=== PATIENT | male | born 1950 | race Caucasian/White ===

== ENCOUNTER → 2019-03-05 11:55 | Outpatient (BNVA) | payer MEDICARE, MEDICAID, SELFPAY | PROVIDERS: Family Provider Nurse Practitioner Family; PCP Nurse Practitioner Family; Visit Provider Nurse Practitioner Family | DX: Z00.00 Encounter for general adult medical examination without abnormal findings (principal); E11.39 Type 2 diabetes mellitus with other diabetic ophthalmic complication; I10 Essential (primary) hypertension; E78.2 Mixed hyperlipidemia; H66.93 Otitis media, unspecified, bilateral; E55.9 Vitamin D deficiency, unspecified; H61.23 Impacted cerumen, bilateral | CPT/HCPCS: 36415; 80053; 80061; 81001; 82306; 83036; 84443; 85025 ==

== ENCOUNTER → 2019-03-11 13:26 | Outpatient (BNVA) | payer MEDICARE, MEDICAID, SELFPAY | PROVIDERS: Family Provider Nurse Practitioner Family; PCP Nurse Practitioner Family; Referring Provider Nurse Practitioner Family; Visit Provider Otolaryngology | DX: H65.01 Acute serous otitis media, right ear (principal); H90.71 Mixed conductive and sensorineural hearing loss, unilateral, right ear, with unrestricted hearing on the contralateral side; J32.9 Chronic sinusitis, unspecified; J34.2 Deviated nasal septum | CPT/HCPCS: 96372; 99214; J3301 ==

== ENCOUNTER 2019-03-22 14:35 | Outpatient (CLI) | payer MEDICARE, MEDICAID, SELFPAY ==
--- NOTE | 2019-03-22 15:00 | CT_ITS ---
WS: [id number] CT TEMPORAL BONES WITHOUT CONTRAST HISTORY: Otalgia TECHNIQUE: Axial 1.25 mm imaging is performed through the temporal bones. High resolution 0.63 mm ref ormats were then submitted in axial, coronal and sagittal planes. DLP: 834.[address] scans at [facility] use at least one of these dose optimization techniques: automat ed exposure control; mA and/or kV adjustment per patient size (includes targeted exams where dose is matched to clinical indication); or iterative reconstruction. COMPARISON: None available. Opacification of the large portion of the RIGHT mastoid air cells with extension into the internal au ditory canal. Partial destruction of the mastoid air cells with extension of soft tissue into the int ernal auditory canal. Soft tissue extends into the mesotympanum. Small amount of soft tissue adjacent to the inner ear ossicles. No erosion of the scutum. LEFT mastoid air cells are clear. No soft tissue along the internal or external auditory canal on the RIGHT. CT/CT temporal bone wo con* [id number] IMPRESSION: Extensive opacification in the RIGHT mastoid air cells with extension into the mesotympanum and adjacent inner ear ossicles. Favor otomastoiditis. Atypical ch olesteatoma should be considered within the differential.
== END 2019-03-22 14:36 | disposition home or self-care (01) ==
LOC: RADWPI 14:39
PROVIDERS: Family Provider Nurse Practitioner Family; PCP Nurse Practitioner Family; Visit Provider Otolaryngology
DX: H92.09 Otalgia, unspecified ear (principal)
CPT/HCPCS: 70480

== ENCOUNTER → 2019-03-29 12:48 | Outpatient (BNVA) | payer MEDICARE, MEDICAID, SELFPAY | PROVIDERS: Family Provider Nurse Practitioner Family; PCP Nurse Practitioner Family; Visit Provider Otolaryngology | DX: H90.71 Mixed conductive and sensorineural hearing loss, unilateral, right ear, with unrestricted hearing on the contralateral side (principal); H65.31 Chronic mucoid otitis media, right ear; J34.2 Deviated nasal septum | CPT/HCPCS: 99214 ==

== ENCOUNTER → 2019-04-02 12:23 | Outpatient (BNVA) | payer MEDICARE, MEDICAID, SELFPAY | PROVIDERS: Family Provider Nurse Practitioner Family; PCP Nurse Practitioner Family; Visit Provider Nurse Practitioner Family | DX: I10 Essential (primary) hypertension (principal) | CPT/HCPCS: 80053 ==

== ENCOUNTER → 2019-04-26 12:51 | Outpatient (BNVA) | payer MEDICARE, MEDICAID, SELFPAY | PROVIDERS: Family Provider Nurse Practitioner Family; PCP Nurse Practitioner Family; Visit Provider Otolaryngology | DX: J34.2 Deviated nasal septum (principal); H90.71 Mixed conductive and sensorineural hearing loss, unilateral, right ear, with unrestricted hearing on the contralateral side; H65.31 Chronic mucoid otitis media, right ear | CPT/HCPCS: 99214 ==

== ENCOUNTER 2019-05-05 07:19 | Day surgery (SDC) | payer MEDICARE, MEDICAID, SELFPAY ==
[2019-05-04 11:50] VITALS: BMI 37.0
[2019-05-05 08:16] VITALS: BP 165/78; PULSE 61; RESP 18; TEMP 36.2; O2SAT 94
--- NOTE | 2019-05-05 08:18 | P.ANESASSM_ITS ---
Pre-Anesthetic Assessment Pre-Anesthetic Assessment: Height/Weight: Height 1.65 m Weight 101.151 kg Pulse Resp BP Pulse Ox 61 18 165/78 94 05/05/19 08:16 05/05/19 08:16 05/05/19 08:16 05/05/19 08:16 Preop Diagnosis: csom Proposed Procedure: Operation Date: 05/05/19 10:15 Proposed Procedures p Myringotomy and Tubes [id number] H65.31(Right) - Jax Ferrara MD Last Intake: 15:30 Exam: Pre-Anes Outpt Exam: alert, oriented x 3, clear to auscultation bilaterally and regular rate & rhythm Airway: Submandibular: Other Cervical ROM: Other MP: 4 (grade !V airway) Pulmonary: Pulmonary: Sleep apnea CV/HEM: CV/HEM: CAD and DC Comments: 18 CABG x 3, stent to RCA Metabolic: Metabolic: DM and Morbid obesity Comments: rx'd x 20y, normally does not follow Anesthetic Plan: ASA status: 3 Anesthesia: General PFSH Anesthesia PFSH: Medical History (Updated 04/26/19 @ 20:35 by Keith Willoughby MD) CAD (coronary artery disease) Chronic secretory otitis media Diabetes Patient has been care home diabetic with 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 He cannot manage insulin at home and is currently controlled with Ozempic weekly. Essential hypertension Patient is currently well controlled with antihypertensives FH: CABG (coronary artery bypass surgery) Hyperlipidemia STEMI (ST elevation myocardial infarction) Vitamin D deficiency Patient has history of Vitamin D deficiency and take home D3 supplement Social History Smoking and tobacco status: never smoked Second hand smoke exposure: No Data Anesthesia Cardiac Studies: No Data to Display
--- NOTE | 2019-05-05 08:34 | W.PM.OPSUD ---
Surgery/Procedure H&P Update DATE OF PROCEDURE: May 05, 2019 DATE H&P PERFORMED: 04/30/19 H&P UPDATE INFORMATION: I have reviewed H&P completed within last 30 days, I have examined patient prior to procedure and No changes to prior documentation PREOP DIAGNOSIS: csom PLANNED PROCEDURE: Operation Date: 05/05/19 10:15 Proposed Procedures p Myringotomy and Tubes [id number] H65.31(Right) - Jax Ferrara MD
[2019-05-05] MEDS: sodium chloride 0.9% 1,000 ML 30 ML IV (08:35)
--- NOTE | 2019-05-05 08:41 | PM.OP ---
Operative Report Date of procedure: May 05, 2019 Pre-op Diagnosis: csom Post-op diagnosis: same Procedure Done: right myringotomy and tube Pathology: none sent Surgeon: Jax Ferrara Anesthesia: General Complications: none Condition: stable Disposition: PACU Procedure: The patient was taken to the operating room and under satisfactory general mask anesthesia the right ear was examined using the binocular microscope. Cerumen was removed from the external auditory canal. A radial incision was made in the anterior inferior quadrant of the tympanic membrane. Fluid was suctioned from the middle ear space and a #1 Paparella tube was placed. The patient was taken to the recovery room where they were observed. During the observation period postoperative care instructions and counseling including detailed written and verbal instructions given to the caregiver. Once the patient met discharge criteria and once all parties verbalized understanding of all instructions the patient was discharged in satisfactory and stable condition.
[2019-05-05 08:46] LABS: Glucose Point of Care 143 mg/dL (70-110)
[2019-05-05] MEDS: ofloxacin 0.3% Op Soln 5 mL Btl 4 DROP XX (08:51)
[2019-05-05 08:55] VITALS: BP 164/92; PULSE 60; RESP 18; TEMP 36.4; O2SAT 96
[2019-05-05 09:13] VITALS: BP 174/86; PULSE 62; RESP 18; O2SAT 96
== END 2019-05-05 09:33 | disposition home or self-care (01) ==
PROVIDERS: Family Provider Nurse Practitioner Family; PCP Nurse Practitioner Family; Visit Provider Otolaryngology
PROC: (CPT 69420; principal; 2019-05-05 10:05)
DX: H65.31 Chronic mucoid otitis media, right ear (principal); G47.30 Sleep apnea, unspecified; I25.10 Atherosclerotic heart disease of native coronary artery without angina pectoris; I25.2 Old myocardial infarction; E11.9 Type 2 diabetes mellitus without complications; E66.01 Morbid (severe) obesity due to excess calories; Z68.37 Body mass index [BMI] 37.0-37.9, adult; Z95.1 Presence of aortocoronary bypass graft
CPT/HCPCS: 69436; 12345; 36416; 82962; J2001; J2704; J7030

== ENCOUNTER → 2019-07-01 15:00 | Outpatient (BNVA) | payer MEDICARE, MEDICAID, SELFPAY | PROVIDERS: Family Provider Nurse Practitioner Family; PCP Nurse Practitioner Family; Visit Provider Nurse Practitioner Family | DX: R19.7 Diarrhea, unspecified (principal); E78.5 Hyperlipidemia, unspecified; E11.39 Type 2 diabetes mellitus with other diabetic ophthalmic complication; I10 Essential (primary) hypertension; E55.9 Vitamin D deficiency, unspecified | CPT/HCPCS: 74018; 80053; 80061; 81001; 82306; 83036; 84443; 85025 ==

== ENCOUNTER → 2019-07-08 11:19 | Outpatient (BNVA) | payer MEDICARE, MEDICAID, SELFPAY | PROVIDERS: Family Provider Nurse Practitioner Family; PCP Nurse Practitioner Family; Visit Provider Nurse Practitioner Family | DX: E11.9 Type 2 diabetes mellitus without complications (principal); R30.0 Dysuria; E03.9 Hypothyroidism, unspecified; N52.9 Male erectile dysfunction, unspecified | CPT/HCPCS: 81001 ==

== ENCOUNTER → 2019-07-23 11:27 | Outpatient (BNVA) | payer MEDICARE, MEDICAID, SELFPAY | PROVIDERS: Family Provider Nurse Practitioner Family; PCP Nurse Practitioner Family; Visit Provider Nurse Practitioner Family | DX: J30.89 Other allergic rhinitis (principal); S80.219A Abrasion, unspecified knee, initial encounter; E11.9 Type 2 diabetes mellitus without complications | CPT/HCPCS: 80053 ==

== ENCOUNTER → 2019-07-30 12:05 | Outpatient (BNVA) | payer MEDICARE, MEDICAID, SELFPAY | PROVIDERS: Family Provider Nurse Practitioner Family; PCP Nurse Practitioner Family; Visit Provider Nurse Practitioner Family | DX: R25.2 Cramp and spasm (principal); R41.89 Other symptoms and signs involving cognitive functions and awareness | CPT/HCPCS: 80053 ==

== ENCOUNTER → 2019-08-23 11:32 | Outpatient (BNVA) | payer MEDICARE, MEDICAID, SELFPAY | PROVIDERS: Family Provider Nurse Practitioner Family; PCP Nurse Practitioner Family; Visit Provider Nurse Practitioner Family | DX: E11.9 Type 2 diabetes mellitus without complications (principal); E78.5 Hyperlipidemia, unspecified; E55.9 Vitamin D deficiency, unspecified; E03.9 Hypothyroidism, unspecified; Z79.899 Other long term (current) drug therapy; D64.9 Anemia, unspecified; R25.2 Cramp and spasm | CPT/HCPCS: 80053; 80061; 81001; 82306; 83036; 83540; 83721; 83735; 85025 ==

== ENCOUNTER → 2019-09-13 11:30 | Outpatient (BNVA) | payer MEDICARE, MEDICAID, SELFPAY | PROVIDERS: Family Provider Nurse Practitioner Family; PCP Nurse Practitioner Family; Visit Provider Nurse Practitioner Family | DX: D50.9 Iron deficiency anemia, unspecified (principal); E11.9 Type 2 diabetes mellitus without complications; L25.9 Unspecified contact dermatitis, unspecified cause; J30.89 Other allergic rhinitis | CPT/HCPCS: 80053; 81001; 82270; 82728; 83550; 85025 ==

== ENCOUNTER → 2019-11-12 11:48 | Outpatient (BNVA) | payer MEDICARE, MEDICAID, SELFPAY | PROVIDERS: Family Provider Nurse Practitioner Family; PCP Nurse Practitioner Family; Visit Provider Nurse Practitioner Family | DX: E11.9 Type 2 diabetes mellitus without complications (principal) | CPT/HCPCS: 36415; 80053; 81003 ==

== ENCOUNTER → 2019-11-16 10:55 | Outpatient (BNVA) | payer MEDICARE, MEDICAID, SELFPAY | PROVIDERS: Family Provider Nurse Practitioner Family; PCP Nurse Practitioner Family; Visit Provider Nurse Practitioner Family | DX: E11.9 Type 2 diabetes mellitus without complications (principal) | CPT/HCPCS: 36416; 82962 ==

== ENCOUNTER → 2019-11-22 10:39 | Outpatient (BNVA) | payer MEDICARE, MEDICAID, SELFPAY | PROVIDERS: Family Provider Nurse Practitioner Family; PCP Nurse Practitioner Family; Visit Provider Nurse Practitioner Family | DX: E11.8 Type 2 diabetes mellitus with unspecified complications (principal); M72.2 Plantar fascial fibromatosis; M79.673 Pain in unspecified foot; E11.9 Type 2 diabetes mellitus without complications | CPT/HCPCS: 73630; 82947 ==

== ENCOUNTER → 2019-11-26 14:21 | Outpatient (BNVA) | payer MEDICARE, MEDICAID, SELFPAY | PROVIDERS: Family Provider Nurse Practitioner Family; PCP Nurse Practitioner Family; Visit Provider Nurse Practitioner Family | DX: E08.29 Diabetes mellitus due to underlying condition with other diabetic kidney complication (principal) | CPT/HCPCS: 36416; 82962 ==

== ENCOUNTER 2019-12-01 13:24 | Outpatient (CLI) | payer MEDICARE, MEDICAID, SELFPAY ==
--- NOTE | 2019-12-01 13:29 | USCV_ITS ---
Guillermo Saha Age: 69 Gender: M : 1950 Exam Date: 12/01/2019 13:42 Ordering Phys: Michelle Mcintyre APN, APN Technologist: Nima Cruz Exam Location: [facility] [place] Indication: HX WI CAD BP: 175 / 86 HR: 73 Rhythm: Sinus Technical Quality: Poor because of body habitus MEASUREMENTS (Male / Female) Normal Values 2D ECHO LV Diastolic Diameter PLAX 3.6 cm 4.2 - 5.9 / 3.9 - 5.3 cm LV Systolic Diameter PLAX 2.4 cm IVS Diastolic Thickness 1.3 cm 0.6 - 1.0 / 0.6 - 0.9 cm IVS Systolic Thickness 1.2 cm LVPW Diastolic Thickness 1.1 cm 0.6 - 1.0 / 0.6 - 0.9 cm LVPW Systolic Thickness 1.1 cm LVOT Diameter 2.0 cm LV Ejection Fraction 2D Teich 61.5 % LV Ejection Fraction MOD 2C 36.2 % LV Ejection Fraction 2C AL 34.3 % LA Diameter 3.0 cm DOPPLER MV Area PHT 5.0 cm squared Mitral E to A Ratio 0.8 MV E' Velocity 44.5 cm/s Mitral E to MV E' Ratio 10.8 Mitral E to LV E' Lateral Ratio 10.4 Mitral E to LV E' Septal Ratio 11.2 FINDINGS Left Ventricle Normal left ventricular size and systolic function. Regional wall motion abnormalities cannot be assessed because of limited visualization. Mild left ventricular hypertrophy is noted. Grade 1 diastolic dysfunction is present. Right Ventricle Right ventricle is not well visualized. Right Atrium Right atrium is not well visualized. Left Atrium The left atrium is normal in size. Mitral Valve Mitral valve is thickened and has moderate mitral annular calcification. Aortic Valve Not well-visualized. Tricuspid Valve Not well-visualized. Pulmonic Valve Not visualized. Pericardium Normal pericardium without effusion. Aorta Normal ascending aorta dimension. CONCLUSIONS This is technically limited quality study. LV systolic function is normal with EF of 55 to 60%. Grade 1 diastolic dysfunction is noted. Valves are not well visualized. Compared to prior study from 04/16/2016, no significant changes are noted. Sin Eastman MD (Electronically Signed) Final Date: 13 December 2019 18:08 S
== END 2019-12-01 13:25 | disposition home or self-care (01) ==
LOC: US 13:26
PROVIDERS: PCP Nurse Practitioner Family; Visit Provider Nurse Practitioner
DX: I49.3 Ventricular premature depolarization (principal); R06.02 Shortness of breath
CPT/HCPCS: 93306

== ENCOUNTER → 2019-12-13 12:26 | Outpatient (BNVA) | payer MEDICARE, MEDICAID, SELFPAY | PROVIDERS: PCP Nurse Practitioner Family; Visit Provider Family Medicine | DX: E11.8 Type 2 diabetes mellitus with unspecified complications (principal) | CPT/HCPCS: 83036 ==

== ENCOUNTER → 2019-12-21 13:15 | Outpatient (BNVA) | payer MEDICARE, MEDICAID, SELFPAY | PROVIDERS: PCP Nurse Practitioner Family; Visit Provider Internal Medicine | DX: E03.9 Hypothyroidism, unspecified (principal); E11.9 Type 2 diabetes mellitus without complications; E78.5 Hyperlipidemia, unspecified | CPT/HCPCS: 99204 ==

== ENCOUNTER → 2020-03-20 10:50 | Outpatient (BNVA) | payer MEDICAID, SELFPAY | PROVIDERS: PCP Nurse Practitioner Family; Visit Provider Internal Medicine Nephrology | DX: N18.30 Chronic kidney disease, stage 3 unspecified (principal) | CPT/HCPCS: 80069; 82043; 82310; 82570; 83970; 84156; 85025 ==

== ENCOUNTER 2020-03-21 07:00 | Outpatient (CLI) | payer MEDICAID, SELFPAY | END 2020-03-21 08:30 | disposition home or self-care (01) | LOC: LAB 04-03 07:19 | PROVIDERS: PCP Nurse Practitioner Family; Visit Provider Internal Medicine Nephrology | DX: E03.9 Hypothyroidism, unspecified (principal); E11.9 Type 2 diabetes mellitus without complications; E78.5 Hyperlipidemia, unspecified | CPT/HCPCS: 99213 ==

== ENCOUNTER 2020-04-27 09:39 | Outpatient (CLI) | payer MEDICARE, MEDICAID, SELFPAY | END 2020-04-27 09:40 | disposition home or self-care (01) | LOC: WOUND 09:40 | PROVIDERS: PCP Nurse Practitioner Family; Visit Provider Nurse Practitioner Family | DX: E11.621 Type 2 diabetes mellitus with foot ulcer (principal); L97.412 Non-pressure chronic ulcer of right heel and midfoot with fat layer exposed | CPT/HCPCS: 11042; G0463 ==

== ENCOUNTER 2020-05-04 09:41 | Outpatient (CLI) | payer MEDICARE, MEDICAID, SELFPAY | END 2020-05-04 09:42 | disposition home or self-care (01) | LOC: WOUND 09:42 | PROVIDERS: PCP Nurse Practitioner Family; Visit Provider Nurse Practitioner Family | DX: E11.621 Type 2 diabetes mellitus with foot ulcer (principal); L97.412 Non-pressure chronic ulcer of right heel and midfoot with fat layer exposed | CPT/HCPCS: 11042 ==

== ENCOUNTER 2020-05-11 09:38 | Outpatient (CLI) | payer MEDICARE, MEDICAID, SELFPAY | END 2020-05-11 09:39 | disposition home or self-care (01) | LOC: WOUND 09:41 | PROVIDERS: PCP Nurse Practitioner Family; Visit Provider Nurse Practitioner Family | DX: E11.621 Type 2 diabetes mellitus with foot ulcer (principal); L97.412 Non-pressure chronic ulcer of right heel and midfoot with fat layer exposed; I96 Gangrene, not elsewhere classified | CPT/HCPCS: 11042 ==

== ENCOUNTER 2020-05-18 09:21 | Outpatient (CLI) | payer MEDICARE, MEDICAID, SELFPAY | END 2020-05-18 09:22 | disposition home or self-care (01) | LOC: WOUND 09:22 | PROVIDERS: PCP Nurse Practitioner Family; Visit Provider Nurse Practitioner Family | DX: E11.621 Type 2 diabetes mellitus with foot ulcer (principal); L97.412 Non-pressure chronic ulcer of right heel and midfoot with fat layer exposed; I96 Gangrene, not elsewhere classified | CPT/HCPCS: 11042 ==

== ENCOUNTER 2020-05-25 09:49 | Outpatient (CLI) | payer MEDICARE, MEDICAID, SELFPAY | END 2020-05-25 09:50 | disposition home or self-care (01) | LOC: WOUND 09:50 | PROVIDERS: PCP Nurse Practitioner Family; Visit Provider Nurse Practitioner Family | DX: E11.621 Type 2 diabetes mellitus with foot ulcer (principal); L97.412 Non-pressure chronic ulcer of right heel and midfoot with fat layer exposed | CPT/HCPCS: 11042 ==

== ENCOUNTER 2020-06-01 09:40 | Outpatient (CLI) | payer MEDICARE, MEDICAID, SELFPAY | END 2020-06-01 09:41 | disposition home or self-care (01) | LOC: WOUND 09:41 | PROVIDERS: PCP Nurse Practitioner Family; Visit Provider Nurse Practitioner Family | DX: E11.621 Type 2 diabetes mellitus with foot ulcer (principal); L97.412 Non-pressure chronic ulcer of right heel and midfoot with fat layer exposed | CPT/HCPCS: 11042 ==

== ENCOUNTER → 2020-06-09 10:09 | Outpatient (BNVA) | payer MEDICARE, MEDICAID, SELFPAY | PROVIDERS: PCP Nurse Practitioner Family; Visit Provider Nurse Practitioner Family | DX: G44.229 Chronic tension-type headache, not intractable (principal); E11.59 Type 2 diabetes mellitus with other circulatory complications | CPT/HCPCS: 36416; 82962 ==

== ENCOUNTER 2020-06-15 09:55 | Outpatient (CLI) | payer MEDICARE, MEDICAID, SELFPAY | END 2020-06-15 09:56 | disposition home or self-care (01) | LOC: WOUND 09:57 | PROVIDERS: PCP Nurse Practitioner Family; Visit Provider Nurse Practitioner Family | DX: Z09 Encounter for follow-up examination after completed treatment for conditions other than malignant neoplasm (principal) | CPT/HCPCS: 99212 ==

== ENCOUNTER → 2020-12-11 10:59 | Outpatient (BNVA) | payer MEDICARE, MEDICAID, SELFPAY | PROVIDERS: PCP Nurse Practitioner Family; Visit Provider Family Medicine | DX: B35.1 Tinea unguium (principal); L60.0 Ingrowing nail; E11.40 Type 2 diabetes mellitus with diabetic neuropathy, unspecified; E11.59 Type 2 diabetes mellitus with other circulatory complications; M72.2 Plantar fascial fibromatosis | CPT/HCPCS: 80053; 83036 ==

== ENCOUNTER → 2020-12-26 09:48 | Outpatient (BNVA) | payer MEDICARE, MEDICAID, SELFPAY | PROVIDERS: PCP Nurse Practitioner Family; Visit Provider Family Medicine | DX: N17.9 Acute kidney failure, unspecified (principal); E11.59 Type 2 diabetes mellitus with other circulatory complications | CPT/HCPCS: 80053 ==

== ENCOUNTER 2020-12-27 09:01 | Outpatient (CLI) | payer MEDICARE, MEDICAID, SELFPAY | END 2020-12-27 09:02 | disposition home or self-care (01) | LOC: WOUND 09:02 | PROVIDERS: PCP Nurse Practitioner Family; Visit Provider Thoracic Surgery (Cardiothoracic Vascular Surgery) | DX: L85.3 Xerosis cutis (principal) | CPT/HCPCS: G0463 ==

== ENCOUNTER → 2021-01-18 11:26 | Outpatient (BNVA) | payer MEDICARE, MEDICAID, SELFPAY | PROVIDERS: PCP Nurse Practitioner Family; Visit Provider Nurse Practitioner Family | DX: K59.00 Constipation, unspecified (principal) | CPT/HCPCS: 74018 ==

== ENCOUNTER → 2021-09-11 11:25 | Outpatient (BNVA) | payer MEDICAID, SELFPAY | PROVIDERS: PCP Nurse Practitioner Family; Referring Provider Nurse Practitioner Family; Visit Provider Podiatrist Foot & Ankle Surgery | DX: E11.8 Type 2 diabetes mellitus with unspecified complications (principal); E11.59 Type 2 diabetes mellitus with other circulatory complications; E11.42 Type 2 diabetes mellitus with diabetic polyneuropathy; I73.9 Peripheral vascular disease, unspecified; L60.3 Nail dystrophy; M20.42 Other hammer toe(s) (acquired), left foot; M20.41 Other hammer toe(s) (acquired), right foot; M20.32 Hallux varus (acquired), left foot; L85.1 Acquired keratosis [keratoderma] palmaris et plantaris | CPT/HCPCS: 11056; 11721 ==

== ENCOUNTER → 2021-10-08 10:09 | Outpatient (BNVA) | payer MEDICAID, SELFPAY | PROVIDERS: PCP Nurse Practitioner Family; Visit Provider Registered Nurse | DX: N18.31 Chronic kidney disease, stage 3a (principal) | CPT/HCPCS: 80069; 82043; 85007; 85027 ==

== ENCOUNTER → 2021-11-26 10:23 | Outpatient (BNVA) | payer MEDICARE, MEDICAID, SELFPAY | PROVIDERS: PCP Nurse Practitioner; Visit Provider Nurse Practitioner | DX: E11.9 Type 2 diabetes mellitus without complications (principal) | CPT/HCPCS: 83036 ==

== ENCOUNTER → 2021-12-04 10:17 | Outpatient (BNVA) | payer MEDICAID, SELFPAY | PROVIDERS: PCP Nurse Practitioner; Visit Provider Internal Medicine Nephrology | DX: N18.30 Chronic kidney disease, stage 3 unspecified (principal) | CPT/HCPCS: 80069; 81003; 82043; 82542; 85025; 87086 ==

== ENCOUNTER → 2022-02-05 09:23 | Outpatient (BNVA) | payer MEDICARE, MEDICAID, SELFPAY | PROVIDERS: PCP Nurse Practitioner; Visit Provider Nurse Practitioner | DX: E11.9 Type 2 diabetes mellitus without complications (principal) | CPT/HCPCS: 82962 ==

== ENCOUNTER → 2022-02-13 10:29 | Outpatient (BNVA) | payer MEDICARE, MEDICAID, SELFPAY | PROVIDERS: PCP Nurse Practitioner; Visit Provider Internal Medicine Cardiovascular Disease | DX: I25.10 Atherosclerotic heart disease of native coronary artery without angina pectoris (principal); Z95.1 Presence of aortocoronary bypass graft; I13.0 Hypertensive heart and chronic kidney disease with heart failure and stage 1 through stage 4 chronic kidney disease, or unspecified chronic kidney disease; E11.22 Type 2 diabetes mellitus with diabetic chronic kidney disease; N18.30 Chronic kidney disease, stage 3 unspecified; I50.9 Heart failure, unspecified; Z79.84 Long term (current) use of oral hypoglycemic drugs; E78.5 Hyperlipidemia, unspecified | CPT/HCPCS: 99214 ==

== ENCOUNTER → 2022-08-14 12:22 | Outpatient (BNVA) | payer MEDICARE, MEDICAID, SELFPAY | PROVIDERS: PCP Nurse Practitioner; Visit Provider Internal Medicine Cardiovascular Disease | DX: I13.0 Hypertensive heart and chronic kidney disease with heart failure and stage 1 through stage 4 chronic kidney disease, or unspecified chronic kidney disease (principal); N18.9 Chronic kidney disease, unspecified; I50.9 Heart failure, unspecified; I25.10 Atherosclerotic heart disease of native coronary artery without angina pectoris; E11.22 Type 2 diabetes mellitus with diabetic chronic kidney disease; E78.5 Hyperlipidemia, unspecified | CPT/HCPCS: 36415; 80053; 80061; 83036; 84443; 85025; 99214 ==

== ENCOUNTER 2022-08-31 00:25 | Inpatient (IN) | payer MEDICARE, MEDICAID, SELFPAY ==
[2022-08-31] VITALS (75 sets, daily range): BP systolic 90–170; BP diastolic 60–129; PULSE 78–132; RESP 16–37; TEMP 36.6–36.7; O2SAT 86–100; BMI 32.8
--- NOTE | 2022-08-31 00:27 | XRR_ITS ---
PROCEDURE INFORMATION: Exam: XR Chest Exam date and time: 08/31/2022 12:23 AM Age: 72 years old Clinical indication: Chest pressure; Prior surgery; Surgery date: 6+ months; Surgery type: Cabg; Patient HX: Stemi alert. C/O chest pain. History of chf and copd. ; Additional info: Cp TECHNIQUE: Imaging protocol: Radiologic exam of the chest. Views: 1 view. COMPARISON: CR XR chest 2V* [id number] 12/05/2016 8:14 AM FINDINGS: Lungs: Moderate lung expansion. Asymmetric left basal opacities. Additional right basilar opacities. Mild perihilar opacities with septal thickening. Pleural spaces: Small bilateral pleural effusions. No pneumothorax. Heart/Mediastinum: Mild cardiac enlargement. Prominence of the vascular pedicle suggesting elevated intravascular volume. Bones/joints: Intact sternotomy. XR/XR chest 1V portable [id number] IMPRESSION: 1. Asymmetric left basal opacities concerning for pneumonia. Recommend radiographic follow-up imaging in 6-8 weeks to document resolution. Separate morphology right basilar opacities may be on the basis of atelectasis in the setting of small pleural effusion, additional focus of consolidation not excluded. 2. Mild pulmonary edema and small bilateral pleural effusions.
--- NOTE | 2022-08-31 00:27 | ECG_ITS ---
[facility] Test Date: 2022-08-31 Pat Name: Guillermo Saha Department: Room: Gender: Male Cops: : 1950 Requested By: Merlin Hinojosa Order Number: [id number] Cortney MD: Ben Esparza M.D. Measurements Intervals [place] Rate: 131 P: 10 FL: 142 QRS: 28 QRSD: 117 T: 182 QT: 312 QTc: 461 Interpretive Statements SINUS TACHYCARDIA LOW QRS VOLTAGE IN EXTREMITY LEADS [QRS DEFLECTION < 0.5 mV IN LIMB LEADS] INFERIOR MYOCARDIAL INFARCTION , OF INDETERMINATE AGE [40+ ms Q WAVE AND/OR ST/T ABNORMALITY IN II/aVF] Compared to ECG 12/04/2016 05:29:57 Low QRS voltage now present Sinus rhythm no longer present Ventricular premature complex(es) no longer present T-wave abnormality no longer present Possible ischemia no longer present Myocardial infarct finding still present Electronically Signed On 08-31-2022 12:54:45 CDT by Ben Esparza M.D. [id number]
--- NOTE | 2022-08-31 00:36 | CTR_ITS ---
PROCEDURE INFORMATION: Exam: CTA Chest With Contrast Exam date and time: 08/31/2022 1:20 AM Age: 72 years old Clinical indication: Shortness of breath; Chest pressure; Prior surgery; Surgery date: 6+ months; Surgery type: Cabg; Patient HX: Chest pain with SOB, tachycardia, and hypoxia. History of chf and copd. ; Additional info: Hypoxia tachycardia cp TECHNIQUE: Imaging protocol: Computed tomographic angiography of the chest with contrast. Exam focused on the arteries. 3D rendering (Not supervised by radiologist): MIP and/or 3D reconstructed images were created by the technologist. Radiation optimization: All CT scans at this facility use at least one of these dose optimization techniques: automated exposure control; mA and/or kV adjustment per patient size (includes targeted exams where dose is matched to clinical indication); or iterative reconstruction. Contrast material: OMNI 350; Contrast volume: 65 ml; Contrast route: INTRAVENOUS (IV); REPORTING DATA: Count of CT and Cardiac NM exams in prior 12 months: This patient has received 0 known CTs and 0 known cardiac nuclear medicine studies in the 12 months prior to the current study. COMPARISON: CT angio chest PE protcl [id number] 12/03/2016 10:25 AM RADIATION DOSE METRICS: Total DLP (mGy-cm): 523.76 FINDINGS: Pulmonary arteries: Main pulmonary artery is borderline dilated . Pulmonary arteries are well opacified to the mid subsegmental level. Limited evaluation of subsegmental pulmonary arteries in the lung bases secondary to significant respiratory motion artifact. No definite pulmonary artery filling defects seen. Aorta: Mild atherosclerotic calcification of the thoracic aorta and arch vessels. Lungs: Prominent peribronchial thickening. Interlobular septal thickening. Mixed atelectasis/consolidation in the right lower lobe. Ill-defined nodularity and opacities within the lingula. Left lower lobe consolidation. Pleural spaces: Small bilateral pleural effusions. No pneumothorax. Heart: Left atrial enlargement. Prominent mitral valve annulus calcifications. Coronary arteries: Severe [place] coronary artery calcifications. Status post CABG with FIGUEROA and saphenous venous grafting. Lymph nodes: Conspicuous but subcentimeter lymph nodes in the mediastinum. Calcified left hilar lymph nodes suggesting sequela of prior granulomatous disease. Diaphragm: Mild elevation of the left hemidiaphragm. Spleen: Punctate calcified granuloma the spleen. Adrenal glands: Stable low-density left adrenal thickening without discrete nodule. Subcentimeter hyperdensity at the left superior renal pole, likely hemorrhagic cyst. Bones/joints: Intact sternotomy. Soft tissues: Unremarkable. CT/CT angio chest PE protcl [id number] IMPRESSION: 1. Limited assessment of the subsegmental pulmonary arteries of the lung bases secondary to significant respiratory motion artifact. Otherwise, no evidence of acute pulmonary embolism. 2. Findings of multifocal pneumonia. 3. Mild interstitial pulmonary edema and small bilateral pleural effusions. COMMENTS: Consistent with the [employer]'s Incidental Findings Committee white paper (J Am Elva Radiol 2018): Any incidental renal lesion less than 1 cm or classified as too small to characterize, or any incidental cystic renal lesion characterized as simple-appearing, is likely benign. No follow-up imaging is recommended for these lesions per consensus recommendations based on imaging criteria.
[2022-08-31] MEDS: nitroglycerin drip 50 MG/250 ML PREMIX IV (00:46)
[2022-08-31 00:47] LABS: ABG PCO2 43.4 mmHg (35-45); ABG PH Result 7.26 (7.35-7.45); Arterial Blood Gas Hematocrit 45.2 % (42-52); Base Excess ABG -7.3 mmol/L (-2.0-2.0); Blood Gas Allen Test Pos; Blood Gas Sample Type Arterial; HCO3 ABG 19.6 mmol/L (22-26)
[2022-08-31 00:48] LABS: Blood Gas Sample Site Radial, left; Oxygen Device BIPAP
[2022-08-31 00:49] LABS: Basophils # 0.1 10^3/uL (0.0-0.1); Basophils % 0.4 %; Eosinophils # 0.2 10^3/uL (0.0-0.8); Eosinophils % 1.1 %; Hematocrit 47.2 % (42.0-52.0); Hemoglobin 14.3 g/dL (11.7-16.6); Mean Corpuscular HGB Conc 30.3 g/dL (30.0-36.0); Mean Corpuscular Hemoglobin 28.6 pg (28.0-34.0); Mean Corpuscular Volume 94.4 fl (80-94); Mean Platelet Volume 11.3 fL (7.4-10.4); Monocytes # 0.8 10^3/uL (0.2-0.9); Monocytes % 3.7 %; Neutrophils % 75.8 %; Nucleated Red Blood Cells % 0 %; Platelet Count 452 10^3/cmm (130-400); Red Cell Distribution Width 14.8 % (12.1-15.1); White Blood Count 22.4 10^3/uL (4.0-10.0)
[2022-08-31] MEDS: FUROsemide 10 mg/mL SDV 10mL 80 MG IVP (00:58)
--- NOTE | 2022-08-31 01:03 | ED_ITS ---
HPI - Chest Pain General: Chief Complaint: Chest Pain Stated Complaint: CP Time Seen by Provider: 08/31/22 00:26 Source: patient History of Present Illness: 72-year-old gentleman with a history of coronary disease and heart failure as well as COPD. He has had chest pain this evening, starting at home at rest. His phone was out, so he drove then walked to a friend's house, and was significantly short of breath when he got there. On EMS arrival, he had ST wave changes in his inferior leads on EKG, and STEMI alert was called in the field. He has had aspirin, 3 nitroglycerin, nitroglycerin paste with decrease in his pain down to a 3 out of 10. He is requiring significant amount of oxygen, nonrebreather mask satting 90%. MD complaint: chest pain Pertinent past history: coronary artery disease and other Onset (ago): hour(s) Timing of current episode: constant Prior episodes: Yes Onset: during rest Pain location: substernal Pain radiation: none Quality: heaviness Relieving factors: nitroglycerin Associated symptoms: Reports dyspnea, leg edema, nausea and sense of impending doom; Deny abdominal pain or fever(s) Treatment prior to arrival: aspirin, nitroglycerin and oxygen Review of Systems Const: Denies: fever(s) ENMT: Denies: throat pain Card: Reports: chest pain Resp: Reports: dyspnea GI: Reports: nausea; Denies: abdominal pain PFS ED PFSH: Medical History Acute bacterial pharyngitis Anxiety Atherosclerotic heart disease of [place] coronary artery without angina pectoris CAD (coronary artery disease) Cellulitis of foot CHF (congestive heart failure) Chronic idiopathic constipation Chronic kidney disease, stage 3 unspecified Chronic secretory otitis media CKD (chronic kidney disease) Contact dermatitis Cough Cracked skin on feet Diabetes Patient has been intermediate diabetic with 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 He cannot manage insulin at home and is currently controlled with Ozempic weekly and oral meds. Diabetic foot Diarrhea Dysuria Environmental and seasonal allergies Environmental and seasonal allergies Essential hypertension Patient is currently well controlled with antihypertensives FH: CABG (coronary artery bypass surgery) Foot callus Foot callus GERD (gastroesophageal reflux disease) H/O: GI bleed Headache Hyperlipidemia Hypothyroid Impaired cognitive ability Iron deficiency anemia Knee abrasion Mild intellectual disability Muscle cramps Patellofemoral dysfunction of right knee Polyneuropathy, unspecified Renal calculus, right STEMI (ST elevation myocardial infarction) Vitamin D deficiency Patient has history of Vitamin D deficiency and take home D3 supplement Wound of foot Surgical History Aortocoronary bypass status Family History Mother Diabetes Alzheimer's dementia Brother Epileptic seizure Social History Smoking and tobacco status: never smoked Second hand smoke exposure: No Alcohol intake: current Physical Exam Const: GENERAL APPEARANCE: cooperative, ill appearing, frail appearing and diaphoretic HENMT: COMMON NORMALS: normocephalic and atraumatic HEAD & SCALP: normocephalic and atraumatic Eye: COMMON NORMALS: Equal, round and reactive pupils present and EOMs intact bilaterally PUPIL: Yes Equal, round and reactive pupils present Neck/C-Spine: GENERAL: Yes trachea midline Chest: CHEST: Yes Symmetrical chest wall rise and No tenderness Resp: COMMON NORMALS: clear to auscultation bilaterally EFFORT & INSPECTION: Yes tachypneic and Yes decreased respiratory effort AUSCULTATION: clear to auscultation bilaterally Cardio: COMMON NORMALS: regular rate and regular rhythm RATE: regular rate RHYTHM: regular rhythm GI: COMMON NORMALS: Normal to inspection, nondistended, normoactive bowel sounds present and Soft to palpation PALPATION: Yes Soft to palpation and No Tenderness to palpation present (GI) Extremity: GENERAL: Yes edema Neuro: LENARD COMA SCALE: document GCS findings Lenard coma scale eye o pening: Spontaneous Lenard coma scale verbal response: Orientated Lenard coma scale motor response: Obey commands Lenard coma scale total score: 15 Course Vital Signs: Vital signs: Vital Signs Temperature 98 F 08/31/22 03:02 Pulse Rate 95 08/31/22 04:15 Respiratory Rate 30 H 08/31/22 04:15 Blood Pressure 118/60 08/31/22 04:15 Pulse Oximetry 93 08/31/22 04:15 Oxygen Delivery Me thod BiPAP 08/31/22 02:44 Fraction of Inspir ed Oxygen 80 08/31/22 04:00 MDM - Chest Pain Medical Decision Making Patient was placed on BiPAP on arrival. Oxygen saturations are now above 95%, but he is requiring an FiO2 of 0.8 to get there. EKG shows sinus tachycardia with a normal axis, normal intervals, rate of 130, and no acute ST elevation here. ST elevation noticed in the field in the inferior leads was only and PVCs that were quite prominent on their findings. With resolution of PVCs, there is no longer any ST wave change. His white blood cell count is 22. Platelet count is slightly elevated. Blood gas shows a pH of 7.26 with a PCO2 of 43 and a PO2 of 101 on 80% oxygen. His bicarb is 17. BMP shows a blood glucose of 524, serum ketones are negative. Potassium is 4.7. Bicarbonate is confirmed at 17. Chest x-ray shows a dense left-sided pneumonia. CTA shows multifocal pneumonia and pulmonary edema with no central PE. Spoke with the hospitalist. This patient will go to the unit. He is on a nitroglycerin drip for hypertension, he remains tachycardic. Obviously with elevation in blood pressure and pulmonary edema on chest x-ray, he will not be given a sepsis bolus. His first troponin is 74. Second 1 is pending. He is given vancomycin and Zosyn after blood cultures here. Respiratory panel is pending. Spoke with hospitalist. She will see the patient in the ER. He will go to ICU. Lab Data 08/30/22 23:30 08/30/22 23:30 Radiology Impressions Chest X-Ray 08/31/22 00:27 IMPRESSION: 1. Asymmetric left basal opacities concerning for pneumonia. Recommend radiographic follow-up imaging in 6-8 weeks to document resolution. Separate morphology right basilar opacities may be on the basis of atelectasis in the setting of small pleural effusion, additional focus of consolidation not excluded. 2. Mild pulmonary edema and small bilateral pleural effusions. ADDENDUM: 08/31/22 0140 THIS REPORT CONTAINS FINDINGS THAT MAY BE CRITICAL TO PATIENT CARE. The findings were verbally communicated via telephone conference with MERLIN Rehman at 1:39 AM CDT on 08/31/2022. The findings were acknowledged and understood. Chest CTA 08/31/22 00:36 IMPRESSION: 1. Limited assessment of the subsegmental pulmonary arteries of the lung bases secondary to significant respiratory motion artifact. Otherwise, no evidence of acute pulmonary embolism. 2. Findings of multifocal pneumonia. 3. Mild interstitial pulmonary edema and small bilateral pleural effusions. COMMENTS: Consistent with the [place] [employer]'s Incidental Findings Committee white paper (J Am Elva Radiol 2018): Any incidental renal lesion less than 1 cm or classified as too small to characterize, or any incidental cystic renal lesion characterized as simple-appearing, is likely benign. No follow-up imaging is recommended for these lesions per consensus recommendations based on imaging criteria. Laboratory Results WBC 22.4 10^3/uL (4.0-10.0) H 08/30/22 23:30 RBC 5.00 10^6/uL (4.1-5.3) 08/30/22 23:30 Hgb 14.3 g/dL (11.7-16.6) 08/30/22 23:30 Hct 47.2 % (42.0-52.0) 08/30/22 23:30 MCV 94.4 fl (80-94) H 08/30/22 23:30 MCH 28.6 pg (28.0-34.0) 08/30/22 23:30 MCHC 30.3 g/dL (30.0-36.0) 08/30/22 23:30 RDW 14.8 % (12.1-15.1) 08/30/22 23:30 Plt Count 452 10^3/cmm (130-400) H 08/30/22 23:30 MPV 11.3 fL (7.4-10.4) H 08/30/22 23:30 Neut % (Auto) 75.8 % 08/30/22 23:30 Lymph % (Auto) 18.0 % 08/30/22 23:30 [place] % (Auto) 3.7 % 08/30/22 23:30 Eos % (Auto) 1.1 % 08/30/22 23:30 Baso % (Auto) 0.4 % 08/30/22 23:30 Neut # (Auto) 17.00 10^3/uL (1.8-7.7) H 08/30/22 23:30 Lymph # (Auto) 4.0 10^3/uL (0.8-4.8) 08/30/22 23:30 [place] # (Auto) 0.8 10^3/uL (0.2-0.9) 08/30/22 23:30 Eos # (Auto) 0.2 10^3/uL (0.0-0.8) 08/30/22 23:30 Baso # (Auto) 0.1 10^3/uL (0.0-0.1) 08/30/22 23:30 Nucleated RBC % (auto) 0 % 08/30/22 23:30 Nucleated RBCs # 0.0 /100WBC 08/30/22 23:30 PT 12.80 SECONDS (12.1-14.9) 08/31/22 00:53 INR 0.94 (0.8-1.2) 08/31/22 00:53 APTT 25.9 SECONDS (23.9-36.7) 08/31/22 00:53 Specimen Type Arterial 08/31/22 00:37 Sample Site Radial, left 08/31/22 00:37 ABG pH 7.26 (7.35-7.45) L 08/31/22 00:37 ABG pCO2 43.4 mmHg (35-45) 08/31/22 00:37 ABG pO2 101.0 mmHg (80.0-100.0) H 08/31/22 00:37 ABG HCO3 19.6 mmol/L (22-26) L 08/31/22 00:37 ABG Base Excess -7.3 mmol/L (-2.0-2.0) L 08/31/22 00:37 Sulaiman Test Pos 08/31/22 00:37 Hematocrit 45.2 % (42-52) 08/31/22 00:37 O2 Delivery Device Bipap 08/31/22 00:37 FiO2 80.0 % 08/31/22 00:37 PEEP 10.0 cmH20 08/31/22 00:37 Auto Body Straightener ID [email or web address] 08/31/22 00:37 Sodium 133 mmol/L (136-145) L 08/30/22 23:30 Potassium 4.7 mmol/L (3.5-5.1) 08/30/22 23:30 Chloride 93 mmol/L (98-107) L 08/30/22 23:30 Carbon Dioxide 17 mmol/L (22-29) L 08/30/22 23:30 Anion Gap 27.7 (5-19) H 08/30/22 23:30 BUN 36 mg/dL (8-23) H 08/30/22 23:30 Creatinine 2.5 mg/dL (0.7-1.2) H 08/30/22 23:30 GFR Calculation Not Reportable 08/30/22 23:30 Glucose 524 mg/dL (65-115) H* 08/30/22 23:30 Calculated Osmolality 308 mOsm/kg (285-295) H 08/30/22 23:30 Lactic Acid 3.7 mmol/L (0.5-2.2) H 08/31/22 00:53 Calcium 8.9 mg/dL (8.5-10.5) 08/30/22 23:30 Total Bilirubin 0.2 mg/dL (0.15-1.2) 08/30/22 23:30 AST 42 U/L (0-40) H 08/30/22 23:30 ALT 40 U/L (0-41) 08/30/22 23:30 Alkaline Phosphatase 133 U/L (40-130) H 08/30/22 23:30 Creatine Kinase 80 U/L (39-308) 08/30/22 23:30 Troponin T Baseline 74 ng/L (0-15) H 08/30/22 23:30 Troponin T 120 Minute 374.3 ng/L (0-15) H 08/31/22 01:30 Delta Troponin T 300.3 ABS# (0-10) H* 08/31/22 01:30 NT-Pro-B Natriuret Pep 2032 pg/mL (0-125) H 08/30/22 23:30 Total Protein 7.6 g/dL (6.6-8.7) 08/30/22 23:30 Albumin 4.2 g/dL (3.5-5.2) 08/30/22 23:30 Globulin 3.4 g/dL (1.3-4.6) 08/30/22 23:30 Nasal Influ A H1 2008 PCR Not detected (NOT DETECT) 08/31/22 01:08 Serum Ketones Negative (Negative) 08/31/22 01:38 Adenovirus (PCR) Not detected (NOT DETECT) 08/31/22 01:08 C. pneumoniae DNA (PCR) Not detected (NOT DETECT) 08/31/22 01:08 Coronavirus 229E (PCR) Not detected (NOT DETECT) 08/31/22 01:08 Human Metapneumovir PCR Not detected (NOT DETECT) 08/31/22 01:08 Influenza A (H1) PCR Not detected (NOT DETECT) 08/31/22 01:08 Influenza A (H3) PCR Not detected (NOT DETECT) 08/31/22 01:08 Influenza Type A (PCR) Not detected (NOT DETECT) 08/31/22 01:08 Influenza Type B (PCR) Not detected (NOT DETECT) 08/31/22 01:08 M. pneumoniae (PCR) Not detected (NOT DETECT) 08/31/22 01:08 Parainfluenza 1 (PCR) Not detected (NOT DETECT) 08/31/22 01:08 Parainfluenza 2 (PCR) Not detected (NOT DETECT) 08/31/22 01:08 Parainfluenza 3 (PCR) Not detected (NOT DETECT) 08/31/22 01:08 Parainfluenza 4 (PCR) Not detected (NOT DETECT) 08/31/22 01:08 RSV Type A (PCR) Not detected (NOT DETECT) 08/31/22 01:08 RSV Type B (PCR) Not detected (NOT DETECT) 08/31/22 01:08 Entero/Rhino (PCR) Not detected (NOT DETECT) 08/31/22 01:08 SARS-CoV-2 (PCR) Not detected (NOT DETECT) 08/31/22 01:08 Critical Care Time Critical Care Time: Critical Care Time: Yes Total Critical Care Time: 40 Attestation: This case had a high probability of a clinically significant, sudden, or life threatening deterioration of this patient's condition which required my full and direct attention, intervention and personal management. Time is independent of any procedures performed. 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
[2022-08-31 01:10] LABS: Troponin(5th) Baseline 74 ng/L (0-15)
[2022-08-31 01:15] LABS: Alanine Aminotransferase 40 U/L (0-41); Albumin Level 4.2 g/dL (3.5-5.2); Alkaline Phosphatase 133 U/L (40-130); Anion Gap 27.7 (5-19); Aspartate Amino Transferase 42 U/L (0-40); Blood Urea Nitrogen 36 mg/dL (8-23); Calcium 8.9 mg/dL (8.5-10.5); Carbon Dioxide 17 mmol/L (22-29); Chloride 93 mmol/L (98-107); Creatine Phosphokinase 80 U/L (39-308); Globulin 3.4 g/dL (1.3-4.6); NT Pro B Type Natriuretic Pept 2032 pg/mL (0-125); Osmolality Calculated 308 mOsm/kg (285-295); Potassium 4.7 mmol/L (3.5-5.1); Sodium 133 mmol/L (136-145); Total Bilirubin 0.2 mg/dL (0.15-1.2); Total Protein 7.6 g/dL (6.6-8.7)
[2022-08-31 01:23] LABS: Glucose 524 mg/dL (65-115)
[2022-08-31 01:25] LABS: INR 0.94 (0.8-1.2)
[2022-08-31 01:26] LABS: Partial Thromboplastin Time 25.9 SECONDS (23.9-36.7)
[2022-08-31 01:28] LABS: Lactic Sepsis W/Reflex 3.7 mmol/L (0.5-2.2)
[2022-08-31] MEDS: iohexol 350 mg/mL 500 mL Btl (per mL) IV (01:28)
[2022-08-31] MEDS: insulin regular-human 100 units/1 mL 10 UNIT IVP (01:47)
[2022-08-31 01:53] LABS: Ketone (Acetest) Serum Negative (Negative)
[2022-08-31] MEDS: piperacillin-tazobactam 4.5 GM in sodium chloride 0.9% (plus) 50 ML IV (01:54)
[2022-08-31 02:17] LABS: Troponin 5 2HR 374.3 ng/L (0-15); Troponin 5 2HR Delta 300.3 ABS# (0-10)
[2022-08-31] MEDS: metoprolol tartrate 1 mg/1 mL SDV 5 mL 5 MG IVP (02:17)
[2022-08-31] MEDS: vancomycin 1,250 MG/250 ML PIGGYBACK 250 MG IV (02:17)
--- NOTE | 2022-08-31 02:27 | ECG_ITS ---
[facility] Test Date: 2022-08-31 Pat Name: Guillermo Saha Department: Room: ICU11 Gender: Male Grades 9 12 Tutor: : 1950 Requested By: Merlin Hinojosa Order Number: [id number] Cortney MD: Ben Esparza M.D. Measurements Intervals [place] Rate: 98 P: 19 CA: 163 QRS: 22 QRSD: 135 T: 143 QT: 371 QTc: 475 Interpretive Statements SINUS RHYTHM WITH OCCASIONAL VENTRICULAR PREMATURE COMPLEXES POSSIBLE LEFT ATRIAL ENLARGEMENT [-0.1mV P-WAVE IN V1/V2] INTRAVENTRICULAR CONDUCTION DELAY [130+ ms QRS DURATION] INFERIOR MYOCARDIAL INFARCTION , PROBABLY OLD [40+ ms Q WAVE AND/OR ST/T ABNORMALITY IN II/aVF] Compared to ECG 08/31/2022 00:28:45 Ventricular premature complex(es) now present Intraventricular conduction delay now present Sinus tachycardia no longer present Myocardial infarct finding still present Electronically Signed On 08-31-2022 12:57:29 CDT by Ben Esparza M.D. [id number]
[2022-08-31 02:51] LABS: Reflex Lactate Order REFLEX LACTIC ORDERD
[2022-08-31 03:18] LABS: Adenovirus Not Detected (NOT DETECT); Chlamydia Pneumoniae Not Detected (NOT DETECT); Coronavirus 229E,HKU1,NL63,OC4 Not Detected (NOT DETECT); Human Metapneumovirus Not Detected (NOT DETECT); Human Rhinovirus/Enterovirus Not Detected (NOT DETECT); Influenza A Not Detected (NOT DETECT); Influenza A H1 Not Detected (NOT DETECT); Influenza A H1-2009 Not Detected (NOT DETECT); Influenza A H3 Not Detected (NOT DETECT); Influenza B Not Detected (NOT DETECT); Mycoplasma Pneumoniae Not Detected (NOT DETECT); Parainfluenza Virus Type 1 Not Detected (NOT DETECT); Parainfluenza Virus Type 2 Not Detected (NOT DETECT); Parainfluenza Virus Type 3 Not Detected (NOT DETECT); Parainfluenza Virus Type 4 Not Detected (NOT DETECT); Respiratory Syncytial Virus A Not Detected (NOT DETECT); Respiratory Syncytial Virus B Not Detected (NOT DETECT); SARS-COV-2 Not Detected (NOT DETECT)
--- NOTE | 2022-08-31 03:59 | USCV_ITS ---
Guillermo Saha Age: 72 Gender: M : 1950 Exam Date: 08/31/2022 13:19 Ordering Phys: Rukhsana Oliveros MD Technologist: REINA Exam Location: [facility] Indication: nstemi BP: / HR: 93 Rhythm: Sinus Technical Quality: Adequate MEASUREMENTS (Male / Female) Normal Values 2D ECHO LV Ejection Fraction MOD 2C 31.8 % LV Ejection Fraction 2C AL 31.9 % DOPPLER AV Peak Velocity 97.0 cm/s LVOT Peak Velocity 67.0 cm/s MV Area PHT 7.9 cm squared Mitral E to A Ratio 1.1 MV E' Velocity 40.0 cm/s Mitral E to MV E' Ratio 11.7 Mitral E to LV E' Lateral Ratio 11.3 Mitral E to LV E' Septal Ratio 12.3 TV Peak E Velocity 47.0 cm/s FINDINGS Left Ventricle Normal left ventricular size with a slightly diminished ejection fraction, EF50% (visual).. Mild diffuse hypokinesia of the inferior wall was noted Right Ventricle The right ventricle is normal in size and function. Right Atrium The right atrium is normal in size. Left Atrium Mildly increased left atrial size. Mitral Valve Mild mitral valve regurgitation. Moderate mitral annular calcification Aortic Valve No gross abnormalities noted Tricuspid Valve Somewhat difficult to visualize. No gross abnormalities noted Pulmonic Valve Pulmonic valve not well visualized. Pericardium Normal pericardium without effusion. Aorta Normal ascending aorta dimension. IVC Normal inferior vena cava. CONCLUSIONS Normal left ventricular size slightly diminished ejection fraction, EF 50 % (visual).. Wall motion of normalities as mentioned above Mild mitral valve regurgitation. Moderate mitral annular calcification. Mildly increased left atrial size. There is no pericardial effusion. There is no pericardial effusion. Compared to the study from 12/01/2019, there is slight drop in the LV ejection fraction Dr Ben Esparza MD [facility] (Electronically Signed) Final Date: 31 August 2022 15:16 S
[2022-08-31 04:13] LABS: Glucose Point of Care 439 mg/dL (70-110)
[2022-08-31 04:38] LABS: Lactic Acid level (Lactate) 3.3 mmol/L (0.5-2.2)
[2022-08-31] MEDS: clopidogrel 300 mg Tablet PO (05:09)
[2022-08-31] MEDS: aspirin 81 mg Chew Tablet 324 MG PO (05:09)
[2022-08-31] MEDS: atorvastatin 40 mg Tablet 80 MG PO (05:09)
--- NOTE | 2022-08-31 05:14 | P.HP_ITS ---
Providers/Chief Complaint Admitting Physician: Rukhsana Oliveros MD Primary Care Provider: Elza Peralta APN Chief Complaint: CP History of Present Illness Guillermo Saha is a 72 year old male With a past medical history of coronary artery disease status post CABG x3 who presents to the emergency room with complaints of chest pain. Patient was at home and suddenly started to have chest pain. Pain is located in the middle of the chest, nonradiating. He walked over to a friend's house where his friend called EMS. He was found to be in respiratory distress, initially EMS reported a STEMI alert however upon arrival to the emergency room he did not have any ST elevation. He was significantly short of breath. CTA and chest x-ray showed bilateral pulmonary edema and infiltrates concerning for pneumonia. He was started on a nitroglycerin infusion and placed on BiPAP for respiratory support. At the time of my assessment patient is on BiPAP, history is limited due to patient being on BiPAP. Since starting the nitroglycerin reports that his pain is significantly improved. His baseline troponin was at 74, increasing it to hours to 374 with a delta of over 300. He denies any fever cough chills recently. He has elevated blood sugar > 500 today with anion gap of 27 Review of Systems General: Reports: 10 or more systems reviewed and unremarkable except in HPI and below Const: Denies: fever(s), chills or body aches Eyes: Denies: change in vision, blurry vision or photophobia ENMT: Reports: hoarseness; Denies: throat pain, enlarged tonsils, odynophagia or nasal congestion Card: Denies: chest pain, palpitations, irregular heart rhythm, edema, swelling of feet/ankles, lightheadedness, pre-syncope, dyspnea on exertion or orthopnea Resp: Denies: dyspnea, productive cough, non-productive cough, wheezing, stridor, pain on inspiration, change in phlegm color, hemoptysis or chest congestion GI: Denies: abdominal pain, nausea, vomiting, hematemesis, coffee ground emesis, dysphagia, heartburn, diarrhea, constipation, GI cramping, change in stool character, hematochezia or melena : Denies: flank pain, dysuria, urinary frequency, urinary urgency, urinary hesitancy or hematuria Musc: Denies: neck pain, back pain, extremity pain, joint swelling, joint warmth or deformity Neuro: Denies: headache(s), numbness in extremities, weakness in extremities, sensory changes, difficulty walking, frequent falls, dizziness, vertigo, behavioral changes, Slurred speech present or seizure-like activity Psych: Denies: anxiety, depression, suicidal ideation or homicidal ideation Endo: Denies: polyuria, polydipsia, tired all the time, cold intolerance or hot flashes Bhavesh/Lymph: Denies: easy bruising or easy bleeding Medications/Allergies Home Medications Medication Instructions Recorded Confirmed Last Taken Type fluticasone propionate 50 See Rx Instructions .Route 10/24/20 08/14/22 Unknown Rx mcg/actuation nasal .COMPLEX #16 grams spray,suspension vitamin A and D 1 applic topical DAILY 30 days 12/19/20 08/14/22 Unknown Rx #113 grams cyclobenzaprine 5 mg tablet 5 mg PO BEDTIME PRN muscle spasm 7 05/28/21 08/14/22 Unknown Rx days #7 tabs aspirin 81 mg tablet,delayed 162 mg PO DAILY #180 tabs 12/03/21 08/14/22 Unknown Rx release (Adult Low Dose Aspirin) nifedipine 30 mg tablet,extended 30 mg PO DAILY #30 tabs 12/03/21 08/14/22 Unknown Rx release blood sugar diagnostic (OneTouch #100 strips 03/12/22 08/14/22 Unknown Rx Verio test strips) lactulose 20 gram/30 mL oral 20 g (30 mL) PO BID #1,200 mL 06/18/22 08/14/22 Unknown Rx solution mupirocin 2 % topical ointment See Rx Instructions .Route 06/24/22 08/14/22 Unknown Rx .COMPLEX #22 grams budesonide-formoterol HFA 160 See Rx Instructions .Route 07/19/22 08/14/22 Unknown Rx mcg-4.5 mcg/actuation aerosol .COMPLEX #10.2 grams inhaler dulaglutide 4.5 mg/0.5 mL See Rx Instructions .Route 08/12/22 08/14/22 Unknown Rx subcutaneous pen injector .COMPLEX #2 mL (Trulicity) amitriptyline 10 mg tablet 10 mg PO DAILY 08/14/22 08/14/22 Unknown History empagliflozin 25 mg tablet 25 mg PO DAILY 08/14/22 08/14/22 Unknown History (Jardiance) ergocalciferol (vitamin D2) 1,250 50,000 unit PO .Weekly 08/14/22 08/14/22 Unknown History mcg (50,000 unit) capsule glipizide 5 mg tablet, extended 5 mg PO DAILY 08/14/22 08/14/22 Unknown History release 24 hr isosorbide mononitrate 30 mg 30 mg PO DAILY 08/14/22 08/14/22 Unknown History tablet,extended release 24 hr metoprolol tartrate 25 mg tablet 12.5 mg PO BID 08/14/22 08/14/22 Unknown History montelukast 10 mg tablet 10 mg PO DAILY 08/14/22 08/14/22 Unknown History omega-3 acid ethyl esters 1 gram 1 cap PO DAILY 08/14/22 08/14/22 Unknown History capsule oxybutynin chloride 15 mg 30 mg PO DAILY 08/14/22 08/14/22 Unknown History tablet,extended release 24 hr pantoprazole 40 mg tablet,delayed 40 mg PO DAILY 08/14/22 08/14/22 Unknown History release simvastatin 40 mg tablet 40 mg PO DAILY 08/14/22 08/14/22 Unknown History furosemide 40 mg tablet See Rx Instructions .Route 08/15/22 Unknown Rx .COMPLEX #30 tabs gabapentin 600 mg tablet See Rx Instructions .Route 08/15/22 Unknown Rx .COMPLEX #30 tabs levothyroxine 112 mcg tablet See Rx Instructions .Route 08/15/22 Unknown Rx .COMPLEX #90 tabs Allergies Allergy/AdvReac Type Severity Reaction Status Date / Time No Known Allergies Allergy Verified 02/13/22 10:46 PFSH Acute PFSH: Medical History Acute bacterial pharyngitis Anxiety Atherosclerotic heart disease of [place] coronary artery without angina pectoris CAD (coronary artery disease) Cellulitis of foot CHF (congestive heart failure) Chronic idiopathic constipation Chronic kidney disease, stage 3 unspecified Chronic secretory otitis media CKD (chronic kidney disease) Contact dermatitis Cough Cracked skin on feet Diabetes Patient has been mcc diabetic with 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 He cannot manage insulin at home and is currently controlled with Ozempic weekly and oral meds. Diabetic foot Diarrhea Dysuria Environmental and seasonal allergies Environmental and seasonal allergies Essential hypertension Patient is currently well controlled with antihypertensives FH: CABG (coronary artery bypass surgery) Foot callus Foot callus GERD (gastroesophageal reflux disease) H/O: GI bleed Headache Hyperlipidemia Hypothyroid Impaired cognitive ability Iron deficiency anemia Knee abrasion Mild intellectual disability Muscle cramps Patellofemoral dysfunction of right knee Polyneuropathy, unspecified Renal calculus, right STEMI (ST elevation myocardial infarction) Vitamin D deficiency Patient has history of Vitamin D deficiency and take home D3 supplement Wound of foot Surgical History Aortocoronary bypass status Family History Mother Diabetes Alzheimer's dementia Brother Epileptic seizure Social History Smoking and tobacco status: never smoked Second hand smoke exposure: No Alcohol intake: current Vitals/I&O/Wt Last Vital Signs Temp 98 F 08/31/22 03:02 Pulse 95 08/31/22 04:15 Resp 30 H 08/31/22 04:15 BP 118/60 08/31/22 04:15 Pulse Ox 93 08/31/22 04:15 O2 Del Method BiPAP 08/31/22 02:44 FiO2 80 08/31/22 04:00 08/30/22 08/30/22 08/31/22 14:59 22:59 06:59 Intake Total 59.925 / 59.925 Balance 59.925 / 59.925 Weight last 48 hrs Weight 83.915 kg Physical Exam Narrative: General: currently on Bipap HEENT: PERRLA, pupils bilaterally equal and reactive, pallors not present Chest: Crackles and wheezing to auscultation B/L CVS: S1-S2 regular, no murmurs, no tachycardia, no gallops, no rubs Abdomen: Soft, nontender, no organomegaly, bowel sounds present Neuro: No focal deficits, no facial deformity, AO x3, power 5/5 in all limbs Extremities: No edema, clubbing or cyanosis Data 08/30/22 23:30 08/30/22 23:30 Micro: Microbiology 08/31/22 01:36 Blood Culture - Preliminary Blood SPECIMEN COLLECTED 08/31/22 01:30 Blood Culture - Preliminary Blood SPECIMEN COLLECTED Other data: Radiology Impressions Chest X-Ray 08/31/22 00:27 IMPRESSION: 1. Asymmetric left basal opacities concerning for pneumonia. Recommend radiographic follow-up imaging in 6-8 weeks to document resolution. Separate morphology right basilar opacities may be on the basis of atelectasis in the setting of small pleural effusion, additional focus of consolidation not excluded. 2. Mild pulmonary edema and small bilateral pleural effusions. ADDENDUM: 08/31/22 0140 THIS REPORT CONTAINS FINDINGS THAT MAY BE CRITICAL TO PATIENT CARE. The findings were verbally communicated via telephone conference with PAOLA Rehman at 1:39 AM CDT on 08/31/2022. The findings were acknowledged and understood. Chest CTA 08/31/22 00:36 IMPRESSION: 1. Limited assessment of the subsegmental pulmonary arteries of the lung bases secondary to significant respiratory motion artifact. Otherwise, no evidence of acute pulmonary embolism. 2. Findings of multifocal pneumonia. 3. Mild interstitial pulmonary edema and small bilateral pleural effusions. COMMENTS: Consistent with the [employer]'s Incidental Findings Committee white paper (J Am Elva Radiol 2018): Any incidental renal lesion less than 1 cm or classified as too small to characterize, or any incidental cystic renal lesion characterized as simple-appearing, is likely benign. No follow-up imaging is recommended for these lesions per consensus recommendations based on imaging criteria. Laboratory Results WBC 22.4 10^3/uL (4.0-10.0) H 08/30/22 23:30 RBC 5.00 10^6/uL (4.1-5.3) 08/30/22 23:30 Hgb 14.3 g/dL (11.7-16.6) 08/30/22 23:30 Hct 47.2 % (42.0-52.0) 08/30/22 23:30 MCV 94.4 fl (80-94) H 08/30/22 23:30 MCH 28.6 pg (28.0-34.0) 08/30/22 23:30 MCHC 30.3 g/dL (30.0-36.0) 08/30/22 23:30 RDW 14.8 % (12.1-15.1) 08/30/22 23:30 Plt Count 452 10^3/cmm (130-400) H 08/30/22 23:30 MPV 11.3 fL (7.4-10.4) H 08/30/22 23:30 Neut % (Auto) 75.8 % 08/30/22 23:30 Lymph % (Auto) 18.0 % 08/30/22 23:30 [place] % (Auto) 3.7 % 08/30/22 23:30 Eos % (Auto) 1.1 % 08/30/22 23:30 Baso % (Auto) 0.4 % 08/30/22 23:30 Neut # (Auto) 17.00 10^3/uL (1.8-7.7) H 08/30/22 23:30 Lymph # (Auto) 4.0 10^3/uL (0.8-4.8) 08/30/22 23:30 [place] # (Auto) 0.8 10^3/uL (0.2-0.9) 08/30/22 23:30 Eos # (Auto) 0.2 10^3/uL (0.0-0.8) 08/30/22 23:30 Baso # (Auto) 0.1 10^3/uL (0.0-0.1) 08/30/22 23:30 Nucleated RBC % (auto) 0 % 08/30/22 23:30 Nucleated RBCs # 0.0 /100WBC 08/30/22 23:30 PT 12.80 SECONDS (12.1-14.9) 08/31/22 00:53 INR 0.94 (0.8-1.2) 08/31/22 00:53 APTT 25.9 SECONDS (23.9-36.7) 08/31/22 00:53 Specimen Type Arterial 08/31/22 00:37 Sample Site Radial, left 08/31/22 00:37 ABG pH 7.26 (7.35-7.45) L 08/31/22 00:37 ABG pCO2 43.4 mmHg (35-45) 08/31/22 00:37 ABG pO2 101.0 mmHg (80.0-100.0) H 08/31/22 00:37 ABG HCO3 19.6 mmol/L (22-26) L 08/31/22 00:37 ABG Base Excess -7.3 mmol/L (-2.0-2.0) L 08/31/22 00:37 Sulaiman Test Pos 08/31/22 00:37 Hematocrit 45.2 % (42-52) 08/31/22 00:37 O2 Delivery Device Bipap 08/31/22 00:37 FiO2 80.0 % 08/31/22 00:37 PEEP 10.0 cmH20 08/31/22 00:37 Gas Stove Servicer Helper ID [email or web address] 08/31/22 00:37 Sodium 133 mmol/L (136-145) L 08/30/22 23:30 Potassium 4.7 mmol/L (3.5-5.1) 08/30/22 23:30 Chloride 93 mmol/L (98-107) L 08/30/22 23:30 Carbon Dioxide 17 mmol/L (22-29) L 08/30/22 23:30 Anion Gap 27.7 (5-19) H 08/30/22 23:30 BUN 36 mg/dL (8-23) H 08/30/22 23:30 Creatinine 2.5 mg/dL (0.7-1.2) H 08/30/22 23:30 GFR Calculation Not Reportable 08/30/22 23:30 Glucose 524 mg/dL (65-115) H* 08/30/22 23:30 POC Glucose 439 mg/dL (70-110) H 08/31/22 04:10 Calculated Osmolality 308 mOsm/kg (285-295) H 08/30/22 23:30 Lactic Acid 3.7 mmol/L (0.5-2.2) H 08/31/22 00:53 Lactic Acid (Sepsis) 3.3 mmol/L (0.5-2.2) H 08/31/22 03:23 Calcium 8.9 mg/dL (8.5-10.5) 08/30/22 23:30 Total Bilirubin 0.2 mg/dL (0.15-1.2) 08/30/22 23:30 AST 42 U/L (0-40) H 08/30/22 23:30 ALT 40 U/L (0-41) 08/30/22 23:30 Alkaline Phosphatase 133 U/L (40-130) H 08/30/22 23:30 Creatine Kinase 80 U/L (39-308) 08/30/22 23:30 Troponin T Baseline 74 ng/L (0-15) H 08/30/22 23:30 Troponin T 120 Minute 374.3 ng/L (0-15) H 08/31/22 01:30 Delta Troponin T 300.3 ABS# (0-10) H* 08/31/22 01:30 NT-Pro-B Natriuret Pep 2032 pg/mL (0-125) H 08/30/22 23:30 Total Protein 7.6 g/dL (6.6-8.7) 08/30/22 23:30 Albumin 4.2 g/dL (3.5-5.2) 08/30/22 23:30 Globulin 3.4 g/dL (1.3-4.6) 08/30/22 23:30 Nasal Influ A H1 2009 PCR Not detected (NOT DETECT) 08/31/22 01:08 Serum Ketones Negative (Negative) 08/31/22 01:38 Adenovirus (PCR) Not detected (NOT DETECT) 08/31/22 01:08 C. pneumoniae DNA (PCR) Not detected (NOT DETECT) 08/31/22 01:08 Coronavirus 229E (PCR) Not detected (NOT DETECT) 08/31/22 01:08 Human Metapneumovir PCR Not detected (NOT DETECT) 08/31/22 01:08 Influenza A (H1) PCR Not detected (NOT DETECT) 08/31/22 01:08 Influenza A (H3) PCR Not detected (NOT DETECT) 08/31/22 01:08 Influenza Type A (PCR) Not detected (NOT DETECT) 08/31/22 01:08 Influenza Type B (PCR) Not detected (NOT DETECT) 08/31/22 01:08 M. pneumoniae (PCR) Not detected (NOT DETECT) 08/31/22 01:08 Parainfluenza 1 (PCR) Not detected (NOT DETECT) 08/31/22 01:08 Parainfluenza 2 (PCR) Not detected (NOT DETECT) 08/31/22 01:08 Parainfluenza 3 (PCR) Not detected (NOT DETECT) 08/31/22 01:08 Parainfluenza 4 (PCR) Not detected (NOT DETECT) 08/31/22 01:08 RSV Type A (PCR) Not detected (NOT DETECT) 08/31/22 01:08 RSV Type B (PCR) Not detected (NOT DETECT) 08/31/22 01:08 Entero/Rhino (PCR) Not detected (NOT DETECT) 08/31/22 01:08 SARS-CoV-2 (PCR) Not detected (NOT DETECT) 08/31/22 01:08 A&P Assessment and plan (1) NSTEMI (non-ST elevated myocardial infarction): 72-year-old male with a past medical history of coronary artery disease status post CABG presenting today with chief complaints of chest pain. Upon evaluation patient has evidence of NSTEMI. Troponin baseline at 74, increasing at 2 hours to 370 with a delta of over 300. Pending 6-hour trend Start aspirin 325, Plavix 300, start heparin drip for NSTEMI. Atorvastatin 80 mg now followed by 40 mg daily, aspirin 81 mg daily Continue home dose of metoprolol 12.5 mg p.o. twice daily Echocardiogram ordered Cardiology consult (2) Acute on chronic diastolic CHF (congestive heart failure): X-ray and CT of his chest today show bilateral infiltrates compatible with interstitial pulmonary edema, small bilateral pleural effusion and multifocal pneumonia. He has received Lasix 80 mg IV in the emergency room. Place Phillip catheter to track accurate output. Continue Lasix at 40 mg IV every 24 hours for CHF. Lasix dose may be titrated based on creatinine and urine output. (3) Pneumonia: Multifocal infiltrates bilaterally, patient denies any recent fever or cough. However he is not a reliable historian at this time. Start empirically on piperacillin/tazobactam Sputum culture and Gram stain, bacterial antigen panel and urine Legionella antigen. MRSA smear Respiratory viral panel negative. (4) Acute respiratory failure with hypoxia: Multifactorial related to CHF, pneumonia Currently on BiPAP which will be continued. (5) Hyperosmolar hyperglycemic state (HHS): Patient has elevated blood sugar greater than 500. He has an anion gap of 27 currently. ABG with evidence of metabolic acidosis. He has thus far received 10 units of IV push of insulin in the emergency room, 1 hour later his blood sugar is greater than 430. We will Start patient on insulin drip as per DKA/HHS protocol with target blood sugars between 100-120 No IV fluids for now given that patient has evidence of pulmonary edema. We will likely need to start dextrose containing fluid once blood sugar less than 250. Monitor BMP every 6 hours. Once potassium less than 4 we will add supplemental potassium. Transition to sliding scale and long-acting insulin once anion gap resolves. (6) Pulmonary edema: Plan DVT prophylaxis: Currently on a heparin drip. PUD prophylaxis Protonix 40 mg daily Full code Attestations Medical Necessity Statement*: Greater than 2 midnight admission will be needed for multiple critical issues including NSTEMI, HHS, requiring heparin and insulin infusions, CHF needing IV diuretics, antibiotics for pneumonia Coding Level of Care Code Critical Care >/= 30 minutes Diagnoses NSTEMI (non-ST elevated myocardial infarction) I21.4 Acute on chronic diastolic CHF (congestive heart failure) I50.33 Pneumonia J18.9 Acute respiratory failure with hypoxia J96.01 Hyperosmolar hyperglycemic state (HHS) E11.00 Pulmonary edema J81.1
[2022-08-31] MEDS: heparin drip 25,000 UNIT/500 ML PREMIX 23.5 UNIT IV (05:27)
[2022-08-31 05:43] LABS: Glucose Point of Care 443 mg/dL (70-110)
[2022-08-31] MEDS: insulin regular-human 250 UNIT in sodium chloride 0.9% 250 ML 11.5 UNIT IV (05:45)
[2022-08-31 06:17] LABS: Potassium, Radom Urine 22 mmol/L; Urine Random Chloride 73 mmol/L; Urine Random Sodium 74 mmol/L
[2022-08-31] MEDS: ipratropium-albuterol 3 mL Neb INHALATION ×4 (06:20→20:00)
--- NOTE | 2022-08-31 06:27 | ECG_ITS ---
[facility] Test Date: 2022-08-31 Pat Name: Guillermo Saha Department: Room: ICU11 Gender: Male Director Of Education: : 1950 Requested By: Merlin Hinojosa Order Number: [id number] Cortney MD: Ben Esparza M.D. Measurements Intervals [place] Rate: 96 P: 24 OK: 161 QRS: 22 QRSD: 128 T: 144 QT: 410 QTc: 519 Interpretive Statements SINUS RHYTHM WITH FREQUENT VENTRICULAR PREMATURE COMPLEXES POSSIBLE LEFT ATRIAL ENLARGEMENT [-0.1mV P-WAVE IN V1/V2] INFERIOR MYOCARDIAL INFARCTION , PROBABLY OLD [40+ ms Q WAVE AND/OR ST/T ABNORMALITY IN II/aVF] MODERATE T-WAVE ABNORMALITY, CONSIDER LATERAL ISCHEMIA [-0.1+ mV T-WAVE IN I/aVL/V5/V6] Compared to ECG 08/31/2022 03:34:54 T-wave abnormality now present Possible ischemia now present Intraventricular conduction delay no longer present Myocardial infarct finding still present Electronically Signed On 08-31-2022 12:58:47 CDT by Ben Esparza M.D. [id number]
[2022-08-31 06:30] LABS: Alanine Aminotransferase 53 U/L (0-41); Albumin Level 3.8 g/dL (3.5-5.2); Alkaline Phosphatase 123 U/L (40-130); Anion Gap 22.3 (5-19); Aspartate Amino Transferase 146 U/L (0-40); Blood Urea Nitrogen 42 mg/dL (8-23); Calcium 8.5 mg/dL (8.5-10.5); Carbon Dioxide 21 mmol/L (22-29); Chloride 94 mmol/L (98-107); Glucose 420 mg/dL (65-115); Osmolality Calculated 302 mOsm/kg (285-295); Potassium 5.3 mmol/L (3.5-5.1); Sodium 132 mmol/L (136-145); Total Bilirubin 0.2 mg/dL (0.15-1.2); Total Protein 7.8 g/dL (6.6-8.7)
[2022-08-31 06:35] LABS: Procalcitonin 1.19 ng/mL (0-0.5)
[2022-08-31 06:36] LABS: Troponin 5 6HR 1667 ng/L (0-15); Troponin 5 6HR Delta 1593 ng/L (0-12)
[2022-08-31 07:00] LABS: Glucose Point of Care 487 mg/dL (70-110)
[2022-08-31 08:00] LABS: Glucose Point of Care 320 mg/dL (70-110)
--- NOTE | 2022-08-31 08:29 | P.CONIM_ITS ---
Providers/Reason For Consult Consulting Physician/Specialty*: AUSTIN Esparza MD/cardiology Reason for Consult*: Patient with history of coronary disease, presenting with features of DKA and non-ST elevation myocardial infarction Requesting Physician: Dr. Oliveros Attending Physician: Rukhsana Oliveros MD Primary Care Provider: Elza Peralta APN History of Present Illness History of Present Illness Guillermo Saha is a 72 year old male with a history of coronary artery disease, coronary bypass surgery, is admitted to the hospital through the emergency room, where he presented with complaints of chest pain and shortness o f breath. Patient is a very poor historian. Information is from the patient as well as from the medical records. Mr. Saha apparently has been in his baseline state of health up until yesterday evening when he started having chest pain and shortness of breath. His pain was in the left upper side of the chest ,anteriorly and was of moderate to severe in intensity. Since he did not have a phone, somehow he managed to walk up to his neighbor's house and the neighbor called the EMS. Patient was found to be very short of breath at the scene. Initially a STEMI was alerted. Close review of the EKG revealed only nonspecific ST changes. His 2-hour troponin T estimation revealed a delta of around 300. His CT of the chest revealed diabetes of pulmonary edema with a possible lung infiltrates. He is admitted to the ICU for further evaluation management. He is being treated with the BiPAP, antibiotics and other symptomatic measures. Mr. Saha had a three-vessel coronary bypass surgery in 04/2012 by lauren Prado at [facility].? He had a FIGUEROA t to the LAD, and saphenous venous grafts to the obtuse marginal 1 and 2.? He had a peripheral angiogram in February 2013 that showed mild to moderate diffuse disease from aortic bifurcation to popliteals. Severe diffuse disease below both knees with poor runoff. He has h/o hypertension, type II diabetes, dyslipidemia, COPD and hypothyroidism. In 2016, he had a cardiac catheterization. The small FIGUEROA was found to be patent but the LAD distal to the anastomosis was found to be occluded. The saphenous venous grafts were found to be patent. The stented segment of the right coronary artery was found to be patent.. There was a 60% lesion in the PDA branch. Apparently this patient has been doing okay up until recently. He has a history of chronic diastolic heart failure. His echocardiogram in 2019 revealed a normal ejection fraction. Patient is known to have chronic kidney disease, type 2 diabetes, dyslipidemia and diastolic heart failure. No history for any liver disease or bleeding disorders. He quit smoking 10 years ago. He drinks 5-6 beers a day. According to the patient, he has been compliant with the medication. His primary care provider is at the [facility] in [place], [place] At the time of my examination, patient is pain-free. No fever, chills or cough. Review of Systems Narrative: CONSTITUTIONAL: No fever or chills. EYES: No blurring of vision or other visual disturbances lately. ENT: No hoarseness of voice, auditory disturbances or sore throat. CARDIOVASCULAR: As mentioned above. RESPIRATORY: No significant cough. GASTROINTESTINAL: No hematemesis or melena. GENITOURINARY: Chronic kidney disease INTEGUMENTARY: No skin rashes or history of skin cancer. NEURO: No transient ischemic attacks or amaurosis. PSYCHIATRIC: No history of psychosis or major depression. HEMATOLOGIC: No bleeding disorders or significant anemia. ENDOCRINE: Insulin requiring diabetes MUSCULOSKELETAL: No recent joint pain or swelling. ALLERGY/IMMUNOLOGY: As mentioned above. Medications/Allergies Home Medications Medication Instructions Recorded Confirmed Last Taken Type vitamin A and D 1 applic topical DAILY 30 days 12/19/20 08/31/22 Unknown Rx #113 grams cyclobenzaprine 5 mg tablet 5 mg PO BEDTIME PRN muscle spasm 7 05/28/21 08/31/22 Unknown Rx days #7 tabs aspirin 81 mg tablet,delayed 162 mg PO DAILY #180 tabs 12/03/21 08/31/22 Unknown Rx release (Adult Low Dose Aspirin) blood sugar diagnostic (OneTouch #100 strips 03/12/22 08/31/22 Unknown Rx Verio test strips) amitriptyline 10 mg tablet 10 mg PO DAILY 08/14/22 08/31/22 08/30/22 History empagliflozin 25 mg tablet 25 mg PO DAILY 08/14/22 08/31/22 08/09/22 History (Jardiance) ergocalciferol (vitamin D2) 1,250 50,000 unit PO .Weekly 08/14/22 08/31/22 Unknown History mcg (50,000 unit) capsule glipizide 5 mg tablet, extended 5 mg PO DAILY 08/14/22 08/31/22 08/30/22 History release 24 hr isosorbide mononitrate 30 mg 30 mg PO DAILY 08/14/22 08/31/22 08/30/22 History tablet,extended release 24 hr metoprolol tartrate 25 mg tablet 12.5 mg PO BID 08/14/22 08/31/22 08/30/22 History montelukast 10 mg tablet 10 mg PO DAILY 08/14/22 08/31/22 08/30/22 History omega-3 acid ethyl esters 1 gram 1 cap PO DAILY 08/14/22 08/31/22 08/30/22 History capsule oxybutynin chloride 15 mg 30 mg PO DAILY 08/14/22 08/31/22 08/30/22 History tablet,extended release 24 hr pantoprazole 40 mg tablet,delayed 40 mg PO DAILY 08/14/22 08/31/22 08/30/22 History release simvastatin 40 mg tablet 40 mg PO DAILY 08/14/22 08/31/22 08/30/22 History budesonide-formoterol HFA 160 2 inh inhalation BID 08/31/22 08/31/22 08/30/22 History mcg-4.5 mcg/actuation aerosol inhaler dulaglutide 4.5 mg/0.5 mL 4.5 mg SUBCUT Q7D 08/31/22 08/31/22 Unknown History subcutaneous pen injector (Trulicity) fluticasone propionate 50 1 spray intranasal DAILY 08/31/22 08/31/22 Unknown Hi story mcg/actuation nasal spray,suspension furosemide 40 mg tablet 40 mg PO DAILY 08/31/22 08/31/22 08/30/22 History gabapentin 600 mg tablet 600 mg PO DAILY 08/31/22 08/31/22 08/15/22 History lactulose 10 gram/15 mL oral 30 ml PO BID 08/31/22 08/31/22 Unknown History solution levothyroxine 112 mcg tablet 112 mcg PO DAILY 08/31/22 08/31/22 Unknown History mupirocin 2 % topical ointment 1 applic topical BID 08/31/22 08/31/22 Unknown History nifedipine 30 mg tablet,extended 30 mg PO DAILY 08/31/22 08/31/22 08/30/22 History release 24 hr Allergies Allergy/AdvReac Type Severity Reaction Status Date / Time No Known Allergies Allergy Verified 02/13/22 10:46 Current Medications Generic Name Dose Route Start Last Admin Trade Name Johnq PRN Reason Stop Dose Admin Albuterol/Ipratropium 3 ml 08/31/22 05:30 08/31/22 08:16 Ipratropium-Albuterol 3 Ml Neb INHALATION 3 ml Q6H.RESP CHUYITA Administration Nitroglycerin/Dextrose 50 mg in 250 mls @ 0 mls/hr 08/31/22 00:45 08/31/22 03:35 Nitroglycerin Drip IV 0 mcg/min .Q0M CHUYITA 0 mls/hr Titration Protocol Per Protocol Heparin Sodium/Sodium Chloride 25,000 unit in 500 mls @ 0 mls/hr 08/31/22 04:00 08/31/22 05:27 Heparin Drip IV 14 unit/kg/hr .Q0M CHUYITA 23.5 mls/hr Administration Protocol Per Protocol Insulin Human Regular 250 unit 252.5 mls @ 0 mls/hr 08/31/22 05:15 08/31/22 08:10 / Sodium Chloride IV 13 ml/hr .Q0M CHUYITA 13 mls/hr Titration Protocol Per Protocol PFSH Acute PFSH: Medical History Acute bacterial pharyngitis Anxiety Atherosclerotic heart disease of [place] coronary artery without angina pectoris CAD (coronary artery disease) Cellulitis of foot CHF (congestive heart failure) Chronic idiopathic constipation Chronic kidney disease, stage 3 unspecified Chronic secretory otitis media CKD (chronic kidney disease) Contact dermatitis Cough Cracked skin on feet Diabetes 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 He cannot manage insulin at home and is currently controlled with Ozempic weekly and oral meds. Diabetic foot Diarrhea Dysuria Environmental and seasonal allergies Environmental and seasonal allergies Essential hypertension Patient is currently well controlled with antihypertensives FH: CABG (coronary artery bypass surgery) Foot callus Foot callus GERD (gastroesophageal reflux disease) H/O: GI bleed Headache Hyperlipidemia Hypothyroid Impaired cognitive ability Iron deficiency anemia Knee abrasion Mild intellectual disability Muscle cramps Patellofemoral dysfunction of right knee Polyneuropathy, unspecified Renal calculus, right STEMI (ST elevation myocardial infarction) Vitamin D deficiency Patient has history of Vitamin D deficiency and take home D3 supplement Wound of foot Surgical History Aortocoronary bypass status Family History Mother Diabetes Alzheimer's dementia Brother Epileptic seizure Social History Smoking and tobacco status: never smoked Second hand smoke exposure: No Alcohol intake: current Vitals/I&O/Wt Last Vital Signs Temp 98 F 08/31/22 03:02 Pulse 88 08/31/22 08:19 Resp 21 H 08/31/22 08:17 BP 115/62 08/31/22 08:00 Pulse Ox 98 08/31/22 08:19 O2 Del Method BiPAP 08/31/22 08:17 FiO2 70 08/31/22 08:19 08/30/22 08/31/22 08/31/22 22:59 06:59 14:59 Intake Total 434.783 / 434.783 20.967 / 20.967 Output Total 950 / 950 Balance -515.217 / -515.217 20.967 / 20.967 Weight last 48 hrs Weight 185 lb Physical Exam Narrative: GENERAL: The patient is alert and oriented times three. Not in any acute distress. HEENT: No significant pallor, icterus or lymphadenopathy.Oral cavity: There are no mucous membrane lesions. NECK: Trachea appears to be central. No masses noted. No JVD or thyromegaly appreciated. RESPIRATORY: Chest is symmetrical. No intercostals muscle retraction or any accessory muscle activation. There is no chest wall tenderness. Breath sounds are heard bilaterally. No rales or rhonchi heard. No evidence of any con solidation. BREASTS: Deferred. HEART: The heart sounds are normal. No S3 or S4. Short early systolic murmur in the lower sternal border. Ejection systolic murmur grade 2/6 in the aortic area. No pericardial rub ABDOMEN: No vessel pulsations or distention. No tenderness. No organomegaly appreciated. Bowel sounds are normally heard. : Deferred. RECTAL: Deferred. LYMPHATIC: No lymphadenopathy noted in the neck. EXTREMITIES: Dorsalis present pulses and pulse are palpable on the right side. Difficult to palpate on the left side. MUSCULOSKELETAL: No acute joint deformities or swelling SKIN: There are no significant rashes or ecchymosis NEUROPSYCHIATRIC: The patient is alert and oriented x3. Appears to be in a good mood. No tremors or rigidity noted. Urinary Catheter Management: Phillip Latex: Cath Placed During This Visit: yes Reason for Continuing Indwelling Catheter: Accurate Measurement of Urinary Output in Critically Ill Patients Urinary Catheter Date of Insertion: 08/31/22 Urinary Catheter Time of Insertion: 05:38 Data 08/30/22 23:30 08/31/22 05:50 Other Labs: Laboratory Last Values WBC 22.4 10^3/uL (4.0-10.0) H 08/30/22 23:30 RBC 5.00 10^6/uL (4.1-5.3) 08/30/22 23: Hgb 14.3 g/dL (11.7-16.6) 08/30/22 23:30 Hct 47.2 % (42.0-52.0) 08/30/22 23:30 MCV 94.4 fl (80-94) H 08/30/22 23:30 MCH 28.6 pg (28.0-34.0) 08/30/22 23: MCHC 30.3 g/dL (30.0-36.0) 08/30/22 23: RDW 14.8 % (12.1-15.1) 08/30/22 23: Plt Count 452 10^3/cmm (130-400) H 08/30/22 23:30 MPV 11.3 fL (7.4-10.4) H 08/30/22 23:30 Neut % (Auto) 75.8 % 08/30/22 23:30 Lymph % (Auto) 18.0 % 08/30/22 23:30 [place] % (Auto) 3.7 % 08/30/22 23:30 Eos % (Auto) 1.1 % 08/30/22 23: Baso % (Auto) 0.4 % 08/30/22 23:30 Neut # (Auto) 17.00 10^3/uL (1.8-7.7) H 08/30/22 23:30 Lymph # (Auto) 4.0 10^3/uL (0.8-4.8) 08/30/22 23:30 [place] # (Auto) 0.8 10^3/uL (0.2-0.9) 08/30/22 23:30 Eos # (Auto) 0.2 10^3/uL (0.0-0.8) 08/30/22 23:30 Baso # (Auto) 0.1 10^3/uL (0.0-0.1) 08/30/22 23:30 Nucleated RBC % (auto) 0 % 08/30/22 23:30 Nucleated RBCs # 0.0 /100WBC 08/30/22 23:30 PT 12.80 SECONDS (12.1-14.9) 08/31/22 00:53 INR 0.94 (0.8-1.2) 08/31/22 00:53 APTT 25.9 SECONDS (23.9-36.7) 08/31/22 00:53 Specimen Type Arterial 08/31/22 00:37 Sample Site Radial, left 08/31/22 00:37 ABG pH 7.26 (7.35-7.45) L 08/31/22 00:37 ABG pCO2 43.4 mmHg (35-45) 08/31/22 00:37 ABG pO2 101.0 mmHg (80.0-100.0) H 08/31/22 00:37 ABG HCO3 19.6 mmol/L (22-26) L 08/31/22 00:37 ABG Base Excess -7.3 mmol/L (-2.0-2.0) L 08/31/22 00:37 Sulaiman Test Pos 08/31/22 00:37 Hematocrit 45.2 % (42-52) 08/31/22 00:37 O2 Delivery Device Bipap 08/31/22 00:37 FiO2 80.0 % 08/31/22 00:37 PEEP 10.0 cmH20 08/31/22 00:37 Brick Tender ID Tunca2 08/31/22 00:37 Sodium 132 mmol/L (136-145) L 08/31/22 05:50 Potassium 5.3 mmol/L (3.5-5.1) H 08/31/22 05:50 Chloride 94 mmol/L (98-107) L 08/31/22 05:50 Carbon Dioxide 21 mmol/L (22-29) L 08/31/22 05:50 Anion Gap 22.3 (5-19) H 08/31/22 05:50 BUN 42 mg/dL (8-23) H 08/31/22 05:50 Creatinine 2.4 mg/dL (0.7-1.2) H 08/31/22 05:50 GFR Calculation Not Reportable 08/31/22 05:50 Glucose 420 mg/dL (65-115) H 08/31/22 05:50 POC Glucose 320 mg/dL (70-110) H 08/31/22 07:57 Calculated Osmolality 302 mOsm/kg (285-295) H 08/31/22 05:50 Lactic Acid 3.7 mmol/L (0.5-2.2) H 08/31/22 00:53 Lactic Acid (Sepsis) 3.3 mmol/L (0.5-2.2) H 08/31/22 03:23 Calcium 8.5 mg/dL (8.5-10.5) 08/31/22 05:50 Total Bilirubin 0.2 mg/dL (0.15-1.2) 08/31/22 05:50 AST 146 U/L (0-40) H 08/31/22 05:50 ALT 53 U/L (0-41) H 08/31/22 05:50 Alkaline Phosphatase 123 U/L (40-130) 08/31/22 05:50 Creatine Kinase 80 U/L (39-308) 08/30/22 23:30 Troponin T Baseline 74 ng/L (0-15) H 08/30/22 23:30 Troponin T 120 Minute 374.3 ng/L (0-15) H 08/31/22 01:30 Delta Troponin T 300.3 ABS# (0-10) H* 08/31/22 01:30 Troponin T Hi Sens 6Hr 1667 ng/L (0-15) H 08/31/22 05:50 Troponin T Hi Sens 6Hr Delta 1593 ng/L (0-12) H* 08/31/22 05:50 NT-Pro-B Natriuret Pep 2032 pg/mL (0-125) H 08/30/22 23:30 Total Protein 7.8 g/dL (6.6-8.7) 08/31/22 05:50 Albumin 3.8 g/dL (3.5-5.2) 08/31/22 05:50 Globulin 4.0 g/dL (1.3-4.6) 08/31/22 05:50 Procalcitonin 1.19 ng/mL (0-0.5) H 08/31/22 05:50 Ur Random Sodium 74 mmol/L 08/31/22 05:37 Ur Random Potassium 22 mmol/L 08/31/22 05:37 Ur Random Chloride 73 mmol/L 08/31/22 05:37 Nasal Influ A H1 2009 PCR Not detected (NOT DETECT) 08/31/22 01:08 Serum Ketones Negative (Negative) 08/31/22 01:38 Adenovirus (PCR) Not detected (NOT DETECT) 08/31/22 01:08 C. pneumoniae DNA (PCR) Not detected (NOT DETECT) 08/31/22 01:08 Coronavirus 229E (PCR) Not detected (NOT DETECT) 08/31/22 01:08 Human Metapneumovir PCR Not detected (NOT DETECT) 08/31/22 01:08 Influenza A (H1) PCR Not detected (NOT DETECT) 08/31/22 01:08 Influenza A (H3) PCR Not detected (NOT DETECT) 08/31/22 01:08 Influenza Type A (PCR) Not detected (NOT DETECT) 08/31/22 01:08 Influenza Type B (PCR) Not detected (NOT DETECT) 08/31/22 01:08 M. pneumoniae (PCR) Not detected (NOT DETECT) 08/31/22 01:08 Parainfluenza 1 (PCR) Not detected (NOT DETECT) 08/31/22 01:08 Parainfluenza 2 (PCR) Not detected (NOT DETECT) 08/31/22 01:08 Parainfluenza 3 (PCR) Not detected (NOT DETECT) 08/31/22 01:08 Parainfluenza 4 (PCR) Not detected (NOT DETECT) 08/31/22 01:08 RSV Type A (PCR) Not detected (NOT DETECT) 08/31/22 01:08 RSV Type B (PCR) Not detected (NOT DETECT) 08/31/22 01:08 Entero/Rhino (PCR) Not detected (NOT DETECT) 08/31/22 01:08 SARS-CoV-2 (PCR) Not detected (NOT DETECT) 08/31/22 01:08 Micro: Microbiology 08/31/22 01:36 Blood Culture - Preliminary Blood SPECIMEN COLLECTED 08/31/22 01:30 Blood Culture - Preliminary Blood SPECIMEN COLLECTED Other data: The EKG from today revealed sinus rhythm with a features of old inferior wall myocardial infarction. Occasional premature ventricular contractions. Diffuse nonspecific ST-T changes. A&P Assessment and plan (1) Acute non-ST elevation myocardial infarction (NSTEMI): Pain is articular features are consistent with a normal stimulation myocardial infarction. Hemodynamically seems to be stable. He may be treated with IV heparin, plan weeks, aspirin, beta-blockers and other symptomatic measures. An echocardiogram would be helpful to evaluate LV function and rule out any other pathology. (2) Acute on chronic diastolic CHF (congestive heart failure): Patient may be carefully treated with IV diuretics. His kidney function needs to be closely monitored. (3) CKD (chronic kidney disease): The BUN and the creatinine levels has not changed significantly. Continue monitoring the electrolytes and kidney function closely. (4) Acute respiratory failure with hypoxia: Could be related to acute on chronic diastolic heart failure. Possibility of pneumonia cannot be occluded. Patient is on BiPAP. Oxygenation seems to be improving. May continue on the current measures. (5) Diabetes: Has features of diabetic ketoacidosis. The blood sugar seems to be slowly getting under control. Qualifiers: Diabetes mellitus type: type 2 Diabetes mellitus parts counterman insulin use: without mcfp use Diabetes mellitus complication status: without complication Qualified Code(s): E11.9 - Type 2 diabetes mellitus without complications (6) Essential hypertension: Currently the blood pressure is in the normal range. May continue on the current antihypertensive medications. (7) Hyperlipidemia: He is on a statin. This may be continued. Qualifiers: Hyperlipidemia type: unspecified Qualified Code(s): E78.5 - Hyperlipidemia, unspecified (8) Hypothyroid: Clinically euthyroid. May continue on the current medications. Qualifiers: Hypothyroidism type: acquired Qualified Code(s): E03.9 - Hypothyroidism, unspecified Plan Other problems or 1. Leukocytosis, possibly related to pneumonia, may continue on the empiric antibiotics 2. History of peripheral artery disease, acute clinically seems to be stable 3. GERD 4. Ongoing alcohol abuse, strongly advised to quit Based on the results of the above tests and the patient's clinical progress, further recommendations will be made. Patient may benefit from a cardiac catheterization, sometime down the line. But we may wait till the DKA is properly treated and the kidney function is stable. Thank you for the opportunity to evaluate this patient and make these recommendations Coding Level of Care Code Acute Code for Chg Fwd Diagnoses Acute non-ST elevation myocardial infarction (NSTEMI) I21.4 Acute on chronic diastolic CHF (congestive heart failure) I50.33 CKD (chronic kidney disease) N18.9 Acute respiratory failure with hypoxia J96.01 Diabetes E11.9 Diabetes mellitus type: type 2 Diabetes mellitus mcfp insulin use: without parts counterman use Diabetes mellitus complication status: without complication Essential hypertension I10 Hyperlipidemia E78.5 Hyperlipidemia type: unspecified Hypothyroid E03.9 Hypothyroidism type: acquired
[2022-08-31] MEDS: levothyroxine 112 mcg Tablet PO (08:55)
[2022-08-31] MEDS: pantoprazole DR 40 mg Tablet PO (08:55)
[2022-08-31] MEDS: metoprolol tartrate 25 mg Tablet 12.5 MG PO ×2 (08:55→17:24)
[2022-08-31] MEDS: atorvastatin 40 mg Tablet 20 MG PO (08:55)
[2022-08-31] MEDS: isosorbide mononitrate ER 30 mg Tablet PO (08:56)
[2022-08-31] MEDS: aspirin 81 mg EC Tablet PO (08:56)
[2022-08-31 09:07] LABS: Glucose Point of Care 243 mg/dL (70-110)
[2022-08-31] MEDS: piperacillin-tazobactam 3.375 GM in sodium chloride 0.9% (plus) 50 ML IV ×2 (09:24→17:23)
[2022-08-31 10:14] LABS: Glucose Point of Care 200 mg/dL (70-110)
[2022-08-31 11:31] LABS: Partial Thromboplastin Time 58.9 SECONDS (23.9-36.7)
[2022-08-31 11:35] LABS: Glucose Point of Care 154 mg/dL (70-110)
[2022-08-31 11:37] LABS: Alanine Aminotransferase 56 U/L (0-41); Albumin Level 3.6 g/dL (3.5-5.2); Alkaline Phosphatase 109 U/L (40-130); Anion Gap 17.9 (5-19); Aspartate Amino Transferase 223 U/L (0-40); Blood Urea Nitrogen 43 mg/dL (8-23); Calcium 8.4 mg/dL (8.5-10.5); Carbon Dioxide 23 mmol/L (22-29); Chloride 98 mmol/L (98-107); Globulin 3.7 g/dL (1.3-4.6); Glucose 130 mg/dL (65-115); Osmolality Calculated 293 mOsm/kg (285-295); Potassium 3.9 mmol/L (3.5-5.1); Sodium 135 mmol/L (136-145); Total Bilirubin 0.2 mg/dL (0.15-1.2); Total Protein 7.3 g/dL (6.6-8.7)
[2022-08-31 11:53] LABS: Glucose Point of Care 109 mg/dL (70-110)
[2022-08-31] MEDS: insulin glargine 100 units/1 mL 10 UNIT SUBCUT (11:53)
[2022-08-31 17:18] LABS: Glucose Point of Care 223 mg/dL (70-110)
[2022-08-31] MEDS: insulin lispro 100 unit/1 mL SUBCUT ×2 (17:24→22:02)
[2022-08-31 17:52] LABS: Partial Thromboplastin Time 68.2 SECONDS (23.9-36.7)
[2022-08-31 18:05] LABS: Alanine Aminotransferase 56 U/L (0-41); Albumin Level 3.4 g/dL (3.5-5.2); Alkaline Phosphatase 106 U/L (40-130); Anion Gap 22.3 (5-19); Aspartate Amino Transferase 226 U/L (0-40); Blood Urea Nitrogen 50 mg/dL (8-23); Calcium 8.7 mg/dL (8.5-10.5); Carbon Dioxide 21 mmol/L (22-29); Chloride 99 mmol/L (98-107); Globulin 3.6 g/dL (1.3-4.6); Glucose 192 mg/dL (65-115); Osmolality Calculated 305 mOsm/kg (285-295); Potassium 4.3 mmol/L (3.5-5.1); Sodium 138 mmol/L (136-145); Total Bilirubin 0.2 mg/dL (0.15-1.2)
--- NOTE | 2022-08-31 19:00 | PC.NURSE ---
Insulin Drip: Per shift report w/ MABLE RN, insulin drip was turned off on day-shift per order from Dr. Davila and pt was switched to subcutaneous sliding scale. MAR changed for 1899 to waste approximately 176ml of insulin w/ ALFREDA Lopez.
[2022-08-31 20:05] LABS: Glucose Point of Care 191 mg/dL (70-110)
[2022-08-31 23:47] LABS: Alanine Aminotransferase 56 U/L (0-41); Albumin Level 3.4 g/dL (3.5-5.2); Alkaline Phosphatase 95 U/L (40-130); Anion Gap 18.2 (5-19); Aspartate Amino Transferase 188 U/L (0-40); Blood Urea Nitrogen 47 mg/dL (8-23); Calcium 8.4 mg/dL (8.5-10.5); Carbon Dioxide 23 mmol/L (22-29); Chloride 96 mmol/L (98-107); Globulin 3.5 g/dL (1.3-4.6); Glucose 227 mg/dL (65-115); Osmolality Calculated 295 mOsm/kg (285-295); Potassium 4.2 mmol/L (3.5-5.1); Sodium 133 mmol/L (136-145); Total Bilirubin 0.2 mg/dL (0.15-1.2); Total Protein 6.9 g/dL (6.6-8.7)
[2022-09-01] VITALS (55 sets, daily range): BP systolic 103–164; BP diastolic 65–129; PULSE 83–115; RESP 13–36; TEMP 36.4; O2SAT 79–100
[2022-09-01] MEDS: ipratropium-albuterol 3 mL Neb INHALATION ×4 (01:09→19:58)
[2022-09-01] MEDS: FUROsemide 10 mg/mL SDV 4mL 40 MG IVP ×2 (01:44→11:22)
[2022-09-01] MEDS: heparin drip 25,000 UNIT/500 ML PREMIX 23.5 UNIT IV ×2 (01:51→23:29)
[2022-09-01] MEDS: piperacillin-tazobactam 3.375 GM in sodium chloride 0.9% (plus) 50 ML IV ×3 (02:14→17:39)
[2022-09-01 03:45] LABS: Basophils % 0.3 %; Eosinophils % 0.3 %; Hematocrit 39.4 % (42.0-52.0); Hemoglobin 12.1 g/dL (11.7-16.6); Lymphocytes # 1.1 10^3/uL (0.8-4.8); Lymphocytes % 7.3 %; Mean Corpuscular HGB Conc 30.7 g/dL (30.0-36.0); Mean Corpuscular Hemoglobin 27.9 pg (28.0-34.0); Mean Platelet Volume 10.7 fL (7.4-10.4); Monocytes # 1.3 10^3/uL (0.2-0.9); Monocytes % 8.2 %; Neutrophils # 12.89 10^3/uL (1.8-7.7); Neutrophils % 83.5 %; Nucleated Red Blood Cells % 0 %; Platelet Count 274 10^3/cmm (130-400); Red Blood Count 4.33 10^6/uL (4.1-5.3); White Blood Count 15.4 10^3/uL (4.0-10.0)
[2022-09-01 04:07] LABS: Alanine Aminotransferase 55 U/L (0-41); Albumin Level 3.5 g/dL (3.5-5.2); Alkaline Phosphatase 98 U/L (40-130); Anion Gap 18.1 (5-19); Aspartate Amino Transferase 167 U/L (0-40); Blood Urea Nitrogen 46 mg/dL (8-23); Calcium 8.3 mg/dL (8.5-10.5); Carbon Dioxide 23 mmol/L (22-29); Chloride 98 mmol/L (98-107); Globulin 3.4 g/dL (1.3-4.6); Glucose 218 mg/dL (65-115); Osmolality Calculated 299 mOsm/kg (285-295); Potassium 4.1 mmol/L (3.5-5.1); Sodium 135 mmol/L (136-145); Total Bilirubin 0.2 mg/dL (0.15-1.2); Total Protein 6.9 g/dL (6.6-8.7)
[2022-09-01 07:39] LABS: Glucose Point of Care 296 mg/dL (70-110)
[2022-09-01] MEDS: insulin lispro 100 unit/1 mL SUBCUT ×4 (07:58→20:36)
[2022-09-01] MEDS: atorvastatin 40 mg Tablet 20 MG PO (08:00)
[2022-09-01] MEDS: aspirin 81 mg EC Tablet PO (08:00)
[2022-09-01] MEDS: levothyroxine 112 mcg Tablet PO (08:00)
[2022-09-01] MEDS: isosorbide mononitrate ER 30 mg Tablet PO (08:00)
[2022-09-01] MEDS: pantoprazole DR 40 mg Tablet PO (08:00)
[2022-09-01] MEDS: metoprolol tartrate 25 mg Tablet 12.5 MG PO ×2 (08:00→17:39)
--- NOTE | 2022-09-01 08:49 | PC.NURSE ---
up in chair for breakfast hair washed am care done and shaved . pt requested back to bed minimal assist at this time
--- NOTE | 2022-09-01 10:58 | P.CONIM_ITS ---
Providers/Reason For Consult Consulting Physician/Specialty*: [facility]/Nephrology Reason for Consult*: CAROLYNN on CKD Attending Physician: Ashish Davila MD Primary Care Provider: Elza Peralta APN History of Present Illness History of Present Illness Guillermo Saha is a 72 year old male Coronary artery disease status post CABG presented to the emergency department due to chest pain. Patient was found to be in respite distress currently treated with nasal cannula. CT angiogram showed no evidence of PE but possible pneumonia. Patient has chronic kidney disease with a creatinine in the mid 1 range now has creatinine of 2.5. Creatinine worsened to 2.8 currently. Patient was seen by cardiology and planning to do left catheterization in the morning. Review of Systems Narrative: other ROS negative Medications/Allergies Home Medications Medication Instructions Recorded Confirmed Last Taken Type vitamin A and D 1 applic topical DAILY 30 days 12/19/20 08/31/22 Unknown Rx #113 grams cyclobenzaprine 5 mg tablet 5 mg PO BEDTIME PRN muscle spasm 7 05/28/21 08/31/22 Unknown Rx days #7 tabs aspirin 81 mg tablet,delayed 162 mg PO DAILY #180 tabs 12/03/21 08/31/22 Unknown Rx release (Adult Low Dose Aspirin) blood sugar diagnostic (OneTouch #100 strips 03/12/22 08/31/22 Unknown Rx Verio test strips) amitriptyline 10 mg tablet 10 mg PO DAILY 08/14/22 08/31/22 08/30/22 History empagliflozin 25 mg tablet 25 mg PO DAILY 08/14/22 08/31/22 08/09/22 History (Jardiance) ergocalciferol (vitamin D2) 1,250 50,000 unit PO .Weekly 08/14/22 08/31/22 Unkn own History mcg (50,000 unit) capsule glipizide 5 mg tablet, extended 5 mg PO DAILY 08/14/22 08/31/22 08/30/22 History release 24 hr isosorbide mononitrate 30 mg 30 mg PO DAILY 08/14/22 08/31/22 08/30/22 History tablet,extended release 24 hr metoprolol tartrate 25 mg tablet 12.5 mg PO BID 08/14/22 08/31/22 08/30/22 History montelukast 10 mg tablet 10 mg PO DAILY 08/14/22 08/31/22 08/30/22 History omega-3 acid ethyl esters 1 gram 1 cap PO DAILY 08/14/22 08/31/22 08/30/22 History capsule oxybutynin chloride 15 mg 30 mg PO DAILY 08/14/22 08/31/22 08/30/22 History tablet,extended release 24 hr pantoprazole 40 mg tablet,delayed 40 mg PO DAILY 08/14/22 08/31/22 08/30/22 History release simvastatin 40 mg tablet 40 mg PO DAILY 08/14/22 08/31/22 08/30/22 History budesonide-formoterol HFA 160 2 inh inhalation BID 08/31/22 08/31/22 08/30/22 History mcg-4.5 mcg/actuation aerosol inhaler dulaglutide 4.5 mg/0.5 mL 4.5 mg SUBCUT Q7D 08/31/22 08/31/22 Unknown History subcutaneous [facility] ([facility] fluticasone propionate 50 1 spray intranasal DAILY 08/31/22 08/31/22 Unknown History mcg/actuation nasal spray,suspension furosemide 40 mg tablet 40 mg PO DAILY 08/31/22 08/31/22 08/30/22 History gabapentin 600 mg tablet 600 mg PO DAILY 08/31/22 08/31/22 08/15/22 History lactulose 10 gram/15 mL oral 30 ml PO BID 08/31/22 08/31/22 Unknown History solution levothyroxine 112 mcg tablet 112 mcg PO DAILY 08/31/22 08/31/22 Unknown History mupirocin 2 % topical ointment 1 applic topical BID 08/31/22 08/31/22 Unknown History nifedipine 30 mg tablet,extended 30 mg PO DAILY 08/31/22 08/31/22 08/30/22 History release 24 hr Allergies Allergy/AdvReac Type Severity Reaction Status Date / Time No Known Allergies Allergy Verified 02/13/22 10:46 Current Medications Generic Name Dose Route Start Last Admin Trade Name Freq PRN Reason Stop Dose Admin Albuterol/Ipratropium 3 ml 08/31/22 05:30 09/01/22 08:09 Ipratropium-Albuterol 3 Ml Neb INHALATION 3 ml Q6H.RESP CHUYITA Administration Aspirin 81 mg 08/31/22 09:00 09/01/22 08:00 Aspirin 81 Mg Ec Tablet PO 81 mg DAILY CHUYITA Administration Atorvastatin Calcium 20 mg 08/31/22 09:00 09/01/22 08:00 Atorvastatin 40 Mg Tablet PO 20 mg DAILY CHUYITA Administration Nitroglycerin/Dextrose 50 mg in 250 mls @ 0 mls/hr 08/31/22 00:45 09/01/22 02:00 Nitroglycerin Drip IV Infused .Q0M CHUYITA Titration Protocol Per Protocol Heparin Sodium/Sodium Chloride 25,000 unit in 500 mls @ 0 mls/hr 08/31/22 04:00 09/01/22 04:00 Heparin Drip IV 14 unit/kg/hr .Q0M CHUYITA 23.5 mls/hr Titration Protocol Per Protocol Insulin Human Regular 250 unit 252.5 mls @ 0 mls/hr 08/31/22 05:15 08/31/22 19:00 / Sodium Chloride IV Infused .Q0M CHUYITA Titration Protocol Per Protocol Piperacillin Sod/Tazobactam 50 mls @ 12.5 mls/hr 08/31/22 10:00 09/01/22 09:38 Sod 3.375 gm/ Sodium Chloride IV 12.5 mls/hr Q8H CHUYITA Administration Protocol Insulin Human Lispro 0 unit 08/31/22 12:00 09/01/22 07:58 Insulin Lispro 100 Unit/1 Ml SUBCUT 10 unit WM&BEDTIME CHUYITA Administration Protocol Isosorbide Mononitrate 30 mg 08/31/22 09:00 09/01/22 08:00 Isosorbide Mononitrate Er 30 Mg Tablet PO 30 mg DAILY CHUYITA Administration Levothyroxine Sodium 112 mcg 08/31/22 09:00 09/01/22 08:00 Levothyroxine 112 Mcg Tablet PO 112 mcg DAILY CHUYITA Administration Metoprolol Tartrate 12.5 mg 08/31/22 09:00 09/01/22 08:00 Metoprolol Tartrate 25 Mg Tablet PO 12.5 mg BID CHUYITA Administration Non-Formulary Medication 10 mg 08/31/22 09:00 09/01/22 08:21 Amitriptyline PO Not Given DAILY CHUYITA Pantoprazole Sodium 40 mg 08/31/22 09:00 09/01/22 08:[address] 40 Mg Tablet PO 40 mg DAILY CHUYITA Administration Pantoprazole Sodium 40 mg 08/31/22 09:00 07/16/23 08:[address] 40 Mg Tablet PO Not Given DAILY CHUYITA PFSH Acute PFSH: Medical History Acute bacterial pharyngitis Anxiety Atherosclerotic heart disease of [place] coronary artery without angina pectoris CAD (coronary artery disease) Cellulitis of foot CHF (congestive heart failure) Chronic idiopathic constipation Chronic kidney disease, stage 3 unspecified Chronic secretory otitis media CKD (chronic kidney disease) Contact dermatitis Cough Cracked skin on feet Diabetes Patient has been intermediate designer diabetic with 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 He cannot manage insulin at home and is currently controlled with Ozempic weekly and oral meds. Diabetic foot Diarrhea Dysuria Environmental and seasonal allergies Environmental and seasonal allergies Essential hypertension Patient is currently well controlled with antihypertensives FH: CABG (coronary artery bypass surgery) Foot callus Foot callus GERD (gastroesophageal reflux disease) H/O: GI bleed Headache Hyperlipidemia Hypothyroid Impaired cognitive ability Iron deficiency anemia Knee abrasion Mild intellectual disability Muscle cramps Patellofemoral dysfunction of right knee Polyneuropathy, unspecified Renal calculus, right STEMI (ST elevation myocardial infarction) Vitamin D deficiency Patient has history of Vitamin D deficiency and take home D3 supplement Wound of foot Surgical History Aortocoronary bypass status Family History Mother Diabetes Alzheimer's dementia Brother Epileptic seizure Social History Smoking and tobacco status: never smoked Second hand smoke exposure: No Alcohol intake: current Vitals/I&O/Wt Last Vital Signs Temp 97.8 F 08/31/22 19:30 Pulse 106 H 09/01/22 10:00 Resp 25 H 09/01/22 10:00 BP 131/79 09/01/22 10:00 Pulse Ox 80 L 09/01/22 10:00 O2 Del Method Nasal Cannula 09/01/22 08:10 O2 Flow Rate 5 09/01/22 08:10 FiO2 50 09/01/22 10:00 08/31/22 09/01/22 09/01/22 22:59 06:59 14:59 Intake Total 834.867 / 1654.625 238.000 / 1892.625 250 / 250 Output Total 1600 / 1600 1450 / 3050 Balance -765.133 / 54.625 -1212.000 / -1157.375 250 / 250 Weight last 48 hrs Weight 83.915 kg Physical Exam Narrative: awake , alert no distress Urinary Catheter Management: Phillip Latex: Cath Placed During This Visit: yes Reason for Continuing Indwelling Catheter: Accurate Measurement of Urinary Output in Critically Ill Patients Urinary Catheter Date of Insertion: 08/31/22 Urinary Catheter Time of Insertion: 05:38 Data 09/01/22 03:34 09/01/22 03:34 Micro: Microbiology 08/31/22 01:36 Blood Culture - Preliminary Blood NEGATIVE TO DATE 08/31/22 01:30 Blood Culture - Preliminary Blood NEGATIVE TO DATE 08/31/22 05:32 MRSA Culture - Final Nose 08/31/22 05:37 Bacterial Antigens - Final Urine,Voided A&P Assessment and plan (1) CAROLYNN (acute kidney injury): Plan 1. Acute on CKD 3 Patient's creatinine is in the mid 1 range, creatinine increased 2.8, possible cardiorenal etiology. -Avoid nephrotoxins and further IV contrast studies -Expect renal function to get for the most chest and also anticipated contrast with left heart cath. -Patient renal function getting worse and may require temporary dialysis. -Status post 1 dose of IV Lasix now . -Continue to monitor renal function closely. -I do not think patient can tolerate more IV fluids due to pulmonary edema. 2. Metabolic acidosis: Mild, improved 3. Non-ST elevation AL : Plan per cardiology and left heart Cath 4. History of hypertension: Blood pressure stable Patient evaluated using audiovisual cart. Time spent 40 minutes Consult Attestations Medical Necessity Statement: per medicine Coding Level of Care Code Acute Code for [facility] Fwd Diagnoses CAROLYNN (acute kidney injury) N17.9
[2022-09-01 11:07] LABS: Partial Thromboplastin Time 69.3 SECONDS (23.9-36.7)
[2022-09-01 11:30] LABS: Glucose Point of Care 426 mg/dL (70-110)
[2022-09-01] MEDS: insulin glargine 100 units/1 mL 15 UNIT SUBCUT ×2 (12:03→20:36)
--- NOTE | 2022-09-01 15:00 | P.PN_ITS ---
Subjective Subjective: Patient endorses continued chest discomfort but states it is much improved as compared to prior days. Endorses cough. Denies fevers, chills, nausea or emesis. Reports his only family is an uncle who is does not usually get along with. Uses the pharmacy services to organize his pills. Medications: Reviewed: Yes Vitals/I&O/Wt Last Vital Signs Temp 97.8 F 08/31/22 19:30 Pulse 100 09/01/22 14:05 Resp 22 H 09/01/22 14:05 BP 161/129 09/01/22 13:00 Pulse Ox 92 09/01/22 14:05 O2 Del Method Nasal Cannula 09/01/22 14:05 O2 Flow Rate 5 09/01/22 14:05 FiO2 50 09/01/22 14:00 09/01/22 09/01/22 09/01/22 06:59 14:59 22:59 Intake Total 238.000 / 1892.625 500 / 500 Output Total 1450 / 3050 3050 / 3050 Balance -1212.000 / -1157.375 -2550 / -2550 Weight last 48 hrs Weight 83.915 kg Physical Exam Narrative: General: Patient is awake. Lying in bed. Head: Normocephalic. Atraumatic. EOM intact. Neck: No JVD. Cardiovascular: RRR. No gallops. No murmurs. Bilateral lower extremity edema. Hypertensive. Lungs: Bilateral rhonchi and dependent crackles, no use of accessory muscles, or wheezes. Skin: No jaundice. No rashes. Abdomen: Normal bowel sounds, abdomen soft and nontender. Extremities: No cyanosis or clubbing. Musculoskeletal: No swollen or erythematous joints. Neurological: Moves all 4 extremities. No myoclonus. Urinary Catheter Management: Phillip Latex: Cath Placed During This Visit: yes Reason for Continuing Indwelling Catheter: Accurate Measurement of Urinary Output in Critically Ill Patients Urinary Catheter Date of Insertion: 08/31/22 Urinary Catheter Time of Insertion: 05:38 Data 09/01/22 03:34 09/01/22 03:34 Micro: Microbiology 08/31/22 01:36 Blood Culture - Preliminary Blood NEGATIVE TO DATE 08/31/22 01:30 Blood Culture - Preliminary Blood NEGATIVE TO DATE 08/31/22 05:32 MRSA Culture - Final Nose 08/31/22 05:37 Bacterial Antigens - Final Urine,Voided A&P Assessment and plan (1) NSTEMI (non-ST elevated myocardial infarction): Hx of CAD w/ hx of CABG Continue continue aspirin Continue atorvastatin Continue metoprolol Continue Imdur Telemetry monitoring Heparin drip Echo reviewed, mild diffuse hypokinesis of the inferior wall, LVEF 50% Cardiology following, appreciate recommendations (2) Pneumonia: Bilateral community-acquired pneumonia Continue Zosyn MRSA swab was positive but patient improving without MRSA coverage Pulmonary toilet (3) Acute respiratory failure with hypoxia: Multifactorial Continue supplemental respiratory support (4) Renal insufficiency: Nephrology consult Strict I's and O's Daily weights Avoid nephrotoxins (5) Acute on chronic diastolic CHF (congestive heart failure): Lasix 40 mg IVP once Strict I's and O's Cardiology following (6) Hyperosmolar hyperglycemic state (HHS): Mentation appears to be at baseline Off IV insulin drip Starting Lantus Sliding-scale insulin correction Plan DVT prophylaxis: Heparin drip CODE STATUS: Full code Attestations Medical Necessity Statement*: Patient requires ongoing hospitalization for IV heparin drip, cardiology evaluation, IV antibiotics, and titration of insulin. Coding Level of Care Code Acute Code for [facility] Fwd Diagnoses NSTEMI (non-ST elevated myocardial infarction) I21.4 Pneumonia J18.9 Acute respiratory failure with hypoxia J96.01 Renal insufficiency N28.9 Acute on chronic diastolic CHF (congestive heart failure) I50.33 Hyperosmolar hyperglycemic state (HHS) E11.00
[2022-09-01 17:36] LABS: Glucose Point of Care 229 mg/dL (70-110)
--- NOTE | 2022-09-01 19:49 | PM.PN ---
Subjective Subjective: The patient is feeling okay. Has not had a recurrence of chest pain, since the hospital admission. Still has some amount of shortness of breath. He is currently on 5 L of oxygen by nasal cannula. No fever or chills. No significant cough. No vital seems to be stable Medications: Medication Review Details: Current Medications Acetaminophen (Acetaminophen 325 Mg Tablet) 650 mg PO Q6H PRN PRN Reason: Mild/Mod Pain Or Temp >/= 101 Albuterol/Ipratropium (Ipratropium-Albuterol 3 Ml Neb) 3 ml INHALATION Q6H.RESP CHUYITA Last Admin: 09/01/22 14:03 Dose: 3 ml Aspirin (Aspirin 81 Mg Ec Tablet) 81 mg PO DAILY CHUYITA Last Admin: 09/01/22 08:00 Dose: 81 mg Atorvastatin Calcium (Atorvastatin 40 Mg Tablet) 20 mg PO DAILY [facility] Last Admin: 09/01/22 08:00 Dose: 20 mg Dextrose (Dextrose 50% Syringe 50 Ml) 25 ml IVP PRN PRN; Protocol PRN Reason: Adult DKA Hypoglycemia Nursing Protocol. Dextrose (Dextrose 50% Syringe 50 Ml) 50 ml IVP PRN PRN; Protocol PRN Reason: Adult DKA Hypoglycemia Nursing Protocol Dextrose (Dextrose 50% Syringe 50 Ml) 25 ml IVP ONCE PRN; Protocol PRN Reason: hypoglycemia protocol Dextrose (Dextrose 50% Syringe 50 Ml) 50 ml IVP PRN PRN; Protocol PRN Reason: hypoglycemia protocol Glucagon (Glucagon 1 Mg/Ml Inj 1 Ml) 1 mg IM ONCE PRN; Protocol PRN Reason: DKA Hypoglycemia Nursing Protocol Glucagon (Glucagon 1 Mg/Ml Inj 1 Ml) 1 mg IM ONCE PRN; Protocol PRN Reason: Adult Acute Hypoglycemia Prot. Heparin Sodium (Porcine) (Heparin 5,000 Unit/Ml Inj 1 Ml) 0 unit IV PRN PRN; Protocol PRN Reason: Heparin weight-base protocol Nitroglycerin/Dextrose (Nitroglycerin Drip) 50 mg in 250 mls @ 0 mls/hr IV .Q0M CHUYITA; Protocol Last Titration: 09/01/22 02:00 Dose: Infused Heparin Sodium/Sodium Chloride (Heparin Drip) 25,000 unit in 500 mls @ 0 mls/hr IV .Q0M CHUYITA; Protocol Last Titration: 09/01/22 19:00 Dose: 14 unit/kg/hr, 23.5 mls/hr Insulin Human Regular 250 unit (/ Sodium Chloride) 252.5 mls @ 0 mls/hr IV .Q0M CHUYITA; Protocol Last Titration: 08/31/22 19:00 Dose: Infused Potassium Phosphate 40 meq/ (Sodium Chloride) 109.0909 mls @ 27.25 mls/hr IV PRN PRN PRN Reason: hypophosphatemia Magnesium Sulfate (Magnesium Sulfate Premix) 2 gm in 50 mls @ 50 mls/hr IV PRN PRN PRN Reason: HYPOMAGNESIUMIA Lidocaine HCl 5 ml/ Potassium (Chloride) 105 mls @ 25 mls/hr IV PRN PRN PRN Reason: hypokalemia Piperacillin Sod/Tazobactam (Sod 3.375 gm/ Sodium Chloride) 50 mls @ 12.5 mls/hr IV Q8H [facility]; Protocol Last Admin: 09/01/22 17:39 Dose: 12.5 mls/hr Dextrose (D5w) 500 mls @ 100 mls/hr IV ONCE PRN; Protocol PRN Reason: Adult Acute Hypoglycemia Prot Insulin Glargine (Insulin Glargine 100 Units/1 Ml) 15 unit SUBCUT BEDTIME CHUYITA Last Admin: 09/01/22 12:03 Dose: 15 unit Insulin Human Lispro (Insulin Lispro 100 Unit/1 Ml) 0 unit SUBCUT WM&BEDTIME [facility]; Protocol Last Admin: 09/01/22 17:40 Dose: 8 unit Isosorbide Mononitrate (Isosorbide Mononitrate Er 30 Mg Tablet) 30 mg PO DAILY CHUYITA Last Admin: 09/01/22 08:00 Dose: 30 mg Lactulose (Lactulose Oral Liq 20 Gm/30 Ml Udc) 20 gm PO BID PRN PRN Reason: constipation Levothyroxine Sodium (Levothyroxine 112 Mcg Tablet) 112 mcg PO DAILY CHUYITA Last Admin: 09/01/22 08:00 Dose: 112 mcg Metoprolol Tartrate (Metoprolol Tartrate 25 Mg Tablet) 12.5 mg PO BID CHUYITA Last Admin: 09/01/22 17:39 Dose: 12.5 mg Morphine Sulfate (Morphine 4 Mg/Ml Sdv 1 Ml) 2 mg IVP Q4H PRN PRN Reason: SEVERE PAIN Non-Formulary Medication (Amitriptyline) 10 mg PO DAILY [facility] Last Admin: 09/01/22 08:21 Dose: Not Given Pantoprazole Sodium (Pantoprazole Dr 40 Mg Tablet) 40 mg PO DAILY [facility] Last Admin: 09/01/22 08:00 Dose: 40 mg Pantoprazole Sodium (Pantoprazole Dr 40 Mg Tablet) 40 mg PO DAILY [facility] Last Admin: 09/01/22 08:21 Dose: Not Given Vitals/I&O/Wt Last Vital Signs Temp 97.5 F L 09/01/22 16:00 Pulse 103 H 09/01/22 18:00 Resp 26 H 09/01/22 18:00 BP 144/84 09/01/22 17:30 Pulse Ox 92 09/01/22 18:00 O2 Del Method Nasal Cannula 09/01/22 14:05 O2 Flow Rate 5 09/01/22 14:05 FiO2 50 09/01/22 18:00 09/01/22 09/01/22 09/01/22 06:59 14:59 22:59 Intake Total 238.000 / 1892.625 500 / 500 752.5 / 1252.5 Output Total 1450 / 3050 3050 / 3050 1350 / 4400 Balance -1212.000 / -1157.375 -2550 / -2550 -597.5 / -3147.5 Weight last 48 hrs Weight 185 lb Physical Exam Narrative: GENERAL: The patient is alert and oriented times three. Not in any acute distress. Slightly tachypneic HEENT: No significant pallor, icterus or lymphadenopathy.Oral cavity: There are no mucous membrane lesions. NECK: Trachea appears to be central. No masses noted. No JVD or thyromegaly appreciated. RESPIRATORY: Chest is symmetrical. No intercostals muscle retraction or any accessory muscle activation. There is no chest wall tenderness. Breath sounds are heard bilaterally. No rales or rhonchi heard. No evidence of any consolidation. BREASTS: Deferred. HEART: The heart sounds are normal. No S3 or S4. Short early systolic murmur in the lower sternal border. Ejection systolic murmur grade 2/6 in the aortic area. No pericardial rub ABDOMEN: No vessel pulsations or distention. No tenderness. No organomegaly appreciated. Bowel sounds are normally heard. : Deferred. RECTAL: Deferred. LYMPHATIC: No lymphadenopathy noted in the neck. EXTREMITIES: Dorsalis present pulses and pulse are palpable on the right side. Difficult to palpate on the left side. MUSCULOSKELETAL: No acute joint deformities or swelling SKIN: There are no significant rashes or ecchymosis NEUROPSYCHIATRIC: The patient is alert and oriented x3. Not in any acute distress. Slightly tachycardia Urinary Catheter Management: Phillip Latex: Cath Placed During This Visit: yes Reason for Continuing Indwelling Catheter: Accurate Measurement of Urinary Output in Critically Ill Patients Urinary Catheter Date of Insertion: 08/31/22 Urinary Catheter Time of Insertion: 05:38 Data 09/01/22 03:34 09/01/22 03:34 Other Labs: Laboratory Last Values WBC 15.4 10^3/uL (4.0-10.0) H 09/01/22 03:34 RBC 4.33 10^6/uL (4.1-5.3) 09/01/22 03:34 Hgb 12.1 g/dL (11.7-16.6) 09/01/22 03:34 Hct 39.4 % (42.0-52.0) L 09/01/22 03:34 MCV 91.0 fl (80-94) 09/01/22 03:34 MCH 27.9 pg (28.0-34.0) L 09/01/22 03:34 MCHC 30.7 g/dL (30.0-36.0) 09/01/22 03:34 RDW 15.0 % (12.1-15.1) 09/01/22 03:34 Plt Count 274 10^3/cmm (130-400) D 09/01/22 03:34 MPV 10.7 fL (7.4-10.4) H 09/01/22 03:34 Neut % (Auto) 83.5 % 09/01/22 03:34 Lymph % (Auto) 7.3 % 09/01/22 03:34 Eagle % (Auto) 8.2 % 09/01/22 03:34 Eos % (Auto) 0.3 % 09/01/22 03:34 Baso % (Auto) 0.3 % 09/01/22 03:34 Neut # (Auto) 12.89 10^3/uL (1.8-7.7) H 09/01/22 03:34 Lymph # (Auto) 1.1 10^3/uL (0.8-4.8) 09/01/22 03:34 Eagle # (Auto) 1.3 10^3/uL (0.2-0.9) H 09/01/22 03:34 Eos # (Auto) 0.0 10^3/uL (0.0-0.8) 09/01/22 03:34 Baso # (Auto) 0.0 10^3/uL (0.0-0.1) 09/01/22 03:34 Nucleated RBC % (auto) 0 % 09/01/22 03:34 Nucleated RBCs # 0.0 /100WBC 09/01/22 03:34 PT 12.80 SECONDS (12.1-14.9) 08/31/22 00:53 INR 0.94 (0.8-1.2) 08/31/22 00:53 APTT 69.3 SECONDS (23.9-36.7) H 09/01/22 09:59 Specimen Type Arterial 08/31/22 00:37 Sample Site Radial, left 08/31/22 00:37 ABG pH 7.26 (7.35-7.45) L 08/31/22 00:37 ABG pCO2 43.4 mmHg (35-45) 08/31/22 00:37 ABG pO2 101.0 mmHg (80.0-100.0) H 08/31/22 00:37 ABG HCO3 19.6 mmol/L (22-26) L 08/31/22 00:37 ABG Base Excess -7.3 mmol/L (-2.0-2.0) L 08/31/22 00:37 Sulaiman Test Pos 08/31/22 00:37 Hematocrit 45.2 % (42-52) 08/31/22 00:37 O2 Delivery Device Bipap 08/31/22 00:37 FiO2 80.0 % 08/31/22 00:37 PEEP 10.0 cmH20 08/31/22 00:37 Validation Scientist ID [email or web address] 08/31/22 00:37 Sodium 135 mmol/L (136-145) L 09/01/22 03:34 Potassium 4.1 mmol/L (3.5-5.1) 09/01/22 03:34 Chloride 98 mmol/L (98-107) 09/01/22 03:34 Carbon Dioxide 23 mmol/L (22-29) 09/01/22 03:34 Anion Gap 18.1 (5-19) 09/01/22 03:34 BUN 46 mg/dL (8-23) H 09/01/22 03:34 Creatinine 2.8 mg/dL (0.7-1.2) H 09/01/22 03:34 GFR Calculation Not Reportable 09/01/22 03:34 Glucose 218 mg/dL (65-115) H 09/01/22 03:34 POC Glucose 229 mg/dL (70-110) H 09/01/22 17:27 Calculated Osmolality 299 mOsm/kg (285-295) H 09/01/22 03:34 Lactic Acid 3.7 mmol/L (0.5-2.2) H 08/31/22 00:53 Lactic Acid (Sepsis) 3.3 mmol/L (0.5-2.2) H 08/31/22 03:23 Calcium 8.3 mg/dL (8.5-10.5) L 09/01/22 03:34 Total Bilirubin 0.2 mg/dL (0.15-1.2) 09/01/22 03:34 AST 167 U/L (0-40) H 09/01/22 03:34 ALT 55 U/L (0-41) H 09/01/22 03:34 Alkaline Phosphatase 98 U/L (40-130) 09/01/22 03:34 Creatine Kinase 80 U/L (39-308) 08/30/22 23:30 Troponin T Baseline 74 ng/L (0-15) H 08/30/22 23:30 Troponin T 120 Minute 374.3 ng/L (0-15) H 08/31/22 01:30 Delta Troponin T 300.3 ABS# (0-10) H* 08/31/22 01:30 Troponin T Hi Sens 6Hr 1667 ng/L (0-15) H 08/31/22 05:50 Troponin T Hi Sens 6Hr Delta 1593 ng/L (0-12) H* 08/31/22 05:50 NT-Pro-B Natriuret Pep 2032 pg/mL (0-125) H 08/30/22 23:30 Total Protein 6.9 g/dL (6.6-8.7) 09/01/22 03:34 Albumin 3.5 g/dL (3.5-5.2) 09/01/22 03:34 Globulin 3.4 g/dL (1.3-4.6) 09/01/22 03:34 Procalcitonin 1.19 ng/mL (0-0.5) H 08/31/22 05:50 Ur Random Sodium 74 mmol/L 08/31/22 05:37 Ur Random Potassium 22 mmol/L 08/31/22 05:37 Ur Random Chloride 73 mmol/L 08/31/22 05:37 Nasal Influ A H1 2009 PCR Not detected (NOT DETECT) 08/31/22 01:08 Serum Ketones Negative (Negative) 08/31/22 01:38 Adenovirus (PCR) Not detected (NOT DETECT) 08/31/22 01:08 C. pneumoniae DNA (PCR) Not detected (NOT DETECT) 08/31/22 01:08 Coronavirus 229E (PCR) Not detected (NOT DETECT) 08/31/22 01:08 Human Metapneumovir PCR Not detected (NOT DETECT) 08/31/22 01:08 Influenza A (H1) PCR Not detected (NOT DETECT) 08/31/22 01:08 Influenza A (H3) PCR Not detected (NOT DETECT) 08/31/22 01:08 Influenza Type A (PCR) Not detected (NOT DETECT) 08/31/22 01:08 Influenza Type B (PCR) Not detected (NOT DETECT) 08/31/22 01:08 M. pneumoniae (PCR) Not detected (NOT DETECT) 08/31/22 01:08 Parainfluenza 1 (PCR) Not detected (NOT DETECT) 08/31/22 01:08 Parainfluenza 2 (PCR) Not detected (NOT DETECT) 08/31/22 01:08 Parainfluenza 3 (PCR) Not detected (NOT DETECT) 08/31/22 01:08 Parainfluenza 4 (PCR) Not detected (NOT DETECT) 08/31/22 01:08 RSV Type A (PCR) Not detected (NOT DETECT) 08/31/22 01:08 RSV Type B (PCR) Not detected (NOT DETECT) 08/31/22 01:08 Entero/Rhino (PCR) Not detected (NOT DETECT) 08/31/22 01:08 SARS-CoV-2 (PCR) Not detected (NOT DETECT) 08/31/22 01:08 Micro: Microbiology 08/31/22 01:36 Blood Culture - Preliminary Blood NEGATIVE TO DATE 08/31/22 01:30 Blood Culture - Preliminary Blood NEGATIVE TO DATE 08/31/22 05:32 MRSA Culture - Final Nose Other data: Echocardiogram from yesterday ?Normal left ventricular size slightly diminished ejection ?fraction, EF 50 % (visual)..? ?Wall motion of normalities as mentioned above ?Mild mitral valve regurgitation.? ?Moderate mitral annular calcification. ?Mildly increased left atrial size. ?There is no pericardial effusion. ?There is no pericardial effusion. ?Compared to the study from 12/01/2019, there is slight drop in ?the LV ejection fraction A&P Assessment and plan (1) Acute non-ST elevation myocardial infarction (NSTEMI): Patient is a clinical features are consistent with non-ST elevation myocardial infarction hemodynamically seems to be stable. He may be treated with IV heparin, subcu Lovenox, aspirin, beta-blockers and other symptomatic measures. An echocardiogram would be helpful to evaluate LV function and rule out any other pathology. (2) Acute on chronic diastolic CHF (congestive heart failure): Patient may be carefully treated with IV diuretics. His kidney function needs to be closely monitored. (3) CKD (chronic kidney disease): The BUN and the creatinine levels has not changed significantly. Continue monitoring the electrolytes and kidney function closely. (4) Acute respiratory failure with hypoxia: Could be related to acute on chronic diastolic heart failure. Possibility of pneumonia cannot be occluded. Patient is on BiPAP. Oxygenation seems to be improving. May continue on the current measures. (5) Diabetes: Has features of diabetic ketoacidosis. The blood sugar seems to be slowly getting under control. Qualifiers: Diabetes mellitus type: type 2 Diabetes mellitus residential insulin use: without residential use Diabetes mellitus complication status: without complication Qualified Code(s): E11.9 - Type 2 diabetes mellitus without complications (6) Essential hypertension: Currently the blood pressure is of stage II. May continue on the current antihypertensive medications. (7) Hyperlipidemia: He is on a statin. This may be continued. Qualifiers: Hyperlipidemia type: unspecified Qualified Code(s): E78.5 - Hyperlipidemia, unspecified (8) Hypothyroid: Clinically euthyroid. May continue on the current medications. Qualifiers: Hypothyroidism type: acquired Qualified Code(s): E03.9 - Hypothyroidism, unspecified Plan Other problems or 1. Leukocytosis, possibly related to pneumonia, may continue on the empiric antibiotics 2. History of peripheral artery disease, clinically seems to be stable 3. GERD 4. Alcohol abuse Possible nephrology consult today. Consider cardiac catheterization once his medical condition is otherwise stable. We will get input from nephrology. Attestations Medical Necessity Statement*: Patient requires continued hospital stay for close monitoring and further management Coding Level of Care Code 31074 Diagnoses Acute non-ST elevation myocardial infarction (NSTEMI) I21.4 Acute on chronic diastolic CHF (congestive heart failure) I50.33 CKD (chronic kidney disease) N18.9 Acute respiratory failure with hypoxia J96.01 Diabetes E11.9 Diabetes mellitus type: type 2 Diabetes mellitus residential insulin use: without mud car worker use Diabetes mellitus complication status: without complication Essential hypertension I10 Hyperlipidemia E78.5 Hyperlipidemia type: unspecified Hypothyroid E03.9 Hypothyroidism type: acquired
[2022-09-01 19:59] LABS: Partial Thromboplastin Time 62.1 SECONDS (23.9-36.7)
[2022-09-01 20:25] LABS: Glucose Point of Care 215 mg/dL (70-110)
[2022-09-02] VITALS (56 sets, daily range): BP systolic 94–142; BP diastolic 60–107; PULSE 79–102; RESP 15–27; TEMP 36.5–36.9; O2SAT 88–100
[2022-09-02] MEDS: piperacillin-tazobactam 3.375 GM in sodium chloride 0.9% (plus) 50 ML IV ×3 (01:11→17:16)
[2022-09-02] MEDS: ipratropium-albuterol 3 mL Neb INHALATION ×4 (02:39→19:29)
[2022-09-02 04:08] LABS: Basophils % 0.4 %; Eosinophils # 0.1 10^3/uL (0.0-0.8); Eosinophils % 1.2 %; Hematocrit 38.3 % (42.0-52.0); Hemoglobin 11.8 g/dL (11.7-16.6); Lymphocytes # 1.5 10^3/uL (0.8-4.8); Lymphocytes % 13.5 %; Mean Corpuscular HGB Conc 30.8 g/dL (30.0-36.0); Mean Corpuscular Hemoglobin 27.8 pg (28.0-34.0); Mean Corpuscular Volume 90.1 fl (80-94); Mean Platelet Volume 11.1 fL (7.4-10.4); Monocytes % 9.5 %; Neutrophils # 8.03 10^3/uL (1.8-7.7); Neutrophils % 74.9 %; Nucleated Red Blood Cells % 0 %; Platelet Count 247 10^3/cmm (130-400); Red Blood Count 4.25 10^6/uL (4.1-5.3); White Blood Count 10.7 10^3/uL (4.0-10.0)
[2022-09-02 04:25] LABS: Partial Thromboplastin Time 57.6 SECONDS (23.9-36.7)
[2022-09-02 04:30] LABS: Albumin Level 3.3 g/dL (3.5-5.2); Anion Gap 18.7 (5-19); Blood Urea Nitrogen 50 mg/dL (8-23); Calcium 8.7 mg/dL (8.5-10.5); Carbon Dioxide 24 mmol/L (22-29); Chloride 96 mmol/L (98-107); Glucose 176 mg/dL (65-115); Magnesium 2.3 mg/dL (1.7-2.3); Phosphorus 4.1 mg/dL (2.5-4.5); Potassium 3.7 mmol/L (3.5-5.1); Sodium 135 mmol/L (136-145)
[2022-09-02 07:10] LABS: Glucose Point of Care 217 mg/dL (70-110)
[2022-09-02] MEDS: insulin lispro 100 unit/1 mL SUBCUT ×4 (08:16→21:26)
[2022-09-02] MEDS: aspirin 81 mg EC Tablet PO (08:17)
[2022-09-02] MEDS: atorvastatin 40 mg Tablet 20 MG PO (08:17)
[2022-09-02] MEDS: isosorbide mononitrate ER 30 mg Tablet PO (08:17)
[2022-09-02] MEDS: pantoprazole DR 40 mg Tablet PO ×2 (08:17)
[2022-09-02] MEDS: levothyroxine 112 mcg Tablet PO (08:17)
[2022-09-02] MEDS: metoprolol tartrate 25 mg Tablet 12.5 MG PO ×2 (08:17→17:15)
--- NOTE | 2022-09-02 10:15 | PC.CHAP ---
Pastoral Care Encounter/Spiritual Assessment Type of Contact [] Declined sealer sander visit [] Patient/Family/Request visit [] Outpatient visit [] Follow-up visit [] Physician referral [] Code/Alert [x] Routine visit [] Staff referral [] Actively dying [] Patient sleeping [] Family support [] [] Out of room [] Palliative care [] [] Receiving care in room [] Pre-surgical visit [] Trauma [] Long length of stay [x] ICU visit [x] Other: setting in chair... having breakfast Relational/Emotional Strength [] Patient feels connected with others/family/visitors/staff [] Distress [] Loneliness/isolation [] Abandonment Spirituality of Patient [] Person of Lauren [] Attends Church of their Lauren [] Believes in Prayer [] Reads Bible or Roman Catholic materials [] There are Spiritual issues to be addressed Shaft Tender Interventions [x] Prayer [] Active listening [] Non-anxious presence [] Spiritual/emotional support [] Crisis/trauma care [] Spiritual counseling [] Bereavement support [] Provided bereavement packet [] Provided Bible/devotional materials [] Provided toy/stuffed animal, coloring book to patient or family member [] Provided Communion [] Anointing/[place] [] Salvation [x] Completed spiritual assessment [] Other: Impact on Illness or Injury [] Angry [] Fearful [] Anxious [] Often cries [] Exhaustion [] Unable to work [] Unable to attend holiness [] Unable to walk/stand [] Unable to read [] Unable to drive [] Unable to eat/drink [] Unable to sleep [] Unable to be with family [] Patient intubated [] Other: Summary Time spent with patient
--- NOTE | 2022-09-02 10:17 | P.PN_ITS ---
Subjective Subjective: on RA Medications: Reviewed: Yes Vitals/I&O/Wt Last Vital Signs Temp 97.8 F 09/02/22 07:25 Pulse 93 09/02/22 07:34 Resp 20 H 09/02/22 07:34 BP 132/94 09/02/22 06:00 Pulse Ox 98 09/02/22 07:34 O2 Del Method Nasal Cannula 09/02/22 07:34 O2 Flow Rate 5 09/02/22 07:34 FiO2 50 09/02/22 02:39 09/01/22 09/02/22 09/02/22 22:59 06:59 14:59 Intake Total 987.75 / 1487.75 229.617 / 1717.367 Output Total 1350 / 4400 1000 / 5400 Balance -362.25 / -2912.25 -770.383 / -3682.633 Physical Exam Narrative: awake , alert no distress Urinary Catheter Management: Phillip Latex: Cath Placed During This Visit: yes Reason for Continuing Indwelling Catheter: Accurate Measurement of Urinary Output in Critically Ill Patients Urinary Catheter Date of Insertion: 08/31/22 Urinary Catheter Time of Insertion: 05:38 Data 09/02/22 03:45 09/02/22 03:45 A&P Assessment and plan (1) CAROLYNN (acute kidney injury): Plan 1. Acute on CKD 3 Patient's creatinine is in the mid 1 range, creatinine i ncreased 2.8, possible cardiorenal etiology. Cr stable @ 2.9 today -Avoid nephrotoxins -Expect renal function to get worse as he recieved IV contrast with CT chest and also anticipated contrast with left heart cath. -discussed with pt re: possibility of worsening renal fxn and may require temporary dialysis -Continue to monitor renal function closely. - if C planned - will consider 6 hours of Pre /post IVFs if pt can tolerate . 2. Metabolic acidosis: Mild, improved 3. Non-ST elevation [place] : Plan per cardiology , considering [facility] 4. History of hypertension: Blood pressure stable 5. Acute on chronic respiratory failure: Multifactorial Patient evaluated using audiovisual cart. Time spent 40 minutes Attestations Medical Necessity Statement*: per medicine Coding Level of Care Code Acute Code for [facility] Fw Diagnoses CAROLYNN (acute kidney injury) N17.9
--- NOTE | 2022-09-02 10:41 | PM.PN ---
Subjective Subjective: 72 yo man with PMHx of CAD s/p CABGx3, HTN, HLD, PAD, CKD-3 and DM-2. He has h/o three-vessel coronary bypass surgery in 04/[address] Jones. He had a FIGUEROA t to the LAD, and saphenous venous grafts to the obtuse marginal 1 and 2.? He had a peripheral angiogram in February 2013 that showed mild to moderate diffuse disease from aortic bifurcation to popliteals. Severe diffuse disease below both knees with poor runoff. In 2016, he had a cardiac catheterization.? The small FIGUEROA was found to be patent but the LAD distal to the anastomosis was found to be occluded.? The saphenous venous grafts were found to be patent.? The stented segment of the right coronary artery was found to be patent..? There was a 60% lesion in the PDA branch. He was admitted with CP and SOB. troponin T peaked at 6 hr to >1600 from 73. LVEF decreased to 50%. Mild diffuse hypokienis of inferior wall. Last 24 hr: No chest pain this morning. Intermittent PVC's on telemetry Medications: Reviewed: Yes Vitals/I&O/Wt Last Vital Signs Temp 97.8 F 09/02/22 07:25 Pulse 93 09/02/22 07:34 Resp 20 H 09/02/22 07:34 BP 132/94 09/02/22 06:00 Pulse Ox 98 09/02/22 07:34 O2 Del Method Nasal Cannula 09/02/22 07:34 O2 Flow Rate 5 09/02/22 07:34 FiO2 50 09/02/22 02:39 09/01/22 09/02/22 09/02/22 22:59 06:59 14:59 Intake Total 987.75 / 1487.75 229.617 / 1717.367 Output Total 1350 / 4400 1000 / 5400 Balance -362.25 / -2912.25 -770.383 / -3682.633 Physical Exam Narrative: GENERAL: obese man sitting in chair in no acute distress HEENT: Extraocular movement intact. No pallor or icterus. NECK: central trachea, No JVD. No carotid bruit. CARDIOVASCULAR SYSTEM: S1-S2 regular. No murmur rubs or gallops. RESPIRATORY SYSTEM: Chest clear to auscultation. No wheezes rhonchi or rubs heard. No use of accessory muscles. ABDOMEN: Soft, nontender and nondistended. Normal bowel sounds present. EXTREMITIES: No cyanosis or edema. No signs of chronic venous insufficiency. ENCODING CLERK: Patient is alert oriented ?3. No focal neurological deficits. Urinary Catheter Management: Phillip Latex: Cath Placed During This Visit: yes Reason for Continuing Indwelling Catheter: Accurate Measurement of Urinary Output in Critically Ill Patients Urinary Catheter Date of Insertion: 08/31/22 Urinary Catheter Time of Insertion: 05:38 Data 09/02/22 03:45 09/02/22 03:45 A&P Assessment and plan (1) Acute non-ST elevation myocardial infarction (NSTEMI): Plan for LHC in morning given renal function is stable/ improving High risk of FELICITY and needing dialysis. This was discussed with the patient and he would like to proceed with coronary angiogram Risks and benefits were discussed with the patients. Alternate management options were discussed with the patient as well. Possible complications including risk of heart attack stroke and , coronary perforation, arrhythmia, cardiac tamponade in urgent CABG and worsening of renal function and potential complications were discussed with the patient as well. -continue with medications in the interim -will keep him NPO after mid night. (2) Acute kidney injury superimposed on CKD: (3) CHF (congestive heart failure): (4) CAD (coronary artery disease): (5) Diabetes: Qualifiers: Diabetes mellitus type: type 2 Diabetes mellitus technical maintenance technician insulin use: without technical maintenance technician use Diabetes mellitus complication status: without complication Qualified Code(s): E11.9 - Type 2 diabetes mellitus without complications (6) Hyperlipidemia: Qualifiers: Hyperlipidemia type: unspecified Qualified Code(s): E78.5 - Hyperlipidemia, unspecified Plan Multifocal PNA Attestations Medical Necessity Statement*: needs hospital stay for NSTEMI and PNA Coding Level of Care Code Acute Code for [facility] Fwd Diagnoses Acute non-ST elevation myocardial infarction (NSTEMI) I21.4 Acute kidney injury superimposed on CKD N17.9; N18.9 CHF (congestive heart failure) I50.9 CAD (coronary artery disease) I25.10 Diabetes E11.9 Diabetes mellitus type: type 2 Diabetes mellitus [facility] insulin use: without [facility] use Diabetes mellitus complication status: without complication Hyperlipidemia E78.5 Hyperlipidemia type: unspecified
[2022-09-02 11:10] LABS: Glucose Point of Care 253 mg/dL (70-110)
[2022-09-02 16:26] LABS: Glucose Point of Care 163 mg/dL (70-110)
--- NOTE | 2022-09-02 17:23 | PC.NURSE ---
Shift summary: uneventful shift, Plan is to go to heart cath tomorrow per cardiology, Nephrology to monitor renal function related to contrast dye during cath
[2022-09-02 17:32] LABS: Partial Thromboplastin Time 52.3 SECONDS (23.9-36.7)
--- NOTE | 2022-09-02 18:14 | PM.PN ---
Subjective Subjective: Patient was seen and examined this morning, denied any chest pain, shortness of breath ,serum creatinine appears to be plateauing. Good urine output. His other vitals and labs have been reviewed. Medications: Reviewed: Yes Medication Review Details: Generic Name Dose Route Start Last Admin Trade Name Les PRN Reason Stop Dose Admin Albuterol/Ipratrop ium 3 ml 08/31/22 05:30 09/02/22 13:33 Ipratropium-Albu terol 3 Ml Neb INHALATION 3 ml Q6H.RESP CHUYITA Administration Aspirin 81 mg 08/31/22 09:00 09/02/22 08:17 Aspirin 81 Mg Ec Tablet PO 81 mg DAILY CHUYITA Administration Atorvastatin Calci um 20 mg 08/31/22 09:00 09/02/22 08:17 Atorvastatin 40 Mg Tablet PO 20 mg DAILY CHUYITA Administration Nitroglycerin/Dext lacey 50 mg in 250 mls @ 0 mls/hr 08/31/22 00:45 09/01/22 02:[address] ip IV Infused .Q0M CHUYITA Titration Protocol Per Protocol Heparin Sodium/Sod ium Chloride 25,000 unit in 50 0 mls @ 0 mls/hr 08/31/22 04:00 09/02/22 04:30 Heparin Drip IV 14 unit/kg/hr .Q0M CHUYITA 23.5 mls/hr Titration Protocol Per Protocol Insulin Human Regu lar 250 unit 252.5 mls @ 0 mls /hr 08/31/22 05:15 08/31/22 19:00 / Sodium Chlorid e IV Infused .Q0M CHUYITA Titration Protocol Per Protocol Piperacillin Sod/T azobactam 50 mls @ 12.5 mls /hr 08/31/22 10:00 09/02/22 17:16 Sod 3.375 gm/ So dium Chloride IV 12.5 mls/hr Q8H CHUYITA Administration Protocol Insulin Glargine 15 unit 09/01/22 12:00 09/01/22 20:36 Insulin Glargine 100 Units/1 Ml SUBCUT 15 unit BEDTIME CHUYITA Administration Insulin Human Lisp ro 0 unit 08/31/22 12:00 09/02/22 17:15 Insulin Lispro 1 00 Unit/1 Ml SUBCUT 4 unit WM&BEDTIME CHUYITA Administration Protocol Isosorbide Mononit rate 30 mg 08/31/22 09:00 09/02/22 08:17 Isosorbide [place] itrate Er 30 Mg Ta blet PO 30 mg DAILY CHUYITA Administration Levothyroxine Sodi um 112 mcg 08/31/22 09:00 09/02/22 08:17 Levothyroxine 11 2 Mcg Tablet PO 112 mcg DAILY CHUYITA Administration Metoprolol Tartrat e 12.5 mg 08/31/22 09:00 09/02/22 17:15 Metoprolol Tartr ate 25 Mg Tablet PO 12.5 mg BID CHUYITA Administration Non-Formulary Medi cation 10 mg 08/31/22 09:00 09/02/22 08:30 Amitriptyline PO Not Given DAILY CHUYITA Pantoprazole Sodiu m 40 mg 08/31/22 09:00 09/02/22 08:[address] 40 Mg Tablet PO 40 mg DAILY CHUYITA Administration Pantoprazole Sodiu m 40 mg 08/31/22 09:00 09/02/22 08:[address] 40 Mg Tablet PO 40 mg DAILY CHUYITA Administration Vitals/I&O/Wt Last Vital Signs Temp 97.8 F 09/02/22 07:25 Pulse 94 09/02/22 17:30 Resp 24 H 09/02/22 17:30 BP 111/85 09/02/22 17:00 Pulse Ox 95 09/02/22 17:30 O2 Del Method Nasal Cannula 09/02/22 13:33 O2 Flow Rate 4 09/02/22 13:33 FiO2 50 09/02/22 02:39 09/02/22 09/02/22 09/02/22 06:59 14:59 22:59 Intake Total 229.617 / 1717.367 290 / 290 120 / 410 Output Total 1000 / 5400 900 / 900 Balance -770.383 / -3682.633 290 / 290 -780 / -490 Physical Exam Const: COMMON NORMALS: patient oriented x3 HENMT: COMMON NORMALS: normocephalic and atraumatic HEAD & SCALP: normocephalic and atraumatic Resp: COMMON NORMALS: clear to auscultation bilaterally AUSCULTATION: clear to auscultation bilaterally Cardio: COMMON NORMALS: regular rate, regular rhythm, S1 normal heart sound present, S2 normal heart sound present, No gallops present (Cardio), No murmurs present (Cardio), No rub (Cardio) and Peripheral pulses 2+ throughout RATE: regular rate RHYTHM: regular rhythm HEART SOUNDS: S1 normal heart sound present and S2 normal heart sound present PERIPHERAL PULSES: Peripheral pulses 2+ throughout GI: COMMON NORMALS: Normal to inspection, nondistended, normoactive bowel sounds present, Soft to palpation, non-tender, No hepatosplenomegaly present and no masses AUSCULTATION: Yes normoactive bowel sounds PALPATION: Yes Soft to palpation and Yes No hepatosplenomegaly present RECTAL EXAM: Yes deferred Extremity: COMMON NORMALS: no clubbing, cyanosis or edema and no pedal edema Neuro: COMMON NORMALS: patient oriented x3 Urinary Catheter Management: Phillip Latex: Cath Placed During This Visit: yes Reason for Continuing Indwelling Catheter: Accurate Measurement of Urinary Output in Critically Ill Patients Urinary Catheter Date of Insertion: 08/31/22 Urinary Catheter Time of Insertion: 05:38 Data 09/02/22 03:45 09/02/22 03:45 A&P Assessment and plan (1) NSTEMI (non-ST elevated myocardial infarction): 72-year-old male with a past medical history of coronary artery disease status post CABG presenting today with chief complaints of chest pain. Currently is being managed for NSTEMI: Has significant troponin delta, complaining of typical cardiac chest pain, 2D echo has shown:Normal left ventricular size slightly diminished ejection ?fraction, EF 50 % (visual).?Mild diffuse hypokinesia of the ?inferior wall?,?Mild mitral valve regurgitation.??Moderate mitral annular calcification. ?Mildly increased left atrial size. Currently patient is on ACS protocol, he is on heparin drip aspirin statin, beta-roseanne. Patient initially was also on nitro drip currently has been weaned off. Cardiology on board (2) Acute on chronic diastolic CHF (congestive heart failure): X-ray and CT of his chest today show bilateral infiltrates compatible with interstitial pulmonary edema, small bilateral pleural effusion and multifocal pneumonia. Was on IV Lasix, currently on hold. Place Phillip catheter to track accurate output. (3) Pneumonia: Multifocal infiltrates bilaterally, patient denies any recent fever or cough. Blood cultures negative so far, MRSA PCR, urine bacterial antigen panel negative Unfortunately sputum Gram stain and culture is not available Respiratory viral panel negative Currently empirically on Zosyn, will start tapering the antibiotic coverage. (4) Acute respiratory failure with hypoxia: Multifactorial related to CHF, pneumonia Was on BiPAP, currently doing well on 4 L, will use BiPAP as needed. (5) Hyperosmolar hyperglycemic state (HHS): Patient has elevated blood sugar greater than 500. He has an anion gap of 27 currently. ABG with evidence of metabolic acidosis. He has thus far received 10 units of IV push of insulin in the emergency room, 1 hour later his blood sugar is greater than 430. We will Start patient on insulin drip as per DKA/HHS protocol with target blood sugars between 100-120 No IV fluids for now given that patient has evidence of pulmonary edema. We will likely need to start dextrose containing fluid once blood sugar less than 250. Monitor BMP every 6 hours. Once potassium less than 4 we will add supplemental potassium. Transition to sliding scale and long-acting insulin once anion gap resolves. (6) Pulmonary edema: (7) Acute kidney injury superimposed on CKD: CAROLYNN on CKD: Monitor BMP Monitor intake and output charting Avoid nephrotoxic's Nephrology on board. If patient goes for CAG possibility of FELICITY, and potentially landing on hemodialysis has been explained to him. Plan DVT prophylaxis: Currently on a heparin drip. PUD prophylaxis Protonix 40 mg daily Full code Attestations Medical Necessity Statement*: Needs to be in hospital management of chest pain Coding Level of Care Code Acute Code for Chg Fwd Diagnoses NSTEMI (non-ST elevated myocardial infarction) I21.4 Acute on chronic diastolic CHF (congestive heart failure) I50.33 Pneumonia J18.9 Acute respiratory failure with hypoxia J96.01 Hyperosmolar hyperglycemic state (HHS) E11.00 Pulmonary edema J81.1 Acute kidney injury superimposed on CKD N17.9; N18.9
[2022-09-02] MEDS: heparin drip 25,000 UNIT/500 ML PREMIX 25.18 UNIT IV (20:24)
[2022-09-02] MEDS: clopidogrel 300 mg Tablet PO (21:15)
[2022-09-02 21:21] LABS: Glucose Point of Care 156 mg/dL (70-110)
[2022-09-02] MEDS: insulin glargine 100 units/1 mL 15 UNIT SUBCUT (21:26)
[2022-09-02] MEDS: lactulose oral liq 20 gm/30 mL UDC PO (21:26)
[2022-09-03] VITALS (57 sets, daily range): BP systolic 101–166; BP diastolic 65–115; PULSE 65–103; RESP 16–27; TEMP 36.4–36.5; O2SAT 80–100
[2022-09-03 01:51] LABS: Partial Thromboplastin Time 21.2 SECONDS (23.9-36.7)
[2022-09-03] MEDS: piperacillin-tazobactam 3.375 GM in sodium chloride 0.9% (plus) 50 ML IV ×3 (02:02→18:21)
[2022-09-03] MEDS: ipratropium-albuterol 3 mL Neb INHALATION ×4 (02:52→19:44)
--- NOTE | 2022-09-03 07:16 | ECG_ITS ---
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 Measurements Intervals [place] Rate: 89 P: 13 NJ: 128 QRS: 43 QRSD: 130 T: -28 QT: 315 QTc: 384 Interpretive Statements SINUS RHYTHM WITH FREQUENT VENTRICULAR PREMATURE COMPLEXES IN A BIGEMINAL PATTERN Compared to ECG 08/31/2022 06:33:18 Myocardial infarct finding no longer present T-wave abnormality no longer present Possible ischemia no longer present Electronically Signed On 09-03-2022 20:27:56 CDT by Patricia Herr M.D. [id number]
--- NOTE | 2022-09-03 07:27 | PM.MISC ---
Miscellaneous Note Note: I was asked by Dr. Herr to consider performing coronary angiography on this patient. He has a long history of coronary artery disease, bypass surgery, heart failure, stage III-IV chronic kidney disease, diabetes, GI bleeding, dyslipidemia, anemia, peripheral arterial disease and prior tobacco abuse. He was admitted 4 nights ago with chest pain and shortness of breath. He initially came in by ambulance under a STEMI alert. He was not having a STEMI. He has had a non-ST segment elevation MS however. His initial troponin was 74 and the second was 374. Blood sugar was greater than 500. He was in respiratory distress and was placed on a BiPAP mask. Shortly after admission he received IV contrast for a CTA of the chest. He has been seen by general cardiology and nephrology. Yesterday his creatinine had increased to 2.9. Looking back in his chart his creatinine runs anywhere from 2-2.5. Unfortunately, no labs were obtained this morning. His echo was a poor quality study but suggests an ejection fraction around 50%. Since we do not have any labs this morning and I am concerned about his kidney function I have asked the nurses to allow him to eat and we will reassess after we get some labs back. This man is very high risk for contrast-induced nephropathy especially since he received contrast material shortly after admission for the CT scan. Another dose of IV contrast will almost assuredly cause renal failure. Personally, I would like to see him optimized a little more before we proceed with angiography if we do so. At this point he is hemodynamically stable and does not seem to be in any distress.
[2022-09-03 07:39] LABS: Glucose Point of Care 172 mg/dL (70-110)
--- NOTE | 2022-09-03 07:39 | PM.PN ---
Subjective Subjective: 72 yo man with PMHx of CAD s/p CABGx3, HTN, HLD, PAD, CKD-3 and DM-2. He has h/o three-vessel coronary bypass surgery in 04/[address] Jones. He had a FIGUEROA t to the LAD, and saphenous venous grafts to the obtuse marginal 1 and 2.? He had a peripheral angiogram in February 2013 that showed mild to moderate diffuse disease from aortic bifurcation to popliteals. Severe diffuse disease below both knees with poor runoff. In 2016, he had a cardiac catheterization.? The small FIGUEROA was found to be patent but the LAD distal to the anastomosis was found to be occluded.? The saphenous venous grafts were found to be patent.? The stented segment of the right coronary artery was found to be patent..? There was a 60% lesion in the PDA branch. He was admitted with CP and SOB. troponin T peaked at 6 hr to >1600 from 74. LVEF decreased to 50%. Mild diffuse hypokienis of inferior wall. Last 24 hr: No chest pain this morning. Intermittent PVC's on telemetry Medications: Reviewed: Yes Medication Review Details: Generic Name Dose Route Start Last Admin Trade Name Freq PRN Reason Stop Dose Admin Albuterol/Ipratrop ium 3 ml 08/31/22 05:30 09/02/22 13:33 Ipratropium-Albu terol 3 Ml Neb INHALATION 3 ml Q6H.RESP CHUYITA Administration Aspirin 81 mg 08/31/22 09:00 09/02/22 08:17 Aspirin 81 Mg Ec Tablet PO 81 mg DAILY CHUYITA Administration Atorvastatin Calci um 20 mg 08/31/22 09:00 09/02/22 08:17 Atorvastatin 40 Mg Tablet PO 20 mg DAILY CHUYITA Administration Nitroglycerin/Dext lacey 50 mg in 250 mls @ 0 mls/hr 08/31/22 00:45 09/01/22 02:[address] ip IV Infused .Q0M CHUYITA Titration Protocol Per Protocol Heparin Sodium/Sod ium Chloride 25,000 unit in 50 0 mls @ 0 mls/hr 08/31/22 04:00 09/02/22 04:30 Heparin Drip IV 14 unit/kg/hr .Q0M CHUYITA 23.5 mls/hr Titration Protocol Per Protocol Insulin Human Regu lar 250 unit 252.5 mls @ 0 mls /hr 08/31/22 05:15 08/31/22 19:00 / Sodium Chlorid e IV Infused .Q0M CHUYITA Titration Protocol Per Protocol Piperacillin Sod/T azobactam 50 mls @ 12.5 mls /hr 08/31/22 10:00 09/02/22 17:16 Sod 3.375 gm/ So dium Chloride IV 12.5 mls/hr Q8H CHUYITA Administration Protocol Insulin Glargine 15 unit 09/01/22 12:00 09/01/22 20:36 Insulin Glargine 100 Units/1 Ml SUBCUT 15 unit BEDTIME CHUYITA Administration Insulin Human Lisp ro 0 unit 08/31/22 12:00 09/02/22 17:15 Insulin Lispro 1 00 Unit/1 Ml SUBCUT 4 unit WM&BEDTIME CHUYITA Administration Protocol Isosorbide Mononit rate 30 mg 08/31/22 09:00 09/02/22 08:17 Isosorbide [place] itrate Er 30 Mg Ta blet PO 30 mg DAILY CHUYITA Administration Levothyroxine Sodi um 112 mcg 08/31/22 09:00 09/02/22 08:17 Levothyroxine 11 2 Mcg Tablet PO 112 mcg DAILY CHUYITA Administration Metoprolol Tartrat e 12.5 mg 08/31/22 09:00 09/02/22 17:15 Metoprolol Tartr ate 25 Mg Tablet PO 12.5 mg BID CHUYITA Administration Non-Formulary Medi cation 10 mg 08/31/22 09:00 09/02/22 08:30 Amitriptyline PO Not Given DAILY CHUYITA Pantoprazole Sodiu m 40 mg 08/31/22 09:00 09/02/22 08:[address] 40 Mg Tablet PO 40 mg DAILY CHUYITA Administration Pantoprazole Sodiu m 40 mg 08/31/22 09:00 09/02/22 08:[address] 40 Mg Tablet PO 40 mg DAILY CHUYITA Administration Vitals/I&O/Wt Last Vital Signs Temp 97.6 F 09/03/22 04:48 Pulse 90 09/03/22 06:00 Resp 24 H 09/03/22 06:00 BP 128/68 09/03/22 06:00 Pulse Ox 98 09/03/22 06:00 O2 Del Method BiPAP 09/03/22 06:00 O2 Flow Rate 4 07/17/23 22:00 FiO2 50 09/03/22 02:52 09/02/22 09/03/22 09/03/22 22:59 06:59 14:59 Intake Total 696.17 / 986.17 226.68 / 1212.85 Output Total 900 / 900 550 / 1450 Balance -203.83 / 86.17 -323.32 / -237.15 Physical Exam Narrative: GENERAL: obese man sitting in chair in no acute distress HEENT: Extraocular movement intact. No pallor or icterus. NECK: central trachea, No JVD. No carotid bruit. CARDIOVASCULAR SYSTEM: S1-S2 regular with frequent PAC's/PVC's. No murmur rubs or gallops. RESPIRATORY SYSTEM: Chest clear to auscultation. No wheezes rhonchi or rubs heard. No use of accessory muscles. ABDOMEN: Soft, nontender and nondistended. Normal bowel sounds present. EXTREMITIES: No cyanosis or edema. No signs of chronic venous insufficiency. SUPERVISING EDITOR TRAILER: Patient is alert oriented ?3. No focal neurological deficits. Urinary Catheter Management: Phillip Latex: Cath Placed During This Visit: yes Reason for Continuing Indwelling Catheter: Accurate Measurement of Urinary Output in Critically Ill Patients Urinary Catheter Date of Insertion: 08/31/22 Urinary Catheter Time of Insertion: 05:38 Data 09/02/22 03:45 09/03/22 08:26 A&P Assessment and plan (1) Acute non-ST elevation myocardial infarction (NSTEMI): Plan for LHC in morning given renal function is stable/ improving in morning High risk of FELICITY and needing dialysis. This was discussed with the patient and he would like to proceed with coronary angiogram Risks and benefits were discussed with the patients. Alternate management options were discussed with the patient as well. Possible complications including risk of heart attack stroke and , coronary perforation, arrhythmia, cardiac tamponade in urgent CABG and worsening of renal function and potential complications were discussed with the patient as well. -continue with medications in the interim -will keep him NPO after mid night. (2) Acute kidney injury superimposed on CKD: creatinine 2.8 today from 2.9 (3) CHF (congestive heart failure): (4) CAD (coronary artery disease): (5) Diabetes: Qualifiers: Diabetes mellitus complication status: without complication Diabetes mellitus terminal computer operator insulin use: without residential use Diabetes mellitus type: type 2 Qualified Code(s): E11.9 - Type 2 diabetes mellitus without complications (6) Hyperlipidemia: Qualifiers: Hyperlipidemia type: unspecified Qualified Code(s): E78.5 - Hyperlipidemia, unspecified Plan Multifocal PNA Attestations Medical Necessity Statement*: needs hospital stay for NSTEMI and CAROLYNN on CKD Coding Level of Care Code 32671 Diagnoses Acute non-ST elevation myocardial infarction (NSTEMI) I21.4 Acute kidney injury superimposed on CKD N17.9; N18.9 CHF (congestive heart failure) I50.9 CAD (coronary artery disease) I25.10 Diabetes E11.9 Diabetes mellitus complication status: without complication Diabetes mellitus terminal computer operator insulin use: without terminal computer operator use Diabetes mellitus type: type 2 Hyperlipidemia E78.5 Hyperlipidemia type: unspecified
[2022-09-03] MEDS: atorvastatin 40 mg Tablet 20 MG PO (08:06)
[2022-09-03] MEDS: aspirin 81 mg EC Tablet PO (08:07)
[2022-09-03] MEDS: clopidogrel 75 mg Tablet PO (08:07)
[2022-09-03] MEDS: pantoprazole DR 40 mg Tablet PO (08:07)
[2022-09-03] MEDS: levothyroxine 112 mcg Tablet PO (08:07)
[2022-09-03] MEDS: metoprolol tartrate 25 mg Tablet 12.5 MG PO ×2 (08:07→18:22)
[2022-09-03] MEDS: isosorbide mononitrate ER 30 mg Tablet PO (08:07)
[2022-09-03] MEDS: insulin lispro 100 unit/1 mL SUBCUT ×3 (08:08→18:22)
[2022-09-03 08:57] LABS: Partial Thromboplastin Time 69.4 SECONDS (23.9-36.7)
[2022-09-03 09:57] LABS: Anion Gap 21.8 (5-19); Blood Urea Nitrogen 47 mg/dL (8-23); Calcium 8.4 mg/dL (8.5-10.5); Carbon Dioxide 18 mmol/L (22-29); Chloride 101 mmol/L (98-107); Glucose 177 mg/dL (65-115); Osmolality Calculated 301 mOsm/kg (285-295); Potassium 3.8 mmol/L (3.5-5.1); Sodium 137 mmol/L (136-145)
--- NOTE | 2022-09-03 10:06 | PC.SOCIAL ---
IMM update IMM updated with patient. Verbalized an understanding. Copy pg 2 provided. Initialled, dated, timed, and placed in chart.
--- NOTE | 2022-09-03 12:12 | P.PN_ITS ---
Subjective Subjective: Patient was seen and examined this morning, denied any chest pain, shortness of breath , serum creatinine is 2.8 Medications: Reviewed: Yes Medication Review Details: Generic Name Dose Route Start Last Admin Trade Name Les PRN Reason Stop Dose Admin Albuterol/Ipratrop ium 3 ml 08/31/22 05:30 09/03/22 09:42 Ipratropium-Albu terol 3 Ml Neb INHALATION 3 ml Q6H.RESP CHUYITA Administration Aspirin 81 mg 08/31/22 09:00 09/03/22 08:07 Aspirin 81 Mg Ec Tablet PO 81 mg DAILY CHUYITA Administration Atorvastatin Calci um 20 mg 08/31/22 09:00 09/03/22 08:06 Atorvastatin 40 Mg Tablet PO 20 mg DAILY CHUYITA Administration Clopidogrel Bisulf ate 75 mg 09/03/22 09:00 09/03/22 08:07 Clopidogrel 75 M g Tablet PO 75 mg DAILY CHUYITA Administration Nitroglycerin/Dext lacey 50 mg in 250 mls @ 0 mls/hr 08/31/22 00:45 09/01/22 02:[address] ip IV Infused .Q0M CHUYITA Titration Protocol Per Protocol Heparin Sodium/Sod ium Chloride 25,000 unit in 50 0 mls @ 0 mls/hr 08/31/22 04:00 09/03/22 03:25 Heparin Drip IV 17.88 unit/kg/hr .Q0M CHUYITA 30 mls/hr Titration Protocol Per Protocol Insulin Human Regu lar 250 unit 252.5 mls @ 0 mls /hr 08/31/22 05:15 08/31/22 19:00 / Sodium Chlorid e IV Infused .Q0M CHUYITA Titration Protocol Per Protocol Piperacillin Sod/T azobactam 50 mls @ 12.5 mls /hr 08/31/22 10:00 09/03/22 09:43 Sod 3.375 gm/ So dium Chloride IV 12.5 mls/hr Q8H CHUYITA Administration Protocol Insulin Glargine 15 unit 09/01/22 12:00 09/02/22 21:26 Insulin Glargine 100 Units/1 Ml SUBCUT 15 unit BEDTIME CHUYITA Administration Insulin Human Lisp ro 0 unit 08/31/22 12:00 09/03/22 12:04 Insulin Lispro 1 00 Unit/1 Ml SUBCUT 10 unit WM&BEDTIME CHUYITA Administration Protocol Isosorbide Mononit rate 30 mg 08/31/22 09:00 09/03/22 08:07 Isosorbide [place] itrate Er 30 Mg Ta blet PO 30 mg DAILY CHUYITA Administration Lactulose 20 gm 08/31/22 05:18 09/02/22 21:26 Lactulose Oral L iq 20 Gm/30 Ml Udc PO 20 gm BID PRN Administration constipation Levothyroxine Sodi um 112 mcg 08/31/22 09:00 09/03/22 08:07 Levothyroxine 11 2 Mcg Tablet PO 112 mcg DAILY CHUYITA Administration Metoprolol Tartrat e 12.5 mg 08/31/22 09:00 09/03/22 08:07 Metoprolol Tartr ate 25 Mg Tablet PO 12.5 mg BID CHUYITA Administration Non-Formulary Medi cation 10 mg 08/31/22 09:00 09/03/22 08:08 Amitriptyline PO Not Given DAILY CHUYITA Pantoprazole Sodiu m 40 mg 08/31/22 09:00 09/03/22 08:[address] 40 Mg Tablet PO 40 mg DAILY CHUYITA Administration Pantoprazole Sodiu m 40 mg 08/31/22 09:00 09/03/22 08:[address] 40 Mg Tablet PO Not Given DAILY CHUYITA Vitals/I&O/Wt Last Vital Signs Temp 97.6 F 09/03/22 04:48 Pulse 91 09/03/22 11:30 Resp 27 H 09/03/22 11:30 BP 120/69 09/03/22 11:30 Pulse Ox 98 09/03/22 11:30 O2 Del Method Nasal Cannula 09/03/22 09:30 O2 Flow Rate 3 09/03/22 09:30 FiO2 50 09/03/22 02:52 09/02/22 09/03/22 09/03/22 22:59 06:59 14:59 Intake Total 696.17 / 986.17 226.68 / 1212.85 300 / 300 Output Total 900 / 900 550 / 1450 Balance -203.83 / 86.17 -323.32 / -237.15 300 / 300 Physical Exam Const: COMMON NORMALS: patient oriented x3 HENMT: COMMON NORMALS: normocephalic and atraumatic HEAD & SCALP: normocephalic and atraumatic Resp: COMMON NORMALS: clear to auscultation bilaterally AUSCULTATION: clear to auscultation bilaterally Cardio: COMMON NORMALS: regular rate, regular rhythm, S1 normal heart sound present, S2 normal heart sound present, No gallops present (Cardio), No murmurs present (Cardio), No rub (Cardio) and Peripheral pulses 2+ throughout RATE: regular rate RHYTHM: regular rhythm HEART SOUNDS: S1 normal heart sound present and S2 normal heart sound present PERIPHERAL PULSES: Peripheral pulses 2+ throughout GI: COMMON NORMALS: Normal to inspection, nondistended, normoactive bowel sounds present, Soft to palpation, non-tender, No hepatosplenomegaly present and no masses AUSCULTATION: Yes normoactive bowel sounds PALPATION: Yes Soft to palpation and Yes No hepatosplenomegaly present RECTAL EXAM: Yes deferred Extremity: COMMON NORMALS: no clubbing, cyanosis or edema and no pedal edema Neuro: COMMON NORMALS: patient oriented x3 Urinary Catheter Management: Phillip Latex: Cath Placed During This Visit: yes Reason for Continuing Indwelling Catheter: Accurate Measurement of Urinary Output in Critically Ill Patients Urinary Catheter Date of Insertion: 08/31/22 Urinary Catheter Time of Insertion: 05:38 Data 09/02/22 03:45 09/03/22 08:26 A&P Assessment and plan (1) NSTEMI (non-ST elevated myocardial infarction): 72-year-old male with a past medical history of coronary artery disease status post CABG presenting today with chief complaints of chest pain. Currently is being managed for NSTEMI: Has significant troponin delta, complaining of typical cardiac chest pain, 2D echo has shown:Normal left ventricular size slightly diminished ejection ?fraction, EF 50 % (visual).?Mild diffuse hypokinesia of the ?inferior wall?,?Mild mitral valve regurgitation.??Moderate mitral annular calcification. ?Mildly increased left atrial size. Currently patient is on ACS protocol, he is on heparin drip aspirin statin, beta-roseanne. Patient initially was also on nitro drip currently has been weaned off. Cardiology on board (2) Acute on chronic diastolic CHF (congestive heart failure): X-ray and CT of his chest today show bilateral infiltrates compatible with interstitial pulmonary edema, small bilateral pleural effusion and multifocal p neumonia. Was on IV Lasix, currently on hold. Place Phillip catheter to track accurate output. (3) Pneumonia: Multifocal infiltrates bilaterally, patient denies any recent fever or cough. Blood cultures negative so far, MRSA PCR, urine bacterial antigen panel negative Unfortunately sputum Gram stain and culture is not available Respiratory viral panel negative Currently empirically on Zosyn, will start tapering the antibiotic coverage. (4) Acute respiratory failure with hypoxia: Multifactorial related to CHF, pneumonia Was on BiPAP, currently doing well on 4 L, will use BiPAP as needed. (5) Hyperosmolar hyperglycemic state (HHS): Patient has elevated blood sugar greater than 500. He has an anion gap of 27 currently. ABG with evidence of metabolic acidosis. He has thus far received 10 units of IV push of insulin in the emergency room, 1 hour later his blood sugar is greater than 430. We will Start patient on insulin drip as per DKA/HHS protocol with target blood sugars between 100-120 No IV fluids for now given that patient has evidence of pulmonary edema. We will likely need to start dextrose containing fluid once blood sugar less than 250. Monitor BMP every 6 hours. Once potassium less than 4 we will add supplemental potassium. Transition to sliding scale and long-acting insulin once anion gap resolves. (6) Pulmonary edema: (7) Acute kidney injury superimposed on CKD: CAROLYNN on CKD: Monitor BMP Monitor intake and output charting Avoid nephrotoxic's Nephrology on board. If patient goes for CAG possibility of FELICITY, and potentially landing on hemodialysis has been explained to him. Plan DVT prophylaxis: Currently on a heparin drip. PUD prophylaxis Protonix 40 mg daily Full code Attestations Medical Necessity Statement*: In hospital for management of NSTEMI. Coding Level of Care Code Acute Code for [facility] Diagnoses NSTEMI (non-ST elevated myocardial infarction) I21.4 Acute on chronic diastolic CHF (congestive heart failure) I50.33 Pneumonia J18.9 Acute respiratory failure with hypoxia J96.01 Hyperosmolar hyperglycemic state (HHS) E11.00 Pulmonary edema J81.1 Acute kidney injury superimposed on CKD N17.9; N18.9
[2022-09-03] MEDS: heparin drip 25,000 UNIT/500 ML PREMIX 30 UNIT IV (14:03)
[2022-09-03 14:47] LABS: Partial Thromboplastin Time 48.7 SECONDS (23.9-36.7)
--- NOTE | 2022-09-03 15:04 | PM.MISC ---
Miscellaneous Note Note: I went back to [place] this afternoon. His creatinine is 2.8. I did the best I could to explain to him the high risk of contrast-induced nephropathy. I do not think he really understands the complete ramifications of this discussion but he says he does. He wants to move forward with angiography. Tentatively, we have him scheduled for 7:00 tomorrow morning. I will not do the left ventriculogram. We will try to get by with as little contrast as possible. We will simply take the appropriate pictures of his coronaries and the grafts.
[2022-09-03] MEDS: diphenhydrAMINE 50 mg Capsule PO (15:34)
[2022-09-03] MEDS: sodium chloride 0.9% 1,000 ML 50 ML IV (15:47)
[2022-09-03 18:20] LABS: Glucose Point of Care 189 mg/dL (70-110)
--- NOTE | 2022-09-03 20:15 | PM.PN ---
Subjective Subjective: no new complaints Medications: Reviewed: Yes Vitals/I&O/Wt Last Vital Signs Temp 97.6 F 09/03/22 04:48 Pulse 83 09/03/22 19:45 Resp 17 09/03/22 19:45 BP 150/88 09/03/22 18:30 Pulse Ox 92 09/03/22 19:45 O2 Del Method Nasal Cannula 09/03/22 19:45 O2 Flow Rate 2 09/03/22 19:45 FiO2 50 09/03/22 02:52 09/03/22 09/03/22 09/03/22 06:59 14:59 22:59 Intake Total 226.68 / 1212.85 1043 / 1043 Output Total 550 / 1450 1000 / 1000 Balance -323.32 / -237.15 1043 / 1043 -1000 / 43 Physical Exam Narrative: awake , alert no distress Urinary Catheter Management: Phillip Latex: Cath Placed During This Visit: yes Reason for Continuing Indwelling Catheter: Accurate Measurement of Urinary Output in Critically Ill Patients Urinary Catheter Date of Insertion: 08/31/22 Urinary Catheter Time of Insertion: 05:38 Data 09/02/22 03:45 09/03/22 08:26 A&P Assessment and plan (1) CAROLYNN (acute kidney injury): Plan 1. Acute on CKD 3 Patient's creatinine is in the mid 1 range, creatinine increased 2.8, possible cardiorenal etiology/Contrast nephropathy. Cr stable @ 2.8 today -Avoid nephrotoxins -discussed with pt re: possibility of worsening renal fxn and may require temporary dialysis -Continue to monitor renal function closely. - if C planned - will consider 6 hours of Pre /post IVFs if pt can tolerate . 2. Metabolic acidosis: Mild, monitor 3. Non-ST elevation AR : Plan per cardiology , considering C 4. History of hypertension: Blood pressure stable 5. Acute on chronic respiratory failure: Multifactorial Patient evaluated using audiovisual cart. Time spent 40 minutes Attestations Medical Necessity Statement*: per medicine Coding Level of Care Code Acute Code for [facility] Diagnoses CAROLYNN (acute kidney injury) N17.9
[2022-09-03] MEDS: acetaminophen 325 mg Tablet 650 MG PO (20:24)
[2022-09-03] MEDS: insulin glargine 100 units/1 mL 15 UNIT SUBCUT (20:26)
[2022-09-03 20:36] LABS: Glucose Point of Care 139 mg/dL (70-110)
[2022-09-03 20:48] LABS: Partial Thromboplastin Time 68.4 SECONDS (23.9-36.7)
[2022-09-04] VITALS (51 sets, daily range): BP systolic 109–184; BP diastolic 57–120; PULSE 54–116; RESP 15–41; O2SAT 86–99
[2022-09-04 02:12] LABS: Platelet Count 252 10^3/cmm (130-400)
[2022-09-04] MEDS: piperacillin-tazobactam 3.375 GM in sodium chloride 0.9% (plus) 50 ML IV ×3 (02:31→17:25)
[2022-09-04 02:52] LABS: Anion Gap 15.9 (5-19); Blood Urea Nitrogen 45 mg/dL (8-23); Calcium 8.1 mg/dL (8.5-10.5); Carbon Dioxide 21 mmol/L (22-29); Chloride 105 mmol/L (98-107); Glucose 120 mg/dL (65-115); Osmolality Calculated 299 mOsm/kg (285-295); Potassium 3.9 mmol/L (3.5-5.1); Sodium 138 mmol/L (136-145)
[2022-09-04] MEDS: ipratropium-albuterol 3 mL Neb INHALATION ×4 (03:19→21:13)
--- NOTE | 2022-09-04 06:42 | XACV_ITS ---
Exam Room: [facility] Ht: 160 cm Wt: 84 kg BSA: 1.96 m2 Gender: Male : 1950 Any Known Allergies: No known allergies Exam Priority: Routine Procedure(s): Procedure Description: Diagnostic procedure Procedure Description: Venous Graft Catheterization Procedure Description: Coronary Angiography [place] [facility]; Diagnostic Cath Status: Urgent Diagnostic Findings * Patient with stage III-IV chronic kidney disease and prior bypass surgery who comes in with shortness of breath, respiratory distress and non-ST segment elevation AR. Creatinine increased to 2.[address] angio was performed. I was requested to perform coronary angiography. We waited 3 days. The creatinine stabilized at 2.8. I discussed the relatively high risk of contrast-induced nephropathy with the patient. * The procedure was done from the right common femoral artery. The left main coronary artery is normal. The left anterior descending is occluded in the proximal to midportion. There is a tiny diagonal branch which emanates prior to the occlusion. The circumflex is severely diffusely diseased throughout. There are 2 or 3 tiny marginal branches which are diffusely diseased as well. More distally the vessel is occluded. There is a marginal branch which has previously been bypassed which fills upon injection of the left main. Some of the contrast moves in a retrograde fashion up into the saphenous vein graft, suggesting it is probably occluded. The right coronary artery is patent. It has not been bypassed. There is mild diffuse disease throughout the vessel until it reaches the point of bifurcation distally. The posterior descending artery is mildly diffusely diseased as is the posterior left ventricular branch.. * Notes in the chart suggest the patient has a left internal mammary artery graft. This is not correct. The left internal mammary is occluded and ends blindly within the chest. This is seen on a previous angiogram from 2017. He has a single saphenous vein graft to the LAD which is occluded and a sequential saphenous vein graft to two marginal branches which is also occluded. * Contrast material was minimized due to the renal insufficiency. Obviously, ventriculography was not performed. Conclusions 1. Severe two-vessel coronary artery disease. Occluded LAD and circumflex. Occluded bypass graft to the LAD and circumflex. Recommendations * Medical treatment. Interventional RX Recommendation: medical therapy and/or counseling Diagnostic RX Recommendation: medical therapy and/or counseling Pressures Phase:Rest AO : 99 / 86 ( 90 ) @ 8:24:00 AM 117 / 85 ( 89 ) @ 8:29:00 AM Clinical Evaluation EBL: 5mL-10mL Procedural Details Procedure Consent Obtained. Admit Source: In Patient. Pre-Procedure Time Out. Identified patient by full name and date of as verbalized by the patient/guarantor. Does the consent match the physician's order: Yes. Accurate & Complete Informed Consent: Yes. Inpatient/Outpatient History & Physical on Chart: Yes. If H&P is completed, is and addenduem needed: No; If yes, is the addendum complete: N/A. Visualize and Verify Site with Patient/Guarantor: N/A. Relevant Radiology Images available: N/A. The risks, benefits, and alternatives of sedation and/or procedure were discussed by physician. The patient agrees to continue. Procedure started. [facility] Clinical Fraility Score: 4: Vulnerable. Chest Pain Symptom Assessment: Typical Angina Symptoms. Correct patient, site and procedure confirmed by cath team. Current diagnosis: NSTEMI. PERRLA. Strong, equal hand scallop raker bilaterally. Lungs clear x 5 lobes. IV Site on Arrival: 20 gauge in the left wrist. IV Fluids: 0.9% NaCl at 75ml/hr. 800 mL infused prior to slab worker. Pre Procedural Pulses: bilateral dorsalis pedis was Doppled. Pre Procedural Pulses: bilateral posterior tibial was Doppled. Oxygen started at 2liters/min via nasal canula. bilateral groins was prepped with chloroprep then draped in the usual sterile fashion. Physician notified. Baseline sample Acquired. HR: 65 BPM. Physician arrived. Physician scrubbed in. Immediate Pre-Procedure Time Out. Correct Patient: Yes; Correct Procedure: Yes; Correct Site: Yes; Correct Patient Position: Yes; Correct Supplies: Yes; Dried Flammable Prep: Yes; Blood Products Available: Yes;. Lidocaine 1% infiltrated to the right groin. Arterial access obtained. A 6 cymro JL4 catheter in over wire. Multiple views taken of left coronary artery. Catheter out. A 6 cymro JR4 catheter in over wire. Multiple views taken of right coronary artery. SVG to LAD occluded. SVG to Circumflex occluded. Catheter out. A Suture was successful obtaining hemostatsis at the Right Femoral artery insertion site. Physician scrubbed out. Arterial sheath flushed and connected to tranducer and pressure bag with heparinized saline. Post Procedure: Pulses reassessed and unchanged. PERRLA. Strong, equal hand scallop raker bilaterally. No VTE prophylaxis required. Medication's Wasted: Heparin = 4000 units. Total IV fluids: 50 mL. Post-op diagnosis: CAD, Occluded bypass grafts. Complications: None. Estimated blood loss: 5mL-10mL. Responsiveness - Normal response to verbal stimuli; alert and oriented, PERRLA. Airway - Unaffected, no intervention required; spontaneous ventilation. Circulation: W/N/L, pulses unchanged. Nausea/Vomiting: No. Procedure completed. Patient transferred by bed to ICU. Vital chart was stopped. Vital chart was stopped. Access Site Site: Right Femoral artery Sheath Size: 6 Fr Hemostasis Method: Suture Hemostasis Success: Successful Procedure Medications Start: 7:19 AM Stop: 7:19 AM Medication: Versed Amount: 1 mg Route: I.V. Start: 7:19 AM Stop: 7:19 AM Medication: Fentanyl Amount: 50 mcg Route: I.V. Start: 7:28 AM Stop: 7:28 AM Medication: Versed Amount: 1 mg Route: I.V. Start: 7:33 AM Stop: 7:33 AM Medication: Fentanyl Amount: 50 mcg Route: I.V. I, the attending physician, have reviewed and verified all procedure medications. Yes, all medications given per verbal order History/Risk Factors Hypertension: Yes Dyslipidemia: Yes Peripheral Arterial Disease (PAD): Yes Myocardial Infarction (AR): Yes Obesity: No Renal Disease: No Tobacco Use: Former Prior Interventions PCI: Yes CABG: Yes Valve Surgery: No Date of PCI: 04/16/2012 Report Signatures Finalized by Dr. Girma Brannon MD on 09/04/2022 08:10 AM
--- NOTE | 2022-09-04 08:00 | CTR_ITS ---
PROCEDURE INFORMATION: Exam: CT Head Without Contrast Exam date and time: 09/04/2022 8:03 AM Age: 72 years old Clinical indication: Injury or trauma; Blunt trauma (contusions or hematomas); Without loss of consciousness; Injury date: 09/04/22; Injury details: Witnessed fall, struck posterior head, on heparin, S/P cathlab procedure; Additional info: Fall while on heparin TECHNIQUE: Imaging protocol: Computed tomography of the head without contrast. Radiation optimization: All CT scans at this facility use at least one of these dose optimization techniques: automated exposure control; mA and/or kV adjustment per patient size (includes targeted exams where dose is matched to clinical indication); or iterative reconstruction. REPORTING DATA: Count of CT and Cardiac NM exams in prior 12 months: This patient has received [address] and 0 known cardiac nuclear medicine studies in the 12 months prior to the current study. COMPARISON: CT temporal bone wo con* [id number] 03/22/2019 2:59 PM RADIATION DOSE METRICS: Total DLP (mGy-cm): 64518.62 FINDINGS: Brain: Intracranial vascular calcifications. Diffuse cerebral atrophy, consistent with patient's age. No hemorrhage. Preserved burgos-white matter differentiation. Patchy cerebral white matter hypoattenuation in keeping with chronic microvascular ischemic change. No mass effect. Cerebral ventricles: Ventricles are in proportion to the degree of atrophy. Paranasal sinuses: Minimal bilateral frontal sinus mucosal thickening. Mastoid air cells: Visualized mastoid air cells are well aerated. Bones/joints: Unremarkable. No acute fracture. Soft tissues: Subcentimeter right posterior scalp soft tissue density may correspond to small hematoma. CT/CT head wo con* [id number] IMPRESSION: 1. No acute intracranial findings. 2. Atherosclerosis.
--- NOTE | 2022-09-04 08:12 | P.MISC_ITS ---
Miscellaneous Note Note: Cardiac catheterization revealed occluded circumflex and LAD. The right coronary artery is patent. Bypass graft to the LAD and circumflex are also occluded at the ostium. Upon being transferred from the catheterization lab table [facility] the patient slipped and fell off of the table onto the floor. There were no obvious injuries. He had been on heparin prior to the procedure. I carefully examined him on the floor and then once we lifted him up onto a gurney I examined him again. He was awake and alert. His blood pressure was 150/93. His heart rate was 80 and regular. Oxygen saturation was normal. He was conversant. His neurologic exam was nonfocal. He was oriented. He did not complain of any headache or any pain in other areas. Examination revealed no cranial lesions or facial lesions. There was were no obvious injuries. The remainder of examination was unremarkable. None of the [employer] Of [employer] staff actually saw him hit the ground so we do not know if he hit his head. In order to be safe, given the fact that he was on heparin and suffered a fall, I ordered a [facility] head CT which we will obtain prior to going back to the ICU.
[2022-09-04 08:42] LABS: Glucose Point of Care 115 mg/dL (70-110)
[2022-09-04] MEDS: sodium chloride 0.9% 1,000 ML 100 ML IV ×2 (09:12→17:24)
[2022-09-04] MEDS: pantoprazole DR 40 mg Tablet PO (09:14)
[2022-09-04] MEDS: atorvastatin 40 mg Tablet 20 MG PO (09:14)
[2022-09-04] MEDS: levothyroxine 112 mcg Tablet PO (09:15)
[2022-09-04] MEDS: aspirin 81 mg EC Tablet PO (09:15)
[2022-09-04] MEDS: isosorbide mononitrate ER 30 mg Tablet PO (09:15)
[2022-09-04] MEDS: metoprolol tartrate 25 mg Tablet 12.5 MG PO (09:15)
[2022-09-04] MEDS: clopidogrel 75 mg Tablet PO (09:15)
[2022-09-04 11:24] LABS: Glucose Point of Care 161 mg/dL (70-110)
[2022-09-04] MEDS: insulin lispro 100 unit/1 mL SUBCUT ×2 (11:43→20:48)
[2022-09-04 11:48] LABS: Partial Thromboplastin Time 27.7 SECONDS (23.9-36.7)
--- NOTE | 2022-09-04 11:53 | P.PN_ITS ---
Subjective Subjective: s/p LHC today Medications: Reviewed: Yes Vitals/I&O/Wt Last Vital Signs Temp 97.7 F 09/03/22 21:08 Pulse 100 09/04/22 10:00 Resp 20 H 09/04/22 10:00 BP 152/91 09/04/22 10:00 Pulse Ox 95 09/04/22 10:00 O2 Del Method Nasal Cannula 09/04/22 09:34 O2 Flow Rate 3 09/04/22 09:34 FiO2 30 09/04/22 03:20 09/03/22 09/04/22 09/04/22 22:59 06:59 14:59 Intake Total 641.633 / 1684.633 711.2 / 2395.833 Output Total 1000 / 1000 650 / 1650 Balance -358.367 / 684.633 61.2 / 745.833 Physical Exam Narrative: awake , alert no distress HEENT, PEERLA Lungs clear per report S1S2 RRR per report \No edema Urinary Catheter Management: Phillip Latex: Cath Placed During This Visit: yes Reason for Continuing Indwelling Catheter: Accurate Measurement of Urinary Output in Critically Ill Patients Urinary Catheter Date of Insertion: 08/31/22 Urinary Catheter Time of Insertion: 05:38 Data 09/05/22 03:32 09/05/22 03:32 A&P Assessment and plan (1) CAROLYNN (acute kidney injury): Plan 1. Acute on CKD 3 Patient's creatinine is in the mid 1 range, creatinine increased 2.8, possible cardiorenal etiology/Contrast nephropathy. Cr stable @ 2.4 today -Avoid nephrotoxins -discussed with pt re: possibility of worsening renal fxn for [facility] and may require temporary dialysis -Continue to monitor renal function closely. -s/p LHC today 2. Metabolic acidosis: Mild, monitor 3. Non-ST elevation [place] : Plan per cardiology , s/p LHC 4. History of hypertension: Blood pressure stable 5. Acute on chronic respiratory failure: Multifactorial Patient evaluated using audiovisual cart. Time spent 40 minutes Attestations Medical Necessity Statement*: per medicine Coding Level of Care Code Acute Code for [facility] Diagnoses CAROLYNN (acute kidney injury) N17.9
--- NOTE | 2022-09-04 14:44 | PC.NURSE ---
R groin sheath removed per order
[2022-09-04 17:21] LABS: Glucose Point of Care 125 mg/dL (70-110)
[2022-09-04] MEDS: metoprolol tartrate 25 mg Tablet PO ×2 (17:24→20:48)
--- NOTE | 2022-09-04 19:19 | PM.PN ---
Subjective Subjective: Patient underwent cardiac cath today: Telemetry showing significant bigeminy's, metoprolol dose has been increased. Patient also experienced fall in the [employer]: CT head without contrast had not shown any: intracranial bleed: Medications: Reviewed: Yes Medication Review Details: Generic Name Dose Route Start Last Admin Trade Name Freq PRN Reason Stop Dose Admin Acetaminophen 650 mg 08/31/22 03:57 09/03/22 20:24 Acetaminophen 32 5 Mg Tablet PO 650 mg Q6H PRN Administration Mild/Mod Pain Or Temp >/= 101 Albuterol/Ipratrop ium 3 ml 08/31/22 05:30 09/04/22 14:06 Ipratropium-Albu terol 3 Ml Neb INHALATION 3 ml Q6H.RESP CHUYITA Administration Aspirin 81 mg 08/31/22 09:00 09/04/22 09:15 Aspirin 81 Mg Ec Tablet PO 81 mg DAILY CHUYITA Administration Atorvastatin Calci um 20 mg 08/31/22 09:00 09/04/22 09:14 Atorvastatin 40 Mg Tablet PO 20 mg DAILY CHUYITA Administration Clopidogrel Bisulf ate 75 mg 09/03/22 09:00 09/04/22 09:15 Clopidogrel 75 M g Tablet PO 75 mg DAILY CHUYITA Administration Piperacillin Sod/T azobactam 50 mls @ 12.5 mls /hr 08/31/22 10:00 09/04/22 17:25 Sod 3.375 gm/ So dium Chloride IV 12.5 mls/hr Q8H CHUYITA Administration Protocol Sodium Chloride 1,000 mls @ 100 m ls/hr 09/04/22 08:32 09/04/22 17:24 Sodium Chloride 0.9% IV 100 mls/hr .Q10H CHUYITA Administration Insulin Glargine 15 unit 09/01/22 12:00 09/03/22 20:26 Insulin Glargine 100 Units/1 Ml SUBCUT 15 unit BEDTIME CHUYITA Administration Insulin Human Lisp ro 0 unit 08/31/22 12:00 09/04/22 17:24 Insulin Lispro 1 00 Unit/1 Ml SUBCUT Not Given WM&BEDTIME CHUYITA Protocol Isosorbide Mononit rate 30 mg 08/31/22 09:00 09/04/22 09:15 Isosorbide [place] itrate Er 30 Mg Ta blet PO 30 mg DAILY CHUYITA Administration Lactulose 20 gm 08/31/22 05:18 09/02/22 21:26 Lactulose Oral L iq 20 Gm/30 Ml Udc PO 20 gm BID PRN Administration constipation Levothyroxine Sodi um 112 mcg 08/31/22 09:00 09/04/22 09:15 Levothyroxine 11 2 Mcg Tablet PO 112 mcg DAILY CHUYITA Administration Metoprolol Tartrat e 25 mg 09/04/22 16:15 09/04/22 17:24 Metoprolol Tartr ate 25 Mg Tablet PO 25 mg BID@0900,2100 CHUYITA Administration Non-Formulary Medi cation 10 mg 08/31/22 09:00 09/04/22 09:19 Amitriptyline PO Not Given DAILY CHUYITA Pantoprazole Sodiu m 40 mg 08/31/22 09:00 09/04/22 09:[address] 40 Mg Tablet PO 40 mg DAILY CHUYITA Administration Pantoprazole Sodiu m 40 mg 08/31/22 09:00 09/04/22 09:[address] 40 Mg Tablet PO Not Given DAILY CHUYITA Vitals/I&O/Wt Last Vital Signs Temp 97.7 F 09/03/22 21:08 Pulse 101 H 09/04/22 18:00 Resp 22 H 09/04/22 18:00 BP 167/87 09/04/22 18:00 Pulse Ox 90 09/04/22 18:00 O2 Del Method Nasal Cannula 09/04/22 14:00 O2 Flow Rate 3 09/04/22 14:00 FiO2 30 09/04/22 03:20 09/04/22 09/04/22 09/04/22 06:59 14:59 22:59 Intake Total 711.2 / 2395.833 300 / 300 1204 / 1504 Output Total 650 / 1650 1000 / 1000 Balance 61.2 / 745.833 300 / 300 204 / 504 Physical Exam Const: COMMON NORMALS: patient oriented x3 HENMT: COMMON NORMALS: normocephalic and atraumatic HEAD & SCALP: normocephalic and atraumatic Resp: COMMON NORMALS: clear to auscultation bilaterally AUSCULTATION: clear to auscultation bilaterally Cardio: COMMON NORMALS: regular rate, regular rhythm, S1 normal heart sound present, S2 normal heart sound present, No gallops present (Cardio), No murmurs present (Cardio), No rub (Cardio) and Peripheral pulses 2+ throughout RATE: regular rate RHYTHM: regular rhythm HEART SOUNDS: S1 normal heart sound present and S2 normal heart sound present PERIPHERAL PULSES: Peripheral pulses 2+ throughout GI: COMMON NORMALS: Normal to inspection, nondistended, normoactive bowel sounds present, Soft to palpation, non-tender, No hepatosplenomegaly present and no masses AUSCULTATION: Yes normoactive bowel sounds PALPATION: Yes Soft to palpation and Yes No hepatosplenomegaly present RECTAL EXAM: Yes deferred Extremity: COMMON NORMALS: no clubbing, cyanosis or edema and no pedal edema Neuro: COMMON NORMALS: patient oriented x3 Urinary Catheter Management: Phillip Latex: Cath Placed During This Visit: yes Reason for Continuing Indwelling Catheter: Accurate Measurement of Urinary Output in Critically Ill Patients Urinary Catheter Date of Insertion: 08/31/22 Urinary Catheter Time of Insertion: 05:38 Data 09/04/22 02:03 09/04/22 02:03 A&P Assessment and plan (1) NSTEMI (non-ST elevated myocardial infarction): 72-year-old male with a past medical history of coronary artery disease status post CABG presenting today with chief complaints of chest pain. Currently is being managed for NSTEMI: Has significant troponin delta, complaining of typical cardiac chest pain, 2D echo has shown:Normal left ventricular size slightly diminished ejection ?fraction, EF 50 % (visual).?Mild diffuse hypokinesia of the ?inferior wall?,?Mild mitral valve regurgitation.??Moderate mitral annular calcification. ?Mildly increased left atrial size. Coronary angiogram showed: occluded circumflex and LAD.The right coronary artery is patent.? Bypass graft to the LAD and circumflex are also occluded at the ostium.? Was on ACS protocol, Was on heparin drip aspirin statin, beta-roseanne. Heparin drip has been discontinued today Patient initially was also on nitro drip currently has been weaned off. Cardiology on board: Currently continue with medical management. (2) Acute on chronic diastolic CHF (congestive heart failure): X-ray and CT of his chest today show bilateral infiltrates compatible with interstitial pulmonary edema, small bilateral pleural effusion and multifocal pneumonia. Was on IV Lasix, currently on hold. Place Phillip catheter to track accurate output. (3) Pneumonia: Multifocal infiltrates bilaterally, patient denies any recent fever or cough. Blood cultures negative so far, MRSA PCR, urine bacterial antigen panel negative Unfortunately sputum Gram stain and culture is not available Respiratory viral panel negative Currently empirically on Zosyn, will start tapering the antibiotic coverage. (4) Acute respiratory failure with hypoxia: Multifactorial related to CHF, pneumonia Was on BiPAP, currently doing well on 4 L, will use BiPAP as needed. (5) Hyperosmolar hyperglycemic state (HHS): Patient has elevated blood sugar greater than 500. He has an anion gap of 27 currently. ABG with evidence of metabolic acidosis. He has thus far received 10 units of IV push of insulin in the emergency room, 1 hour later his blood sugar is greater than 430. We will Start patient on insulin drip as per DKA/HHS protocol with target blood sugars between 100-120 No IV fluids for now given that patient has evidence of pulmonary edema. We will likely need to start dextrose containing fluid once blood sugar less than 250. Monitor BMP every 6 hours. Once potassium less than 4 we will add supplemental potassium. Transition to sliding scale and long-acting insulin once anion gap resolves. (6) Pulmonary edema: (7) Acute kidney injury superimposed on CKD: CAROLYNN on CKD: Monitor BMP Monitor intake and output charting Avoid nephrotoxic's Nephrology on board. If patient goes for CAG possibility of FELICITY, and potentially landing on hemodialysis has been explained to him. Plan DVT prophylaxis: Currently on a heparin drip. PUD prophylaxis Protonix 40 mg daily Full code Attestations Medical Necessity Statement*: Needs to be in hospital for monitoring of renal function. Coding Level of Care Code Acute Code for Chg Fwd Diagnoses NSTEMI (non-ST elevated myocardial infarction) I21.4 Acute on chronic diastolic CHF (congestive heart failure) I50.33 Pneumonia J18.9 Acute respiratory failure with hypoxia J96.01 Hyperosmolar hyperglycemic state (HHS) E11.00 Pulmonary edema J81.1 Acute kidney injury superimposed on CKD N17.9; N18.9
[2022-09-04 20:31] LABS: Glucose Point of Care 234 mg/dL (70-110)
[2022-09-04] MEDS: insulin glargine 100 units/1 mL 15 UNIT SUBCUT (20:48)
[2022-09-05] VITALS (44 sets, daily range): BP systolic 127–197; BP diastolic 67–145; PULSE 73–109; RESP 16–45; TEMP 36.4; O2SAT 85–98
[2022-09-05] MEDS: piperacillin-tazobactam 3.375 GM in sodium chloride 0.9% (plus) 50 ML IV ×3 (01:29→17:40)
[2022-09-05] MEDS: ipratropium-albuterol 3 mL Neb INHALATION ×4 (03:03→20:00)
[2022-09-05] MEDS: sodium chloride 0.9% 1,000 ML 100 ML IV (03:40)
[2022-09-05 04:18] LABS: Basophils % 0.3 %; Eosinophils # 0.1 10^3/uL (0.0-0.8); Eosinophils % 1.3 %; Hematocrit 40.4 % (42.0-52.0); Hemoglobin 12.2 g/dL (11.7-16.6); Lymphocytes # 1.2 10^3/uL (0.8-4.8); Lymphocytes % 15.6 %; Mean Corpuscular HGB Conc 30.2 g/dL (30.0-36.0); Mean Corpuscular Hemoglobin 27.5 pg (28.0-34.0); Mean Corpuscular Volume 91.2 fl (80-94); Mean Platelet Volume 11.7 fL (7.4-10.4); Monocytes # 0.7 10^3/uL (0.2-0.9); Monocytes % 9.2 %; Neutrophils # 5.83 10^3/uL (1.8-7.7); Neutrophils % 73.2 %; Nucleated Red Blood Cells % 0 %; Platelet Count 276 10^3/cmm (130-400); Red Blood Count 4.43 10^6/uL (4.1-5.3); Red Cell Distribution Width 15.7 % (12.1-15.1)
[2022-09-05 04:43] LABS: Anion Gap 17.8 (5-19); Blood Urea Nitrogen 38 mg/dL (8-23); Calcium 8.8 mg/dL (8.5-10.5); Carbon Dioxide 21 mmol/L (22-29); Chloride 106 mmol/L (98-107); Glucose 156 mg/dL (65-115); Osmolality Calculated 302 mOsm/kg (285-295); Potassium 4.8 mmol/L (3.5-5.1); Sodium 140 mmol/L (136-145)
[2022-09-05 08:26] LABS: Glucose Point of Care 161 mg/dL (70-110)
[2022-09-05] MEDS: insulin lispro 100 unit/1 mL SUBCUT ×4 (08:35→20:03)
[2022-09-05 09:00] LABS: Magnesium 2.7 mg/dL (1.7-2.3)
--- NOTE | 2022-09-05 09:36 | P.PN_ITS ---
Subjective Subjective: Complaining of shortness of breath today, on BiPAP Medications: Reviewed: Yes Vitals/I&O/Wt Last Vital Signs Temp 97.7 F 09/03/22 21:08 Pulse 100 09/05/22 08:26 Resp 25 H 09/05/22 08:15 BP 146/92 09/05/22 04:00 Pulse Ox 98 09/05/22 08:23 O2 Del Method BiPAP 09/05/22 08:15 O2 Flow Rate 3 09/04/22 14:00 FiO2 30 09/05/22 08:23 09/04/22 09/05/22 09/05/22 22:59 06:59 14:59 Intake Total 1254 / 1554 1050 / 2604 Output Total 1000 / 1000 650 / 1650 Balance 254 / 554 400 / 954 Physical Exam Narrative: awake , alert no distress HEENT, PEERLA Lungs clear per report S1S2 RRR per report \No edema Urinary Catheter Management: Phillip Latex: Cath Placed During This Visit: yes Reason for Continuing Indwelling Catheter: Accurate Measurement of Urinary Output in Critically Ill Patients Urinary Catheter Date of Insertion: 08/31/22 Urinary Catheter Time of Insertion: 05:38 Data 09/05/22 03:32 09/05/22 03:32 Micro: Microbiology 08/31/22 01:36 Blood Culture - Final Blood NO GROWTH AFTER 5 DAYS 08/31/22 01:30 Blood Culture - Final Blood NO GROWTH AFTER 5 DAYS A&P Assessment and plan (1) CAROLYNN (acute kidney injury): Plan 1. Acute on CKD 3 Patient's creatinine is in the mid 1 range, creatinine increased 2.8, possible cardiorenal etiology/Contrast nephropathy. Cr stable @ 2.0 today -Avoid nephrotoxins -discussed with pt re: possibility of worsening renal fxn for LHC and may req uire temporary dialysis - Cr trending down -Continue to monitor renal function closely. -s/p LHC 2. Metabolic acidosis: Mild, monitor 3. Non-ST elevation [place] : Plan per cardiology , s/p LHC 4. History of hypertension: Blood pressure stable 5. Acute on chronic respiratory failure: Multifactorial, discontinue IV fluids and start Lasix 80 mg IV one-time dose and Lasix 40 p.o. twice daily from tomorrow Patient evaluated using audiovisual cart. Time spent 40 minutes Attestations Medical Necessity Statement*: per medicine Coding Level of Care Code Acute Code for Chg Fwd Diagnoses CAROLYNN (acute kidney injury) N17.9
[2022-09-05] MEDS: FUROsemide 10 mg/mL SDV 10mL 80 MG IVP (09:53)
[2022-09-05] MEDS: atorvastatin 40 mg Tablet 20 MG PO (09:54)
[2022-09-05] MEDS: levothyroxine 112 mcg Tablet PO (09:54)
[2022-09-05] MEDS: isosorbide mononitrate ER 30 mg Tablet PO (09:54)
[2022-09-05] MEDS: clopidogrel 75 mg Tablet PO (09:54)
[2022-09-05] MEDS: pantoprazole DR 40 mg Tablet PO (09:54)
[2022-09-05] MEDS: aspirin 81 mg EC Tablet PO (09:55)
[2022-09-05] MEDS: metoprolol tartrate 25 mg Tablet PO ×2 (09:57→20:05)
--- NOTE | 2022-09-05 10:47 | PC.SOCIAL ---
IMM Updated Updated pt on IMM. No questions voiced. Provided pt a copy. Initialed, dated, & timed copy in chart.
[2022-09-05 11:12] LABS: Glucose Point of Care 161 mg/dL (70-110)
--- NOTE | 2022-09-05 12:00 | P.PN_ITS ---
Subjective Subjective: He developed SOB and was palced on BiPaP and received lasix 80 mg X1. UO 4.3 L and -2.1L Medications: Reviewed: Yes Vitals/I&O/Wt Last Vital Signs Temp 97.7 F 09/03/22 21:08 Pulse 93 09/05/22 11:06 Resp 22 H 09/05/22 10:00 BP 175/81 09/05/22 10:00 Pulse Ox 97 09/05/22 11:06 O2 Del Method BiPAP 09/05/22 08:15 O2 Flow Rate 3 09/04/22 14:00 FiO2 30 09/05/22 11:06 09/04/22 09/05/22 09/05/22 22:59 06:59 14:59 Intake Total 1254 / 1554 1050 / 2604 300 / 300 Output Total 1000 / 1000 650 / 1650 Balance 254 / 554 400 / 954 300 / 300 Physical Exam Narrative: GENERAL: morbid obese man sitting in chair in no acute distress HEENT: Extraocular movement intact. No pallor or icterus. NECK: central trachea, No JVD. No carotid bruit. CARDIOVASCULAR SYSTEM: S1-S2 regular with frequent PAC's/PVC's. No murmur rubs or gallops. RESPIRATORY SYSTEM: Chest clear to auscultation. No wheezes rhonchi or rubs heard. No use of accessory muscles. ABDOMEN: Soft, nontender and nondistended. Normal bowel sounds present. EXTREMITIES: No cyanosis and trace edema. No signs of chronic venous ins ufficiency. 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 No focal neurological deficits. Urinary Catheter Management: Phillip Latex: Cath Placed During This Visit: yes Reason for Continuing Indwelling Catheter: Accurate Measurement of Urinary Output in Critically Ill Patients Urinary Catheter Date of Insertion: 08/31/22 Urinary Catheter Time of Insertion: 05:38 Data 09/05/22 03:32 09/05/22 03:32 Micro: Microbiology 08/31/22 01:36 Blood Culture - Final Blood NO GROWTH AFTER 5 DAYS 08/31/22 01:30 Blood Culture - Final Blood NO GROWTH AFTER 5 DAYS A&P Assessment and plan (1) Acute non-ST elevation myocardial infarction (NSTEMI): [facility] with Severe two-vessel coronary artery disease.? Occluded LAD and circumflex. Occluded bypass graft to the LAD and circumflex. -not amenable for intervention -medical managenent (2) Acute kidney injury superimposed on CKD: creatinine 2 today from 2.9 (3) CHF (congestive heart failure): (4) CAD (coronary artery disease): (5) Diabetes: Qualifiers: Diabetes mellitus complication status: without complication Diabetes mellitus usp insulin use: without usp use Diabetes mellitus type: type 2 Qualified Code(s): E11.9 - Type 2 diabetes mellitus without complications (6) Hyperlipidemia: Qualifiers: Hyperlipidemia type: unspecified Qualified Code(s): E78.5 - Hyperlipidemia, unspecified Plan Multifocal PNA Attestations Medical Necessity Statement*: As per primary team Coding Level of Care Code Acute Code for [facility] Fwd Diagnoses Acute non-ST elevation myocardial infarction (NSTEMI) I21.4 Acute kidney injury superimposed on CKD N17.9; N18.9 CHF (congestive heart failure) I50.9 CAD (coronary artery disease) I25.10 Diabetes E11.9 Diabetes mellitus complication status: without complication 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
--- NOTE | 2022-09-05 15:07 | P.PN_ITS ---
Subjective Subjective: Patient was seen and examined this morning was complaining of significant shortness of breath, he was placed on BiPAP, received Lasix 80 IV one-time dose, IV fluids were discontinued, serum creatinine is trending down. X-ray chest was ordered. Medications: Reviewed: Yes Medication Review Details: Generic Name Dose Route Start Last Admin Trade Name Freq PRN Reason Stop Dose Admin Acetaminophen 650 mg 08/31/22 03:57 09/03/22 20:24 Acetaminophen 32 5 Mg Tablet PO 650 mg Q6H PRN Administration Mild/Mod Pain Or Temp >/= 101 Albuterol/Ipratrop ium 3 ml 08/31/22 05:30 09/05/22 14:33 Ipratropium-Albu terol 3 Ml Neb INHALATION 3 ml Q6H.RESP CHUYITA Administration Aspirin 81 mg 08/31/22 09:00 09/05/22 09:55 Aspirin 81 Mg Ec Tablet PO 81 mg DAILY CHUYITA Administration Atorvastatin Calci um 20 mg 08/31/22 09:00 09/05/22 09:54 Atorvastatin 40 Mg Tablet PO 20 mg DAILY CHUYITA Administration Clopidogrel Bisulf ate 75 mg 09/03/22 09:00 09/05/22 09:54 Clopidogrel 75 M g Tablet PO 75 mg DAILY CHUYITA Administration Piperacillin Sod/T azobactam 50 mls @ 12.5 mls /hr 08/31/22 10:00 09/05/22 09:57 Sod 3.375 gm/ So dium Chloride IV 12.5 mls/hr Q8H CHUYITA Administration Protocol Insulin Glargine 15 unit 09/01/22 12:00 09/04/22 20:48 Insulin Glargine 100 Units/1 Ml SUBCUT 15 unit BEDTIME CHUYITA Administration Insulin Human Lisp ro 0 unit 08/31/22 12:00 09/05/22 11:22 Insulin Lispro 1 00 Unit/1 Ml SUBCUT 4 unit WM&BEDTIME CHUYITA Administration Protocol Isosorbide Mononit rate 30 mg 08/31/22 09:00 09/05/22 09:54 Isosorbide [place] itrate Er 30 Mg Ta blet PO 30 mg DAILY CHUYITA Administration Lactulose 20 gm 08/31/22 05:18 09/02/22 21:26 Lactulose Oral L iq 20 Gm/30 Ml Udc PO 20 gm BID PRN Administration constipation Levothyroxine Sodi um 112 mcg 08/31/22 09:00 09/05/22 09:54 Levothyroxine 11 2 Mcg Tablet PO 112 mcg DAILY CHUYITA Administration Metoprolol Tartrat e 25 mg 09/04/22 16:15 09/05/22 09:57 Metoprolol Tartr ate 25 Mg Tablet PO 25 mg BID@0900,2100 CHUYITA Administration Non-Formulary Medi cation 10 mg 08/31/22 09:00 09/05/22 09:53 Amitriptyline PO Not Given DAILY CHUYITA Pantoprazole Sodiu m 40 mg 08/31/22 09:00 09/05/22 09:[address] 40 Mg Tablet PO 40 mg DAILY CHUYITA Administration Pantoprazole Sodiu m 40 mg 08/31/22 09:00 09/05/22 09:[address] 40 Mg Tablet PO Not Given DAILY CHUYITA Vitals/I&O/Wt Last Vital Signs Temp 97.7 F 09/03/22 21:08 Pulse 100 09/05/22 14:34 Resp 26 H 09/05/22 14:33 BP 175/81 09/05/22 10:00 Pulse Ox 97 09/05/22 14:34 O2 Del Method BiPAP 09/05/22 14:33 O2 Flow Rate 3 09/04/22 14:00 FiO2 30 09/05/22 14:34 09/05/22 09/05/22 09/05/22 06:59 14:59 22:59 Intake Total 1050 / 2604 300 / 300 Output Total 650 / 1650 Balance 400 / 954 300 / 300 Physical Exam Const: COMMON NORMALS: patient oriented x3 HENMT: COMMON NORMALS: normocephalic and atraumatic HEAD & SCALP: normocephalic and atraumatic Resp: COMMON NORMALS: clear to auscultation bilaterally AUSCULTATION: clear to auscultation bilaterally OTHER: Diminished air entry bilaterally. Cardio: COMMON NORMALS: regular rate, regular rhythm, S1 normal heart sound present, S2 normal heart sound present, No gallops present (Cardio), No murmurs present (Cardio), No rub (Cardio) and Peripheral pulses 2+ throughout RATE: regular rate RHYTHM: regular rhythm HEART SOUNDS: S1 normal heart sound present and S2 normal heart sound present PERIPHERAL PULSES: Peripheral pulses 2+ throughout GI: COMMON NORMALS: Normal to inspection, nondistended, normoactive bowel sounds present, Soft to palpation, non-tender, No hepatosplenomegaly present and no masses AUSCULTATION: Yes normoactive bowel sounds PALPATION: Yes Soft to palpation and Yes No hepatosplenomegaly present RECTAL EXAM: Yes deferred Extremity: COMMON NORMALS: no clubbing, cyanosis or edema and no pedal edema Neuro: COMMON NORMALS: patient oriented x3 Urinary Catheter Management: Phillip Latex: Cath Placed During This Visit: yes Reason for Continuing Indwelling Catheter: Accurate Measurement of Urinary Output in Critically Ill Patients Urinary Catheter Date of Insertion: 08/31/22 Urinary Catheter Time of Insertion: 05:38 Data 09/05/22 03:32 09/05/22 03:32 Micro: Microbiology 08/31/22 01:36 Blood Culture - Final Blood NO GROWTH AFTER 5 DAYS 08/31/22 01:30 Blood Culture - Final Blood NO GROWTH AFTER 5 DAYS A&P Assessment and plan (1) NSTEMI (non-ST elevated myocardial infarction): 72-year-old male with a past medical history of coronary artery disease status post CABG presenting today with chief complaints of chest pain. Currently is being managed for NSTEMI: Has significant troponin delta, complaining of typical cardiac chest pain, 2D echo has shown:Normal left ventricular size slightly diminished ejection ?fraction, EF 50 % (visual).?Mild diffuse hypokinesia of the ?inferior wal l?,?Mild mitral valve regurgitation.??Moderate mitral annular calcification. ?Mildly increased left atrial size. Coronary angiogram showed: occluded circumflex and LAD.The right coronary artery is patent.? Bypass graft to the LAD and circumflex are also occluded at the ostium.? Was on ACS protocol, Was on heparin drip aspirin statin, beta-roseanne. Heparin drip has been discontinued today Patient initially was also on nitro drip currently has been weaned off. Cardiology on board: Currently continue with medical management. (2) Acute on chronic diastolic CHF (congestive heart failure): X-ray and CT of his chest today show bilateral infiltrates compatible with interstitial pulmonary edema, small bilateral pleural effusion and multifocal pneumonia. Was on IV Lasix, currently on hold. Place Phillip catheter to track accurate output. (3) Pneumonia: Multifocal infiltrates bilaterally, patient denies any recent fever or cough. Blood cultures negative so far, MRSA PCR, urine bacterial antigen panel negative Unfortunately sputum Gram stain and culture is not available Respiratory viral panel negative Currently empirically on Zosyn, will start tapering the antibiotic coverage. (4) Acute respiratory failure with hypoxia: Multifactorial related to CHF, pneumonia On BiPAP (5) Hyperosmolar hyperglycemic state (HHS): Patient has elevated blood sugar greater than 500. He has an anion gap of 27 currently. ABG with evidence of metabolic acidosis. He has thus far received 10 units of IV push of insulin in the emergency room, 1 hour later his blood sugar is greater than 430. We will Start patient on insulin drip as per DKA/HHS protocol with target blood sugars between 100-120 No IV fluids for now given that patient has evidence of pulmonary edema. We will likely need to start dextrose containing fluid once blood sugar less than 250. Monitor BMP every 6 hours. Once potassium less than 4 we will add supplemental potassium. Transition to sliding scale and long-acting insulin once anion gap resolves. (6) Pulmonary edema: (7) Acute kidney injury superimposed on CKD: CAROLYNN on CKD: Monitor BMP Monitor intake and output charting Avoid nephrotoxic's Nephrology on board. If patient goes for CAG possibility of FELICITY, and potentially landing on hemodialysis has been explained to him. Plan DVT prophylaxis: Currently on a heparin drip. PUD prophylaxis Protonix 40 mg daily Full code Attestations Medical Necessity Statement*: Needs to be in hospital for monitoring of kidney function and optimization of respiratory status. Coding Level of Care Code Acute Code for Chg Fwd Diagnoses NSTEMI (non-ST elevated myocardial infarction) I21.4 Acute on chronic diastolic CHF (congestive heart failure) I50.33 Pneumonia J18.9 Acute respiratory failure with hypoxia J96.01 Hyperosmolar hyperglycemic state (HHS) E11.00 Pulmonary edema J81.1 Acute kidney injury superimposed on CKD N17.9; N18.9
--- NOTE | 2022-09-05 15:09 | XR_ITS ---
WS: [id number] Exam: XR chest 1V portable [id number] Date/Time of Exam: 09/05/2022 3:11 PM Reason For Exam: SOB Comparison 08/31/2022. Previously noted bibasal infiltrates appear to have resolved. There is atelectasis of the right middl e and lower lower lobe which is a new finding. Trace bibasal pleural effusions. The heart is enlarged and unchanged in size. Signs of previous CABG surgery. Bony structures are intact. XR/XR chest 1V portable [id number] IMPRESSION: 1. Resolved bibasal infiltrates since the last exam. 2. Right middle and/or lower lobe atelectasis which is new. 3. Small bibasal pleural effusions most marked on the right. 4. Cardiac enlargement unchanged.
[2022-09-05] MEDS: FUROsemide 40 mg Tablet PO (16:41)
[2022-09-05 17:31] LABS: Glucose Point of Care 205 mg/dL (70-110)
[2022-09-05 20:01] LABS: Glucose Point of Care 153 mg/dL (70-110)
[2022-09-05] MEDS: insulin glargine 100 units/1 mL 15 UNIT SUBCUT (20:04)
[2022-09-06] VITALS (20 sets, daily range): BP systolic 117–191; BP diastolic 71–113; PULSE 63–108; RESP 17–41; TEMP 36.2; O2SAT 86–98
[2022-09-06] MEDS: piperacillin-tazobactam 3.375 GM in sodium chloride 0.9% (plus) 50 ML IV ×2 (02:46→10:37)
[2022-09-06 05:20] LABS: Anion Gap 15.5 (5-19); Blood Urea Nitrogen 38 mg/dL (8-23); Calcium 8.7 mg/dL (8.5-10.5); Carbon Dioxide 25 mmol/L (22-29); Chloride 105 mmol/L (98-107); Glucose 131 mg/dL (65-115); Magnesium 2.1 mg/dL (1.7-2.3); Osmolality Calculated 305 mOsm/kg (285-295); Potassium 3.5 mmol/L (3.5-5.1); Sodium 142 mmol/L (136-145)
[2022-09-06 07:32] LABS: Glucose Point of Care 115 mg/dL (70-110)
[2022-09-06] MEDS: pantoprazole DR 40 mg Tablet PO (08:06)
[2022-09-06] MEDS: atorvastatin 40 mg Tablet 20 MG PO (08:06)
[2022-09-06] MEDS: clopidogrel 75 mg Tablet PO (08:06)
[2022-09-06] MEDS: FUROsemide 40 mg Tablet PO (08:06)
[2022-09-06] MEDS: levothyroxine 112 mcg Tablet PO (08:07)
[2022-09-06] MEDS: isosorbide mononitrate ER 30 mg Tablet PO (08:07)
[2022-09-06] MEDS: aspirin 81 mg EC Tablet PO (08:07)
[2022-09-06] MEDS: metoprolol tartrate 25 mg Tablet 37.5 MG PO (08:08)
[2022-09-06] MEDS: ipratropium-albuterol 3 mL Neb INHALATION (08:20)
--- NOTE | 2022-09-06 10:04 | PM.PN ---
Subjective Subjective: doing well today and eager to go home. Frequent PVC's on telemetry Medications: Reviewed: Yes Medication Review Details: Generic Name Dose Route Start Last Admin Trade Name Les PRN Reason Stop Dose Admin Acetaminophen 650 mg 08/31/22 03:57 09/03/22 20:24 Acetaminophen 32 5 Mg Tablet PO 650 mg Q6H PRN Administration Mild/Mod Pain Or Temp >/= 101 Albuterol/Ipratrop ium 3 ml 08/31/22 05:30 09/05/22 14:33 Ipratropium-Albu terol 3 Ml Neb INHALATION 3 ml Q6H.RESP CHUYITA Administration Aspirin 81 mg 08/31/22 09:00 09/05/22 09:55 Aspirin 81 Mg Ec Tablet PO 81 mg DAILY CHUYITA Administration Atorvastatin Calci um 20 mg 08/31/22 09:00 09/05/22 09:54 Atorvastatin 40 Mg Tablet PO 20 mg DAILY CHUYITA Administration Clopidogrel Bisulf ate 75 mg 09/03/22 09:00 09/05/22 09:54 Clopidogrel 75 M g Tablet PO 75 mg DAILY CHUYITA Administration Piperacillin Sod/T azobactam 50 mls @ 12.5 mls /hr 08/31/22 10:00 09/05/22 09:57 Sod 3.375 gm/ So dium Chloride IV 12.5 mls/hr Q8H CHUYITA Administration Protocol Insulin Glargine 15 unit 09/01/22 12:00 09/04/22 20:48 Insulin Glargine 100 Units/1 Ml SUBCUT 15 unit BEDTIME CHUYITA Administration Insulin Human Lisp ro 0 unit 08/31/22 12:00 09/05/22 11:22 Insulin Lispro 1 00 Unit/1 Ml SUBCUT 4 unit WM&BEDTIME CHUYITA Administration Protocol Isosorbide Mononit rate 30 mg 08/31/22 09:00 09/05/22 09:54 Isosorbide [place] itrate Er 30 Mg Ta blet PO 30 mg DAILY CHUYITA Administration Lactulose 20 gm 08/31/22 05:18 09/02/22 21:26 Lactulose Oral L iq 20 Gm/30 Ml Udc PO 20 gm BID PRN Administration constipation Levothyroxine Sodi um 112 mcg 08/31/22 09:00 09/05/22 09:54 Levothyroxine 11 2 Mcg Tablet PO 112 mcg DAILY CHUYITA Administration Metoprolol Tartrat e 25 mg 09/04/22 16:15 09/05/22 09:57 Metoprolol Tartr ate 25 Mg Tablet PO 25 mg BID@0900,2100 CHUYITA Administration Non-Formulary Medi cation 10 mg 08/31/22 09:00 09/05/22 09:53 Amitriptyline PO Not Given DAILY CHUYITA Pantoprazole Sodiu m 40 mg 08/31/22 09:00 09/05/22 09:[address] 40 Mg Tablet PO 40 mg DAILY CHUYITA Administration Pantoprazole Sodiu m 40 mg 08/31/22 09:00 09/05/22 09:[address] 40 Mg Tablet PO Not Given DAILY CHUYITA Vitals/I&O/Wt Last Vital Signs Temp 97.6 F 09/05/22 20:00 Pulse 103 H 09/06/22 08:50 Resp 18 09/06/22 08:15 BP 117/71 09/06/22 08:00 Pulse Ox 95 09/06/22 08:15 O2 Del Method Nasal Cannula 09/06/22 08:15 O2 Flow Rate 3 09/06/22 08:15 FiO2 30 09/06/22 08:00 09/05/22 09/06/22 09/06/22 22:59 06:59 14:59 Intake Total 1400 / 2150 50 / 2200 Output Total 4300 / 4300 1300 / 5600 Balance -2900 / -2150 -1250 / -3400 Physical Exam Narrative: GENERAL: morbid obese man sitting in chair in no acute distress HEENT: Extraocular movement intact. No pallor or icterus. NECK: central trachea, No JVD. No carotid bruit. CARDIOVASCULAR SYSTEM: S1-S2 regular with frequent PAC's/PVC's. No murmur rubs or gallops. RESPIRATORY SYSTEM: Chest clear to auscultation. No wheezes rhonchi or rubs heard. No use of accessory muscles. ABDOMEN: Soft, nontender and nondistended. Normal bowel sounds present. EXTREMITIES: No cyanosis and trace edema. No signs of chronic venous insufficiency. EYEGLASS LENS GRINDER: Patient is alert oriented ?3. No focal neurological deficits. Urinary Catheter Management: Phillip Latex: Cath Placed During This Visit: yes Reason for Continuing Indwelling Catheter: Accurate Measurement of Urinary Output in Critically Ill Patients Urinary Catheter Date of Insertion: 08/31/22 Urinary Catheter Time of Insertion: 05:38 Data 09/05/22 03:32 09/06/22 04:42 A&P Assessment and plan (1) Acute non-ST elevation myocardial infarction (NSTEMI): [facility] with Severe two-vessel coronary artery disease.? Occluded LAD and circumflex. Occluded bypass graft to the LAD and circumflex. -not amenable for intervention -medical management with ASA, plavix, statin and beta roseanne. -f/u with Nuzhat in 1-2 weeks (2) Acute kidney injury superimposed on CKD: resolved -creatinine 2.1 today from 2 yesterday. (3) CHF (congestive heart failure): continue lasix 40 mg PO BID (4) CAD (coronary artery disease): (5) Diabetes: Qualifiers: Diabetes mellitus complication status: without complication Diabetes mellitus skilled nursing insulin use: without ferry terminal supervisor use Diabetes mellitus type: type 2 Qualified Code(s): E11.9 - Type 2 diabetes mellitus without complications (6) Hyperlipidemia: Qualifiers: Hyperlipidemia type: unspecified Qualified Code(s): E78.5 - Hyperlipidemia, unspecified Plan Multifocal PNA Frequent PVC's: increase metoprolol to 50 mg BID Attestations Medical Necessity Statement*: stable to be discharged Coding Level of Care Code 87639 Diagnoses Acute non-ST elevation myocardial infarction (NSTEMI) I21.4 Acute kidney injury superimposed on CKD N17.9; N18.9 CHF (congestive heart failure) I50.9 CAD (coronary artery disease) I25.10 Diabetes E11.9 Diabetes mellitus complication status: without complication Diabetes mellitus ferry terminal supervisor insulin use: without ferry terminal supervisor use Diabetes mellitus type: type 2 Hyperlipidemia E78.5 Hyperlipidemia type: unspecified
--- NOTE | 2022-09-06 12:05 | P.DS_ITS ---
Discharge Providers Date of Admission: 08/31/22 02:17 Date of Discharge: September 06, 2022 Attending Provider at Admission: Rukhsana Oliveros MD Attending Provider at Discharge: Baldo Ren MD Primary Care Provider: Elza Peralta APN Diagnoses at Discharge Discharge Diagnosis (1) Acute non-ST elevation myocardial infarction (NSTEMI): Status: Acute (2) Acute kidney injury superimposed on CKD: Status: Acute (3) CHF (congestive heart failure): Status: Acute (4) CAD (coronary artery disease): Status: Acute (5) Diabetes: Status: Acute Qualifiers: Diabetes mellitus complication status: without complication Diabetes mellitus roasterman insulin use: without nursing home use Diabetes mellitus type: type 2 Qualified Code(s): E11.9 - Type 2 diabetes mellitus without complications Permanent problem details: Patient has been nursing home diabetic with 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 He cannot manage insulin at home and is currently controlled with Ozempic weekly and oral meds. (6) Hyperlipidemia: Status: Chronic Qualifiers: Hyperlipidemia type: unspecified Qualified Code(s): E78.5 - Hyperlipidemia, unspecified Reason for Visit Reason for Visit: CP Hospital Course Hospital Course 72-year-old male with a past medical history of coronary artery disease status post CABG presenting today with chief complaints of chest pain, he was admitted for the management of NSTEMI, patient was kept on ACS protocol, 2D echo was done which showed: EF 50 % (visual).?Mild diffuse hypokinesia of the ?inferior wall?,?Mild mitral valve regurgitation.??Moderate mitral annular calcification. ?Mildly increased left atrial size. Coronary angiogram showed:?occluded circumflex and LAD.The right coronary artery is patent.Bypass graft to the LAD and circumflex are also occluded at the ostium, given his coronary angiogram finding medical management was opted, cardiology was on board patient was discharged on aspirin, Plavix statin beta- roseanne, during the hospital stay patient was also managed for acute respiratory failure with hypoxia likely secondary to pneumonia and CHF exacerbation, he was kept on broad-spectrum antibiotic, blood cultures were negative MRSA PCR urine bacterial antigen panel negative, he was discharged on p.o. levofloxacin for another 5 days renally dosed, initially he was also on IV Lasix which was briefly kept on hold, later it was resumed, he was also managed for CAROLYNN on CKD likely secondary to cardiorenal syndrome, nephrology was on board at the time of discharge, patient serum creatinine was at his baseline, he was also managed for HHS, he was on insulin drip, and was later transitioned to long-acting and sliding scale insulin, he was discharged on his home antidiabetic regimen. During the hospital stay patient was also having significant pvc noted on telemetry, for which she was kept on metoprolol tartrate, and was finally discharged on metoprolol tartrate 50 mg p.o. twice daily.Likely explanation for significant PVC burden is underlying ischemia.Overall patient responded well to above medical management, And was discharged in stable condition to home.He will continue to follow cardiology as well as primary care physician as outpatient. Physical Exam Const: COMMON NORMALS: patient oriented x3 HENMT: COMMON NORMALS: normocephalic and atraumatic HEAD & SCALP: normocephalic and atraumatic Resp: COMMON NORMALS: clear to auscultation bilaterally AUSCULTATION: clear to auscultation bilaterally OTHER: Diminished air entry bilaterally. Cardio: COMMON NORMALS: regular rate, regular rhythm, S1 normal heart sound present, S2 normal heart sound present, No gallops present (Cardio), No murmurs present (Cardio), No rub (Cardio) and Peripheral pulses 2+ throughout RATE: regular rate RHYTHM: regular rhythm HEART SOUNDS: S1 normal heart sound present and S2 normal heart sound present PERIPHERAL PULSES: Peripheral pulses 2+ throughout GI: COMMON NORMALS: Normal to inspection, nondistended, normoactive bowel sounds present, Soft to palpation, non-tender, No hepatosplenomegaly present and no masses AUSCULTATION: Yes normoactive bowel sounds PALPATION: Yes Soft to palpation and Yes No hepatosplenomegaly present RECTAL EXAM: Yes deferred Extremity: COMMON NORMALS: no clubbing, cyanosis or edema and no pedal edema Neuro: COMMON NORMALS: patient oriented x3 Urinary Catheter Management: Phillip Latex: Cath Placed During This Visit: yes Reason for Continuing Indwelling Catheter: Accurate Measurement of Urinary Output in Critically Ill Patients Urinary Catheter Date of Insertion: 08/31/22 Urinary Catheter Time of Insertion: 05:38 Discharge Data Studies Completed and Pending Completed Studies During Hospitalization Category Date Time Status CT head wo con* [id number] Routine Cat Scan 09/04/22 08:00 Completed CTA chest [CT angio chest PE protcl [id number]] Stat Cat Scan 08/31/22 00:36 Completed BARREL RACER request for service Routine Exams 09/04/22 06:42 Completed XR chest 1V portable [id number] Routine Exams 09/05/22 15:09 Completed XR chest 1V portable [id number] Stat Exams 08/31/22 00:27 Completed CV. echo complete* [id number] Routine Ultrasound 08/31/22 03:59 Completed Pending at discharge Category Date Time Status Sputum Culture and Gram Stain Routine Lab 08/31/22 05:19 Uncollected Radiology Impressions Chest CTA 08/31/22 00:36 IMPRESSION: 1. Limited assessment of the subsegmental pulmonary arteries of the lung bases secondary to significant respiratory motion artifact. Otherwise, no evidence of acute pulmonary embolism. 2. Findings of multifocal pneumonia. 3. Mild interstitial pulmonary edema and small bilateral pleural effusions. COMMENTS: Consistent with the [employer]'s Incidental Findings Committee white paper (J Am Elva Radiol 2018): Any incidental renal lesion less than 1 cm or classified as too small to characterize, or any incidental cystic renal lesion characterized as simple-appearing, is likely benign. No follow-up imaging is recommended for these lesions per consensus recommendations based on imaging criteria. Head CT 09/04/22 08:00 IMPRESSION: 1. No acute intracranial findings. 2. Atherosclerosis. Chest X-Ray 09/05/22 15:09 IMPRESSION: 1. Resolved bibasal infiltrates since the last exam. 2. Right middle and/or lower lobe atelectasis which is new. 3. Small bibasal pleural effusions most marked on the right. 4. Cardiac enlargement unchanged. Laboratory Results WBC 8.0 10^3/uL (4.0-10.0) 09/05/22 03:32 RBC 4.43 10^6/uL (4.1-5.3) 09/05/22 03:32 Hgb 12.2 g/dL (11.7-16.6) 09/05/22 03:32 Hct 40.4 % (42.0-52.0) L 09/05/22 03:32 MCV 91.2 fl (80-94) 09/05/22 03:32 MCH 27.5 pg (28.0-34.0) L 09/05/22 03:32 MCHC 30.2 g/dL (30.0-36.0) 09/05/22 03:32 RDW 15.7 % (12.1-15.1) H 09/05/22 03:32 Plt Count 276 10^3/cmm (130-400) 09/05/22 03:32 MPV 11.7 fL (7.4-10.4) H 09/05/22 03:32 Neut % (Auto) 73.2 % 09/05/22 03:32 Lymph % (Auto) 15.6 % 09/05/22 03:32 Amador % (Auto) 9.2 % 09/05/22 03:32 Eos % (Auto) 1.3 % 09/05/22 03:32 Baso % (Auto) 0.3 % 09/05/22 03:32 Neut # (Auto) 5.83 10^3/uL (1.8-7.7) 09/05/22 03:32 Lymph # (Auto) 1.2 10^3/uL (0.8-4.8) 09/05/22 03:32 [place] # (Auto) 0.7 10^3/uL (0.2-0.9) 09/05/22 03:32 Eos # (Auto) 0.1 10^3/uL (0.0-0.8) 09/05/22 03:32 Baso # (Auto) 0.0 10^3/uL (0.0-0.1) 09/05/22 03:32 Nucleated RBC % (auto) 0 % 09/05/22 03:32 Nucleated RBCs # 0.0 /100WBC 09/05/22 03:32 PT 12.80 SECONDS (12.1-14.9) 08/31/22 00:53 INR 0.94 (0.8-1.2) 08/31/22 00:53 APTT 27.7 SECONDS (23.9-36.7) D 09/04/22 11:15 Specimen Type Arterial 08/31/22 00:37 Sample Site Radial, left 08/31/22 00:37 ABG pH 7.26 (7.35-7.45) L 08/31/22 00:37 ABG pCO2 43.4 mmHg (35-45) 08/31/22 00:37 ABG pO2 101.0 mmHg (80.0-100.0) H 08/31/22 00:37 ABG HCO3 19.6 mmol/L (22-26) L 08/31/22 00:37 ABG Base Excess -7.3 mmol/L (-2.0-2.0) L 08/31/22 00:37 Sulaiman Test Pos 08/31/22 00:37 Hematocrit 45.2 % (42-52) 08/31/22 00:37 O2 Delivery Device Bipap 08/31/22 00:37 FiO2 80.0 % 08/31/22 00:37 PEEP 10.0 cmH20 08/31/22 00:37 Sorter Packer ID [email or web address] 08/31/22 00:37 Sodium 142 mmol/L (136-145) 09/06/22 04:42 Potassium 3.5 mmol/L (3.5-5.1) 09/06/22 04:42 Chloride 105 mmol/L (98-107) 09/06/22 04:42 Carbon Dioxide 25 mmol/L (22-29) 09/06/22 04:42 Anion Gap 15.5 (5-19) 09/06/22 04:42 BUN 38 mg/dL (8-23) H 09/06/22 04:42 Creatinine 2.1 mg/dL (0.7-1.2) H 09/06/22 04:42 GFR Calculation Not Reportable 09/06/22 04:42 Glucose 131 mg/dL (65-115) H 09/06/22 04:42 POC Glucose 115 mg/dL (70-110) H 09/06/22 07:29 Calculated Osmolality 305 mOsm/kg (285-295) H 09/06/22 04:42 Lactic Acid 3.7 mmol/L (0.5-2.2) H 08/31/22 00:53 Lactic Acid (Sepsis) 3.3 mmol/L (0.5-2.2) H 08/31/22 03:23 Calcium 8.7 mg/dL (8.5-10.5) 09/06/22 04:42 Phosphorus 4.1 mg/dL (2.5-4.5) 09/02/22 03:45 Magnesium 2.1 mg/dL (1.7-2.3) 09/06/22 04:42 Total Bilirubin 0.2 mg/dL (0.15-1.2) 09/01/22 03:34 AST 167 U/L (0-40) H 09/01/22 03:34 ALT 55 U/L (0-41) H 09/01/22 03:34 Alkaline Phosphatase 98 U/L (40-130) 09/01/22 03:34 Creatine Kinase 80 U/L (39-308) 08/30/22 23:30 Troponin T Baseline 74 ng/L (0-15) H 08/30/22 23:30 Troponin T 120 Minute 374.3 ng/L (0-15) H 08/31/22 01:30 Delta Troponin T 300.3 ABS# (0-10) H* 08/31/22 01:30 Troponin T Hi Sens 6Hr 1667 ng/L (0-15) H 08/31/22 05:50 Troponin T Hi Sens 6Hr Delta 1593 ng/L (0-12) H* 08/31/22 05:50 NT-Pro-B Natriuret Pep 2032 pg/mL (0-125) H 08/30/22 23:30 Total Protein 6.9 g/dL (6.6-8.7) 09/01/22 03:34 Albumin 3.3 g/dL (3.5-5.2) L 09/02/22 03:45 Globulin 3.4 g/dL (1.3-4.6) 09/01/22 03:34 Procalcitonin 1.19 ng/mL (0-0.5) H 08/31/22 05:50 Ur Random Sodium 74 mmol/L 08/31/22 05:37 Ur Random Potassium 22 mmol/L 08/31/22 05:37 Ur Random Chloride 73 mmol/L 08/31/22 05:37 Nasal Influ A H1 2008 PCR Not detected (NOT DETECT) 08/31/22 01:08 Serum Ketones Negative (Negative) 08/31/22 01:38 Adenovirus (PCR) Not detected (NOT DETECT) 08/31/22 01:08 C. pneumoniae DNA (PCR) Not detected (NOT DETECT) 08/31/22 01:08 Coronavirus 229E (PCR) Not detected (NOT DETECT) 08/31/22 01:08 Human Metapneumovir PCR Not detected (NOT DETECT) 08/31/22 01:08 Influenza A (H1) PCR Not detected (NOT DETECT) 08/31/22 01:08 Influenza A (H3) PCR Not detected (NOT DETECT) 08/31/22 01:08 Influenza Type A (PCR) Not detected (NOT DETECT) 08/31/22 01:08 Influenza Type B (PCR) Not detected (NOT DETECT) 08/31/22 01:08 M. pneumoniae (PCR) Not detected (NOT DETECT) 08/31/22 01:08 Parainfluenza 1 (PCR) Not detected (NOT DETECT) 08/31/22 01:08 Parainfluenza 2 (PCR) Not detected (NOT DETECT) 08/31/22 01:08 Parainfluenza 3 (PCR) Not detected (NOT DETECT) 08/31/22 01:08 Parainfluenza 4 (PCR) Not detected (NOT DETECT) 08/31/22 01:08 RSV Type A (PCR) Not detected (NOT DETECT) 08/31/22 01:08 RSV Type B (PCR) Not detected (NOT DETECT) 08/31/22 01:08 Entero/Rhino (PCR) Not detected (NOT DETECT) 08/31/22 01:08 SARS-CoV-2 (PCR) Not detected (NOT DETECT) 08/31/22 01:08 Vitals Last Vital Signs Temp 97.6 F 09/05/22 20:00 Pulse 93 09/06/22 10:54 Resp 24 H 09/06/22 10:54 BP 146/95 09/06/22 10:54 Pulse Ox 94 09/06/22 10:54 O2 Del Method Nasal Cannula 09/06/22 10:54 O2 Flow Rate 4 09/06/22 10:54 FiO2 30 09/06/22 10:00 Discharge Plan Discharge Patient Disposition: Home Condition: Stable Prescriptions: New levofloxacin 750 mg tablet 750 mg PO Q48H 7 Days Qty: 4 0RF metoprolol tartrate 50 mg tablet 50 mg PO BID Qty: 60 3RF clopidogrel 75 mg Tablet 75 mg PO DAILY 30 Days Qty: 30 3RF Continued vitamin A and D Ointment 1 applic topical DAILY 30 Days Qty: 113 0RF Rx Instructions: Apply thin layer to both feet at night. Cover both feet with socks. Wear socks when sleeping. amitriptyline 10 mg tablet 10 mg PO DAILY Jardiance 25 mg tablet 25 mg PO DAILY ergocalciferol (vitamin D2) 1,250 mcg (50,000 unit) capsule 50,000 unit PO .Weekly glipizide 5 mg tablet extended release 24hr 5 mg PO DAILY isosorbide mononitrate 30 mg tablet extended release 24 hr 30 mg PO DAILY montelukast 10 mg tablet 10 mg PO DAILY omega-3 acid ethyl esters 1 gram capsule 1 cap PO DAILY oxybutynin chloride 15 mg tablet extended release 24hr 30 mg PO DAILY pantoprazole 40 mg tablet,delayed release (DR/EC) 40 mg PO DAILY simvastatin 40 mg tablet 40 mg PO DAILY cyclobenzaprine 5 mg tablet 5 mg PO BEDTIME PRN (Reason: muscle spasm) 7 Days Qty: 7 0RF aspirin [Adult Low Dose Aspirin] 81 mg tablet,delayed release (DR/EC) 162 mg PO DAILY Qty: 180 3RF (DME) OneTouch Verio test strips Strip See Rx Instructions .ROUTE .COMPLEX Qty: 100 3RF Dose Instruction: for TYPE 2 DIABETES MELLITUS; USE ONE STRIP TO CHECK BLOOD SUGAR DAILY Rx Instructions: for TYPE 2 DIABETES MELLITUS; USE ONE STRIP TO CHECK BLOOD SUGAR DAILY budesonide-formoterol 160-4.5 mcg/actuation HFA aerosol inhaler 2 inh inhalation BID gabapentin 600 mg tablet 600 mg PO DAILY fluticasone propionate 50 mcg/actuation [place],Suspension 1 spray intranasal DAILY levothyroxine 112 mcg tablet 112 mcg PO DAILY lactulose 10 gram/15 mL solution 30 ml PO BID Trulicity 4.5 mg/0.5 mL pen injector 4.5 mg SUBCUT Q7D nifedipine 30 mg tablet extended release 24hr 30 mg PO DAILY mupirocin 2 % ointment 1 applic TOPICAL BID Changed furosemide 40 mg tablet 40 mg PO BID 30 Days Qty: 60 2RF Discontinued metoprolol tartrate 25 mg tablet 12.5 mg PO BID Discharge Orders: Discharge Order (Routine); Ordered 09/06/22 Ordered By: Baldo Ren Referrals: Elza Peralta FNP [Primary Care Provider] - 09/13/22 9:00 am Nuzhat Guerin FNP [Nurse Practitioner] - 09/09/22 2:30 pm Patient Instructions: Metoprolol (By mouth), Levofloxacin (By mouth) (Levaquin, Levaquin Leva-fiona), Clopidogrel (By mouth) (Plavix), Heart Attack (DC), Heart Failure (DC), Acute Kidney Injury (DC), CHF Stoplight, Opioid Safety, Post Angiogram Home Care Instructions, Post Heart Attack Stoplight Discharge Attestations Time Spent in Discharge Care*: less than 30 min Quality Metrics Clinical Quality Measures [ No reported AMI, CVA or VTE this stay] Coding Level of Care Code Acute Code for Chg Fwd Diagnoses Acute non-ST elevation myocardial infarction (NSTEMI) I21.4 Acute kidney injury superimposed on CKD N17.9; N18.9 CHF (congestive heart failure) I50.9 CAD (coronary artery disease) I25.10 Diabetes E11.9 Diabetes mellitus complication status: without complication Diabetes mellitus roasterman insulin use: without nursing home use Diabetes mellitus type: type 2 Hyperlipidemia E78.5 Hyperlipidemia type: unspecified
[2022-09-06 12:07] LABS: Glucose Point of Care 238 mg/dL (70-110)
[2022-09-06] MEDS: insulin lispro 100 unit/1 mL SUBCUT (12:25)
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
--- NOTE | 2022-09-06 16:45 | PC.NURSE ---
ready transport her discharged after assisting with pill box and lengthy discussion about new med and talk with mian friday and also talked with her
== END 2022-09-06 17:00 | disposition home or self-care (01) | DRG 280 ==
LOC: ER 02:16 → ICU 02:29
PROVIDERS: Internal Medicine; Internal Medicine Cardiovascular Disease; Admitting Provider Student in an Organized Health Care Education/Training Program; Emergency Provider Emergency Medicine; PCP Nurse Practitioner; Visit Provider Internal Medicine
PROC: B213YZZ Fluoroscopy of Multiple Coronary Artery Bypass Grafts using Other Contrast (ICD-10-PCS; principal; 2022-09-04 07:00)
DX: I21.4 Non-ST elevation (NSTEMI) myocardial infarction (principal); E11.00 Type 2 diabetes mellitus with hyperosmolarity without nonketotic hyperglycemic-hyperosmolar coma (NKHHC); I50.33 Acute on chronic diastolic (congestive) heart failure; J18.9 Pneumonia, unspecified organism; J96.01 Acute respiratory failure with hypoxia; I25.810 Atherosclerosis of coronary artery bypass graft(s) without angina pectoris; I13.0 Hypertensive heart and chronic kidney disease with heart failure and stage 1 through stage 4 chronic kidney disease, or unspecified chronic kidney disease; N17.9 Acute kidney failure, unspecified; I25.10 Atherosclerotic heart disease of native coronary artery without angina pectoris; I34.0 Nonrheumatic mitral (valve) insufficiency; I34.81 Nonrheumatic mitral (valve) annulus calcification; N18.30 Chronic kidney disease, stage 3 unspecified; E78.5 Hyperlipidemia, unspecified; J44.9 Chronic obstructive pulmonary disease, unspecified; I49.3 Ventricular premature depolarization; Z79.82 Long term (current) use of aspirin; E11.22 Type 2 diabetes mellitus with diabetic chronic kidney disease; E11.42 Type 2 diabetes mellitus with diabetic polyneuropathy; Z79.85 Long-term (current) use of injectable non-insulin antidiabetic drugs; Z79.84 Long term (current) use of oral hypoglycemic drugs; Z87.891 Personal history of nicotine dependence; E03.9 Hypothyroidism, unspecified; K21.9 Gastro-esophageal reflux disease without esophagitis; I25.2 Old myocardial infarction
CPT/HCPCS: 36415; 36416; 51702; 70450; 71045; 71275; 80048; 80053; 80069; 82009; 82436; 82550; 82803; 82962; 83605; 83735; 83880; 84133; 84145; 84300; 84484; 85025; 85049; 85610; 85730; 86403; 87040; 87486; 87581; 87633; 87641; 93005; 93306; 93455; 94640; 94660; 96372; 96374; 96375; 96376; 99152; 99153; 99291; C1769; C1887; C1894; J1644; J1815; J1940; J2250; J2543; J3010; J3370; J3490; J7030; J7050; Q0163; Q9967

== ENCOUNTER 2022-09-10 00:27 | Inpatient (IN) | payer MEDICARE, MEDICAID, SELFPAY ==
[2022-09-10] VITALS (118 sets, daily range): BP systolic 78–161; BP diastolic 49–102; PULSE 50–156; RESP 14–54; TEMP 36.4–36.8; O2SAT 63–100; BMI 35.2
--- NOTE | 2022-09-10 00:33 | XRR_ITS ---
PROCEDURE INFORMATION: Exam: XR Chest Exam date and time: 09/10/2022 12:39 AM Age: 72 years old Clinical indication: Shortness of breath; Patient HX: Resp distress - bipap; Additional info: SOB TECHNIQUE: Imaging protocol: Radiologic exam of the chest. Views: 1 view. COMPARISON: CR XR chest 1V portable [id number] 09/05/2022 3:16 PM FINDINGS: Lungs: Progressive bilateral mid to lower lung hazy alveolar-interstitial infiltrates. Pleural spaces: Very small bilateral pleural effusions. No pneumothorax. Heart/Mediastinum: The heart is large. CABG again seen. Bones/joints: Unremarkable. XR/XR chest 1V portable [id number] IMPRESSION: Progressive areas of bilateral mid to lower lung atelectasis, edema, or pneumonia with small effusions.
--- NOTE | 2022-09-10 00:36 | ECG_ITS ---
[facility] Test Date: 2022-09-10 Pat Name: Guillermo Saha Department: Room: Gender: Male [employer]: : [id number] Requested By: Rosa Casillas Order Number: [id number] Cortney MD: Sin Eastman M.D. Measurements Intervals [place] Rate: 114 P: 24 KS: 135 QRS: 50 QRSD: 104 T: 263 QT: 322 QTc: 444 Interpretive Statements SINUS TACHYCARDIA LEFT ATRIAL ENLARGEMENT [-0.15mV P-WAVE IN V1/V2] POSSIBLE INFERIOR MYOCARDIAL INFARCTION , OF INDETERMINATE AGE [30 ms Q WAVE IN II/aVF] Compared to ECG 09/03/2022 07:16:53 Atrial abnormality now present Myocardial infarct finding now present Sinus rhythm no longer present Ventricular premature complex(es) no longer present Electronically Signed On 09-10-2022 17:35:59 CDT by Sin Eastman M.D. [email or web address]
[2022-09-10 00:43] LABS: Base Excess ABG -6.8 mmol/L (-2.0-2.0); Blood Gas Allen Test Pos; Blood Gas Sample Site Radial, left; Blood Gas Sample Type Arterial; Carboxyhemoglobin 0.2 %THgb (0.4-20.1); HCO3 ABG 22.8 mmol/L (22-26); HGB O2 Sat 93.8 % (95-100); Methemoglobin 0.7 % (0.4-1.5); Oxygen Device BIPAP; Total Hemoglobin 13.4 g/dL (14-18)
[2022-09-10 00:44] LABS: ABG PCO2 63.6 mmHg (35-45); ABG PH Result 7.16 (7.35-7.45)
[2022-09-10] MEDS: methylPREDNISolone sod succ 125 MG in water for injection-sterile 2 ML 24 MG IVP (00:45)
--- NOTE | 2022-09-10 00:47 | ED_ITS ---
HPI - SOB/Dyspnea General: Chief Complaint: Shortness of Breath/Dyspnea Stated Complaint: SOB Time Seen by Provider: 09/10/22 00:28 Source: patient and EMS Mode of arrival: EMS Limitations: no limitations History of Present Illness: HPI Narrative: 72-year-old male is recently admitted here for NSTEMI patient had called EMS tonight because he is having severe shortness of breath he does have a history of CHF COPD. EMS arrived he was tripoding saturations were in the 60s they have him on their CPAP machine his pulse ox still 68% he was switched on BiPAP here he is tachypneic only able to speak in 1-2 word sentences denies any cough denies any pain currently. Associated symptoms: Deny abdominal pain, chest pain, fever(s), nausea or vomiting Review of Systems Const: Denies: fever(s), chills, body aches or change in appetite Eyes: Denies: blurry vision or eye discomfort ENMT: Denies: throat pain or dental pain Card: Denies: chest pain Resp: Reports: dyspnea GI: Denies: abdominal pain, nausea, vomiting or diarrhea Musc: Denies: neck pain or back pain Skin/Breast: Denies: rash Neuro: Denies: headache(s) PFSH ED PFSH: Medical History Acute bacterial pharyngitis Acute kidney injury superimposed on CKD Acute non-ST elevation myocardial infarction (NSTEMI) Acute on chronic diastolic CHF (congestive heart failure) Acute respiratory failure with hypoxia CAROLYNN (acute kidney injury) Anxiety Atherosclerotic heart disease of ione coronary artery without angina pectoris CAD (coronary artery disease) Cellulitis of foot Chest pain CHF (congestive heart failure) Chronic idiopathic constipation Chronic kidney disease, stage 3 unspecified Chronic secretory otitis media CKD (chronic kidney disease) Contact dermatitis Cough Cracked skin on feet Diabetes Patient has been intermediate diabetic with 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 He cannot manage insulin at home and is currently controlled with Ozempic weekly and oral meds. Diabetic foot Diarrhea Dysuria Environmental and seasonal allergies Environmental and seasonal allergies Essential hypertension Patient is currently well controlled with antihypertensives FH: CABG (coronary artery bypass surgery) Foot callus Foot callus GERD (gastroesophageal reflux disease) H/O: GI bleed Headache Hyperlipidemia Hyperosmolar hyperglycemic state (HHS) Hypothyroid Impaired cognitive ability Iron deficiency anemia Knee abrasion Mild intellectual disability Muscle cramps NSTEMI (non-ST elevated myocardial infarction) Patellofemoral dysfunction of right knee Pneumonia Polyneuropathy, unspecified Pulmonary edema Renal calculus, right Renal insufficiency STEMI (ST elevation myocardial infarction) Vitamin D deficiency Patient has history of Vitamin D deficiency and take home D3 supplement Wound of foot Surgical History Aortocoronary bypass status Family History Mother Diabetes Alzheimer's dementia Brother Epileptic seizure Social History Smoking and tobacco status: never smoked Second hand smoke exposure: No Alcohol intake: current Physical Exam Const: COMMON NORMALS: patient oriented x3 GENERAL APPEARANCE: in distress and ill appearing HENMT: COMMON NORMALS: normocephalic and atraumatic HEAD & SCALP: normocephalic and atraumatic Neck/C-Spine: COMMON NORMALS: full ROM and supple Chest: COMMONS NORMALS: normal inspection of the chest and normal palpation of entire chest wall Resp: EFFORT & INSPECTION: Yes tachypneic, Yes respiratory distress and Yes labored AUSCULTATION: diminished lung sounds Cardio: COMMON NORMALS: regular rhythm and No murmurs present (Cardio) RATE: tachycardic RHYTHM: regular rhythm GI: COMMON NORMALS: Normal to inspection, nondistended, normoactive bowel sounds present, Soft to palpation, non-tender and no masses PALPATION: Yes Soft to palpation Extremity: COMMON NORMALS: normal to inspection and full ROM Neuro: COMMON NORMALS: patient oriented x3, moves all extremities and no focal motor deficits Psych: COMMON NORMALS: mental status grossly normal, Normal thought process present and cooperative THOUGHT PROCESS: Normal thought process present Skin: COMMON NORMALS: no rashes or lesions noted and no wounds GENERAL SKIN EXAM: no rashes or lesions noted Course Vital Signs: Vital signs: Vital Signs Temperature 97.8 F 09/10/22 00:28 Pulse Rate 96 09/10/22 02:08 Respiratory Rate 28 H 09/10/22 02:08 Blood Pressure 137/82 09/10/22 02:08 Pulse Oximetry 92 09/10/22 02:08 Oxygen Delivery Me thod BiPAP 09/10/22 00:55 Fraction of Inspir ed Oxygen 100 09/10/22 01:50 MDM - SOB/Dyspnea Medical Decision Making Patient presents here with respiratory failure with hypercapnia and hypoxia. I did ask him if he had worsened if he did want intubation he states that he did not want to be intubated he is on BiPAP having some improvement. He also has CHF exacerbation possible pneumonia start IV antibiotics spoke to hospitalist he does have an elevated troponin but did receive a recent catheter could be from that he want to wait for 2-hour troponin before starting heparin Medical Records I reviewed the patient's medical records. Lab Data I reviewed the patient's lab results. 09/10/22 00:50 09/10/22 00:50 Labs/Radiology: Radiology Impressions Chest X-Ray 09/10/22 00:33 IMPRESSION: Progressive areas of bilateral mid to lower lung atelectasis, edema, or pneumonia with small effusions. Laboratory Results WBC 23.6 10^3/uL (4.0-10.0) H 09/10/22 00:50 RBC 4.62 10^6/uL (4.1-5.3) 09/10/22 00:50 Hgb 12.8 g/dL (11.7-16.6) 09/10/22 00:50 Hct 41.8 % (42.0-52.0) L 09/10/22 00:50 MCV 90.5 fl (80-94) 09/10/22 00:50 MCH 27.7 pg (28.0-34.0) L 09/10/22 00:50 MCHC 30.6 g/dL (30.0-36.0) 09/10/22 00:50 RDW 15.4 % (12.1-15.1) H 09/10/22 00:50 Plt Count 571 10^3/cmm (130-400) H 09/10/22 00:50 MPV 10.7 fL (7.4-10.4) H 09/10/22 00:50 Neut % (Auto) 76.9 % 09/10/22 00:50 Lymph % (Auto) 14.0 % 09/10/22 00:50 [place] % (Auto) 5.1 % 09/10/22 00:50 Eos % (Auto) 2.0 % 09/10/22 00:50 Baso % (Auto) 0.4 % 09/10/22 00:50 Neut # (Auto) 18.17 10^3/uL (1.8-7.7) H 09/10/22 00:50 Lymph # (Auto) 3.3 10^3/uL (0.8-4.8) 09/10/22 00:50 [place] # (Auto) 1.2 10^3/uL (0.2-0.9) H 09/10/22 00:50 Eos # (Auto) 0.5 10^3/uL (0.0-0.8) 09/10/22 00:50 Baso # (Auto) 0.1 10^3/uL (0.0-0.1) 09/10/22 00:50 Nucleated RBC % (auto) 0 % 09/10/22 00:50 Nucleated RBCs # 0.0 /100WBC 09/10/22 00:50 PT 13.40 SECONDS (12.1-14.9) 09/10/22 00:50 INR 0.99 (0.8-1.2) 09/10/22 00:50 Specimen Type Arterial 09/10/22 01:20 Sample Site Radial, right 09/10/22 01:20 ABG pH 7.20 (7.35-7.45) L 09/10/22 01:20 ABG pCO2 62.1 mmHg (35-45) H* 09/10/22 01:20 ABG pO2 85.9 mmHg (80.0-100.0) 09/10/22 01:20 ABG HCO3 24.1 mmol/L (22-26) 09/10/22 01:20 ABG Base Excess -5.0 mmol/L (-2.0-2.0) L 09/10/22 01:20 Sulaiman Test Pos 09/10/22 01:20 Hematocrit 41.3 % (42-52) L 09/10/22 01:20 Hgb O2 Saturation 93.8 % (95-100) L 09/10/22 00:32 Carboxyhemoglobin 0.2 %THgb (0.4-20.1) L 09/10/22 00:32 Methemoglobin 0.7 % (0.4-1.5) 09/10/22 00:32 Total Hemoglobin 13.4 g/dL (14-18) L 09/10/22 00:32 O2 Delivery Device Bipap 09/10/22 01:20 FiO2 100.0 % 09/10/22 01:20 [employer] Officer ID trung 09/10/22 01:20 Sodium 132 mmol/L (136-145) L 09/10/22 00:50 Potassium 5.4 mmol/L (3.5-5.1) H 09/10/22 00:50 Chloride 95 mmol/L (98-107) L 09/10/22 00:50 Carbon Dioxide 17 mmol/L (22-29) L 09/10/22 00:50 Anion Gap 25.4 (5-19) H 09/10/22 00:50 BUN 36 mg/dL (8-23) H 09/10/22 00:50 Creatinine 2.7 mg/dL (0.7-1.2) H 09/10/22 00:50 GFR Calculation Not Reportable 09/10/22 00:50 Glucose 401 mg/dL (65-115) H 09/10/22 00:50 Calculated Osmolality 299 mOsm/kg (285-295) H 09/10/22 00:50 Calcium 8.7 mg/dL (8.5-10.5) 09/10/22 00:50 Total Bilirubin 0.4 mg/dL (0.15-1.2) 09/10/22 00:50 AST 28 U/L (0-40) 09/10/22 00:50 ALT 38 U/L (0-41) 09/10/22 00:50 Alkaline Phosphatase 118 U/L (40-130) 09/10/22 00:50 Troponin T Baseline 2014 ng/L (0-15) H* 09/10/22 00:50 NT-Pro-B Natriuret Pep 46087 pg/mL (0-125) H 09/10/22 00:50 Total Protein 7.2 g/dL (6.6-8.7) 09/10/22 00:50 Albumin 3.9 g/dL (3.5-5.2) 09/10/22 00:50 Globulin 3.3 g/dL (1.3-4.6) 09/10/22 00:50 Discharge Plan Discharge Patient Disposition: Admitted As Inpatient Admit Provider: Cortez Mcleod Clinical Impression: Acute respiratory failure with hypoxia and hypercapnia, Acute exacerbation of CHF (congestive heart failure) Condition: Stable Coding Level of Care Code ED Biological Science Technician Fish for Jeana Coles
[2022-09-10] MEDS: albuterol 2.5 mg/3 mL Neb 5 MG INHALATION (00:49)
--- NOTE | 2022-09-10 00:56 | ECG_ITS ---
[facility] Test Date: 2022-09-10 Pat Name: Guillermo Saha Department: Room: Gender: Male Chief Relay Tester: : 1950 Requested By: Rosa Casillas Order Number: [id number] Cortney MD: Sin Eastman M.D. Measurements Intervals [place] Rate: 105 P: 19 [place]: 132 QRS: 50 QRSD: 102 T: -87 QT: 338 QTc: 448 Interpretive Statements SINUS TACHYCARDIA POSSIBLE LEFT ATRIAL ENLARGEMENT [-0.1mV P-WAVE IN V1/V2] POSSIBLE INFERIOR MYOCARDIAL INFARCTION , OF INDETERMINATE AGE [30 ms Q WAVE IN II/aVF] Compared to ECG 09/10/2022 00:36:04 No significant changes Electronically Signed On 09-10-2022 17:35:28 CDT by Sin Eastman M.D. [email or web address]
[2022-09-10 01:03] LABS: Basophils # 0.1 10^3/uL (0.0-0.1); Basophils % 0.4 %; Eosinophils # 0.5 10^3/uL (0.0-0.8); Hematocrit 41.8 % (42.0-52.0); Hemoglobin 12.8 g/dL (11.7-16.6); Lymphocytes # 3.3 10^3/uL (0.8-4.8); Mean Corpuscular HGB Conc 30.6 g/dL (30.0-36.0); Mean Corpuscular Hemoglobin 27.7 pg (28.0-34.0); Mean Corpuscular Volume 90.5 fl (80-94); Mean Platelet Volume 10.7 fL (7.4-10.4); Monocytes # 1.2 10^3/uL (0.2-0.9); Monocytes % 5.1 %; Neutrophils # 18.17 10^3/uL (1.8-7.7); Neutrophils % 76.9 %; Nucleated Red Blood Cells % 0 %; Platelet Count 571 10^3/cmm (130-400); Red Blood Count 4.62 10^6/uL (4.1-5.3); Red Cell Distribution Width 15.4 % (12.1-15.1); White Blood Count 23.6 10^3/uL (4.0-10.0)
[2022-09-10] MEDS: levofloxacin-dextrose 5 % 500 MG/100 ML PREMIX 100 MG IV (01:19)
[2022-09-10 01:20] LABS: INR 0.99 (0.8-1.2)
[2022-09-10 01:37] LABS: Troponin(5th) Baseline 2014 ng/L (0-15)
[2022-09-10 01:38] LABS: Alanine Aminotransferase 38 U/L (0-41); Albumin Level 3.9 g/dL (3.5-5.2); Alkaline Phosphatase 118 U/L (40-130); Blood Urea Nitrogen 36 mg/dL (8-23); Calcium 8.7 mg/dL (8.5-10.5); Carbon Dioxide 17 mmol/L (22-29); Chloride 95 mmol/L (98-107); Globulin 3.3 g/dL (1.3-4.6); Glucose 401 mg/dL (65-115); Osmolality Calculated 299 mOsm/kg (285-295); Sodium 132 mmol/L (136-145); Total Bilirubin 0.4 mg/dL (0.15-1.2); Total Protein 7.2 g/dL (6.6-8.7)
[2022-09-10 01:39] LABS: Anion Gap 25.4 (5-19); Aspartate Amino Transferase 28 U/L (0-40); Potassium 5.4 mmol/L (3.5-5.1)
[2022-09-10 01:41] LABS: Arterial Blood Gas Hematocrit 41.3 % (42-52); Blood Gas Allen Test Pos; Blood Gas Sample Site Radial, right; Blood Gas Sample Type Arterial; HCO3 ABG 24.1 mmol/L (22-26); Oxygen Device BIPAP; PO2 ABG 85.9 mmHg (80.0-100.0)
[2022-09-10 02:17] LABS: NT Pro B Type Natriuretic Pept 40696 pg/mL (0-125)
--- NOTE | 2022-09-10 02:35 | USCV_ITS ---
Guillermo Saha Age: 72 Gender: M : 1950 Exam Date: 09/10/2022 02:59 Ordering Phys: Cortez Mcleod MD Technologist: JUWAN [place] [facility] [place]: CHF, SOB, history COPD. Patient is on BI-PAP, pending ventilator in ICU-2. BP: 137 / 82 HR: 93 Rhythm: Sinus Technical Quality: Suboptimal due to respiratory distress MEASUREMENTS (Male / Female) Normal Values 2D ECHO LV Diastolic Diameter PLAX 5.4 cm 4.2 - 5.9 / 3.9 - 5.3 cm LV Systolic Diameter PLAX 4.3 cm IVS Diastolic Thickness 1.4 cm 0.6 - 1.0 / 0.6 - 0.9 cm IVS Systolic Thickness 1.7 cm LVPW Diastolic Thickness 1.2 cm 0.6 - 1.0 / 0.6 - 0.9 cm LVPW Systolic Thickness 1.1 cm LVOT Diameter 2.1 cm LV Ejection Fraction 2D Teich 42.1 % LV Ejection Fraction MOD 2C 43.3 % LV Ejection Fraction 2C AL 43.6 % LA Diameter 4.7 cm LA Width 5.1 cm LA Height 5.7 cm RA Width 3.0 cm RA Height 3.1 cm Aorta at Sinotubular Diameter 2.8 cm M-MODE Aortic Annulus Diameter 3.3 cm LA Ao Ratio MM 1.3 DOPPLER AV Peak Velocity 134.0 cm/s LVOT Peak Velocity 94.0 cm/s AV Area Cont Eq vti 2.4 cm squared AV Area Cont Eq pk 2.4 cm squared MV Area PHT 4.5 cm squared Mitral E to A Ratio 1.6 MV E' Velocity 59.5 cm/s Mitral E to MV E' Ratio 19.7 Mitral E to LV E' Lateral Ratio 23.3 Mitral E to LV E' Septal Ratio 17.3 TV Peak E Velocity 49.0 cm/s PV Peak Velocity 113.0 cm/s RV Acceleration Time 0.1 s RV Ejection Time 0.4 s RV AcT/ET 0.3 FINDINGS Left Ventricle Left ventricle is mildly dilated. LV systolic function is mild to moderately reduced with EF of 40 to 45%. Mild to moderate global hypokinesis is seen Right Ventricle RV function is mild to moderately reduced Right Atrium Normal in size Left Atrium Dilated Mitral Valve Moderate mitral annular calcification seen. Mild mitral regurgitation Aortic Valve Aortic valve is thickened. No significant stenosis or regurgitation. Tricuspid Valve Mild tricuspid regurgitation. Pulmonic Valve Not well visualized Pericardium Normal Aorta Normal in size IVC Appears to be normal CONCLUSIONS LV systolic function is mild to moderately reduced with EF of 40 to 45%. Mild to modreate global hypokinesis is noted RV function is mild to moderately reduced Left atrial enlargement Mild tricuspid regurgitation. Compared to prior echocardiogram from 08/31/2022, LV and RV function is lower Sin Eastman MD (Electronically Signed) Final Date: 10 September 2022 10:07 S
[2022-09-10] MEDS: FUROsemide 10 mg/mL SDV 10mL 100 MG IVP (02:49)
--- NOTE | 2022-09-10 02:52 | ECG_ITS ---
[facility] Test Date: 2022-09-10 Pat Name: Guillermo Saha Department: Room: ICU02 Gender: Male Certified Hyperbaric Technician: : 1950 Requested By: Rosa Casillas Order Number: [id number] Cortney MD: Sin Eastman M.D. Measurements Intervals [place] Rate: 96 P: 20 [place]: 133 QRS: 60 QRSD: 110 T: -77 QT: 365 QTc: 462 Interpretive Statements SINUS RHYTHM WITH FREQUENT VENTRICULAR PREMATURE COMPLEXES POSSIBLE LEFT ATRIAL ENLARGEMENT [-0.1mV P-WAVE IN V1/V2] INFERIOR MYOCARDIAL INFARCTION , OF INDETERMINATE AGE [40+ ms Q WAVE AND/OR ST/T ABNORMALITY IN II/aVF] Compared to ECG 09/10/2022 00:56:24 Ventricular premature complex(es) now present Sinus tachycardia no longer present Myocardial infarct finding still present Electronically Signed On 09-10-2022 17:42:29 CDT by Sin Eastman M.D. [email or web address]
[2022-09-10] MEDS: meropenem 1,000 MG in sodium chloride 0.9% (plus) 50 ML 100 MG IV ×2 (02:56→15:09)
[2022-09-10] MEDS: insulin regular-human 250 UNIT in sodium chloride 0.9% 250 ML 9 UNIT IV (03:00)
[2022-09-10 03:01] LABS: Ketone (Acetest) Serum Negative (Negative)
[2022-09-10] MEDS: sodium bicarbonate 1 mEq/mL SDV 50mL 100 MEQ IVP (03:14)
--- NOTE | 2022-09-10 03:21 | P.HP_ITS ---
Providers/Chief Complaint Admitting Physician: Cortez Mcleod MD Primary Care Provider: Elza Peralta APN Chief Complaint: SOB History of Present Illness Guillermo Saha is a 72 year old male with past medical history of CKD, diabetes mellitus, hypertension, recent admission when he was discharged last week with non-ST elevation [place], severe two-vessel CAD with occluded bypass graft to LAD and circumflex on medical management, mild congestive heart failure presents to the ER today via EMS for difficulty in breathing which has been getting worse for last 2 days. As per patient has been having difficulty in breathing since he was discharged but got worse for last 2 days along with increased expectoration. Denies any chest pain, nausea or vomiting. States not able to eat well because of difficulty in breathing getting worse on minimal ambulation or lying down. Not sure if he is able to take his medications regularly currently. ER course: When brought to the ER patient was in respiratory distress, tripoding on BiPAP. Goals of care discussions were done between ER physician and the patient who decided against intubation at that time and was placed on AVAPS. Patient was given Solu-Medrol 125 mg 1 time, nebulization with albuterol along with IV Levaquin. When seen in ICU patient was on AVAPS, in respiratory distress, having difficulty in breathing, saturating 95% on 100% AVAPS. Denied any chest pain. AOx3. On repeat discussion of goals of care patient is agreeable for mechanical ventilation. Review of Systems General: Reports: 10 or more systems reviewed and unremarkable except in HPI and below Const: Denies: fever(s), chills, body aches, change in appetite, change in weight, malaise, night sweats, diaphoresis, change in sleep pattern, daytime sleepiness or snoring Eyes: Denies: change in vision, blurry vision, photophobia, eye discomfort or eye discharge ENMT: Denies: throat pain, enlarged tonsils, hoarseness, mouth pain, oral sores, dry mouth, tinnitus, nasal congestion or post nasal drip Card: Denies: chest pain, palpitations, irregular heart rhythm, edema, swelling of feet/ankles, lightheadedness, syncope, pre-syncope, dyspnea on exertion, orthopnea, leg pain with exertion or acrocyanosis Resp: Denies: dyspnea, productive cough, non-productive cough, wheezing, stridor, pain on inspiration, change in phlegm color, hemoptysis or chest congestion GI: Denies: abdominal pain, nausea, vomiting, hematemesis, coffee ground emesis, dysphagia, heartburn, diarrhea, constipation, bloating, GI cramping, change in bowel habits, pain on defecation, hematochezia or melena : Denies: flank pain, difficulty urinating, dysuria, urinary frequency, u rinary urgency, urinary hesitancy, urinary dribbling, difficulty starting urination, change in urine stream, nocturia or hematuria Musc: Denies: neck pain, back pain, extremity pain, joint pain, joint swelling, joint redness, joint stiffness or limited range of motion Neuro: Denies: headache(s), numbness in extremities, weakness in extremities, sensory changes, lack of coordination, difficulty walking, frequent falls, dizziness, vertigo, confusion, Slurred speech present, difficulty communicating thoughts or seizure-like activity Psych: Denies: anxiety, depression, mood swings, panic attacks, hopelessness or irritability Endo: Denies: polyuria, polydipsia, tired all the time, cold intolerance, excessive sweating, flushing or heat intolerance Bhavesh/Lymph: Denies: easy bruising or easy bleeding All/Imm: Denies: tongue swelling, facial swelling or acute wheezing Medications/Allergies Home Medications Medication Instructions Recorded Confirmed Last Taken Type vitamin A and D 1 applic topical DAILY 30 days 12/19/20 08/31/22 Unknown Rx #113 grams cyclobenzaprine 5 mg tablet 5 mg PO BEDTIME PRN muscle spasm 7 05/28/21 08/31/22 Unknown Rx days #7 tabs aspirin 81 mg tablet,delayed 162 mg PO DAILY #180 tabs 12/03/21 08/31/22 Unknown Rx release (Adult Low Dose Aspirin) blood sugar diagnostic (OneTouch #100 strips 03/12/22 08/31/22 Unknown Rx Verio test strips) amitriptyline 10 mg tablet 10 mg PO DAILY 08/14/22 08/31/22 08/30/22 History empagliflozin 25 mg tablet 25 mg PO DAILY 08/14/22 08/31/22 08/09/22 History (Jardiance) ergocalciferol (vitamin D2) 1,250 50,000 unit PO .Weekly 08/14/22 08/31/22 Unknown History mcg (50,000 unit) capsule glipizide 5 mg tablet, extended 5 mg PO DAILY 08/14/22 08/31/22 08/30/22 History release 24 hr isosorbide mononitrate 30 mg 30 mg PO DAILY 08/14/22 08/31/22 08/30/22 History tablet,extended release 24 hr montelukast 10 mg tablet 10 mg PO DAILY 08/14/22 08/31/22 08/30/22 History omega-3 acid ethyl esters 1 gram 1 cap PO DAILY 08/14/22 08/31/22 08/30/22 History capsule oxybutynin chloride 15 mg 30 mg PO DAILY 08/14/22 08/31/22 08/30/22 History tablet,extended release 24 hr pantoprazole 40 mg tablet,delayed 40 mg PO DAILY 08/14/22 08/31/22 08/30/22 History release simvastatin 40 mg tablet 40 mg PO DAILY 08/14/22 08/31/22 08/30/22 History budesonide-formoterol HFA 160 2 inh inhalation BID 08/31/22 08/31/22 08/30/22 History mcg-4.5 mcg/actuation aerosol inhaler dulaglutide 4.5 mg/0.5 mL 4.5 mg SUBCUT Q7D 08/31/22 08/31/22 Unknown History subcutaneous pen injector (Trulicity) fluticasone propionate 50 1 spray intranasal DAILY 08/31/22 08/31/22 Unknown History mcg/actuation nasal spray,suspension gabapentin 600 mg tablet 600 mg PO DAILY 08/31/22 08/31/22 08/15/22 History lactulose 10 gram/15 mL oral 30 ml PO BID 08/31/22 08/31/22 Unknown History solution levothyroxine 112 mcg tablet 112 mcg PO DAILY 08/31/22 08/31/22 Unknown History mupirocin 2 % topical ointment 1 applic topical BID 08/31/22 08/31/22 Unknown History nifedipine 30 mg tablet,extended 30 mg PO DAILY 08/31/22 08/31/22 08/30/22 History release 24 hr clopidogrel 75 mg tablet 75 mg PO DAILY 30 days #30 tabs 09/06/22 Unknown Rx furosemide 40 mg tablet 40 mg PO BID 30 days #60 tabs 09/06/22 Unknown Rx levofloxacin 750 mg tablet 750 mg PO Q48H 7 days #4 tabs 09/06/22 Unknown Rx metoprolol tartrate 50 mg tablet 50 mg PO BID #60 tabs 09/06/22 Unknown Rx Allergies Allergy/AdvReac Type Severity Reaction Status Date / Time No Known Allergies Allergy Verified 09/10/22 00:37 PFSH Acute PFSH: Medical History (Updated 09/10/22 @ 04:35 by Cortez Mcleod MD) Acute bacterial pharyngitis Acute kidney injury superimposed on CKD Acute non-ST elevation myocardial infarction (NSTEMI) Acute on chronic diastolic CHF (congestive heart failure) Acute respiratory failure with hypoxia CAROLYNN (acute kidney injury) Anxiety Atherosclerotic heart disease of [place] coronary artery without angina pectoris CAD (coronary artery disease) Cellulitis of foot Chest pain CHF (congestive heart failure) Chronic idiopathic constipation Chronic kidney disease, stage 3 unspecified Chronic secretory otitis media CKD (chronic kidney disease) Contact dermatitis Cough Cracked skin on feet Diabetes Patient has been intermission coordinator diabetic with 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 He cannot manage insulin at home and is currently controlled with Ozempic weekly and oral meds. Diabetic foot Diabetic neuropathy Diarrhea Dysuria Environmental and seasonal allergies Environmental and seasonal allergies Essential hypertension Patient is currently well controlled with antihypertensives FH: CABG (coronary artery bypass surgery) Foot callus Foot callus GERD (gastroesophageal reflux disease) H/O: GI bleed Headache Hyperlipidemia Hyperosmolar hyperglycemic state (HHS) Hypothyroid IGTN (ingrowing toe nail) Impaired cognitive ability Iron deficiency anemia Knee abrasion Mild intellectual disability Muscle cramps NSTEMI (non-ST elevated myocardial infarction) Patellofemoral dysfunction of right knee Plantar fasciitis Pneumonia Polyneuropathy, unspecified Pulmonary edema Renal calculus, right Renal insufficiency STEMI (ST elevation myocardial infarction) Vitamin D deficiency Patient has history of Vitamin D deficiency and take home D3 supplement Wound of foot Surgical History Aortocoronary bypass status Family History Mother Diabetes Alzheimer's dementia Brother Epileptic seizure Social History Smoking and tobacco status: never smoked Second hand smoke exposure: No Alcohol intake: current Vitals/I&O/Wt Last Vital Signs Temp 97.8 F 09/10/22 00:28 Pulse 94 09/10/22 02:53 Resp 28 H 09/10/22 02:08 BP 137/82 09/10/22 02:08 Pulse Ox 92 09/10/22 02:53 O2 Del Method BiPAP 09/10/22 00:55 FiO2 100 09/10/22 02:53 09/09/22 09/09/22 09/10/22 14:59 22:59 06:59 Intake Total 102 / 102 Balance 102 / 102 Weight last 48 hrs Weight 90.265 kg Physical Exam 2 Narrative: General: In respiratory distress, on AVAPS, AOx3 HEENT: PERRLA, pupils bilaterally equal and reactive Chest: Bilateral bronchial breath sounds all over lung [place], diffuse rhonchi lower lung [place], coarse crepitations right lower zone CVS: S1-S2 regular, no murmurs, no tachycardia, no gallops, no rubs Abdomen: Soft, nontender, no organomegaly, bowel sounds present Neuro: No focal deficits, no facial deformity, AO x3, power 5/5 in all limbs Data 09/10/22 00:50 09/10/22 00:50 Micro: Microbiology 09/10/22 02:13 Blood Culture - Preliminary Blood SPECIMEN COLLECTED 09/10/22 00:50 Blood Culture - Preliminary Blood SPECIMEN COLLECTED A&P Assessment and plan (1) ARDS (adult respiratory distress syndrome): With hypoxic and hypercapnic respiratory failure. Most likely in setting of congestive heart failure along with right lower lobe pneumonia. Intubated on 09/10. Check sputum culture, blood culture, urine Legionella, bacterial antigen. Recent MRSA positive. Check respiratory viral panel, procalcitonin. Empirically start patient on vancomycin and meropenem. Repeat ABG and change ventilator settings accordingly. Ipratropium, Xopenex every 4 hourly, budesonide twice daily. Hold off on steroids for now given hyperglycemia with high gap metabolic acidosis with high concerns for diabetic ketoacidosis. CT chest without contrast. Check D-dimer. Cannot do CTA given CKD. (2) Acute exacerbation of CHF (congestive heart failure): Recent echocardiogram shows an EF 50% with regional wall motion abnormality, mild MR. Fluid restriction up to 1500 cc. Strict input output charting, daily weights. Phillip catheter. IV Lasix 100 mg one-time. Will dose further Lasix dose depending on clinical picture and urine output. Repeat echocardiogram (3) DKA (diabetic ketoacidosis): Recent A1c 9.7. Currently with high anion gap metabolic acidosis and hypergl ycemia. Check acetone level. Start on insulin drip as per DKA protocol. Monitor BMP every 4 hourly. Hold off on IV fluids for now given presentation with congestive heart failure and respiratory failure. (4) Acute non-ST elevation myocardial infarction (NSTEMI): Baseline troponin more than 2000. Troponin on 08/31 more than 1700. Troponin could be elevated as it is peaking from recent non-ST elevation OK. Patient denies any chest pain. Repeating echocardiogram as above. Cycle troponins. If troponin trending up will plan for heparin drip. (5) Chronic kidney disease, stage 3 unspecified: Baseline creatinine 2.4-2.9. Currently 2.7. Electrolyte abnormality currently with high anion gap metabolic acidosis and hyperkalemia. Check renal ultrasound. Monitor BMP daily. Medical reconciliation done for nephrotoxic drugs. (6) Acute respiratory failure with hypoxia and hypercapnia: (7) High anion gap metabolic acidosis: With hyperglycemia. Check lactate level. Renal function is at baseline. Check acetone levels. For now start patient on insulin drip for DKA protocol. (8) Hyperkalemia: Sodium bicarb 100 mEq one-time. Patient on insulin drip. Monitor BMP every 4 hourly for now. (9) Type 2 diabetes mellitus: Qualifiers: Diabetes mellitus [facility] insulin use: without intermission coordinator use Diabetes mellitus complication status: with circulatory complication Diabetes mellitus complication detail: with other circulatory complications Qualified Code(s): E11.59 - Type 2 diabetes mellitus with other circulatory complications (10) CAD (coronary artery disease): Recent angiogram within the last 1 week showed severe two-vessel CAD with occluded LAD and circumflex, occluded bypass graft to LAD and circumflex. Patient was advised medical management as per cardiology team. Denying any chest pain currently. Continue with home dose of aspirin, Plavix, statin. Continue with home dose of metoprolol. Attestations Medical Necessity Statement*: Admission for more than 2 midnights for ARDS, high anion gap metabolic acidosis, CKD, hyperglycemia, non-ST elevation [place] Coding Level of Care Code Critical Care >/= 30 minutes Critical care time (in minutes): 80 The high probability of a clinically significant, sudden or life threatening deterioration, as referenced in this documentation, required my full and direct attention, intervention and personal management. The critical care time shown is in addition to time spent performing any reported separately billable procedures and includes the following: [x] Data and vital sign review and interpretation [x ] Patient assessment, examination and intervention [x] Medication orders and management [x] Patient/Family updates as able [x] Care Coordination and Documentation. Diagnoses ARDS (adult respiratory distress syndrome) J80 Acute exacerbation of CHF (congestive heart failure) I50.9 DKA (diabetic ketoacidosis) E11.10 Acute non-ST elevation myocardial infarction (NSTEMI) I21.4 Chronic kidney disease, stage 3 unspecified N18.30 Acute respiratory failure with hypoxia and hypercapnia J96.01; J96.02 High anion gap metabolic acidosis E87.29 Hyperkalemia E87.5 Type 2 diabetes mellitus E11.59 Diabetes mellitus intermission coordinator insulin use: without [facility] use Diabetes mellitus complication status: with circulatory complication Diabetes mellitus complication detail: with other circulatory complications CAD (coronary artery disease) I25.10
[2022-09-10] MEDS: pantoprazole 40 mg SDV IVP ×2 (03:26→15:10)
[2022-09-10 03:33] LABS: D Dimer 3.36 ug/mIFEU (0-0.59)
[2022-09-10] MEDS: vancomycin 750 MG in sodium chloride 0.9% 250 ML 250 MG IV (03:38)
[2022-09-10] MEDS: rocuronium 10 mg/mL INJ 5mL 100 MG IVP (03:53)
[2022-09-10] MEDS: etomidate 2 mg/mL INJ SDV 10 mL 27.08 MG IVP (03:53)
--- NOTE | 2022-09-10 03:54 | XRR_ITS ---
PROCEDURE INFORMATION: Exam: XR Chest Exam date and time: 09/10/2022 4:07 AM Age: 72 years old Clinical indication: Device placement; Ett placement (vent status); Additional info: Et/ng placement TECHNIQUE: Imaging protocol: Radiologic exam of the chest. Views: 1 view. COMPARISON: CR (CHEST, ) 09/10/2022 12:39 AM FINDINGS: Tubes, catheters and devices: Placement of NGT and ETT. Tip of ETT is about 4 cm above chloe. Tip of NGT at gastric body. Lungs: Hazy bibasilar infiltrates and effusions are mildly improved. Pleural spaces: No pneumothorax. Heart/Mediastinum: Heart remains enlarged with CABG. Bones/joints: Unremarkable. XR/XR chest 1V portable [id number] IMPRESSION: Slightly improved lung aeration after placement of ETT and NGT.
[2022-09-10] MEDS: propofol 1,000 MG/100 ML INJ 2.71 MG IV (03:55)
--- NOTE | 2022-09-10 04:00 | ANES.PROC ---
Anesthesia Procedures Procedure/Date: 09/10/22 Intubation: Time Out Performed: Yes Consent: requested by attending/covering physician, from patient, from other, risks and benefits reviewed, patient agrees to proceed and emergency procedure Sedative (amount): etomidate (0.3 mg/kg) Paralytic (amount): rocuronium (1.2 mg/kg) Laryngoscope: other (glidescope) Tube Secured Depth (cm): 23 Tube Secured Location: lips Tube Placement Confirmation: visualized tube passing through cords, equal breath sounds bilaterally and color change noted Patient Tolerated Procedure: well Intubation Complications: none Additional Comments: FEntanyl 100 mg, crcoid pressure applied
--- NOTE | 2022-09-10 04:00 | CTR_ITS ---
PROCEDURE INFORMATION: Exam: CT Chest Without Contrast; Diagnostic Exam date and time: 09/10/2022 5:01 AM Age: 72 years old Clinical indication: Other: Resp distress; Additional info: [place] TECHNIQUE: Imaging protocol: Diagnostic computed tomography of the chest without contrast. Radiation optimization: All CT scans at this facility use at least one of these dose optimization techniques: automated exposure control; mA and/or kV adjustment per patient size (includes targeted exams where dose is matched to clinical indication); or iterative reconstruction. REPORTING DATA: Count of CT and Cardiac NM exams in prior 12 months: This patient has received 2 known CTs and 0 known cardiac nuclear medicine studies in the 12 months prior to the current study. COMPARISON: CT angio chest PE protcl [id number] 08/31/2022 1:20 AM RADIATION DOSE METRICS: Total DLP (mGy-cm): 747.81 FINDINGS: Tubes, catheters and devices: ETT and NGT are in place. Lungs: Moderate areas of bilateral mid to lower lung atelectasis or developing pneumonia/consolidation. These findings have progressed. No other change. Mild COPD. Pleural spaces: Small bilateral pleural effusions. No pneumothorax. Heart: The heart is mildly enlarged with apparent CABG. Correlate with the surgical history. Lymph nodes: Mild likely reactive mediastinal lymph nodes. Vasculature: Mild venous congestion. Mild edema likely. Intraperitoneal space: Unchanged chronic upper abdominal findings from 08/31/2022. Bones/joints: Moderate spine DJD. Soft tissues: Unremarkable. CT/CT chest wo con [id number] IMPRESSION: 1. Exam compared with 10 days ago. 2. From that time, increasing areas of bilateral mid to lower lung atelectasis or developing pneumonia/ARDS. Increasing at least small bilateral pleural effusions. 3. No pneumothorax. 4. Multiple chronic findings again noted.
[2022-09-10 04:43] LABS: ABG PCO2 38.7 mmHg (35-45); ABG PH Result 7.43 (7.35-7.45); Arterial Blood Gas Hematocrit 40.7 % (42-52); Base Excess ABG 1.1 mmol/L (-2.0-2.0); Blood Gas Allen Test Pos; Blood Gas Sample Site Radial, right; Blood Gas Sample Type Arterial; Blood Gas Tidal Volume 0.55; HCO3 ABG 25.5 mmol/L (22-26); Oxygen Device VENT; PO2 ABG 66.8 mmHg (80.0-100.0)
[2022-09-10 04:55] LABS: Iron 37 ug/dL (59-158); Total Iron Binding Capacity 369 mcg/dl; Unsaturated Iron Binding 332 ug/dL (112-347)
[2022-09-10 05:10] LABS: Procalcitonin 0.16 ng/mL (0-0.5); Vitamin B12 309 pg/mL (232-1245)
[2022-09-10 05:16] LABS: Add Urine Microscopic? YES; Bilirubin Urine Neg (Negative); Blood Urine Neg (Negative); Glucose Urine UA 4+ (Normal); Ketones Urine Negative (Negative); Leukocyte Esterase Urine Negative (Negative); Nitrate Urine Negative (Negative); Protein Urine Trace (Negative); Specific Gravity, Urine 1.015 (1.005-1.030); Urine Appearance Clear (CLEAR); Urine Color Yellow (Yellow); Urobilinogen Urine Neg (Negative); pH Urine 5 (5-7)
[2022-09-10 05:17] LABS: Add Urine Culture? Yes; Bacteria Urine TRACE /hpf
[2022-09-10 05:27] LABS: Blood Urea Nitrogen 42 mg/dL (8-23); Calcium 8.9 mg/dL (8.5-10.5); Carbon Dioxide 24 mmol/L (22-29); Chloride 92 mmol/L (98-107); Glucose 330 mg/dL (65-115); Osmolality Calculated 301 mOsm/kg (285-295); Sodium 134 mmol/L (136-145)
[2022-09-10 05:31] LABS: Troponin 5 2HR 1688 ng/L (0-15)
--- NOTE | 2022-09-10 05:34 | XRR_ITS ---
PROCEDURE INFORMATION: Exam: XR Chest Exam date and time: 09/10/2022 6:00 AM Age: 72 years old Clinical indication: Device placement; Picc; Additional info: Picc line placemnet TECHNIQUE: Imaging protocol: Radiologic exam of the chest. Views: 1 view. COMPARISON: CT chest con [id number] 09/10/2022 5:01 AM FINDINGS: Tubes, catheters and devices: An endotracheal catheter is seen with its tip projected over the thoracic inlet. An enteric catheter extends towards the abdomen, tip not imaged. A right-sided peripherally inserted central catheter is noted with its tip projected over the proximal superior vena cava. Lungs: There are bibasilar opacities likely representing effusion and/or parenchymal disease. Patchy consolidation is noted in the left mid lung. Pleural spaces: Unremarkable. No pleural effusion. No pneumothorax. Heart/Mediastinum: Unremarkable. No cardiomegaly. Bones/joints: The patient is post sternotomy with surgical clips overlying the mediastinum. XR/XR chest 1V portable [id number] IMPRESSION: PICC in place as described. Otherwise no significant change from the prior study.
--- NOTE | 2022-09-10 05:39 | PC.NURSE ---
Admission/Intubation Note: Pt arrived to ICU 2 @0216 on a non-rebreather mask w/ SpO2 75%. Pt is lethargic but orientated. BIPAP placed on Pt @0218 by RT. PT slowly recovered to 91% SpO2 after about 5 minutes of BIPAP @100%. Continuos monitoring continued. Dr. Mcleod to see pt on floor. New order for 100mg IVP Lasix, Phillip catheter, Insulin drip, PICC line placement, and intubation. See MAR for administration of meds. Dr. Butcher on unit @ approximately 0345 to intubate. New order for 100mg Rocuronium and 27.08mg etomidate. Meds given @0353 w/ Dr. Butcher, RT, and Nursing @bedside. Positive color change @0355. Stat Chest XR ordered.
[2022-09-10 05:40] LABS: Glucose Point of Care 432 mg/dL (70-110)
[2022-09-10 05:40] LABS: Glucose Point of Care 336 mg/dL (70-110)
[2022-09-10 05:40] LABS: Glucose Point of Care 383 mg/dL (70-110)
--- NOTE | 2022-09-10 05:50 | PC.NURSE ---
Consulted by house charge for picc placement. Consent obtained by myself, icu nurse, and MD. RUE scanned with US an the brachial vein wa the best option. Vein was straight, 3 mm, and free of visible clot. Pt draped in usual sterile fashion. Using real time US lidocaine injected, vein accessed, and picc floated into position. Chest xray obtained. Waiting on confirmation of tip placement. EBl less then 5 ml. No bleeding no hematoma. Pt arm circumference is 32 cm at 10 cm above the ac space.
--- NOTE | 2022-09-10 06:24 | PC.NURSE ---
Restraints: Bilateral soft limb upper extremity restraints applied post intubation, approximately 0400 09/10/22 per verbal order from Dr. Butcher and Dr. Mcleod.
[2022-09-10 06:30] LABS: Glucose Point of Care 318 mg/dL (70-110)
[2022-09-10] MEDS: insulin lispro 100 unit/1 mL SUBCUT ×3 (06:32→21:32)
--- NOTE | 2022-09-10 06:50 | ECG_ITS ---
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 Measurements Intervals [place] Rate: 112 P: 21 NE: 132 QRS: 52 QRSD: 113 T: 267 QT: 321 QTc: 440 Interpretive Statements SINUS TACHYCARDIA POSSIBLE LEFT ATRIAL ENLARGEMENT [-0.1mV P-WAVE IN V1/V2] POSSIBLE INFERIOR MYOCARDIAL INFARCTION , OF INDETERMINATE AGE [30 ms Q WAVE IN II/aVF] Compared to ECG 09/03/2022 07:16:53 Myocardial infarct finding now present Sinus rhythm no longer present Ventricular premature complex(es) no longer present Electronically Signed On 09-10-2022 17:42:41 CDT by Sin Eastman M.D. [email or web address] hospitalRecogniamemorial [id number]
[2022-09-10] MEDS: ipratropium-albuterol 3 mL Neb INHALATION ×4 (08:07→20:39)
--- NOTE | 2022-09-10 08:07 | USCV_ITS ---
Guillerom Saha Age: 72 Gender: M : 1950 Exam Date: 09/10/2022 09:58 Ordering Phys: Uday Rodriguez MD Technologist: Nima Cruz Exam Location: [facility] [place] Indication: bed stasis PROCEDURES: The venous duplex Doppler examination of both lower extremities was performed in the standard fashion. The following venous structures were evaluated: common femoral vein, profunda vein, proximal portion of the greater saphenous vein, superficial femoral vein, and the popliteal vein. FINDINGS: Normal 2-D Doppler and augmentation and compressibility throughout the lower extremity venous structures. Additional imaging through the proximal calf veins also reveals no thrombus. Limited evaluation of the greater saphenous vein is patent with no thrombus. CONCLUSIONS No evidence of right lower extremity DVT. No evidence of left lower extremity DVT. Chuy Coelho MD (Electronically Signed) Final Date: 10 September 2022 13:04 S
[2022-09-10] MEDS: budesonide 0.5 mg/2 mL Neb INHALATION ×2 (08:08→20:33)
[2022-09-10] MEDS: clopidogrel 75 mg Tablet PO (08:27)
[2022-09-10] MEDS: sucralfate 1 gm Tablet PO ×3 (08:27→20:56)
[2022-09-10] MEDS: aspirin 81 mg EC Tablet 162 MG PO (08:28)
[2022-09-10] MEDS: gabapentin 100 mg Capsule 200 MG PO ×2 (08:28→17:19)
[2022-09-10] MEDS: levothyroxine 112 mcg Tablet PO (08:28)
[2022-09-10] MEDS: atorvastatin 40 mg Tablet PO (08:28)
[2022-09-10] MEDS: heparin drip 25,000 UNIT/500 ML PREMIX 25 UNIT IV (08:46)
[2022-09-10 08:48] LABS: Troponin 5 6HR 1751 ng/L (0-15)
[2022-09-10 08:57] LABS: Platelet Count 405 10^3/cmm (130-400)
--- NOTE | 2022-09-10 09:08 | XRR_ITS ---
PROCEDURE INFORMATION: Exam: XR Abdomen Exam date and time: 09/10/2022 9:43 AM Age: 72 years old Clinical indication: Abdominal pain; Generalized; Additional info: Follow up TECHNIQUE: Imaging protocol: Radiologic exam of the abdomen. Views: Frontal supine view of the abdomen. 1 View. COMPARISON: CR XR KUB [id number] 01/18/2021 11:31 AM FINDINGS: Tubes, catheters and devices: An enteric catheter is seen with its tip projected over the left upper quadrant. Gastrointestinal tract: There are dilated loops of bowel noted in the lower abdomen. Stool is scattered throughout the colon. Bones/joints: Unremarkable. XR/XR KUB portable [id number] IMPRESSION: Gaseous distention.
--- NOTE | 2022-09-10 10:14 | PC.PHAR ---
PER PHARMACY CONFIRMED ALL MEDICATIONS FROM LAST WEEK. CYCLOBENZAPRINE 5 MG NO LONGER FILLING. ASPIRIN 81MG IS OTC, VIT D 3 50,000 UNITS IS OTC, FLUTICASONE NASAL SUSP IS OTC. VIT A AND D OINT IS OTC. LEVOFLOXACIN 750 MG IS ON HOLD, METOPROLOL TART 50 MG IS ON HOLD.
[2022-09-10 11:09] LABS: Glucose Point of Care 338 mg/dL (70-110)
[2022-09-10] MEDS: bumetanide 0.25 mg/mL SDV 4 mL 1 MG IVP (11:12)
--- NOTE | 2022-09-10 11:51 | CTR_ITS ---
PROCEDURE INFORMATION: Exam: CT Abdomen And Pelvis Without Contrast Exam date and time: 09/10/2022 2:26 PM Age: 72 years old Clinical indication: Abdominal tenderness; Additional info: Abdominal distention TECHNIQUE: Imaging protocol: Computed tomography of the abdomen and pelvis without contrast. Radiation optimization: All CT scans at this facility use at least one of these dose optimization techniques: automated exposure control; mA and/or kV adjustment per patient size (includes targeted exams where dose is matched to clinical indication); or iterative reconstruction. REPORTING DATA: Count of CT and Cardiac NM exams in prior 12 months: This patient has received 2 known CTs and 0 known cardiac nuclear medicine studies in the 12 months prior to the current study. COMPARISON: CR XR KUB portable [id number] 09/10/2022 9:43 AM RADIATION DOSE METRICS: Total DLP (mGy-cm): 850.76 FINDINGS: Tubes, catheters and devices: The nasogastric tube is appropriately positioned with the tip in the stomach, well beyond the diaphragmatic hiatus. Lungs: Compressive atelectasis in the lower lobes. Subsegmental atelectasis in the dependent portions of the upper lobes. Pleural spaces: Moderate bilateral pleural effusions. Heart: There is moderate cardiac enlargement. Mitral annular calcification is partially imaged. Diaphragm: There is a small sliding-type hiatal hernia. Liver: The liver is normal. Gallbladder and bile ducts: The gallbladder contains a punctate stone and is otherwise normal. There is mild extrahepatic biliary dilation. No visible choledocholithiasis. Pancreas: There is moderate atrophy of the pancreas. Spleen: The spleen is unremarkable. Adrenal glands: The adrenal glands are hypertrophic bilaterally. There is a low-density mm adrenal nodule on the left consistent with a benign lipid rich adenoma. Kidneys and ureters: Asymmetric moderate atrophy of the right kidney. Nonobstructive right renal stones are present. No hydronephrosis on the right. There is a 6 mm hemorrhagic cyst at the upper pole of the left kidney. There is no hydronephrosis or stones on the left. Stomach and bowel: The stomach is unremarkable. The small bowel is nondilated. There is moderate diverticulosis of the descending and proximal sigmoid colon without evidence of diverticulitis. Appendix: The appendix is normal. Intraperitoneal space: There is no free air or significant intraperitoneal free fluid. Vasculature: There is moderate aortic atherosclerotic disease. Lymph nodes: There is no lymphadenopathy in the retroperitoneum, mesentery, pelvis or inguinal regions. Urinary bladder: The urinary bladder is decompressed, preventing meaningful evaluation of wall thickness. Reproductive: The prostate and seminal vesicles are unremarkable. Bones/joints: There is mild degenerative disease in the lumbar spine. Pelvis and hips are unremarkable. Soft tissues: The abdominal wall is intact. CT/CT abdomen pelvis wo con [id number] IMPRESSION: 1. No acute intra-abdominal findings. 2. Bilateral pleural effusions and compressive atelectasis in the lower lungs. 3. Incidental findings above. COMMENTS: Consistent with the [employer]'s Incidental Findings Committee white paper (J Am Elva Radiol 2018): Any incidental renal lesion less than 1 cm or classified as too small to characterize, or any incidental cystic renal lesion characterized as simple-appearing, is likely benign. No follow-up imaging is recommended for these lesions per consensus recommendations based on imaging criteria.
--- NOTE | 2022-09-10 12:29 | PM.CONSULT ---
Providers/Reason For Consult Consulting Physician/Specialty*: Kris Noonan MD, [facility]/pulmonary critical care Reason for Consult*: Acute hypoxic respiratory failure requiring mechanical ventilation Requesting Physician: Uday Rodriguez MD Attending Physician: Uday Rodriguez MD Primary Care Provider: Elza Peralta APN History of Present Illness History of Present Illness Guillermo Saha is a 72 year old male with past medical history of CKD, diabetes, hypertension, CAD s/p CABG He had a recent hospital admission from 08/31/2022 to 09/06/2022-admitted for NSTEMI, 2D echo showed EF 50%, mild diffuse hypokinesia-cardiac cath showed patent RCA, ostial occlusion seen in bypass graft to LAD and LCx-medical management was opted. Patient was discharged with aspirin, Plavix, statin, beta-roseanne. During the hospitalization he was managed for acute respiratory failure with hypoxia likely secondary to pneumonia and CHF exacerbation with broad-spectrum antibiotics, blood cultures negative for MRSA, discharged with p.o. levofloxacin. Patient also had CAROLYNN on CKD likely secondary to cardiorenal syndrome. He was also managed for HHS with insulin drip. He had significant PVCs on monitor and was discharged with metoprolol tartrate. PVC burden presumed secondary to underlying ischemia. Patient comes back to the ER yesterday via EMS for difficulty in breathing worsening over 2 days. Reported admitting patient that his breathing was getting difficult on minimal ambulation, not able to eat well, unable to take his medications regularly. He was seen in respiratory distress tripoding on BiPAP-apparently patient informed ER physician against intubation, accordingly he was placed on AVAPS, given Solu-Medrol 125 Mg 1 dose, nebulization with albuterol with IV Levaquin was given. Overnight patient deteriorated-and he agreed for mechanical ventilation and he was intubated today early hours. Pulmonary critical care consult requested for acute hypoxic/hypercapnic respiratory failure secondary to DLs due to pneumonia/CHF I have seen patient at bedside-is sedated and intubated Sedated with fentanyl, propofol, is also on heparin drip,-echo showed mild to moderately reduced EF 40 to 45% predicted with mild to moderate global hypokinesis, mild to moderately reduced RV function. Review of Systems General: Reports: ROS unobtainable due to endotracheal tube, ROS unobtainable due to medical condition and ROS unobtainable due to mental status Medications/Allergies Home Medications Medication Instructions Recorded Confirmed Last Taken Type aspirin 81 mg tablet,delayed 162 mg PO DAILY #180 tabs 12/03/21 09/10/22 Unknown Rx release (Adult Low Dose Aspirin) blood sugar diagnostic ([facility] strips 03/12/22 09/10/22 Unknown Rx Verio test strips) amitriptyline 10 mg tablet 10 mg PO DAILY 08/14/22 09/10/22 08/30/22 History empagliflozin 25 mg tablet 25 mg PO DAILY 08/14/22 09/10/22 08/09/22 History (Jardiance) ergocalciferol (vitamin D2) 1,250 50,000 unit PO .Weekly 08/14/22 09/10/22 Unknown History mcg (50,000 unit) capsule glipizide 5 mg tablet, extended 5 mg PO DAILY 08/14/22 09/10/22 08/30/22 History release 24 hr isosorbide mononitrate 30 mg 30 mg PO DAILY 08/14/22 09/10/22 08/30/22 History tablet,extended release 24 hr montelukast 10 mg tablet 10 mg PO DAILY 08/14/22 09/10/22 08/30/22 History omega-3 acid ethyl esters 1 gram 1 cap PO DAILY 08/14/22 09/10/22 08/30/22 History capsule oxybutynin chloride 15 mg 30 mg PO DAILY 08/14/22 09/10/22 08/30/22 History tablet,extended release 24 hr pantoprazole 40 mg tablet,delayed 40 mg PO DAILY 08/14/22 09/10/22 08/30/22 History release simvastatin 40 mg tablet 40 mg PO DAILY 08/14/22 09/10/22 08/30/22 History budesonide-formoterol HFA 160 2 inh inhalation BID 08/31/22 09/10/22 08/30/22 History mcg-4.5 mcg/actuation aerosol inhaler dulaglutide 4.5 mg/0.5 mL 4.5 mg SUBCUT Q7D 08/31/22 09/10/22 Unknown History subcutaneous pen injector (Trulicity) fluticasone propionate 50 1 spray intranasal DAILY 08/31/22 09/10/22 Unknown History mcg/actuation nasal spray,suspension gabapentin 600 mg tablet 600 mg PO DAILY 08/31/22 09/10/22 08/15/22 History lactulose 10 gram/15 mL oral 30 ml PO BID 08/31/22 09/10/22 Unknown History solution levothyroxine 112 mcg tablet 112 mcg PO DAILY 08/31/22 09/10/22 Unknown History mupirocin 2 % topical ointment 1 applic topical BID 08/31/22 09/10/22 Unknown History nifedipine 30 mg tablet,extended 30 mg PO DAILY 08/31/22 09/10/22 08/30/22 History release 24 hr clopidogrel 75 mg tablet 75 mg PO DAILY 30 days #30 tabs 09/06/22 09/10/22 Unknown Rx furosemide 40 mg tablet 40 mg PO BID 30 days #60 tabs 09/06/22 09/10/22 Unknown Rx levofloxacin 750 mg tablet 750 mg PO Q48H 7 days #4 tabs 09/06/22 09/10/22 Unknown Rx metoprolol tartrate 50 mg tablet 50 mg PO BID #60 tabs 09/06/22 09/10/22 Unknown Rx vitamin A and D 1 applic topical DAILY PRN Rash 09/10/22 09/10/22 Unknown History Allergies Allergy/AdvReac Type Severity Reaction Status Date / Time No Known Allergies Allergy Verified 09/10/22 00:37 Current Medications Generic Name Dose Route Start Last Admin Trade Name Johnq PRN Reason Stop Dose Admin Albuterol/Ipratropium 3 ml 09/10/22 02:50 09/10/22 08:07 Ipratropium-Albuterol 3 Ml Neb INHALATION 3 ml Q4H.RESPIRATORY CHUYITA Administration Aspirin 162 mg 09/10/22 09:00 09/10/22 08:28 Aspirin 81 Mg Ec Tablet PO 162 mg DAILY CHUYITA Administration Atorvastatin Calcium 40 mg 09/10/22 09:00 09/10/22 08:28 Atorvastatin 40 Mg Tablet PO 40 mg DAILY CHUYITA Administration Budesonide 0.5 mg 09/10/22 02:50 09/10/22 08:08 Budesonide 0.5 Mg/2 Ml Neb INHALATION 0.5 mg BID CHUYITA Administration Bumetanide 1 mg 09/10/22 12:00 09/10/22 11:12 Bumetanide 0.25 Mg/Ml Sdv 4 Ml IVP 1 mg Q12H CHUYITA Administration Clopidogrel Bisulfate 75 mg 09/10/22 09:00 09/10/22 08:27 Clopidogrel 75 Mg Tablet PO 75 mg DAILY CHUYITA Administration Gabapentin 200 mg 09/10/22 08:00 09/10/22 08:28 Gabapentin 100 Mg Capsule PO 200 mg BIDWM CHUYITA Administration Vancomycin HCl 750 mg/ Sodium 250 mls @ 250 mls/hr 09/10/22 03:00 09/10/22 04:40 Chloride IV Infused Q36H CHUYITA Infusion Fentanyl 1,000 mcg/ Sodium 100 mls @ 0 mls/hr 09/10/22 03:15 09/10/22 03:55 Chloride IV 25 mcg/hr .Q0M CHUYITA 2.5 mls/hr Administration Protocol Per Protocol Propofol 1,000 mg in 100 mls @ 0 mls/hr 09/10/22 03:15 09/10/22 03:55 Diprivan IV 5 mcg/kg/min .Q0M CHUYITA 2.71 mls/hr Administration Protocol Per Protocol Heparin Sodium/Sodium Chloride 25,000 unit in 500 mls @ 0 mls/hr 09/10/22 08:15 09/10/22 08:46 Heparin Drip IV 14.06 unit/kg/hr .Q0M CHUYITA 25 mls/hr Administration Protocol Per Protocol Levalbuterol HCl 0.63 mg 09/10/22 03:00 09/10/22 08:07 Levalbuterol 0.63 Mg/3 Ml Neb INHALATION Not Given Q4H.RESPIRATORY CHUYITA Levothyroxine Sodium 112 mcg 09/10/22 09:00 09/10/22 08:28 Levothyroxine 112 Mcg Tablet PO 112 mcg DAILY CHUYITA Administration Metoprolol Tartrate 25 mg 09/10/22 09:00 09/10/22 08:19 Metoprolol Tartrate 50 Mg Tablet PO Not Given BID CHUYITA Sucralfate 1 gm 09/10/22 08:30 09/10/22 08:27 Sucralfate 1 Gm Tablet PO 1 gm Q6H CHUYITA Administration PFSH Acute PFSH: Medical History Acute bacterial pharyngitis Acute kidney injury superimposed on CKD Acute non-ST elevation myocardial infarction (NSTEMI) Acute on chronic diastolic CHF (congestive heart failure) Acute respiratory failure with hypoxia CAROLYNN (acute kidney injury) Anxiety Atherosclerotic heart disease of [place] coronary artery without angina pectoris CAD (coronary artery disease) Cellulitis of foot Chest pain CHF (congestive heart failure) Chronic idiopathic constipation Chronic kidney disease, stage 3 unspecified Chronic secretory otitis media CKD (chronic kidney disease) Contact dermatitis Cough Cracked skin on feet Diabetes 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 He cannot manage insulin at home and is currently controlled with Ozempic weekly and oral meds. Diabetic foot Diabetic neuropathy Diarrhea Dysuria Environmental and seasonal allergies Environmental and seasonal allergies Essential hypertension Patient is currently well controlled with antihypertensives FH: CABG (coronary artery bypass surgery) Foot callus Foot callus GERD (gastroesophageal reflux disease) H/O: GI bleed Headache Hyperlipidemia Hyperosmolar hyperglycemic state (HHS) Hypothyroid IGTN (ingrowing toe nail) Impaired cognitive ability Iron deficiency anemia Knee abrasion Mild intellectual disability Muscle cramps NSTEMI (non-ST elevated myocardial infarction) Patellofemoral dysfunction of right knee Plantar fasciitis Pneumonia Polyneuropathy, unspecified Pulmonary edema Renal calculus, right Renal insufficiency STEMI (ST elevation myocardial infarction) Vitamin D deficiency Patient has history of Vitamin D deficiency and take home D3 supplement Wound of foot Surgical History Aortocoronary bypass status Family History Mother Diabetes Alzheimer's dementia Brother Epileptic seizure Social History Smoking and tobacco status: never smoked Second hand smoke exposure: No Alcohol intake: current Vitals/I&O/Wt Last Vital Signs Temp 97.6 F 09/10/22 07:15 Pulse 64 09/10/22 12:15 Resp 20 H 09/10/22 11:41 BP 107/64 09/10/22 12:15 Pulse Ox 95 09/10/22 12:15 O2 Del Method Mechanical Ventilation 09/10/22 06:00 O2 Flow Rate 10 09/10/22 02:15 FiO2 50 09/10/22 11:41 09/09/22 09/10/22 09/10/22 22:59 06:59 14:59 Intake Total 427.833 / 427.833 Output Total 1800 / 1800 Balance -1372.167 / -1372.167 Weight last 48 hrs Weight 196 lb Weight 199 lb Physical Exam Narrative: PHYSICAL EXAM: General: lying in bed, sedated and intubated. HEENT:NCAT, PERRLA, EOMI Neck: Supple Lungs: Bilateral diffuse crackles Heart: s1/s2, RRR Abd: soft, NT, ND, BS + Normoactive Extremities: No edema YOUTH NUTRITIONAL MONITOR: sedated and limited YOUTH NUTRITIONAL MONITOR exam possible. SKIN: no rash Urinary Catheter Management: Phillip: Cath Placed During This Visit: yes Reason for Continuing Indwelling Catheter: Accurate Measurement of Urinary Output in Critically Ill Patients Urinary Catheter Date of Insertion: 09/10/22 Urinary Catheter Time of Insertion: 02:35 Data 09/10/22 08:42 09/10/22 19:42 Other Labs: Radiology Impressions Chest CT 09/10/22 04:00 IMPRESSION: 1. Exam compared with 10 days ago. 2. From that time, increasing areas of bilateral mid to lower lung atelectasis or developing pneumonia/ARDS. Increasing at least small bilateral pleural effusions. 3. No pneumothorax. 4. Multiple chronic findings again noted. Chest X-Ray 09/10/22 05:34 IMPRESSION: PICC in place as described. Otherwise no significant change from the prior study. KUB X-Ray 09/10/22 09:08 IMPRESSION: Gaseous distention. Abdomen/Pelvis CT 09/10/22 11:51 IMPRESSION: 1. No acute intra-abdominal findings. 2. Bilateral pleural effusions and compressive atelectasis in the lower lungs. 3. Incidental findings above. COMMENTS: Consistent with the [employer]'s Incidental Findings Committee white paper (J Am Elva Radiol 2018): Any incidental renal lesion less than 1 cm or classified as too small to characterize, or any incidental cystic renal lesion characterized as simple-appearing, is likely benign. No follow-up imaging is recommended for these lesions per consensus recommendations based on imaging criteria. ADDENDUM: 09/10/22 6116 Correction: There is a low-density 8 mm adrenal nodule on the left consistent with a benign lipid rich adenoma. Laboratory Results WBC 23.6 10^3/uL (4.0-10.0) H 09/10/22 00:50 RBC 4.62 10^6/uL (4.1-5.3) 09/10/22 00:50 Hgb 12.8 g/dL (11.7-16.6) 09/10/22 00:50 Hct 41.8 % (42.0-52.0) L 09/10/22 00:50 MCV 90.5 fl (80-94) 09/10/22 00:50 MCH 27.7 pg (28.0-34.0) L 09/10/22 00:50 MCHC 30.6 g/dL (30.0-36.0) 09/10/22 00:50 RDW 15.4 % (12.1-15.1) H 09/10/22 00:50 Plt Count 405 10^3/cmm (130-400) H 09/10/22 08:42 MPV 10.7 fL (7.4-10.4) H 09/10/22 00:50 Neut % (Auto) 76.9 % 09/10/22 00:50 Lymph % (Auto) 14.0 % 09/10/22 00:50 [place] % (Auto) 5.1 % 09/10/22 00:50 Eos % (Auto) 2.0 % 09/10/22 00:50 Baso % (Auto) 0.4 % 09/10/22 00:50 Neut # (Auto) 18.17 10^3/uL (1.8-7.7) H 09/10/22 00:50 Lymph # (Auto) 3.3 10^3/uL (0.8-4.8) 09/10/22 00:50 [place] # (Auto) 1.2 10^3/uL (0.2-0.9) H 09/10/22 00:50 Eos # (Auto) 0.5 10^3/uL (0.0-0.8) 09/10/22 00:50 Baso # (Auto) 0.1 10^3/uL (0.0-0.1) 09/10/22 00:50 Nucleated RBC % (auto) 0 % 09/10/22 00:50 Nucleated RBCs # 0.0 /100WBC 09/10/22 00:50 PT 13.40 SECONDS (12.1-14.9) 09/10/22 00:50 INR 0.99 (0.8-1.2) 09/10/22 00:50 APTT 46.6 SECONDS (23.9-36.7) H 09/10/22 14:54 D-Dimer 3.36 ug/mIFEU (0-0.59) H 09/10/22 00:50 Specimen Type Arterial 09/10/22 16:28 Sample Site Radial, right 09/10/22 16:28 ABG pH 7.47 (7.35-7.45) H 09/10/22 16:28 ABG pCO2 38.5 mmHg (35-45) 09/10/22 16:28 ABG pO2 68.2 mmHg (80.0-100.0) L 09/10/22 16:28 ABG HCO3 27.7 mmol/L (22-26) H 09/10/22 16:28 ABG Base Excess 3.8 mmol/L (-2.0-2.0) H 09/10/22 16:28 Sulaiman Test Pos 09/10/22 16:28 Hematocrit 35.6 % (42-52) L 09/10/22 16:28 Hgb O2 Saturation 93.8 % (95-100) L 09/10/22 00:32 Carboxyhemoglobin 0.2 %THgb (0.4-20.1) L 09/10/22 00:32 Methemoglobin 0.7 % (0.4-1.5) 09/10/22 00:32 Total Hemoglobin 13.4 g/dL (14-18) L 09/10/22 00:32 O2 Delivery Device Vent 09/10/22 16:28 FiO2 40.0 % 09/10/22 16:28 Tidal Volume 0.45 09/10/22 16:28 PEEP 8.0 cmH20 09/10/22 16:28 Auth Specialist ID Gd 09/10/22 16:28 Sodium 137 mmol/L (136-145) 09/10/22 19:42 Potassium 4.5 mmol/L (3.5-5.1) 09/10/22 19:42 Chloride 98 mmol/L (98-107) 09/10/22 19:42 Carbon Dioxide 28 mmol/L (22-29) 09/10/22 19:42 Anion Gap 15.5 (5-19) 09/10/22 19:42 BUN 50 mg/dL (8-23) H 09/10/22 19:42 Creatinine 2.6 mg/dL (0.7-1.2) H 09/10/22 19:42 GFR Calculation Not Reportable 09/10/22 19:42 Glucose 132 mg/dL (65-115) H 09/10/22 19:42 POC Glucose 140 mg/dL (70-110) H 09/10/22 20:13 Calculated Osmolality 299 mOsm/kg (285-295) H 09/10/22 19:42 Calcium 8.3 mg/dL (8.5-10.5) L 09/10/22 19:42 Iron 37 ug/dL (59-158) L 09/10/22 00:15 TIBC 369 mcg/dl 09/10/22 00:15 % Saturation 10.0 % (20-50) L 09/10/22 00:15 Unsat Iron Binding 332 ug/dL (112-347) 09/10/22 00:15 Total Bilirubin 0.4 mg/dL (0.15-1.2) 09/10/22 00:50 AST 28 U/L (0-40) 09/10/22 00:50 ALT 38 U/L (0-41) 09/10/22 00:50 Alkaline Phosphatase 118 U/L (40-130) 09/10/22 00:50 Troponin T Baseline 2014 ng/L (0-15) H* 09/10/22 00:50 Troponin T 120 Minute 1688 ng/L (0-15) H 09/10/22 04:50 Delta Troponin T -326 ABS# (0-10) L 09/10/22 04:50 Troponin T Hi Sens 6Hr 1751 ng/L (0-15) H 09/10/22 07:59 Troponin T Hi Sens 6Hr Delta -263 ng/L (0-12) L 09/10/22 07:59 C-Reactive Protein 16.0 mg/L (0.0-4.9) H 09/10/22 00:15 NT-Pro-B Natriuret Pep 25753 pg/mL (0-125) H 09/10/22 00:50 Total Protein 7.2 g/dL (6.6-8.7) 09/10/22 00:50 Albumin 3.9 g/dL (3.5-5.2) 09/10/22 00:50 Globulin 3.3 g/dL (1.3-4.6) 09/10/22 00:50 Vitamin B12 309 pg/mL (232-1245) 09/10/22 00:15 Procalcitonin 0.16 ng/mL (0-0.5) 09/10/22 00:15 Urine Color Yellow (Yellow) 09/10/22 04:55 Urine Appearance Clear (CLEAR) 09/10/22 04:55 Urine pH 5 (5-7) 09/10/22 04:55 Ur Specific [place] 1.015 (1.005-1.030) 09/10/22 04:55 Urine Protein Trace (Negative) 09/10/22 04:55 Urine Glucose (UA) 4+ (Normal) H 09/10/22 04:55 Urine Ketones Negative (Negative) 09/10/22 04:55 Urine Blood Neg (Negative) 09/10/22 04:55 Urine Nitrate Negative (Negative) 09/10/22 04:55 Urine Bilirubin Neg (Negative) 09/10/22 04:55 Urine Urobilinogen Neg mg/dL (Negative) 09/10/22 04:55 Ur Leukocyte Esterase Negative (Negative) 09/10/22 04:55 Urine RBC None /hpf (0-2) 09/10/22 04:55 Urine WBC None /hpf (0-5) 09/10/22 04:55 Ur Squamous Epith Cells None /hpf (0-5) 09/10/22 04:55 Amorphous Sediment Not Reportable 09/10/22 04:55 Urine Bacteria Trace /hpf (NONE) 09/10/22 04:55 Urine Yeast 2+ /hpf H 09/10/22 04:55 Serum Ketones Negative (Negative) 09/10/22 00:50 Micro: Microbiology 09/10/22 04:55 Bacterial Antigens - Final Urine Kidney 09/10/22 04:55 Legionella Urinary Antigen - Final Unknown Source 09/10/22 02:13 Blood Culture - Preliminary Blood SPECIMEN COLLECTED 09/10/22 00:50 Blood Culture - Preliminary Blood SPECIMEN COLLECTED A&P Assessment and plan (1) Acute respiratory failure with hypoxia and hypercapnia: (2) Acute exacerbation of CHF (congestive heart failure): (3) CAD (coronary artery disease): (4) FH: CABG (coronary artery bypass surgery): (5) Chronic kidney disease, stage 3 unspecified: (6) DKA (diabetic ketoacidosis): (7) Acute non-ST elevation myocardial infarction (NSTEMI): (8) Systolic CHF: (9) Shock: Plan Neuro: Sedation: Patient is currently on fentanyl and propofol for sedation; previous history of diabetic neuropathy: Patient is on Neurontin 200 Mg p.o. twice daily- Pulmonary/cardiac/renal: Acute systolic CHF in patient with severe underlying CAD s/p CABG and occluded bypass grafts unable to stent/possible HCAP/ Acute hypoxic hypercapnic respiratory failure most likely secondary to fluid overload due to CHF exacerbation and patient with significant CAD s/p bypass-recent cardiac cath showing ostial disease in LAD LCx grafts-unable to stent-currently being medically managed CT chest bilateral lower lobe atelectasis and consolidations with air bronchograms and pleural effusions Admission BNP 40,000 and admission echocardiogram showing reduced EF to 40 to 45% which is new compared to last week echo Patient himself during admission admitted that he did not take medications Pro-Michael is significantly low-however there is leukocytosis-currently covered with vancomycin and meropenem for suspected HCAP as recently received antibiotics; blood and sputum cultures pending, bacterial antigens negative Currently on IV Bumex 1 Mg twice daily-good urine output creatinine 2.1 at baseline-acceptable electrolytes-we will continue to monitor input output, electrolytes- Today's ABG 7.4 7/38/68/27 on CMV 40%/450/PEEP 8 Patient on aspirin/Plavix/Lipitor/metoprolol/heparin drip for CAD/NSTEMI-troponinemia can be secondary to underlying untreated CAD/CHF; he is requiring low-dose Levophed Endocrinology: For uncontrolled sugars-patient is on Lantus 10 Mg at bedtime and short-acting lispro Currently on Synthyroid 112 mcg daily for hypothyroidism GI prophylaxis: PPI/sucralfate Hematology: Leukocytosis-currently being treated as HCAP-however cultures are pending Failure that ICU CHECKLIST: Problem list updated Verbal orders reviewed and signed Code Status: Limited resuscitation Disposition: ICU Critically ill: Yes MD discussed with: Hospitalist taking care of the patient, RN and RT as per the Analgesia: Opioid Glycemic Control: Insulin Nutrition: N.p.o. for now Restraint Renewal (within 24 hrs): Yes Ulcer Prophylaxis: PPI Chemical Thromboprophylaxis: Prophylaxis: Heparin Mechanical Thromboprophylaxis: Heparin Need for Phillip catheter: Input output monitoring Consult Attestations Medical Necessity Statement: Acute hypoxic/hypercapnic respiratory failure secondary to fluid overload due to underlying worsening CHF and patient with significant underlying CAD/suspected HCAP-requiring mechanical ventilation and pressor support-need close ICU monitoring for at least next 24 to 48 hours Time Spent in Patient Care: Greater than 35 minutes (>than 50% of time spent in counselling and/or direct pt care on unit). Critical Care Time: This patient has a high probability of clinically significant, sudden or life threatening deterioration of the patient's (neurological, pulmonary, cardiac, GI, endocrine, renal) systems required my full, direct attention, the highest level of physician preparedness for urgent intervention and personal management. I managed/supervised life or organ supporting interventions that required frequent physician assessment. I devoted my full attention in the ICU to the direct care of this patient for the period of time indicated above. Time I spent with family or surrogate(s) is included only if the patient was incapable of providing necessary information or participating in decision making. This time includes the following services provided: Telemetry review Mechanical Ventilation Hemodynamic interpretation, assessment and management Review and interpretation of CXR Review and interpretation of lab values Review and interpretation of microbiologic data and culture results Review of medications and administration Review and interpretation of Nutrition requirements and management Discussion of management with other consultants and services Clinical update to family members [x] Data and vital sign review and interpretation [x] Patient assessment, examination and intervention [x] Documentation [x] Medication orders and management Time spent for teaching as well as performing procedures are billed separately and is not included in this note Critical Care Time (min): 78 Coding Level of Care Code Critical Care >/= 30 minutes Diagnoses Acute respiratory failure with hypoxia and hypercapnia J96.01; J96.02 Acute exacerbation of CHF (congestive heart failure) I50.9 CAD (coronary artery disease) I25.10 FH: CABG (coronary artery bypass surgery) Z82.49 Chronic kidney disease, stage 3 unspecified N18.30 DKA (diabetic ketoacidosis) E11.10 Acute non-ST elevation myocardial infarction (NSTEMI) I21.4 Systolic CHF I50.20 Shock R57.9 Time Spent (min) 78
[2022-09-10 12:34] LABS: Glucose Point of Care 330 mg/dL (70-110)
[2022-09-10] MEDS: insulin regular-human 250 UNIT in sodium chloride 0.9% 250 ML 8.1 UNIT IV (12:53)
[2022-09-10 13:41] LABS: ABG PCO2 27.1 mmHg (35-45); Arterial Blood Gas Hematocrit 39.4 % (42-52); Base Excess ABG 5.4 mmol/L (-2.0-2.0); Blood Gas Allen Test Pos; Blood Gas Operator Identificat GD; Blood Gas Sample Site Radial, right; Blood Gas Sample Type Arterial; Blood Gas Tidal Volume 0.55; HCO3 ABG 26.3 mmol/L (22-26); Oxygen Device VENT; PO2 ABG 72.9 mmHg (80.0-100.0)
[2022-09-10 13:43] LABS: ABG PCO2 62.1 mmHg (35-45)
[2022-09-10 13:45] LABS: ABG PCO2 53.2 mmHg (35-45); ABG PH Result 7.32 (7.35-7.45); Arterial Blood Gas Hematocrit 40.6 % (42-52); Base Excess ABG 0.3 mmol/L (-2.0-2.0); Blood Gas Allen Test Pos; Blood Gas Sample Site Radial, right; Blood Gas Sample Type Arterial; HCO3 ABG 27.3 mmol/L (22-26); Oxygen Device BIPAP; PO2 ABG 95.2 mmHg (80.0-100.0)
[2022-09-10 14:04] LABS: Glucose Point of Care 307 mg/dL (70-110)
[2022-09-10] MEDS: propofol 1,000 MG/100 ML INJ 5.42 MG IV (14:06)
[2022-09-10 15:18] LABS: Partial Thromboplastin Time 46.6 SECONDS (23.9-36.7)
[2022-09-10 15:58] LABS: Glucose Point of Care 242 mg/dL (70-110)
[2022-09-10 15:58] LABS: Glucose Point of Care 211 mg/dL (70-110)
[2022-09-10 16:41] LABS: ABG PCO2 38.5 mmHg (35-45); ABG PH Result 7.47 (7.35-7.45); Arterial Blood Gas Hematocrit 35.6 % (42-52); Base Excess ABG 3.8 mmol/L (-2.0-2.0); Blood Gas Allen Test Pos; Blood Gas Operator Identificat GD; Blood Gas Sample Site Radial, right; Blood Gas Sample Type Arterial; Blood Gas Tidal Volume 0.45; HCO3 ABG 27.7 mmol/L (22-26); Oxygen Device VENT; PO2 ABG 68.2 mmHg (80.0-100.0)
--- NOTE | 2022-09-10 17:02 | PM.PN ---
Subjective Subjective: Patient was seen this morning, he is intubated, sedated, on mechanical ventilation on 50% FiO2, sedated with propofol, urine output 1300 cc, afebrile, normotensive, abdomen is distended, but has bowel sounds present, Vitals/I&O/Wt Last Vital Signs Temp 97.8 F 09/10/22 16:33 Pulse 63 09/10/22 16:48 Resp 14 09/10/22 16:48 BP 103/58 09/10/22 16:00 Pulse Ox 90 09/10/22 16:48 O2 Del Method Mechanical Ventilation 09/10/22 16:48 O2 Flow Rate 10 09/10/22 02:15 FiO2 50 09/10/22 16:49 09/10/22 09/10/22 09/10/22 06:59 14:59 22:59 Intake Total 427.833 / 427.833 35.697 / 35.697 349.814 / 385.511 Output Total 1800 / 1800 1300 / 1300 Balance -1372.167 / -1372.167 35.697 / 35.697 -950.186 / -914.489 Weight last 48 hrs Weight 88.904 kg Weight 88.904 kg Weight 90.265 kg Physical Exam Const: COMMON NORMALS: no acute distress OTHER: Intubated, sedated, on mechanical ventilation Resp: COMMON NORMALS: normal respiratory effort, No retractions, No use of accessory muscles and clear to auscultation bilaterally AUSCULTATION: clear to auscultation bilaterally Cardio: COMMON NORMALS: regular rate, regular rhythm, S1 normal heart sound present and S2 normal heart sound present RATE: regular rate RHYTHM: regular rhythm HEART SOUNDS: S1 normal heart sound present and S2 normal heart sound present GI: COMMON NORMALS: Normal to inspection, nondistended, normoactive bowel sounds present and non-tender Extremity: COMMON NORMALS: no pedal edema Urinary Catheter Management: Phillip: Cath Placed During This Visit: yes Reason for Continuing Indwelling Catheter: Accurate Measurement of Urinary Output in Critically Ill Patients Urinary Catheter Date of Insertion: 09/10/22 Urinary Catheter Time of Insertion: 02:35 Data 09/10/22 08:42 09/10/22 04:50 Micro: Microbiology 09/10/22 04:55 Bacterial Antigens - Final Urine Kidney 09/10/22 04:55 Legionella Urinary Antigen - Final Unknown Source 09/10/22 02:13 Blood Culture - Preliminary Blood SPECIMEN COLLECTED 09/10/22 00:50 Blood Culture - Preliminary Blood SPECIMEN COLLECTED A&P Assessment and plan (1) ARDS (adult respiratory distress syndrome): (2) Acute exacerbation of CHF (congestive heart failure): (3) DKA (diabetic ketoacidosis): (4) Acute non-ST elevation myocardial infarction (NSTEMI): (5) Chronic kidney disease, stage 3 unspecified: (6) Acute respiratory failure with hypoxia and hypercapnia: (7) High anion gap metabolic acidosis: (8) Hyperkalemia: (9) Type 2 diabetes mellitus: Qualifiers: Diabetes mellitus extermination inspector insulin use: without extermination inspector use Diabetes mellitus complication status: with circulatory complication Diabetes mellitus complication detail: with other circulatory complications Qualified Code(s): E11.59 - Type 2 diabetes mellitus with other circulatory complications (10) CAD (coronary artery disease): (11) Systolic CHF: (12) Iron deficiency anemia: Qualifiers: Iron deficiency anemia type: unspecified iron deficiency Qualified Code(s): D50.9 - Iron deficiency anemia, unspecified Plan Acute hypoxic respiratory failure -Secondary to fluid overload, acute systolic CHF exacerbation, pulm edema -Secondary to pneumonia -Secondary to acute respiratory distress syndrome Plan -Minimize tidal volume, minimize FiO2 -Continue intubation, mechanical ventilation -Daily spontaneous breathing trials -Propofol, fentanyl for sedation Acute systolic CHF exacerbation, pulm edema -Bumex 1 mg IV push every 12 hours -Repeat cardiac echo Pneumonia -Vancomycin, meropenem -Sputum cultures, blood cultures Acute respiratory distress syndrome -Consult pulmonary Non-ST elevation AR -Recent history of cath ?1. Severe two-vessel coronary artery disease.? Occluded LAD and circumflex. Occluded bypass graft to the LAD and circumflex. -Continue aspirin, statin, Plavix -Continue heparin drip Has evidence of iron deficiency anemia -Monitor hemoglobin -Protonix, Carafate Hyperglycemia, with concern for DKA, type 2 diabetes mellitus -Continue insulin drip Abdominal distention, will order CT scan abdomen pelvis hold off on tube feeds Order venous ultrasound Full code Heparin for DVT prophylaxis Spoke to nursing staff, spoke to Dr. Leer, Attestations Medical Necessity Statement*: Patient requires hospitalization for acute hypoxic respiratory failure, pneumonia, acute respiratory distress syndrome, NSTEMI, hyperglycemia, on insulin drip, on heparin drip, intubated, mechanical ventilation, on antibiotic therapy Coding Level of Care Code Critical Care >/= 30 minutes Critical care time (in minutes): 70 The high probability of a clinically significant, sudden or life threatening deterioration, as referenced in this documentation, required my full and direct attention, intervention and personal management. The critical care time shown is in addition to time spent performing any reported separately billable procedures and includes the following: [x] Data and vital sign review and interpretation [x] Patient assessment, examination and intervention [x] Medication orders and management [x] Patient/Family updates as able [x] Care Coordination and Documentation. Diagnoses ARDS (adult respiratory distress syndrome) J80 Acute exacerbation of CHF (congestive heart failure) I50.9 DKA (diabetic ketoacidosis) E11.10 Acute non-ST elevation myocardial infarction (NSTEMI) I21.4 Chronic kidney disease, stage 3 unspecified N18.30 Acute respiratory failure with hypoxia and hypercapnia J96.01; J96.02 High anion gap metabolic acidosis E87.29 Hyperkalemia E87.5 Type 2 diabetes mellitus E11.59 Diabetes mellitus usp insulin use: without extermination inspector use Diabetes mellitus complication status: with circulatory complication Diabetes mellitus complication detail: with other circulatory complications CAD (coronary artery disease) I25.10 Systolic CHF I50.20 Iron deficiency anemia D50.9 Iron deficiency anemia type: unspecified iron deficiency
[2022-09-10 17:14] LABS: Glucose Point of Care 188 mg/dL (70-110)
[2022-09-10 17:58] LABS: Glucose Point of Care 172 mg/dL (70-110)
--- NOTE | 2022-09-10 18:22 | PC.NURSE ---
Shift Summary Patient remained stable throughout shift. Insulin drip started via Doctors orders and managed per protocol.
[2022-09-10 19:13] LABS: Glucose Point of Care 146 mg/dL (70-110)
--- NOTE | 2022-09-10 19:24 | PC.NURSE ---
Addendum entered by Cora Chavez RN 09/10/22 21:18: Dr. Mcleod called unit @2117. New order to d/c insulin drip, Q6HR accu checks, and 10 units Lantus NOW. Addendum entered by Cora Chavez RN 09/10/22 20:44: Updated Dr. Mcleod of BMP results @2043, no new orders at this time. Original Note: Insulin Drip: Reported BG of [address] Mcleod @1920. New order to pause insulin drip. Insulin drip paused @1921. New order for stat BMP.
[2022-09-10 20:15] LABS: Glucose Point of Care 140 mg/dL (70-110)
[2022-09-10 20:23] LABS: Anion Gap 15.5 (5-19); Blood Urea Nitrogen 50 mg/dL (8-23); Calcium 8.3 mg/dL (8.5-10.5); Carbon Dioxide 28 mmol/L (22-29); Chloride 98 mmol/L (98-107); Glucose 132 mg/dL (65-115); Osmolality Calculated 299 mOsm/kg (285-295); Potassium 4.5 mmol/L (3.5-5.1); Sodium 137 mmol/L (136-145)
[2022-09-10] MEDS: levalbuterol 0.63 mg/3 mL Neb INHALATION (20:40)
[2022-09-10 21:17] LABS: Glucose Point of Care 188 mg/dL (70-110)
[2022-09-10 21:22] LABS: Adenovirus Not Detected (NOT DETECT); Chlamydia Pneumoniae Not Detected (NOT DETECT); Coronavirus 229E,HKU1,NL63,OC4 Not Detected (NOT DETECT); Human Metapneumovirus Not Detected (NOT DETECT); Human Rhinovirus/Enterovirus Not Detected (NOT DETECT); Influenza A Not Detected (NOT DETECT); Influenza A H1 Not Detected (NOT DETECT); Influenza A H1-2009 Not Detected (NOT DETECT); Influenza A H3 Not Detected (NOT DETECT); Influenza B Not Detected (NOT DETECT); Mycoplasma Pneumoniae Not Detected (NOT DETECT); Parainfluenza Virus Type 1 Not Detected (NOT DETECT); Parainfluenza Virus Type 2 Not Detected (NOT DETECT); Parainfluenza Virus Type 3 Not Detected (NOT DETECT); Parainfluenza Virus Type 4 Not Detected (NOT DETECT); Respiratory Syncytial Virus A Not Detected (NOT DETECT); Respiratory Syncytial Virus B Not Detected (NOT DETECT); SARS-COV-2 Not Detected (NOT DETECT)
[2022-09-10] MEDS: insulin glargine 100 units/1 mL 10 UNIT SUBCUT (21:31)
[2022-09-10 21:47] LABS: Partial Thromboplastin Time 60.2 SECONDS (23.9-36.7)
[2022-09-10] MEDS: propofol 1,000 MG/100 ML INJ 10.83 MG IV (23:06)
[2022-09-11] VITALS (111 sets, daily range): BP systolic 91–147; BP diastolic 48–93; PULSE 49–106; RESP 12–30; TEMP 36.7–36.8; O2SAT 93–99; BMI 34.7
[2022-09-11] MEDS: levalbuterol 0.63 mg/3 mL Neb INHALATION ×2 (00:07→03:34)
[2022-09-11] MEDS: ipratropium-albuterol 3 mL Neb INHALATION ×6 (00:08→23:23)
[2022-09-11] MEDS: bumetanide 0.25 mg/mL SDV 4 mL 1 MG IVP (00:14)
[2022-09-11 01:32] LABS: Glucose Point of Care 208 mg/dL (70-110)
[2022-09-11] MEDS: sucralfate 1 gm Tablet PO ×4 (02:17→20:29)
[2022-09-11] MEDS: meropenem 1,000 MG in sodium chloride 0.9% (plus) 50 ML 100 MG IV ×2 (02:19→15:44)
[2022-09-11 03:17] LABS: Glucose Point of Care 201 mg/dL (70-110)
[2022-09-11] MEDS: insulin lispro 100 unit/1 mL SUBCUT ×3 (03:38→20:42)
[2022-09-11] MEDS: pantoprazole 40 mg SDV IVP ×2 (03:40→15:45)
--- NOTE | 2022-09-11 03:46 | PC.NURSE ---
Pt awoke and was visibly distressed, evidence by pulling at restrains, pulling up in bed, kicking legs up, and thrashing head from side to side. Pt responded well to verbal intervention and began to follow commands, Propofol and Fentanyl titrated up for comfort. See MAR for titration.
[2022-09-11 04:09] LABS: Basophils % 0.1 %; Hematocrit 32.8 % (42.0-52.0); Hemoglobin 10.2 g/dL (11.7-16.6); Lymphocytes # 0.6 10^3/uL (0.8-4.8); Lymphocytes % 3.7 %; Mean Corpuscular HGB Conc 31.1 g/dL (30.0-36.0); Mean Corpuscular Hemoglobin 27.5 pg (28.0-34.0); Mean Corpuscular Volume 88.4 fl (80-94); Mean Platelet Volume 11.1 fL (7.4-10.4); Monocytes # 0.8 10^3/uL (0.2-0.9); Monocytes % 4.7 %; Neutrophils # 15.79 10^3/uL (1.8-7.7); Nucleated Red Blood Cells % 0 %; Platelet Count 413 10^3/cmm (130-400); Red Blood Count 3.71 10^6/uL (4.1-5.3); Red Cell Distribution Width 15.4 % (12.1-15.1); White Blood Count 17.4 10^3/uL (4.0-10.0)
[2022-09-11 04:23] LABS: INR 1.09 (0.8-1.2)
[2022-09-11 04:26] LABS: ABG PCO2 34.2 mmHg (35-45); Arterial Blood Gas Hematocrit 37.7 % (42-52); Base Excess ABG 3.7 mmol/L (-2.0-2.0); Blood Gas Allen Test Pos; Blood Gas Sample Site Radial, right; Blood Gas Sample Type Arterial; HCO3 ABG 26.7 mmol/L (22-26); Oxygen Device VENT; PO2 ABG 74.4 mmHg (80.0-100.0)
[2022-09-11 04:32] LABS: Partial Thromboplastin Time 76.3 SECONDS (23.9-36.7)
[2022-09-11 04:34] LABS: Vancomycin Random 6.4 ug/mL (20.0-40.0)
[2022-09-11] MEDS: heparin drip 25,000 UNIT/500 ML PREMIX 25 UNIT IV (04:36)
[2022-09-11 04:40] LABS: Alanine Aminotransferase 24 U/L (0-41); Albumin Level 3.2 g/dL (3.5-5.2); Alkaline Phosphatase 83 U/L (40-130); Aspartate Amino Transferase 18 U/L (0-40); Blood Urea Nitrogen 53 mg/dL (8-23); Calcium 8.1 mg/dL (8.5-10.5); Carbon Dioxide 27 mmol/L (22-29); Chloride 96 mmol/L (98-107); Globulin 2.6 g/dL (1.3-4.6); Glucose 189 mg/dL (65-115); Magnesium 2.5 mg/dL (1.7-2.3); Osmolality Calculated 303 mOsm/kg (285-295); Phosphorus 5.6 mg/dL (2.5-4.5); Sodium 137 mmol/L (136-145); Total Bilirubin 0.2 mg/dL (0.15-1.2); Total Protein 5.8 g/dL (6.6-8.7)
[2022-09-11 04:52] LABS: NT Pro B Type Natriuretic Pept 28903 pg/mL (0-125); Procalcitonin 3.42 ng/mL (0-0.5)
[2022-09-11 05:02] LABS: Folate Level 10.6 ng/mL (4.5-32.2)
--- NOTE | 2022-09-11 07:00 | XRR_ITS ---
PROCEDURE INFORMATION: Exam: XR Chest Exam date and time: 09/11/2022 5:50 AM Age: 72 years old Clinical indication: Shortness of breath; Additional info: SOB TECHNIQUE: Imaging protocol: Radiologic exam of the chest. Views: 1 view. COMPARISON: CR (CHEST, ) 09/10/2022 6:00 AM FINDINGS: Limitations: Limited exam due to projection. Tubes, catheters and devices: The endotracheal tube is appropriately positioned in the distal thoracic trachea with the tip above the chloe. The nasogastric tube extends beyond the diaphragmatic hiatus. The tip is not imaged. Right PICC line tip is in the right brachiocephalic vein. Lungs: Ill-defined opacity in the mid to lower lungs bilaterally. Pleural spaces: No pneumothorax. Heart/Mediastinum: The cardiac silhouette is mildly enlarged. Mediastinal contours are suboptimally evaluated on this exam. Diaphragm: The hemidiaphragms are partially obscured bilaterally. Bones/joints: Sternal wires are present. There is no displacement to suggest sternal dehiscence. XR/XR chest 1V portable [id number] IMPRESSION: 1. Stable satisfactory endotracheal tube position. 2. Stable right PICC line position. The tip is in the right brachiocephalic vein. 3. NG tube extends beyond the diaphragm. The tip is not imaged. 4. Ill-defined bilateral lower lung opacity with partial obscuration of the bilateral hemidiaphragms. This finding is similar to 09/10/2022 allowing for differences in projection. Findings are consistent with pulmonary edema or infection with possible pleural effusions.
[2022-09-11 07:22] LABS: Glucose Point of Care 201 mg/dL (70-110)
[2022-09-11] MEDS: propofol 1,000 MG/100 ML INJ 18.96 MG IV ×2 (07:50→15:43)
--- NOTE | 2022-09-11 08:32 | P.PN_ITS ---
Subjective Subjective: Patient was seen this morning, he is intubated, sedated, on mechanical ventilation on 50% FiO2, sedated with propofol, fentanyl Slight worsening renal functions-but last 24-hour urine output -1 L-total 2.5 L since admission ABG Overall alkalotic-looks mixed respiratory as well as metabolic-we will switch Bumex to 1 Mg daily and start Diamox Afebrile, normotensive, abdomen is distended, CT abdomen pelvis did not show any acute findings Worsening renal functions Medications: Reviewed: Yes Vitals/I&O/Wt Last Vital Signs Temp 98.3 F 09/10/22 20:45 Pulse 69 09/11/22 06:15 Resp 14 09/11/22 06:15 BP 105/58 09/11/22 06:15 Pulse Ox 96 09/11/22 06:15 O2 Del Method Mechanical Ventilation 09/11/22 06:15 O2 Flow Rate 10 09/10/22 02:15 FiO2 50 09/11/22 03:38 09/10/22 09/11/22 09/11/22 22:59 06:59 14:59 Intake Total 557.888 / 593.585 579.318 / 1172.903 Output Total 1600 / 1600 650 / 2250 Balance -1042.112 / -1006.415 -70.682 / -1077.097 Weight last 48 hrs Weight 196 lb Weight 196 lb Weight 199 lb Physical Exam Narrative: PHYSICAL EXAM: General: lying in bed, sedated and intubated. HEENT:NCAT, PERRLA, EOMI Neck: Supple Lungs: Bilateral diffuse crackles Heart: s1/s2, RRR Abd: soft, NT, ND, BS + Normoactive Extremities: No edema REQUISITION APPROVER: sedated and limited REQUISITION APPROVER exam possible. SKIN: no rash Urinary Catheter Management: Phillip: Cath Placed During This Visit: yes Reason for Continuing Indwelling Catheter: Accurate Measurement of Urinary Output in Critically Ill Patients Urinary Catheter Date of Insertion: 09/10/22 Urinary Catheter Time of Insertion: 02:35 Data 09/11/22 03:26 09/11/22 03:26 Other Labs: Radiology Impressions Chest CT 09/10/22 04:00 IMPRESSION: 1. Exam compared with 10 days ago. 2. From that time, increasing areas of bilateral mid to lower lung atelectasis or developing pneumonia/ARDS. Increasing at least small bilateral pleural effusions. 3. No pneumothorax. 4. Multiple chronic findings again noted. KUB X-Ray 09/10/22 09:08 IMPRESSION: Gaseous distention. Abdomen/Pelvis CT 09/10/22 11:51 IMPRESSION: 1. No acute intra-abdominal findings. 2. Bilateral pleural effusions and compressive atelectasis in the lower lungs. 3. Incidental findings above. COMMENTS: Consistent with the [employer]'s Incidental Findings Committee white paper (J Am Elva Radiol 2018): Any incidental renal lesion less than 1 cm or classified as too small to characterize, or any incidental cystic renal lesion characterized as simple-appearing, is likely benign. No follow-up imaging is recommended for these lesions per consensus recommendations based on imaging criteria. ADDENDUM: 09/10/22 [id number] Correction: There is a low-density 8 mm adrenal nodule on the left consistent with a benign lipid rich adenoma. Chest X-Ray 09/11/22 07:00 IMPRESSION: 1. Stable satisfactory endotracheal tube position. 2. Stable right PICC line position. The tip is in the right brachiocephalic vein. 3. NG tube extends beyond the diaphragm. The tip is not imaged. 4. Ill-defined bilateral lower lung opacity with partial obscuration of the bilateral hemidiaphragms. This finding is similar to 09/10/2022 allowing for differences in projection. Findings are consistent with pulmonary edema or infection with possible pleural effusions. Laboratory Results WBC 17.4 10^3/uL (4.0-10.0) H 09/11/22 03:26 RBC 3.71 10^6/uL (4.1-5.3) L 09/11/22 03:26 Hgb 10.2 g/dL (11.7-16.6) L 09/11/22 03:26 Hct 32.8 % (42.0-52.0) L 09/11/22 03:26 MCV 88.4 fl (80-94) 09/11/22 03:26 MCH 27.5 pg (28.0-34.0) L 09/11/22 03:26 MCHC 31.1 g/dL (30.0-36.0) 09/11/22 03:26 RDW 15.4 % (12.1-15.1) H 09/11/22 03:26 Plt Count 413 10^3/cmm (130-400) H 09/11/22 03:26 MPV 11.1 fL (7.4-10.4) H 09/11/22 03:26 Neut % (Auto) 91.0 % 09/11/22 03: Lymph % (Auto) 3.7 % 09/11/22 03: [place] % (Auto) 4.7 % 09/11/22 03: Eos % (Auto) 0.0 % 09/11/22 03: Baso % (Auto) 0.1 % 09/11/22 03: Neut # (Auto) 15.79 10^3/uL (1.8-7.7) H 09/11/22 03: Lymph # (Auto) 0.6 10^3/uL (0.8-4.8) L 09/11/22 03: [place] # (Auto) 0.8 10^3/uL (0.2-0.9) 09/11/22 03: Eos # (Auto) 0.0 10^3/uL (0.0-0.8) 09/11/22 03: Baso # (Auto) 0.0 10^3/uL (0.0-0.1) 09/11/22 03: Nucleated RBC % (auto) 0 % 09/11/22 03: Nucleated RBCs # 0.0 /100WBC 09/11/22 03: PT 14.50 SECONDS (12.1-14.9) 09/11/22 03: INR 1.09 (0.8-1.2) 09/11/22 03:26 APTT 76.3 SECONDS (23.9-36.7) H 09/11/22 03:26 D-Dimer 3.36 ug/mIFEU (0-0.59) H 09/10/22 00:50 Specimen Type Arterial 09/11/22 04:19 Sample Site Radial, right 09/11/22 04:19 ABG pH 7.50 (7.35-7.45) H 09/11/22 04:19 ABG pCO2 34.2 mmHg (35-45) L 09/11/22 04:19 ABG pO2 74.4 mmHg (80.0-100.0) L 09/11/22 04:19 ABG HCO3 26.7 mmol/L (22-26) H 09/11/22 04:19 ABG Base Excess 3.7 mmol/L (-2.0-2.0) H 09/11/22 04:19 Sul[place]an Test Pos 09/11/22 04:19 Hematocrit 37.7 % (42-52) L 09/11/22 04:19 Hgb O2 Saturation 93.8 % (95-100) L 09/10/22 00:32 Carboxyhemoglobin 0.2 %THgb (0.4-20.1) L 09/10/22 00:32 Methemoglobin 0.7 % (0.4-1.5) 09/10/22 00:32 Total Hemoglobin 13.4 g/dL (14-18) L 09/10/22 00:32 O2 Delivery Device Vent 09/11/22 04:19 FiO2 50.0 % 09/11/22 04:19 Tidal Volume 0.45 09/10/22 16:28 PEEP 8.0 cmH20 09/10/22 16:28 Hospital Laboratory Technician ID Alewe 09/11/22 04:19 Sodium 137 mmol/L (136-145) 09/11/22 03:26 Potassium 5.0 mmol/L (3.5-5.1) 09/11/22 03:26 Chloride 96 mmol/L (98-107) L 09/11/22 03:26 Carbon Dioxide 27 mmol/L (22-29) 09/11/22 03:26 Anion Gap 19.0 (5-19) 09/11/22 03:26 BUN 53 mg/dL (8-23) H 09/11/22 03:26 Creatinine 2.8 mg/dL (0.7-1.2) H 09/11/22 03:26 GFR Calculation Not Reportable 09/11/22 03:26 Glucose 189 mg/dL (65-115) H 09/11/22 03:26 POC Glucose 201 mg/dL (70-110) H 09/11/22 07:15 Calculated Osmolality 303 mOsm/kg (285-295) H 09/11/22 03:26 Calcium 8.1 mg/dL (8.5-10.5) L 09/11/22 03:26 Phosphorus 5.6 mg/dL (2.5-4.5) H 09/11/22 03:26 Magnesium 2.5 mg/dL (1.7-2.3) H 09/11/22 03:26 Iron 37 ug/dL (59-158) L 09/10/22 00:15 TIBC 369 mcg/dl 09/10/22 00:15 % Saturation 10.0 % (20-50) L 09/10/22 00:15 Unsat Iron Binding 332 ug/dL (112-347) 09/10/22 00:15 Total Bilirubin 0.2 mg/dL (0.15-1.2) 09/11/22 03:26 AST 18 U/L (0-40) 09/11/22 03:26 ALT 24 U/L (0-41) 09/11/22 03:26 Alkaline Phosphatase 83 U/L (40-130) 09/11/22 03:26 Troponin T Baseline 2014 ng/L (0-15) H* 09/10/22 00:50 Troponin T 120 Minute 1688 ng/L (0-15) H 09/10/22 04:50 Delta Troponin T -326 ABS# (0-10) L 09/10/22 04:50 Troponin T Hi Sens 6Hr 1751 ng/L (0-15) H 09/10/22 07:59 Troponin T Hi Sens 6Hr Delta -263 ng/L (0-12) L 09/10/22 07:59 C-Reactive Protein 16.0 mg/L (0.0-4.9) H 09/11/22 03:26 NT-Pro-B Natriuret Pep 51481 pg/mL (0-125) H 09/11/22 03:26 Total Protein 5.8 g/dL (6.6-8.7) L 09/11/22 03:26 Albumin 3.2 g/dL (3.5-5.2) L 09/11/22 03:26 Globulin 2.6 g/dL (1.3-4.6) 09/11/22 03:26 Vitamin B12 309 pg/mL (232-1245) 09/10/22 00:15 Folate 10.6 ng/mL (4.5-32.2) 09/11/22 03:26 Procalcitonin 3.42 ng/mL (0-0.5) H 09/11/22 03:26 Urine Color Yellow (Yellow) 09/10/22 04:55 Urine Appearance Clear (CLEAR) 09/10/22 04:55 Urine pH 5 (5-7) 09/10/22 04:55 Ur Specific [place] 1.015 (1.005-1.030) 09/10/22 04:55 Urine Protein Trace (Negative) 09/10/22 04:55 Urine Glucose (UA) 4+ (Normal) H 09/10/22 04:55 Urine Ketones Negative (Negative) 09/10/22 04:55 Urine Blood Neg (Negative) 09/10/22 04:55 Urine Nitrate Negative (Negative) 09/10/22 04:55 Urine Bilirubin Neg (Negative) 09/10/22 04:55 Urine Urobilinogen Neg mg/dL (Negative) 09/10/22 04:55 Ur Leukocyte Esterase Negative (Negative) 09/10/22 04:55 Urine RBC None /hpf (0-2) 09/10/22 04:55 Urine WBC None /hpf (0-5) 09/10/22 04:55 Ur Squamous Epith Cells None /hpf (0-5) 09/10/22 04:55 Amorphous Sediment Not Reportable 09/10/22 04:55 Urine Bacteria Trace /hpf (NONE) 09/10/22 04:55 Urine Yeast 2+ /hpf H 09/10/22 04:55 Nasal Influ A H1 2008 PCR Not detected (NOT DETECT) 09/10/22 19:29 Random Vancomycin 6.4 ug/mL (20.0-40.0) L 09/11/22 03:26 Serum Ketones Negative (Negative) 09/10/22 00:50 Adenovirus (PCR) Not detected (NOT DETECT) 09/10/22 19:29 C. pneumoniae DNA (PCR) Not detected (NOT DETECT) 09/10/22 19:29 Coronavirus 229E (PCR) Not detected (NOT DETECT) 09/10/22 19:29 Human Metapneumovir PCR Not detected (NOT DETECT) 09/10/22 19:29 Influenza A (H1) PCR Not detected (NOT DETECT) 09/10/22 19:29 Influenza A (H3) PCR Not detected (NOT DETECT) 09/10/22 19:29 Influenza Type A (PCR) Not detected (NOT DETECT) 09/10/22 19:29 Influenza Type B (PCR) Not detected (NOT DETECT) 09/10/22 19:29 M. pneumoniae (PCR) Not detected (NOT DETECT) 09/10/22 19:29 Parainfluenza 1 (PCR) Not detected (NOT DETECT) 09/10/22 19:29 Parainfluenza 2 (PCR) Not detected (NOT DETECT) 09/10/22 19:29 Parainfluenza 3 (PCR) Not detected (NOT DETECT) 09/10/22 19:29 Parainfluenza 4 (PCR) Not detected (NOT DETECT) 09/10/22 19:29 RSV Type A (PCR) Not detected (NOT DETECT) 09/10/22 19:29 RSV Type B (PCR) Not detected (NOT DETECT) 09/10/22 19:29 Entero/Rhino (PCR) Not detected (NOT DETECT) 09/10/22 19:29 SARS-CoV-2 (PCR) Not detected (NOT DETECT) 09/10/22 19:29 Micro: Microbiology 09/10/22 02:13 Blood Culture - Preliminary Blood NEGATIVE TO DATE 09/10/22 00:50 Blood Culture - Preliminary Blood NEGATIVE TO DATE 09/10/22 08:32 Gram Stain - Final Sputum - Endotracheal Tube Aspirate 09/10/22 04:55 Bacterial Antigens - Final Urine Kidney 09/10/22 04:55 Legionella Urinary Antigen - Final Unknown Source A&P Assessment and plan (1) Acute respiratory failure with hypoxia and hypercapnia: (2) Acute exacerbation of CHF (congestive heart failure): (3) CAD (coronary artery disease): (4) FH: CABG (coronary artery bypass surgery): (5) Chronic kidney disease, stage 3 unspecified: (6) DKA (diabetic ketoacidosis): (7) Acute non-ST elevation myocardial infarction (NSTEMI): (8) Systolic CHF: (9) Shock: Plan Neuro: Sedation: Patient is currently on fentanyl and propofol for sedation;-we will start patient on Precedex and start awakening trial previous history of diabetic neuropathy: Patient is on Neurontin 200 Mg p.o. twice daily- Pulmonary/cardiac/renal: Acute systolic CHF in patient with severe underlying CAD s/p CABG and occluded bypass grafts unable to stent/possible HCAP/ Acute hypoxic hypercapnic respiratory failure most likely secondary to fluid overload due to CHF exacerbation and patient with significant CAD s/p bypass- recent cardiac cath showing ostial disease in LAD LCx grafts-unable to stent-c urrently being medically managed CT chest bilateral lower lobe atelectasis and consolidations with air bronchograms and pleural effusions Admission BNP 40,000 and admission echocardiogram showing reduced EF to 40 to 45% which is new compared to last week echo Patient himself during admission admitted that he did not take medications Pro-Michael is Elevated- currently covered with vancomycin and meropenem for suspected HCAP as recently received antibiotics; blood and sputum cultures pending, bacterial antigens negative-leukocytosis trending down Currently on IV Bumex 1 Mg twice daily-good urine output creatinine 2.8 at baseline-acceptable electrolytes-we will continue to monitor input output, electrolytes- Today's ABG 7.5/34/74/26 on CMV 50%/450/PEEP 8 Patient on aspirin/Plavix/Lipitor/metoprolol/ for CAD/NSTEMI-troponinemia can be secondary to underlying untreated CAD/CHF; continue heparin gtt Endocrinology: For uncontrolled sugars-patient is on Lantus 10 Mg at bedtime and short-acting lispro Currently on Synthyroid 112 mcg daily for hypothyroidism GI prophylaxis: PPI/sucralfate Hematology: Leukocytosis-currently being treated as HCAP-however cultures are pending Failure that ICU CHECKLIST: Problem list updated Verbal orders reviewed and signed Code Status: Limited resuscitation Disposition: ICU Critically ill: Yes MD discussed with: Hospitalist taking care of the patient, RN and RT as per the Analgesia: Opioid Glycemic Control: Insulin Nutrition: N.p.o. for now Restraint Renewal (within 24 hrs): Yes Ulcer Prophylaxis: PPI Chemical Thromboprophylaxis: Prophylaxis: Heparin Mechanical Thromboprophylaxis: Heparin Need for Phillip catheter: Input output monitoring Attestations Medical Necessity Statement*: Patient is still mechanically intubated for operatory failure secondary to fluid overload/HCAP-currently on IV antibiotics as well as diuresis--and needs close ICU monitoring for at least 24 to 48 hours Coding Level of Care Code Acute Code for Chg Fwd Diagnoses Acute respiratory failure with hypoxia and hypercapnia J96.01; J96.02 Acute exacerbation of CHF (congestive heart failure) I50.9 CAD (coronary artery disease) I25.10 FH: CABG (coronary artery bypass surgery) Z82.49 Chronic kidney disease, stage 3 unspecified N18.30 DKA (diabetic ketoacidosis) E11.10 Acute non-ST elevation myocardial infarction (NSTEMI) I21.4 Systolic CHF I50.20 Shock R57.9
[2022-09-11] MEDS: budesonide 0.5 mg/2 mL Neb INHALATION ×2 (09:38→20:03)
[2022-09-11] MEDS: enoxaparin 100 mg/mL Syringe 90 MG SUBCUT (10:17)
[2022-09-11] MEDS: clopidogrel 75 mg Tablet PO (10:17)
[2022-09-11] MEDS: levothyroxine 112 mcg Tablet PO (10:18)
[2022-09-11] MEDS: gabapentin 100 mg Capsule 200 MG PO ×2 (10:18→20:29)
[2022-09-11] MEDS: aspirin 81 mg EC Tablet 162 MG PO (10:18)
[2022-09-11] MEDS: atorvastatin 40 mg Tablet PO (10:18)
[2022-09-11 12:41] LABS: Glucose Point of Care 220 mg/dL (70-110)
[2022-09-11] MEDS: dexmedetomidine 400 MCG in sodium chloride 0.9% (100 ml) 100 ML IV (13:43)
--- NOTE | 2022-09-11 14:14 | PM.PN ---
Subjective Subjective: Patient was seen this morning, remains intubated, sedated on mechanical ventilation, on 50% FiO2, remains normotensive off pressors, afebrile, creatinine 2.8, urine output 2900, Vitals/I&O/Wt Last Vital Signs Temp 98.1 F 09/11/22 08:00 Pulse 71 09/11/22 12:00 Resp 15 09/11/22 13:44 BP 96/58 09/11/22 11:00 Pulse Ox 95 09/11/22 13:44 O2 Del Method Mechanical Ventilation 09/11/22 11:25 O2 Flow Rate 10 09/10/22 02:15 FiO2 40 09/11/22 13:44 09/10/22 09/11/22 09/11/22 22:59 06:59 14:59 Intake Total 557.888 / 593.585 579.318 / 1172.903 Output Total 1600 / 1600 650 / 2250 650 / 650 Balance -1042.112 / -1006.415 -70.682 / -1077.097 -650 / -650 Weight last 48 hrs Weight 88.904 kg Weight 88.904 kg Weight 88.904 kg Weight 90.265 kg Physical Exam Const: COMMON NORMALS: no acute distress HENMT: COMMON NORMALS: normocephalic HEAD & SCALP: normocephalic Resp: COMMON NORMALS: normal respiratory effort, No retractions, No use of accessory muscles and clear to auscultation bilaterally AUSCULTATION: clear to auscultation bilaterally Cardio: COMMON NORMALS: regular rate, regular rhythm, S1 normal heart sound present and S2 normal heart sound present RATE: regular rate RHYTHM: regular rhythm HEART SOUNDS: S1 normal heart sound present and S2 normal heart sound present GI: OTHER: Abdomen is soft, distended, scattered bowel sounds, no guarding, no rebound, no rigidity Extremity: COMMON NORMALS: no pedal edema Urinary Catheter Management: Phillip: Cath Placed During This Visit: yes Reason for Continuing Indwelling Catheter: Accurate Measurement of Urinary Output in Critically Ill Patients Urinary Catheter Date of Insertion: 09/10/22 Urinary Catheter Time of Insertion: 02:35 Data 09/11/22 03:26 09/11/22 03:26 Micro: Microbiology 09/10/22 04:55 Urine Culture - Preliminary Urine,Clean Catch 09/10/22 02:13 Blood Culture - Preliminary Blood NEGATIVE TO DATE 09/10/22 00:50 Blood Culture - Preliminary Blood NEGATIVE TO DATE 09/10/22 08:32 Gram Stain - Final Sputum - Endotracheal Tube Aspirate 09/10/22 04:55 Bacterial Antigens - Final Urine Kidney 09/10/22 04:55 Legionella Urinary Antigen - Final Unknown Source A&P Assessment and plan (1) ARDS (adult respiratory distress syndrome): (2) Acute exacerbation of CHF (congestive heart failure): (3) DKA (diabetic ketoacidosis): (4) Acute non-ST elevation myocardial infarction (NSTEMI): (5) Chronic kidney disease, stage 3 unspecified: (6) Acute respiratory failure with hypoxia and hypercapnia: (7) High anion gap metabolic acidosis: (8) Hyperkalemia: (9) Type 2 diabetes mellitus: Qualifiers: Diabetes mellitus retirement insulin use: without retirement use Diabetes mellitus complication status: with circulatory complication Diabetes mellitus complication detail: with other circulatory complications Qualified Code(s): E11.59 - Type 2 diabetes mellitus with other circulatory complications (10) CAD (coronary artery disease): (11) Systolic CHF: (12) Iron deficiency anemia: Qualifiers: Iron deficiency anemia type: unspecified iron deficiency Qualified Code(s): D50.9 - Iron deficiency anemia, unspecified Plan Acute hypoxic respiratory failure -Secondary to fluid overload, acute systolic CHF exacerbation, pulm edema -Secondary to pneumonia -Secondary to acute respiratory distress syndrome Plan -Minimize tidal volume, minimize FiO2 -Continue intubation, mechanical ventilation -Daily spontaneous breathing trials -Propofol, fentanyl for sedation Acute systolic CHF exacerbation, pulm edema -Bumex 1 mg IV push every 24 hours, add Diamox -Repeat cardiac echo LV systolic function is mild to moderately reduced with EF of 40 ?to 45%. ?Mild to modreate global hypokinesis is noted ?RV function is mild to moderately reduced ?Left atrial enlargement ?Mild tricuspid regurgitation. ?Compared to prior echocardiogram from 08/31/2022, LV and RV ?function is lower Pneumonia -Vancomycin, meropenem -Sputum cultures, blood cultures Acute respiratory distress syndrome -Consult pulmonary Non-ST elevation [place] -Recent history of cath ?1. Severe two-vessel coronary artery disease.? Occluded LAD and circumflex. Occluded bypass graft to the LAD and circumflex. -Continue aspirin, statin, Plavix -Stop heparin drip, 1 dose of therapeutic Lovenox to complete for 48 hours of anticoagulation for NSTEMI, switch to DVT prophylaxis tomorrow Has evidence of iron deficiency anemia -Monitor hemoglobin -Protonix, Carafate Hyperglycemia, with concern for DKA, type 2 diabetes mellitus -Off insulin drip, on subcu insulin Abdominal distention, will monitor Order venous ultrasound negative for DVT Full code Heparin for DVT prophylaxis Spoke to nursing staff, spoke to Dr. Noonan, Attestations Medical Necessity Statement*: Patient requires hospitalization for acute hypoxic respiratory failure, CHF, NSTEMI, pneumonia Coding Level of Care Code Critical Care >/= 30 minutes Critical care time (in minutes): 50 The high probability of a clinically significant, sudden or life threatening deterioration, as referenced in this documentation, required my full and direct attention, intervention and personal management. The critical care time shown is in addition to time spent performing any reported separately billable procedures and includes the following: [x] Data and vital sign review and interpretation [x] Patient assessment, examination and intervention [x] Medication orders and management [x] Patient/Family updates as able [x] Care Coordination and Documentation. 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
[2022-09-11 15:36] LABS: Glucose Point of Care 195 mg/dL (70-110)
[2022-09-11] MEDS: vancomycin 750 MG in sodium chloride 0.9% 250 ML 250 MG IV (15:44)
[2022-09-11 20:13] LABS: Glucose Point of Care 154 mg/dL (70-110)
[2022-09-11] MEDS: acetaZOLAMIDE 250 mg Tablet PO (20:29)
[2022-09-11] MEDS: insulin glargine 100 units/1 mL 10 UNIT SUBCUT (20:42)
--- NOTE | 2022-09-11 20:58 | PC.NURSE ---
Increased RR: RT at bedside w/ RN. Pt is breathing approximately 22 times a minute, over the set RR 12 on the ventilator. Sedation titrated up to prevent over breathing the vent. See MAR for titration.
[2022-09-12] VITALS (106 sets, daily range): BP systolic 90–166; BP diastolic 50–105; PULSE 44–90; RESP 10–23; TEMP 36.2–36.5; O2SAT 86–98
[2022-09-12] MEDS: propofol 1,000 MG/100 ML INJ 16.25 MG IV (02:43)
[2022-09-12] MEDS: sucralfate 1 gm Tablet PO ×3 (02:50→20:58)
[2022-09-12] MEDS: meropenem 1,000 MG in sodium chloride 0.9% (plus) 50 ML 100 MG IV ×2 (02:57→15:43)
[2022-09-12 03:10] LABS: Glucose Point of Care 117 mg/dL (70-110)
[2022-09-12] MEDS: ipratropium-albuterol 3 mL Neb INHALATION ×6 (03:37→23:44)
[2022-09-12] MEDS: pantoprazole 40 mg SDV IVP ×2 (04:36→15:44)
--- NOTE | 2022-09-12 04:39 | PC.NURSE ---
V. Tach: Pt had 6 runs of V.tach ranging from 6 to 12 beats in a 5 minute span. Zoll pads placed on pts chest. Crash cart @bedside. Dr. Mcleod called. New order for amio drip w/ bolus. See paper chart for telemetry strips.
[2022-09-12 04:46] LABS: INR 1.06 (0.8-1.2)
[2022-09-12 04:49] LABS: C Reactive Protein 8.9 mg/L (0.0-4.9)
[2022-09-12 04:50] LABS: Vancomycin Random 10.8 ug/mL (20.0-40.0)
[2022-09-12 04:55] LABS: NT Pro B Type Natriuretic Pept 12321 pg/mL (0-125); Procalcitonin 2.26 ng/mL (0-0.5)
[2022-09-12 04:59] LABS: Alanine Aminotransferase 17 U/L (0-41); Albumin Level 3.1 g/dL (3.5-5.2); Alkaline Phosphatase 81 U/L (40-130); Anion Gap 16.4 (5-19); Aspartate Amino Transferase 11 U/L (0-40); Blood Urea Nitrogen 54 mg/dL (8-23); Calcium 8.5 mg/dL (8.5-10.5); Carbon Dioxide 27 mmol/L (22-29); Chloride 100 mmol/L (98-107); Globulin 2.8 g/dL (1.3-4.6); Glucose 121 mg/dL (65-115); Magnesium 2.7 mg/dL (1.7-2.3); Osmolality Calculated 304 mOsm/kg (285-295); Phosphorus 5.6 mg/dL (2.5-4.5); Potassium 4.4 mmol/L (3.5-5.1); Sodium 139 mmol/L (136-145); Total Bilirubin 0.2 mg/dL (0.15-1.2); Total Protein 5.9 g/dL (6.6-8.7)
[2022-09-12 05:25] LABS: ABG PCO2 39.6 mmHg (35-45); ABG PH Result 7.43 (7.35-7.45); Arterial Blood Gas Hematocrit 35.7 % (42-52); Base Excess ABG 1.9 mmol/L (-2.0-2.0); Blood Gas Allen Test Pos; Blood Gas Operator Identificat JB; Blood Gas Sample Site Radial, right; Blood Gas Sample Type Arterial; Blood Gas Tidal Volume 0.45; HCO3 ABG 26.3 mmol/L (22-26); Oxygen Device VENT; PO2 ABG 83.5 mmHg (80.0-100.0)
[2022-09-12 06:15] LABS: Basophils % 0.1 %; Eosinophils % 0.4 %; Hematocrit 33.2 % (42.0-52.0); Lymphocytes # 1.4 10^3/uL (0.8-4.8); Lymphocytes % 12.5 %; Mean Corpuscular HGB Conc 30.1 g/dL (30.0-36.0); Mean Corpuscular Hemoglobin 27.5 pg (28.0-34.0); Mean Corpuscular Volume 91.2 fl (80-94); Mean Platelet Volume 10.8 fL (7.4-10.4); Monocytes # 0.8 10^3/uL (0.2-0.9); Monocytes % 6.7 %; Neutrophils # 8.96 10^3/uL (1.8-7.7); Neutrophils % 79.9 %; Nucleated Red Blood Cells % 0 %; Platelet Count 327 10^3/cmm (130-400); Red Blood Count 3.64 10^6/uL (4.1-5.3); Red Cell Distribution Width 15.9 % (12.1-15.1); White Blood Count 11.2 10^3/uL (4.0-10.0)
--- NOTE | 2022-09-12 07:00 | XR_ITS ---
WS: [id number] EXAMINATION: XR chest 1V portable [id number] REASON FOR EXAM: sob COMPARISON: 09/11/2022 ORDER DATE: 09/12/2022 6:47 AM TECHNIQUE: A single, portable frontal chest x-ray was obtained. X-RAY FINDINGS: Limitations: Limited exam due to projection. Tubes, catheters and devices: The endotracheal tube is appropriately positioned in the distal thoracic trachea with the tip above the chloe. The nasogastric tube extends beyond the diaphragmatic hiatus. The tip is not imaged. Right PICC line tip is in SVC. Lungs: Ill-defined opacity in the mid to lower lungs bilaterally. This is increased slightly on the l eft compared with previous Pleural spaces: No pneumothorax. Heart/Mediastinum: The cardiac silhouette is mildly enlarged. Mediastinal contours are suboptimally evaluated on this exam. Postsurgical mediastinal change Diaphragm: The hemidiaphragms are partially obscured bilaterally. Bones/joints: Sternal wires are present. There is no displacement to suggest sternal dehiscence. XR/XR chest 1V portable [id number] IMPRESSION: 1. Stable PICC line and endotracheal tube position. 2. Slightly increased left perihilar pulmonary vascular congestion 3. NG tube extends beyond the diaphragm. The tip is not imaged. 4. Ill-defined bilateral lower lung opacity with partial obscuration of the bilateral hemidiaphragms,, consistent pleural effusions.
[2022-09-12] MEDS: bumetanide 0.25 mg/mL SDV 4 mL 1 MG IVP ×2 (08:27→17:06)
[2022-09-12] MEDS: gabapentin 100 mg Capsule 200 MG PO ×2 (08:27→17:07)
[2022-09-12] MEDS: heparin 5,000 unit/mL INJ 1 mL 5000 UNIT SUBCUT ×2 (08:27→20:58)
[2022-09-12] MEDS: clopidogrel 75 mg Tablet PO (08:28)
[2022-09-12] MEDS: levothyroxine 112 mcg Tablet PO (08:28)
[2022-09-12] MEDS: aspirin 81 mg EC Tablet 162 MG PO (08:28)
[2022-09-12] MEDS: atorvastatin 40 mg Tablet PO (08:28)
[2022-09-12] MEDS: budesonide 0.5 mg/2 mL Neb INHALATION ×2 (08:42→19:48)
[2022-09-12 09:07] LABS: Glucose Point of Care 124 mg/dL (70-110)
[2022-09-12] MEDS: propofol 1,000 MG/100 ML INJ 8.12 MG IV (09:57)
[2022-09-12] MEDS: chlordiazePOXIDE 25 mg Capsule PO ×3 (11:02→23:33)
--- NOTE | 2022-09-12 11:54 | PC.NURSE ---
Patient extubated at 1151
[2022-09-12 15:45] LABS: Glucose Point of Care 115 mg/dL (70-110)
--- NOTE | 2022-09-12 16:33 | PM.PN ---
Subjective Subjective: - Patient, was seen this morning, -He is currently intubated, on minimal sedation, he can follow commands, on 30% FiO2, afebrile, normotensive -Patient had episodes of nonsustained V. tach overnight, placed on amiodarone, due to bradycardia amiodarone was stopped -Patient has a history of alcoholism, potentially when SVT is from alcohol withdrawal, will place him on scheduled Librium, CIWA protocol -Patient received spontaneous breathing trials -Patient was extubated -Patient was seen status post extubation, he is alert to person, to place, not to time, he is on nasal cannula, 3 L, no nasal flaring, no intercostal retractions, suprasternal retractions, Vitals/I&O/Wt Last Vital Signs Temp 97.1 F L 09/12/22 08:00 Pulse 69 09/12/22 16:15 Resp 20 H 09/12/22 16:15 BP 139/66 09/12/22 16:15 Pulse Ox 96 09/12/22 16:15 O2 Del Method Nasal Cannula 09/12/22 15:45 O2 Flow Rate 3 09/12/22 15:45 FiO2 40 09/12/22 11:58 09/12/22 09/12/22 09/12/22 06:59 14:59 22:59 Intake Total 344.172 / 1075.975 166.381 / 166.381 50 / 216.381 Output Total 1000 / 1650 2100 / 2100 Balance -655.828 / -574.025 -1933.619 / -1933.619 50 / -1883.619 Weight last 48 hrs Weight 88.904 kg Physical Exam Const: COMMON NORMALS: no acute distress Resp: COMMON NORMALS: normal respiratory effort, No retractions, No use of accessory muscles and clear to auscultation bilaterally AUSCULTATION: clear to auscultation bilaterally Cardio: COMMON NORMALS: regular rate, regular rhythm, S1 normal heart sound present and S2 normal heart sound present RATE: regular rate RHYTHM: regular rhythm HEART SOUNDS: S1 normal heart sound present and S2 normal heart sound present GI: COMMON NORMALS: Normal to inspection, nondistended, normoactive bowel sounds present and non-tender Extremity: COMMON NORMALS: no pedal edema Psych: COMMON NORMALS: mental status grossly normal Urinary Catheter Management: Phillip: Cath Placed During This Visit: yes Reason for Continuing Indwelling Catheter: Accurate Measurement of Urinary Output in Critically Ill Patients Urinary Catheter Date of Insertion: 09/10/22 Urinary Catheter Time of Insertion: 02:35 Data 09/12/22 06:08 09/12/22 03:30 Micro: Microbiology 09/10/22 08:32 Gram Stain - Final Sputum - Endotracheal Tube Aspirate Sputum Culture - Final 09/10/22 04:55 Urine Culture - Final Urine,Clean Catch Yeast species A&P Assessment and plan (1) ARDS (adult respiratory distress syndrome): (2) Acute exacerbation of CHF (congestive heart failure): (3) DKA (diabetic ketoacidosis): (4) Acute non-ST elevation myocardial infarction (NSTEMI): (5) Chronic kidney disease, stage 3 unspecified: (6) Acute respiratory failure with hypoxia and hypercapnia: (7) High anion gap metabolic acidosis: (8) Hyperkalemia: (9) Type 2 diabetes mellitus: Qualifiers: 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: without [place] [facility] use Diabetes mellitus complication status: with circulatory complication Diabetes mellitus complication detail: with other circulatory complications Qualified Code(s): E11.59 - Type 2 diabetes mellitus with other circulatory complications (10) CAD (coronary artery disease): (11) Systolic CHF: (12) Iron deficiency anemia: Qualifiers: Iron deficiency anemia type: unspecified iron deficiency Qualified Code(s): D50.9 - Iron deficiency anemia, unspecified (13) Alcohol withdrawal: (14) NSVT (nonsustained ventricular tachycardia): Plan Acute hypoxic respiratory failure -Secondary to fluid overload, acute systolic CHF exacerbation, pulm edema -Secondary to pneumonia -Secondary to acute respiratory distress syndrome -Status post extubation 09/12/2022, on 3 L Plan -Monitor respiratory status closely Acute systolic CHF exacerbation, pulm edema -Bumex 1 mg IV push every 24 hours, last dose Diamox yesterday -Repeat cardiac echo LV systolic function is mild to moderately reduced with EF of 40 ?to 45%. ?Mild to modreate global hypokinesis is noted ?RV function is mild to moderately reduced ?Left atrial enlargement ?Mild tricuspid regurgitation. ?Compared to prior echocardiogram from 08/31/2022, LV and RV ?function is lower Pneumonia -Vancomycin, meropenem -Sputum cultures, blood cultures Acute respiratory distress syndrome -Pulmonary on consult Non-ST elevation [place] -Recent history of cath ?1. Severe two-vessel coronary artery disease.? Occluded LAD and circumflex. Occluded bypass graft to the LAD and circumflex. -Continue aspirin, statin, Plavix -Status post 48 hours of full dose anticoagulation Has evidence of iron deficiency anemia -Monitor hemoglobin -Protonix, Carafate Hyperglycemia, with concern for DKA, type 2 diabetes mellitus -Off insulin drip, on subcu insulin Abdominal distention, will monitor Order venous ultrasound negative for DVT Nonsustained V. tach, monitor Alcohol withdrawal, scheduled Librium 25 every 6 hours, CIWA protocol Full code Heparin for DVT prophylaxis Spoke to nursing staff, spoke to Dr. Noonan, Attestations Medical Necessity Statement*: Patient requires hospitalization for respiratory failure, nonsustained V. tach, pneumonia, respiratory distress, alcohol withdrawal Coding Level of Care Code Critical Care >/= 30 minutes Critical care time (in minutes): 45 The high probability of a clinically significant, sudden or life threatening deterioration, as referenced in this documentation, required my full and direct attention, intervention and personal management. The critical care time shown is in addition to time spent performing any reported separately billable procedures and includes the following: [x] Data and vital sign review and interpretation [x] Patient assessment, examination and intervention [x] Medication orders and management [x] Patient/Family updates as able [x] Care Coordination and Documentation. Diagnoses ARDS (adult respiratory distress syndrome) J80 Acute exacerbation of CHF (congestive heart failure) I50.9 DKA (diabetic ketoacidosis) E11.10 Acute non-ST elevation myocardial infarction (NSTEMI) I21.4 Chronic kidney disease, stage 3 unspecified N18.30 Acute respiratory failure with hypoxia and hypercapnia J96.01; J96.02 High anion gap metabolic acidosis E87.29 Hyperkalemia E87.5 Type 2 diabetes mellitus E11.59 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: without [place] [facility] use Diabetes mellitus complication status: with circulatory complication Diabetes mellitus complication detail: with other circulatory complications CAD (coronary artery disease) I25.10 Systolic CHF I50.20 Iron deficiency anemia D50.9 Iron deficiency anemia type: unspecified iron deficiency Alcohol withdrawal F10.939 NSVT (nonsustained ventricular tachycardia) I47.29
[2022-09-12] MEDS: metoprolol tartrate 50 mg Tablet 25 MG PO (17:07)
[2022-09-12 20:28] LABS: Glucose Point of Care 199 mg/dL (70-110)
--- NOTE | 2022-09-12 20:47 | P.PN_ITS ---
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, tolerated spontaneous breathing trial, following commands on minimal sedation-recommended to extubate to BiPAP -He tolerated extubation well-later switched to 3 L nasal cannula in the evening -Abdomen still distended no BM yet-we will do senna during night -Yesterday night he had episodes of nonsustained VT-started on amiodarone-early hours he has bradycardia in 40s-discontinued amiodarone -Patient has history of significant alcohol abuse history-placed on CIWA protocol -Discontinue Diamox and switch to Other labs and imaging reviewed Bumex 1 Mg twice daily Medications: Reviewed: Yes Vitals/I&O/Wt Last Vital Signs Temp 97.1 F L 09/12/22 08:00 Pulse 67 09/12/22 19:50 Resp 20 H 09/12/22 19:48 BP 137/99 09/12/22 17:45 Pulse Ox 97 09/12/22 19:50 O2 Del Method BiPAP 09/12/22 19:48 O2 Flow Rate 40 09/12/22 19:48 FiO2 40 09/12/22 19:50 09/12/22 09/12/22 09/12/22 06:59 14:59 22:59 Intake Total 344.172 / 1075.975 166.381 / 166.381 50 / 216.381 Output Total 1000 / 1650 2100 / 2100 1550 / 3650 Balance -655.828 / -574.025 -1933.619 / -1933.619 -1500 / -3433.619 Weight last 48 hrs Weight 196 lb Physical Exam Narrative: PHYSICAL EXAM: General: lying in bed, extubated and awake following commands-not in acute respiratory distress HEENT:NCAT, PERRLA, EOMI Neck: Supple Lungs: Mild bilateral diffuse crackles Heart: s1/s2, RRR Abd: soft, NT, ND, BS + Normoactive Extremities: No edema D[employer]EL [employer]CH[employer]IC: Following commands, no gross FND SKIN: no rash Urinary Catheter Management: Phillip: Cath Placed During This Visit: yes Reason for Continuing Indwelling Catheter: Accurate Measurement of Urinary Output in Critically Ill Patients Urinary Catheter Date of Insertion: 09/10/22 Urinary Catheter Time of Insertion: 02:35 Data 09/12/22 06:08 09/12/22 03:30 Other Labs: Radiology Impressions Chest CT 09/10/22 04:00 IMPRESSION: 1. Exam compared with 10 days ago. 2. From that time, increasing areas of bilateral mid to lower lung atelectasis or developing pneumonia/ARDS. Increasing at least small bilateral pleural effusions. 3. No pneumothorax. 4. Multiple chronic findings again noted. KUB X-Ray 09/10/22 09:08 IMPRESSION: Gaseous distention. Abdomen/Pelvis CT 09/10/22 11:51 IMPRESSION: 1. No acute intra-abdominal findings. 2. Bilateral pleural effusions and compressive atelectasis in the lower lungs. 3. Incidental findings above. COMMENTS: Consistent with the [employer]'s Incidental Findings Committee white paper (J Am Elva Radiol 2018): Any incidental renal lesion less than 1 cm or classified as too small to characterize, or any incidental cystic renal lesion characterized as simple-appearing, is likely benign. No follow-up imaging is recommended for these lesions per consensus recommendations based on imaging criteria. ADDENDUM: 09/10/22 [id number] Correction: There is a low-density 8 mm adrenal nodule on the left consistent with a benign lipid rich adenoma. Chest X-Ray 09/12/22 07:00 IMPRESSION: 1. Stable PICC line and endotracheal tube position. 2. Slightly increased left perihilar pulmonary vascular congestion 3. NG tube extends beyond the diaphragm. The tip is not imaged. 4. Ill-defined bilateral lower lung opacity with partial obscuration of the bilateral hemidiaphragms,, consistent pleural effusions. Laboratory Results WBC 11.2 10^3/uL (4.0-10.0) H 09/12/22 06:08 Corrected WBC Cancelled 09/12/22 03:30 RBC 3.64 10^6/uL (4.1-5.3) L 09/12/22 06:08 Hgb 10.0 g/dL (11.7-16.6) L 09/12/22 06:08 Hct 33.2 % (42.0-52.0) L 09/12/22 06:08 MCV 91.2 fl (80-94) 09/12/22 06:08 MCH 27.5 pg (28.0-34.0) L 09/12/22 06:08 MCHC 30.1 g/dL (30.0-36.0) 09/12/22 06:08 RDW 15.9 % (12.1-15.1) H 09/12/22 06:08 Plt Count 327 10^3/cmm (130-400) 09/12/22 06:08 MPV 10.8 fL (7.4-10.4) H 09/12/22 06:08 Gran % Cancelled 09/12/22 03:30 Neut % (Auto) 79.9 % 09/12/22 06:08 Lymph % (Auto) 12.5 % 09/12/22 06:08 [place] % (Auto) 6.7 % 09/12/22 06:08 Eos % (Auto) 0.4 % 09/12/22 06:08 Baso % (Auto) 0.1 % 09/12/22 06:08 Neut # (Auto) 8.96 10^3/uL (1.8-7.7) H 09/12/22 06:08 Lymph # (Auto) 1.4 10^3/uL (0.8-4.8) 09/12/22 06:08 [place] # (Auto) 0.8 10^3/uL (0.2-0.9) 09/12/22 06:08 Eos # (Auto) 0.0 10^3/uL (0.0-0.8) 09/12/22 06:08 Baso # (Auto) 0.0 10^3/uL (0.0-0.1) 09/12/22 06:08 Absolute Gran (auto) Cancelled 09/12/22 03:30 Nucleated RBC % (auto) 0 % 09/12/22 06:08 Nucleated RBCs # 0.0 /100WBC 09/12/22 06:08 PT 14.20 SECONDS (12.1-14.9) 09/12/22 03:30 INR 1.06 (0.8-1.2) 09/12/22 03:30 APTT 76.3 SECONDS (23.9-36.7) H 09/11/22 03:26 D-Dimer 3.36 ug/mIFEU (0-0.59) H 09/10/22 00:50 Specimen Type Arterial 09/12/22 04:50 Sample Site Radial, right 09/12/22 04:50 ABG pH 7.43 (7.35-7.45) 09/12/22 04:50 ABG pCO2 39.6 mmHg (35-45) 09/12/22 04:50 ABG pO2 83.5 mmHg (80.0-100.0) 09/12/22 04:50 ABG HCO3 26.3 mmol/L (22-26) H 09/12/22 04:50 ABG Base Excess 1.9 mmol/L (-2.0-2.0) 09/12/22 04:50 Sulaiman Test Pos 09/12/22 04:50 Hematocrit 35.7 % (42-52) L 09/12/22 04:50 Hgb O2 Saturation 93.8 % (95-100) L 09/10/22 00:32 Carboxyhemoglobin 0.2 %THgb (0.4-20.1) L 09/10/22 00:32 Methemoglobin 0.7 % (0.4-1.5) 09/10/22 00:32 Total Hemoglobin 13.4 g/dL (14-18) L 09/10/22 00:32 O2 Delivery Device Vent 09/12/22 04:50 FiO2 30.0 % 09/12/22 04:50 Tidal Volume 0.45 09/12/22 04:50 PEEP 8.0 cmH20 09/12/22 04:50 Director Of Fundraising ID Tera 09/12/22 04:50 Sodium 139 mmol/L (136-145) 09/12/22 03:30 Potassium 4.4 mmol/L (3.5-5.1) 09/12/22 03:30 Chloride 100 mmol/L (98-107) 09/12/22 03:30 Carbon Dioxide 27 mmol/L (22-29) 09/12/22 03:30 Anion Gap 16.4 (5-19) 09/12/22 03:30 BUN 54 mg/dL (8-23) H 09/12/22 03:30 Creatinine 2.6 mg/dL (0.7-1.2) H 09/12/22 03:30 GFR Calculation Not Reportable 09/12/22 03:30 Glucose 121 mg/dL (65-115) H 09/12/22 03:30 POC Glucose 199 mg/dL (70-110) H 09/12/22 20:23 Calculated Osmolality 304 mOsm/kg (285-295) H 09/12/22 03:30 Calcium 8.5 mg/dL (8.5-10.5) 09/12/22 03:30 Phosphorus 5.6 mg/dL (2.5-4.5) H 09/12/22 03:30 Magnesium 2.7 mg/dL (1.7-2.3) H 09/12/22 03:30 Iron 37 ug/dL (59-158) L 09/10/22 00:15 TIBC 369 mcg/dl 09/10/22 00:15 % Saturation 10.0 % (20-50) L 09/10/22 00:15 Unsat Iron Binding 332 ug/dL (112-347) 09/10/22 00:15 Total Bilirubin 0.2 mg/dL (0.15-1.2) 09/12/22 03:30 AST 11 U/L (0-40) 09/12/22 03:30 ALT 17 U/L (0-41) 09/12/22 03:30 Alkaline Phosphatase 81 U/L (40-130) 09/12/22 03:30 Troponin T Baseline 2014 ng/L (0-15) H* 09/10/22 00:50 Troponin T 120 Minute 1688 ng/L (0-15) H 09/10/22 04:50 Delta Troponin T -326 ABS# (0-10) L 09/10/22 04:50 Troponin T Hi Sens 6Hr 1751 ng/L (0-15) H 09/10/22 07:59 Troponin T Hi Sens 6Hr Delta -263 ng/L (0-12) L 09/10/22 07:59 C-Reactive Protein 8.9 mg/L (0.0-4.9) H 09/12/22 03:30 NT-Pro-B Natriuret Pep 78230 pg/mL (0-125) H 09/12/22 03:30 Total Protein 5.9 g/dL (6.6-8.7) L 09/12/22 03:30 Albumin 3.1 g/dL (3.5-5.2) L 09/12/22 03:30 Globulin 2.8 g/dL (1.3-4.6) 09/12/22 03:30 Vitamin B12 309 pg/mL (232-1245) 09/10/22 00:15 Folate 10.6 ng/mL (4.5-32.2) 09/11/22 03:26 Procalcitonin 2.26 ng/mL (0-0.5) H 09/12/22 03:30 Urine Color Yellow (Yellow) 09/10/22 04:55 Urine Appearance Clear (CLEAR) 09/10/22 04:55 Urine pH 5 (5-7) 09/10/22 04:55 Ur Specific [place] 1.015 (1.005-1.030) 09/10/22 04:55 Urine Protein Trace (Negative) 09/10/22 04:55 Urine Glucose (UA) 4+ (Normal) H 09/10/22 04:55 Urine Ketones Negative (Negative) 09/10/22 04:55 Urine Blood Neg (Negative) 09/10/22 04:55 Urine Nitrate Negative (Negative) 09/10/22 04:55 Urine Bilirubin Neg (Negative) 09/10/22 04:55 Urine Urobilinogen Neg mg/dL (Negative) 09/10/22 04:55 Ur Leukocyte Esterase Negative (Negative) 09/10/22 04:55 Urine RBC None /hpf (0-2) 09/10/22 04:55 Urine WBC None /hpf (0-5) 09/10/22 04:55 Ur Squamous Epith Cells None /hpf (0-5) 09/10/22 04:55 Amorphous Sediment Not Reportable 09/10/22 04:55 Urine Bacteria Trace /hpf (NONE) 09/10/22 04:55 Urine Yeast 2+ /hpf H 09/10/22 04:55 Nasal Influ A H1 2009 PCR Not detected (NOT DETECT) 09/10/22 19:29 Random Vancomycin 10.8 ug/mL (20.0-40.0) L 09/12/22 03:30 Serum Ketones Negative (Negative) 09/10/22 00:50 Adenovirus (PCR) Not detected (NOT DETECT) 09/10/22 19:29 C. pneumoniae DNA (PCR) Not detected (NOT DETECT) 09/10/22 19:29 Coronavirus 229E (PCR) Not detected (NOT DETECT) 09/10/22 19:29 Human Metapneumovir PCR Not detected (NOT DETECT) 09/10/22 19:29 Influenza A (H1) PCR Not detected (NOT DETECT) 09/10/22 19:29 Influenza A (H3) PCR Not detected (NOT DETECT) 09/10/22 19:29 Influenza Type A (PCR) Not detected (NOT DETECT) 09/10/22 19:29 Influenza Type B (PCR) Not detected (NOT DETECT) 09/10/22 19:29 M. pneumoniae (PCR) Not detected (NOT DETECT) 09/10/22 19:29 Parainfluenza 1 (PCR) Not detected (NOT DETECT) 09/10/22 19:29 Parainfluenza 2 (PCR) Not detected (NOT DETECT) 09/10/22 19:29 Parainfluenza 3 (PCR) Not detected (NOT DETECT) 09/10/22 19:29 Parainfluenza 4 (PCR) Not detected (NOT DETECT) 09/10/22 19:29 RSV Type A (PCR) Not detected (NOT DETECT) 09/10/22 19:29 RSV Type B (PCR) Not detected (NOT DETECT) 09/10/22 19:29 Entero/Rhino (PCR) Not detected (NOT DETECT) 09/10/22 19:29 SARS-CoV-2 (PCR) Not detected (NOT DETECT) 09/10/22 19:29 Micro: Microbiology 09/10/22 08:32 Gram Stain - Final Sputum - Endotracheal Tube Aspirate Sputum Culture - Final 09/10/22 04:55 Urine Culture - Final Urine,Clean Catch Yeast species A&P Assessment and plan (1) Acute respiratory failure with hypoxia and hypercapnia: (2) Acute exacerbation of CHF (congestive heart failure): (3) CAD (coronary artery disease): (4) FH: CABG (coronary artery bypass surgery): (5) Chronic kidney disease, stage 3 unspecified: (6) DKA (diabetic ketoacidosis): (7) Acute non-ST elevation myocardial infarction (NSTEMI): (8) Systolic CHF: (9) Shock: Plan Neuro: Sedation: Off sedation-tolerated extubation well-follows commands previous history of diabetic neuropathy: Patient is on Neurontin 200 Mg p.o. twice daily- #History of alcohol abuse -Currently on CIWA protocol Pulmonary/cardiac/renal: Acute systolic CHF in patient with severe underlying CAD s/p CABG and occluded bypass grafts unable to stent/possible HCAP/ Acute hypoxic hypercapnic respiratory failure most likely secondary to fluid overload due to CHF exacerbation and patient with significant CAD s/p bypass- recent cardiac cath showing ostial disease in LAD LCx grafts-unable to stent- currently being medically managed CT chest bilateral lower lobe atelectasis and consolidations with air bronchograms and pleural effusions Admission BNP 40,000 and admission echocardiogram showing reduced EF to 40 to 45% which is new compared to last week echo Patient himself during admission admitted that he did not take medications Pro-Michael is Elevated- currently covered with vancomycin and meropenem for suspected HCAP as recently received antibiotics; blood and sputum cultures pending, bacterial antigens negative-leukocytosis trending down; urine cultures grew yeast He tolerated spontaneous trial-extubated to BiPAP today-recheck during the evening he is doing well on 3 L nasal cannula Chest x-ray still appears slightly congested-we will discontinue Diamox and increase Bumex to 1 Mg twice daily-good urine output Renal functions at baseline-acceptable electrolytes-we will continue to monitor input output, electrolytes- Patient on aspirin/Plavix/Lipitor/metoprolol/ for CAD/NSTEMI-troponinemia can be secondary to underlying untreated CAD/CHF; continue heparin gtt Recommended bedside swallow evaluation and start on clear liquids and advance as tolerated #Patient had episodes of sustained VT yesterday night-started on amiodarone- today morning he had bradycardia episodes -Discontinued amiodarone -Patient has history of alcohol abuse advair and will monitor for alcohol withdrawal syndrome, placed on the CIWA protocol Endocrinology: For uncontrolled sugars-patient is on Lantus 10 Mg at bedtime and short-acting lispro Currently on Synthyroid 112 mcg daily for hypothyroidism GI prophylaxis: PPI/sucralfate Hematology: Leukocytosis-currently being treated as HCAP-however cultures are pending and on broad-spectrum antibiotics-leukocytosis is trending down Failure that ICU CHECKLIST: Problem list updated Verbal orders reviewed and signed Code Status: Limited resuscitation Disposition: ICU Critically ill: Yes MD discussed with: Hospitalist taking care of the patient, RN and RT as per the Analgesia: Opioid Glycemic Control: Insulin Nutrition: After swallow evaluation can start clear liquids and advance as tolerated Restraint Renewal (within 24 hrs): Yes Ulcer Prophylaxis: PPI Chemical Thromboprophylaxis: Prophylaxis: Heparin Mechanical Thromboprophylaxis: Heparin Need for Phillip catheter: Input output monitoring Attestations Medical Necessity Statement*: Patient is extubated to BiPAP tonight We are going to monitor for the next 24 hours in ICU and can transfer to floor if clinically stable Time Spent in Patient Care: Greater than 35 minutes (>than 50% of time spent in counselling and/or direct pt care on unit) . Critical Care Time: The high probability of a clinically significant, sudden or life threatening deterioration of the patient's [neurological, pulmonary, cardiac, endocrine, renal] system(s) required my full and direct attention, intervention and personal management. The critical care time is as shown. This time is in addition to time spent performing any reported procedures but includes the following: [x] Data and vital sign review and interpretation [x] Patient assessment, examination and intervention [x] Documentation [x] Medication orders and management Critical Care Time (min): 66 Coding Level of Care Code 13360 Diagnoses Acute respiratory failure with hypoxia and hypercapnia J96.01; J96.02 Acute exacerbation of CHF (congestive heart failure) I50.9 CAD (coronary artery disease) I25.10 FH: CABG (coronary artery bypass surgery) Z82.49 Chronic kidney disease, stage 3 unspecified N18.30 DKA (diabetic ketoacidosis) E11.10 Acute non-ST elevation myocardial infarction (NSTEMI) I21.4 Systolic CHF I50.20 Shock R57.9 Time Spent (min) 66
[2022-09-12] MEDS: insulin lispro 100 unit/1 mL SUBCUT (20:57)
[2022-09-12] MEDS: insulin glargine 100 units/1 mL 10 UNIT SUBCUT (20:57)
--- NOTE | 2022-09-12 22:28 | PC.NURSE ---
Addendum entered by Vianey Kirby RN 09/13/22 05:26: Witnessed wasted medications listed below with AVA Sanchez Original Note: The following medications were removed from bedside and wasted. Waste witnessed by Tiana (Charge nurse) Fentanyl 140mls Precedex 80mls Propofol 95mls
[2022-09-13] VITALS (84 sets, daily range): BP systolic 108–149; BP diastolic 51–100; PULSE 55–79; RESP 12–31; TEMP 36.3–37.1; O2SAT 24–99; BMI 32.9
[2022-09-13] MEDS: sucralfate 1 gm Tablet PO ×4 (03:19→20:55)
[2022-09-13] MEDS: vancomycin 750 MG in sodium chloride 0.9% 250 ML 250 MG IV (03:21)
[2022-09-13] MEDS: pantoprazole 40 mg SDV IVP ×2 (03:23→15:12)
[2022-09-13] MEDS: meropenem 1,000 MG in sodium chloride 0.9% (plus) 50 ML 100 MG IV (03:23)
[2022-09-13] MEDS: ipratropium-albuterol 3 mL Neb INHALATION ×5 (03:44→20:13)
[2022-09-13 03:55] LABS: Basophils % 0.1 %; Eosinophils # 0.2 10^3/uL (0.0-0.8); Eosinophils % 1.8 %; Lymphocytes % 8.5 %; Mean Corpuscular HGB Conc 30.8 g/dL (30.0-36.0); Mean Corpuscular Volume 90.9 fl (80-94); Mean Platelet Volume 10.7 fL (7.4-10.4); Monocytes # 0.9 10^3/uL (0.2-0.9); Monocytes % 7.8 %; Neutrophils # 9.25 10^3/uL (1.8-7.7); Neutrophils % 81.4 %; Nucleated Red Blood Cells % 0 %; Platelet Count 407 10^3/cmm (130-400); Red Blood Count 4.29 10^6/uL (4.1-5.3); Red Cell Distribution Width 15.6 % (12.1-15.1); White Blood Count 11.4 10^3/uL (4.0-10.0)
[2022-09-13 04:01] LABS: Glucose Point of Care 131 mg/dL (70-110)
[2022-09-13 04:04] LABS: INR 1.03 (0.8-1.2)
[2022-09-13 04:19] LABS: Alanine Aminotransferase 19 U/L (0-41); Albumin Level 3.7 g/dL (3.5-5.2); Alkaline Phosphatase 96 U/L (40-130); Anion Gap 18.6 (5-19); Aspartate Amino Transferase 22 U/L (0-40); Blood Urea Nitrogen 51 mg/dL (8-23); Calcium 9.1 mg/dL (8.5-10.5); Carbon Dioxide 27 mmol/L (22-29); Chloride 99 mmol/L (98-107); Globulin 2.9 g/dL (1.3-4.6); Glucose 130 mg/dL (65-115); Magnesium 2.7 mg/dL (1.7-2.3); Osmolality Calculated 305 mOsm/kg (285-295); Phosphorus 5.6 mg/dL (2.5-4.5); Potassium 4.6 mmol/L (3.5-5.1); Sodium 140 mmol/L (136-145); Total Bilirubin 0.4 mg/dL (0.15-1.2); Total Protein 6.6 g/dL (6.6-8.7)
[2022-09-13 04:22] LABS: Vancomycin Random 7.1 ug/mL (20.0-40.0)
[2022-09-13 04:26] LABS: Procalcitonin 1.16 ng/mL (0-0.5)
[2022-09-13] MEDS: chlordiazePOXIDE 25 mg Capsule PO ×2 (04:51→17:48)
[2022-09-13 06:08] LABS: C Reactive Protein 33.5 mg/L (0.0-4.9)
[2022-09-13] MEDS: budesonide 0.5 mg/2 mL Neb INHALATION ×2 (07:51→20:12)
[2022-09-13 08:01] LABS: Glucose Point of Care 123 mg/dL (70-110)
--- NOTE | 2022-09-13 08:05 | XR_ITS ---
WS: [id number] EXAMINATION: XR chest 1V portable [id number] REASON FOR EXAM: Post extubation, pneumonia, CHF COMPARISON: 09/12/2022 ORDER DATE: 09/13/2022 8:23 AM TECHNIQUE: A single, portable frontal chest x-ray was obtained. X-RAY FINDINGS: The endotracheal and nasogastric tubes removed. Right PICC line tip is in SVC. Lungs: Significantly decreased opacities in the mid to lower lungs bilaterally. Pleural spaces: No pneumothorax. Suspect small pleural effusions accounting for some of the residual basal opacity Heart/Mediastinum: The cardiac silhouette is mildly enlarged. Postsurgical mediastinal change . Bones/joints: Sternal wires are present. There is no displacement to suggest sternal dehiscence. XR/XR chest 1V portable [id number] IMPRESSION: 1. Stable PICC line . 2. Clearing of pulmonary vascular congestion 3. Remaining partial obscuration of the bilateral hemidiaphragms,, consistent with pleural effusions.
[2022-09-13] MEDS: sennosides-docusate Tablet 2 TAB PO (08:25)
[2022-09-13] MEDS: gabapentin 100 mg Capsule 200 MG PO ×2 (08:25→17:48)
[2022-09-13] MEDS: atorvastatin 40 mg Tablet PO (08:26)
[2022-09-13] MEDS: aspirin 81 mg EC Tablet 162 MG PO (08:26)
[2022-09-13] MEDS: clopidogrel 75 mg Tablet PO (08:26)
[2022-09-13] MEDS: metoprolol tartrate 50 mg Tablet 25 MG PO ×2 (08:26→17:47)
[2022-09-13] MEDS: polyethylene glycol 3350 Pkt 17 gm PO (08:27)
[2022-09-13] MEDS: heparin 5,000 unit/mL INJ 1 mL 5000 UNIT SUBCUT ×2 (08:27→20:56)
[2022-09-13] MEDS: levothyroxine 112 mcg Tablet PO (08:27)
[2022-09-13] MEDS: bumetanide 0.25 mg/mL SDV 4 mL 1 MG IVP (08:27)
--- NOTE | 2022-09-13 10:59 | PM.PN ---
Subjective Subjective: Patient was seen this morning, he is currently on BiPAP, alert to person, alert to place, not to time, follows commands, denies shortness of breath, no chest pain Vitals/I&O/Wt Last Vital Signs Temp 97.9 F 09/13/22 09:15 Pulse 72 09/13/22 10:00 Resp 14 09/13/22 10:00 BP 149/69 09/13/22 10:00 Pulse Ox 95 09/13/22 09:45 O2 Del Method Nasal Cannula 09/13/22 09:15 O2 Flow Rate 3 09/13/22 09:15 FiO2 40 09/13/22 07:53 09/12/22 09/13/22 09/13/22 22:59 06:59 14:59 Intake Total 50 / 216.381 300 / 516.381 300 / 300 Output Total 2950 / 5050 600 / 5650 400 / 400 Balance -2900 / -4833.619 -300 / -5133.619 -100 / -100 Physical Exam Const: COMMON NORMALS: no acute distress Resp: COMMON NORMALS: normal respiratory effort, No retractions, No use of accessory muscles and clear to auscultation bilaterally AUSCULTATION: clear to auscultation bilaterally Cardio: COMMON NORMALS: regular rate, regular rhythm, S1 normal heart sound present and S2 normal heart sound present RATE: regular rate RHYTHM: regular rhythm HEART SOUNDS: S1 normal heart sound present and S2 normal heart sound present GI: COMMON NORMALS: Normal to inspection, nondistended, normoactive bowel sounds present and non-tender Extremity: COMMON NORMALS: no pedal edema Urinary Catheter Management: Phillip: Cath Placed During This Visit: yes Reason for Continuing Indwelling Catheter: Accurate Measurement of Urinary Output in Critically Ill Patients Urinary Catheter Date of Insertion: 09/10/22 Urinary Catheter Time of Insertion: 02:35 Data 09/13/22 03:15 09/13/22 03:15 Micro: Microbiology 09/10/22 08:32 Gram Stain - Final Sputum - Endotracheal Tube Aspirate Sputum Culture - Final 09/10/22 04:55 Urine Culture - Final Urine,Clean Catch Yeast species A&P Assessment and plan (1) ARDS (adult respiratory distress syndrome): (2) Acute exacerbation of CHF (congestive heart failure): (3) DKA (diabetic ketoacidosis): (4) Acute non-ST elevation myocardial infarction (NSTEMI): (5) Chronic kidney disease, stage 3 unspecified: (6) Acute respiratory failure with hypoxia and hypercapnia: (7) High anion gap metabolic acidosis: (8) Hyperkalemia: (9) Type 2 diabetes mellitus: Qualifiers: Diabetes mellitus jail insulin use: without jail use Diabetes mellitus complication status: with circulatory complication Diabetes mellitus complication detail: with other circulatory complications Qualified Code(s): E11.59 - Type 2 diabetes mellitus with other circulatory complications (10) CAD (coronary artery disease): (11) Systolic CHF: (12) Iron deficiency anemia: Qualifiers: Iron deficiency anemia type: unspecified iron deficiency Qualified Code(s): D50.9 - Iron deficiency anemia, unspecified (13) Alcohol withdrawal: (14) NSVT (nonsustained ventricular tachycardia): Plan Acute hypoxic respiratory failure -Secondary to fluid overload, acute systolic CHF exacerbation, pulm edema -Secondary to pneumonia -Secondary to acute respiratory distress syndrome -Status post extubation 09/12/2022, on 3 L Plan -Monitor respiratory status closely -We will move to cardiac stepdown unit Acute systolic CHF exacerbation, pulm edema -Bumex 1 mg IV push every 24 hours, negative 9L -Repeat cardiac echo LV systolic function is mild to moderately reduced with EF of 40 ?to 45%. ?Mild to modreate global hypokinesis is noted ?RV function is mild to moderately reduced ?Left atrial enlargement ?Mild tricuspid regurgitation. ?Compared to prior echocardiogram from 08/31/2022, LV and RV ?function is lower Pneumonia -Vancomycin, meropenem, will desscalte -Sputum cultures, blood cultures Acute respiratory distress syndrome -Pulmonary on consult Non-ST elevation CA -Recent history of cath ?1. Severe two-vessel coronary artery disease.? Occluded LAD and circumflex. Occluded bypass graft to the LAD and circumflex. -Continue aspirin, statin, Plavix -Status post 48 hours of full dose anticoagulation Has evidence of iron deficiency anemia -Monitor hemoglobin -Protonix, Carafate Hyperglycemia, with concern for DKA, type 2 diabetes mellitus -Off insulin drip, on subcu insulin Abdominal distention, will monitor Order venous ultrasound negative for DVT Nonsustained V. tach, monitor Alcohol withdrawal, scheduled Librium 25 every 6 hours, CIWA protocol Full code Heparin for DVT prophylaxis Spoke to nursing staff, spoke to Dr. Noonan, speech therapy holger, PT OT, up out of bed moved to CSU, de-escalate antibiotic therapy Attestations Medical Necessity Statement*: Patient requires hospitalization for respiratory failure, CHF, pneumonia, requiring diuresis, antibiotic therapy Diagnoses ARDS (adult respiratory distress syndrome) J80 Acute exacerbation of CHF (congestive heart failure) I50.9 DKA (diabetic ketoacidosis) E11.10 Acute non-ST elevation myocardial infarction (NSTEMI) I21.4 Chronic kidney disease, stage 3 unspecified N18.30 Acute respiratory failure with hypoxia and hypercapnia J96.01; J96.02 High anion gap metabolic acidosis E87.29 Hyperkalemia E87.5 Type 2 diabetes mellitus E11.59 Diabetes mellitus intermediate card tender insulin use: without jail use Diabetes mellitus complication status: with circulatory complication Diabetes mellitus complication detail: with other circulatory complications CAD (coronary artery disease) I25.10 Systolic CHF I50.20 Iron deficiency anemia D50.9 Iron deficiency anemia type: unspecified iron deficiency Alcohol withdrawal F10.939 NSVT (nonsustained ventricular tachycardia) I47.29
--- NOTE | 2022-09-13 11:24 | PC.SOCIAL ---
IMM update IMM updated with patient. Verbalized an understanding. Copy Pg 2 provided. Initialled, dated, timed, and placed in chart.
--- NOTE | 2022-09-13 13:06 | PC.NURSE ---
Addendum entered by Jayme Alcantar RN 09/13/22 13:33: Patient being transferred to CSU 106. Report given to Negra. SO far shift in ICU this morning has been uneventful. Patient has been alert to person, place, time, and situation. Up to a chair for about 4 hours, 1300mL of urine output so far. Belongings sent with patient included shorts, a wallet, and a watch. Original Note: Patient being transferred to CSU 106. Report given to Negra. SO far shift in ICU this morning has been uneventful. Patient has been alert to person, place, time, and situation. Up to a chair for about 4 hours, 1300mL of urine output so far.
--- NOTE | 2022-09-13 15:04 | P.PN_ITS ---
Subjective Subjective: Patient clinically doing much better Currently on BiPAP alert to person place He can be transferred out of ICU Medications: Reviewed: Yes Vitals/I&O/Wt Last Vital Signs Temp 97.4 F L 09/13/22 12:15 Pulse 74 09/13/22 12:45 Resp 16 09/13/22 12:45 BP 144/51 09/13/22 12:45 Pulse Ox 90 09/13/22 12:45 O2 Del Method Room Air 09/13/22 12:15 O2 Flow Rate 3 09/13/22 11:29 FiO2 40 09/13/22 07:53 09/13/22 09/13/22 09/13/22 06:59 14:59 22:59 Intake Total 300 / 516.381 900 / 900 Output Total 600 / 5650 1300 / 1300 Balance -300 / -5133.619 -400 / -400 Physical Exam Narrative: PHYSICAL EXAM: General: lying in bed, following commands-not in acute respiratory distress HEENT:NCAT, PERRLA, EOMI Neck: Supple Lungs: Mild bilateral diffuse crackles Heart: s1/s2, RRR Abd: soft, NT, ND, BS + Normoactive Extremities: No edema RODENT CONTROL WORKER: Following commands, no gross FND SKIN: no rash Urinary Catheter Management: Phillip: Cath Placed During This Visit: yes Reason for Continuing Indwelling Catheter: Accurate Measurement of Urinary Output in Critically Ill Patients Urinary Catheter Date of Insertion: 09/10/22 Urinary Catheter Time of Insertion: 02:35 Data 09/13/22 03:15 09/13/22 03:15 Other Labs: Radiology Impressions Chest CT 09/10/22 04:00 IMPRESSION: 1. Exam compared with 10 days ago. 2. From that time, increasing areas of bilateral mid to lower lung atelectasis or developing pneumonia/ARDS. Increasing at least small bilateral pleural effusions. 3. No pneumothorax. 4. Multiple chronic findings again noted. KUB X-Ray 09/10/22 09:08 IMPRESSION: Gaseous distention. Abdomen/Pelvis CT 09/10/22 11:51 IMPRESSION: 1. No acute intra-abdominal findings. 2. Bilateral pleural effusions and compressive atelectasis in the lower lungs. 3. Incidental findings above. COMMENTS: Consistent with the [employer]'s Incidental Findings Committee white paper (J Am Elva Radiol 2018): Any incidental renal lesion less than 1 cm or classified as too small to characterize, or any incidental cystic renal lesion characterized as simple-appearing, is likely benign. No follow-up imaging is recommended for these lesions per consensus recommendations based on imaging criteria. ADDENDUM: 09/10/22 1029 Correction: There is a low-density 8 mm adrenal nodule on the left consistent with a benign lipid rich adenoma. Chest X-Ray 09/13/22 08:05 IMPRESSION: 1. Stable PICC line . 2. Clearing of pulmonary vascular congestion 3. Remaining partial obscuration of the bilateral hemidiaphragms,, consistent with pleural effusions. Laboratory Results WBC 11.4 10^3/uL (4.0-10.0) H 09/13/22 03:15 Corrected WBC Cancelled 09/12/22 03:30 RBC 4.29 10^6/uL (4.1-5.3) 09/13/22 03:15 Hgb 12.0 g/dL (11.7-16.6) 09/13/22 03:15 Hct 39.0 % (42.0-52.0) L 09/13/22 03:15 MCV 90.9 fl (80-94) 09/13/22 03:15 MCH 28.0 pg (28.0-34.0) 09/13/22 03:15 MCHC 30.8 g/dL (30.0-36.0) 09/13/22 03:15 RDW 15.6 % (12.1-15.1) H 09/13/22 03:15 Plt Count 407 10^3/cmm (130-400) H 09/13/22 03:15 MPV 10.7 fL (7.4-10.4) H 09/13/22 03:15 Gran % Cancelled 09/12/22 03:30 Neut % (Auto) 81.4 % 09/13/22 03:15 Lymph % (Auto) 8.5 % 09/13/22 03:15 [place] % (Auto) 7.8 % 09/13/22 03:15 Eos % (Auto) 1.8 % 09/13/22 03:15 Baso % (Auto) 0.1 % 09/13/22 03:15 Neut # (Auto) 9.25 10^3/uL (1.8-7.7) H 09/13/22 03:15 Lymph # (Auto) 1.0 10^3/uL (0.8-4.8) 09/13/22 03:15 [place] # (Auto) 0.9 10^3/uL (0.2-0.9) 09/13/22 03:15 Eos # (Auto) 0.2 10^3/uL (0.0-0.8) 09/13/22 03:15 Baso # (Auto) 0.0 10^3/uL (0.0-0.1) 09/13/22 03:15 Absolute Gran (auto) Cancelled 09/12/22 03:30 Nucleated RBC % (auto) 0 % 09/13/22 03:15 Nucleated RBCs # 0.0 /100WBC 09/13/22 03:15 PT 13.80 SECONDS (12.1-14.9) 09/13/22 03:15 INR 1.03 (0.8-1.2) 09/13/22 03:15 APTT 76.3 SECONDS (23.9-36.7) H 09/11/22 03:26 D-Dimer 3.36 ug/mIFEU (0-0.59) H 09/10/22 00:50 Specimen Type Arterial 09/12/22 04:50 Sample Site Radial, right 09/12/22 04:50 ABG pH 7.43 (7.35-7.45) 09/12/22 04:50 ABG pCO2 39.6 mmHg (35-45) 09/12/22 04:50 ABG pO2 83.5 mmHg (80.0-100.0) 09/12/22 04:50 ABG HCO3 26.3 mmol/L (22-26) H 09/12/22 04:50 ABG Base Excess 1.9 mmol/L (-2.0-2.0) 09/12/22 04:50 Sulaiman Test Pos 09/12/22 04:50 Hematocrit 35.7 % (42-52) L 09/12/22 04:50 Hgb O2 Saturation 93.8 % (95-100) L 09/10/22 00:32 Carboxyhemoglobin 0.2 %THgb (0.4-20.1) L 09/10/22 00:32 Methemoglobin 0.7 % (0.4-1.5) 09/10/22 00:32 Total Hemoglobin 13.4 g/dL (14-18) L 09/10/22 00:32 O2 Delivery Device Vent 09/12/22 04:50 FiO2 30.0 % 09/12/22 04:50 Tidal Volume 0.45 09/12/22 04:50 PEEP 8.0 cmH20 09/12/22 04:50 Airplane Gas Tank Liner Assembler ID Tera 09/12/22 04:50 Sodium 140 mmol/L (136-145) 09/13/22 03:15 Potassium 4.6 mmol/L (3.5-5.1) 09/13/22 03:15 Chloride 99 mmol/L (98-107) 09/13/22 03:15 Carbon Dioxide 27 mmol/L (22-29) 09/13/22 03:15 Anion Gap 18.6 (5-19) 09/13/22 03:15 BUN 51 mg/dL (8-23) H 09/13/22 03:15 Creatinine 2.3 mg/dL (0.7-1.2) H 09/13/22 03:15 GFR Calculation Not Reportable 09/13/22 03:15 Glucose 130 mg/dL (65-115) H 09/13/22 03:15 POC Glucose 123 mg/dL (70-110) H 09/13/22 07:57 Calculated Osmolality 305 mOsm/kg (285-295) H 09/13/22 03:15 Calcium 9.1 mg/dL (8.5-10.5) 09/13/22 03:15 Phosphorus 5.6 mg/dL (2.5-4.5) H 09/13/22 03:15 Magnesium 2.7 mg/dL (1.7-2.3) H 09/13/22 03:15 Iron 37 ug/dL (59-158) L 09/10/22 00:15 TIBC 369 mcg/dl 09/10/22 00:15 % Saturation 10.0 % (20-50) L 09/10/22 00:15 Unsat Iron Binding 332 ug/dL (112-347) 09/10/22 00:15 Total Bilirubin 0.4 mg/dL (0.15-1.2) 09/13/22 03:15 AST 22 U/L (0-40) 09/13/22 03:15 ALT 19 U/L (0-41) 09/13/22 03:15 Alkaline Phosphatase 96 U/L (40-130) 09/13/22 03:15 Troponin T Baseline 2014 ng/L (0-15) H* 09/10/22 00:50 Troponin T 120 Minute 1688 ng/L (0-15) H 09/10/22 04:50 Delta Troponin T -326 ABS# (0-10) L 09/10/22 04:50 Troponin T Hi Sens 6Hr 1751 ng/L (0-15) H 09/10/22 07:59 Troponin T Hi Sens 6Hr Delta -263 ng/L (0-12) L 09/10/22 07:59 C-Reactive Protein 33.5 mg/L (0.0-4.9) H 09/13/22 03:15 NT-Pro-B Natriuret Pep 62019 pg/mL (0-125) H 09/13/22 03:15 Total Protein 6.6 g/dL (6.6-8.7) 09/13/22 03:15 Albumin 3.7 g/dL (3.5-5.2) 09/13/22 03:15 Globulin 2.9 g/dL (1.3-4.6) 09/13/22 03:15 Vitamin B12 309 pg/mL (232-1245) 09/10/22 00:15 Folate 10.6 ng/mL (4.5-32.2) 09/11/22 03:26 Procalcitonin 1.16 ng/mL (0-0.5) H 09/13/22 03:15 Urine Color Yellow (Yellow) 09/10/22 04:55 Urine Appearance Clear (CLEAR) 09/10/22 04:55 Urine pH 5 (5-7) 09/10/22 04:55 Ur Specific [place] 1.015 (1.005-1.030) 09/10/22 04:55 Urine Protein Trace (Negative) 09/10/22 04:55 Urine Glucose (UA) 4+ (Normal) H 09/10/22 04:55 Urine Ketones Negative (Negative) 09/10/22 04:55 Urine Blood Neg (Negative) 09/10/22 04:55 Urine Nitrate Negative (Negative) 09/10/22 04:55 Urine Bilirubin Neg (Negative) 09/10/22 04:55 Urine Urobilinogen Neg mg/dL (Negative) 09/10/22 04:55 Ur Leukocyte Esterase Negative (Negative) 09/10/22 04:55 Urine RBC None /hpf (0-2) 09/10/22 04:55 Urine WBC None /hpf (0-5) 09/10/22 04:55 Ur Squamous Epith Cells None /hpf (0-5) 09/10/22 04:55 Amorphous Sediment Not Reportable 09/10/22 04:55 Urine Bacteria Trace /hpf (NONE) 09/10/22 04:55 Urine Yeast 2+ /hpf H 09/10/22 04:55 Nasal Influ A H1 2009 PCR Not detected (NOT DETECT) 09/10/22 19:29 Random Vancomycin 7.1 ug/mL (20.0-40.0) L 09/13/22 03:15 Serum Ketones Negative (Negative) 09/10/22 00:50 Adenovirus (PCR) Not detected (NOT DETECT) 09/10/22 19:29 C. pneumoniae DNA (PCR) Not detected (NOT DETECT) 09/10/22 19:29 Coronavirus 229E (PCR) Not detected (NOT DETECT) 09/10/22 19:29 Human Metapneumovir PCR Not detected (NOT DETECT) 09/10/22 19:29 Influenza A (H1) PCR Not detected (NOT DETECT) 09/10/22 19:29 Influenza A (H3) PCR Not detected (NOT DETECT) 09/10/22 19:29 Influenza Type A (PCR) Not detected (NOT DETECT) 09/10/22 19:29 Influenza Type B (PCR) Not detected (NOT DETECT) 09/10/22 19:29 M. pneumoniae (PCR) Not detected (NOT DETECT) 09/10/22 19:29 Parainfluenza 1 (PCR) Not detected (NOT DETECT) 09/10/22 19:29 Parainfluenza 2 (PCR) Not detected (NOT DETECT) 09/10/22 19:29 Parainfluenza 3 (PCR) Not detected (NOT DETECT) 09/10/22 19:29 Parainfluenza 4 (PCR) Not detected (NOT DETECT) 09/10/22 19:29 RSV Type A (PCR) Not detected (NOT DETECT) 09/10/22 19:29 RSV Type B (PCR) Not detected (NOT DETECT) 09/10/22 19:29 Entero/Rhino (PCR) Not detected (NOT DETECT) 09/10/22 19:29 SARS-CoV-2 (PCR) Not detected (NOT DETECT) 09/10/22 19:29 Micro: Microbiology 09/10/22 08:32 Gram Stain - Final Sputum - Endotracheal Tube Aspirate Sputum Culture - Final 09/10/22 04:55 Urine Culture - Final Urine,Clean Catch Yeast species A&P Assessment and plan (1) Acute respiratory failure with hypoxia and hypercapnia: (2) Acute exacerbation of CHF (congestive heart failure): (3) CAD (coronary artery disease): (4) FH: CABG (coronary artery bypass surgery): (5) Chronic kidney disease, stage 3 unspecified: (6) Acute non-ST elevation myocardial infarction (NSTEMI): (7) Systolic CHF: (8) Shock: Plan Neuro: Sedation: Off sedation-tolerated extubation well-follows commands previous history of diabetic neuropathy: Patient is on Neurontin 200 Mg p.o. twice daily- #History of alcohol abuse -Currently on CIWA protocol Pulmonary/cardiac/renal: Acute systolic CHF in patient with severe underlying CAD s/p CABG and occluded bypass grafts unable to stent/possible HCAP/ Acute hypoxic hypercapnic respiratory failure most likely secondary to fluid overload due to CHF exacerbation and patient with significant CAD s/p bypass- recent cardiac cath showing ostial disease in LAD LCx grafts-unable to stent- currently being medically managed CT chest bilateral lower lobe atelectasis and consolidations with air bronchograms and pleural effusions Admission BNP 40,000 and admission echocardiogram showing reduced EF to 40 to 45% which is new compared to last week echo Patient himself during admission admitted that he did not take medications Pro-Michael is Elevated- currently covered with vancomycin and meropenem for suspected HCAP as recently received antibiotics; blood and sputum cultures pend ing, bacterial antigens negative-leukocytosis trending down; urine cultures grew yeast He tolerated spontaneous trial-extubated to BiPAP today-recheck during the evening he is doing well on 3 L nasal cannula Chest x-ray still appears slightly congested-we will discontinue Diamox and increase Bumex to 1 Mg twice daily-good urine output Renal functions at baseline-acceptable electrolytes-we will continue to monitor input output, electrolytes- Patient on aspirin/Plavix/Lipitor/metoprolol/ for CAD/NSTEMI-troponinemia can be secondary to underlying untreated CAD/CHF; currently on heparin subcutaneous for DVT prophylaxis Recommended bedside swallow evaluation and start on clear liquids and advance as tolerated #Patient had episodes of sustained VT yesterday night-started on amiodarone- today morning he had bradycardia episodes -Discontinued amiodarone -Patient has history of alcohol abuse advair and will monitor for alcohol withdrawal syndrome, placed on the CIWA protocol Endocrinology: For uncontrolled sugars-patient is on Lantus 10 Mg at bedtime and short-acting lispro Currently on Synthyroid 112 mcg daily for hypothyroidism GI prophylaxis: PPI/sucralfate Hematology: Leukocytosis-currently being treated as HCAP-however cultures are pending and on broad-spectrum antibiotics-leukocytosis is trending down Failure that ICU CHECKLIST: Problem list updated Verbal orders reviewed and signed Code Status: Limited resuscitation Disposition: Can be transferred out of ICU Critically ill: Yes MD discussed with: Hospitalist taking care of the patient, RN and RT as per the Analgesia: Opioid Glycemic Control: Insulin Nutrition: advance as tolerated Restraint Renewal (within 24 hrs): Yes Ulcer Prophylaxis: PPI Chemical Thromboprophylaxis: Prophylaxis: Heparin Mechanical Thromboprophylaxis: Heparin Need for Phillip catheter: Input output monitoring Patient is clinically stable and can be moved out of ICU-at this point of time I am signing off from critical care standpoint. Please reconsult if necessary Attestations Medical Necessity Statement*: Deferred to hospitalist Time Spent in Patient Care: Greater than 35 minutes (>than 50% of time spent in counselling and/or direct pt care on unit) . Critical Care Time: The high probability of a clinically significant, sudden or life threatening deterioration of the patient's [neurological, pulmonary, cardiac, endocrine, renal] system(s) required my full and direct attention, intervention and personal management. The critical care time is as shown. This time is in addition to time spent performing any reported procedures but includes the following: [x] Data and vital sign review and interpretation [x] Patient assessment, examination and intervention [x] Documentation [x] Medication orders and management Critical Care Time (min): 55 Coding Level of Care Code Acute Code for Chg Fwd Diagnoses Acute respiratory failure with hypoxia and hypercapnia J96.01; J96.02 Acute exacerbation of CHF (congestive heart failure) I50.9 CAD (coronary artery disease) I25.10 FH: CABG (coronary artery bypass surgery) Z82.49 Chronic kidney disease, stage 3 unspecified N18.30 Acute non-ST elevation myocardial infarction (NSTEMI) I21.4 Systolic CHF I50.20 Shock R57.9 Time Spent (min) 55
[2022-09-13] MEDS: insulin lispro 100 unit/1 mL SUBCUT ×2 (15:15→21:50)
[2022-09-13 15:20] LABS: Glucose Point of Care 241 mg/dL (70-110)
[2022-09-13 16:41] LABS: Glucose Point of Care 166 mg/dL (70-110)
[2022-09-13] MEDS: amoxicillin-clav 875-125 mg Tablet 1 TAB PO (17:48)
[2022-09-13] MEDS: doxycycline 100 mg Tablet PO (17:48)
[2022-09-13 20:41] LABS: Glucose Point of Care 141 mg/dL (70-110)
[2022-09-13] MEDS: insulin glargine 100 units/1 mL 10 UNIT SUBCUT (20:59)
[2022-09-14] VITALS (54 sets, daily range): BP systolic 101–137; BP diastolic 54–106; PULSE 52–80; RESP 10–24; TEMP 36.1–37.1; O2SAT 86–98; BMI 32.8
[2022-09-14] MEDS: ipratropium-albuterol 3 mL Neb INHALATION ×7 (00:06→23:34)
[2022-09-14 02:45] LABS: Basophils % 0.4 %; Eosinophils # 0.5 10^3/uL (0.0-0.8); Eosinophils % 4.3 %; Hematocrit 41.5 % (42.0-52.0); Hemoglobin 12.4 g/dL (11.7-16.6); Lymphocytes # 1.2 10^3/uL (0.8-4.8); Lymphocytes % 11.1 %; Mean Corpuscular HGB Conc 29.9 g/dL (30.0-36.0); Mean Corpuscular Hemoglobin 27.7 pg (28.0-34.0); Mean Corpuscular Volume 92.6 fl (80-94); Mean Platelet Volume 10.7 fL (7.4-10.4); Monocytes % 9.2 %; Neutrophils # 7.85 10^3/uL (1.8-7.7); Neutrophils % 74.7 %; Nucleated Red Blood Cells % 0 %; Platelet Count 398 10^3/cmm (130-400); Red Blood Count 4.48 10^6/uL (4.1-5.3); Red Cell Distribution Width 15.3 % (12.1-15.1); White Blood Count 10.5 10^3/uL (4.0-10.0)
[2022-09-14 03:15] LABS: Alanine Aminotransferase 17 U/L (0-41); Albumin Level 3.6 g/dL (3.5-5.2); Alkaline Phosphatase 93 U/L (40-130); Anion Gap 16.3 (5-19); Aspartate Amino Transferase 19 U/L (0-40); Blood Urea Nitrogen 51 mg/dL (8-23); C Reactive Protein 31.2 mg/L (0.0-4.9); Calcium 9.1 mg/dL (8.5-10.5); Carbon Dioxide 28 mmol/L (22-29); Chloride 100 mmol/L (98-107); Globulin 2.8 g/dL (1.3-4.6); Glucose 103 mg/dL (65-115); Magnesium 2.6 mg/dL (1.7-2.3); Osmolality Calculated 304 mOsm/kg (285-295); Potassium 4.3 mmol/L (3.5-5.1); Sodium 140 mmol/L (136-145); Total Bilirubin 0.4 mg/dL (0.15-1.2); Total Protein 6.4 g/dL (6.6-8.7)
[2022-09-14 03:24] LABS: NT Pro B Type Natriuretic Pept 21573 pg/mL (0-125); Procalcitonin 0.66 ng/mL (0-0.5)
[2022-09-14 03:42] LABS: Glucose Point of Care 102 mg/dL (70-110)
[2022-09-14] MEDS: sucralfate 1 gm Tablet PO ×3 (06:16→17:35)
[2022-09-14] MEDS: pantoprazole 40 mg SDV IVP ×2 (06:16→17:35)
[2022-09-14] MEDS: chlordiazePOXIDE 25 mg Capsule PO ×2 (06:16→17:35)
[2022-09-14] MEDS: budesonide 0.5 mg/2 mL Neb INHALATION ×2 (07:32→20:28)
[2022-09-14] MEDS: polyethylene glycol 3350 Pkt 17 gm PO (09:19)
[2022-09-14] MEDS: atorvastatin 40 mg Tablet PO (09:20)
[2022-09-14] MEDS: clopidogrel 75 mg Tablet PO (09:20)
[2022-09-14] MEDS: levothyroxine 112 mcg Tablet PO (09:20)
[2022-09-14] MEDS: gabapentin 100 mg Capsule 200 MG PO ×2 (09:21→17:34)
[2022-09-14] MEDS: sennosides-docusate Tablet 2 TAB PO (09:22)
[2022-09-14] MEDS: aspirin 81 mg EC Tablet 162 MG PO (09:22)
[2022-09-14] MEDS: metoprolol tartrate 50 mg Tablet 25 MG PO ×2 (09:22→17:35)
[2022-09-14 09:23] LABS: Glucose Point of Care 100 mg/dL (70-110)
[2022-09-14] MEDS: bumetanide 0.25 mg/mL SDV 4 mL 1 MG IVP (09:23)
[2022-09-14] MEDS: heparin 5,000 unit/mL INJ 1 mL 5000 UNIT SUBCUT ×2 (09:23→21:25)
[2022-09-14] MEDS: vancomycin 1,000 MG in sodium chloride 0.9% 250 ML 250 MG IV (09:41)
[2022-09-14 11:57] LABS: Glucose Point of Care 140 mg/dL (70-110)
--- NOTE | 2022-09-14 12:29 | PM.PN ---
Subjective Subjective: patient was seen this morning, was bipap, alert and oritentedx3, he follows commands, he asked me how long he will been in the hospital, no chest pain, no shortness of breath Vitals/I&O/Wt Last Vital Signs Temp 98.0 F 09/14/22 11:41 Pulse 70 09/14/22 11:41 Resp 19 H 09/14/22 11:41 BP 128/106 09/14/22 11:41 Pulse Ox 92 09/14/22 11:41 O2 Del Method Nasal Cannula 09/14/22 11:41 O2 Flow Rate 2 09/14/22 11:27 FiO2 40 09/14/22 08:00 09/13/22 09/14/22 09/14/22 22:59 06:59 14:59 Intake Total 0 / 900 400 / 1300 100 / 100 Output Total 650 / 1950 400 / 2350 Balance -650 / -1050 0 / -1050 100 / 100 Weight last 48 hrs Weight 84.096 kg Weight 84.096 kg Weight 84.425 kg Physical Exam Const: COMMON NORMALS: no acute distress and patient oriented x3 Resp: COMMON NORMALS: normal respiratory effort, No retractions, No use of accessory muscles and clear to auscultation bilaterally AUSCULTATION: clear to auscultation bilaterally Cardio: COMMON NORMALS: regular rate, regular rhythm, S1 normal heart sound present and S2 normal heart sound present RATE: regular rate RHYTHM: regular rhythm HEART SOUNDS: S1 normal heart sound present and S2 normal heart sound present GI: COMMON NORMALS: Normal to inspection, nondistended, normoactive bowel sounds present and non-tender Extremity: COMMON NORMALS: no pedal edema Neuro: COMMON NORMALS: patient oriented x3 Psych: COMMON NORMALS: mental status grossly normal Urinary Catheter Management: Phillip: Cath Placed During This Visit: yes Reason for Continuing Indwelling Catheter: Accurate Measurement of Urinary Output in Critically Ill Patients Urinary Catheter Date of Insertion: 09/10/22 Urinary Catheter Time of Insertion: 02:35 Data 09/14/22 02:12 09/14/22 02:12 Micro: Microbiology 09/10/22 00:50 Blood Culture - Preliminary Blood A&P Assessment and plan (1) ARDS (adult respiratory distress syndrome): (2) Acute exacerbation of CHF (congestive heart failure): (3) DKA (diabetic ketoacidosis): (4) Acute non-ST elevation myocardial infarction (NSTEMI): (5) Chronic kidney disease, stage 3 unspecified: (6) Acute respiratory failure with hypoxia and hypercapnia: (7) High anion gap metabolic acidosis: (8) Hyperkalemia: (9) Type 2 diabetes mellitus: Qualifiers: Diabetes mellitus skilled nursing insulin use: without skilled nursing use Diabetes mellitus complication status: with circulatory complication Diabetes mellitus complication detail: with other circulatory complications Qualified Code(s): E11.59 - Type 2 diabetes mellitus with other circulatory complications (10) CAD (coronary artery disease): (11) Systolic CHF: (12) Iron deficiency anemia: Qualifiers: Iron deficiency anemia type: unspecified iron deficiency Qualified Code(s): D50.9 - Iron deficiency anemia, unspecified (13) Alcohol withdrawal: (14) NSVT (nonsustained ventricular tachycardia): (15) Gram-positive bacteremia: Plan Gram positive bacteremia -1/2 blood positive blood culture -start vancomycin Acute hypoxic respiratory failure -Secondary to fluid overload, acute systolic CHF exacerbation, pulm edema -Secondary to pneumonia -Secondary to acute respiratory distress syndrome -Status post extubation 09/12/2022, on 3 L Plan -Monitor respiratory status closely -We will move to cardiac stepdown unit Acute systolic CHF exacerbation, pulm edema -Bumex 1 mg IV push every 24 hours, negative 9L -Repeat cardiac echo LV systolic function is mild to moderately reduced with EF of 40 ?to 45%. ?Mild to modreate global hypokinesis is noted ?RV function is mild to moderately reduced ?Left atrial enlargement ?Mild tricuspid regurgitation. ?Compared to prior echocardiogram from 08/31/2022, LV and RV ?function is lower Pneumonia -Vancomycin, meropenem, will desscalte -Sputum cultures, blood cultures Acute respiratory distress syndrome -Pulmonary on consult Non-ST elevation [place] -Recent history of cath ?1. Severe two-vessel coronary artery disease.? Occluded LAD and circumflex. Occluded bypass graft to the LAD and circumflex. -Continue aspirin, statin, Plavix -Status post 48 hours of full dose anticoagulation Has evidence of iron deficiency anemia -Monitor hemoglobin -Protonix, Carafate Hyperglycemia, with concern for DKA, type 2 diabetes mellitus -Off insulin drip, on subcut insulin Abdominal distention, will monitor Order venous ultrasound negative for DVT Nonsustained V. tach, monitor Alcohol withdrawal, scheduled Librium 25 every 6 hours, CIWA protocol Full code Heparin for DVT prophylaxis Spoke to nursing staff, , speech therapy holger, PT OT, up out of bed moved to CSU, de-escalate antibiotic therapy Attestations Medical Necessity Statement*: patient was seen this gram positive bacteremia, acute respiratory failure, chf exacerbation Coding Level of Care Code Acute Code for Chg Fwd Diagnoses ARDS (adult respiratory distress syndrome) J80 Acute exacerbation of CHF (congestive heart failure) I50.9 DKA (diabetic ketoacidosis) E11.10 Acute non-ST elevation myocardial infarction (NSTEMI) I21.4 Chronic kidney disease, stage 3 unspecified N18.30 Acute respiratory failure with hypoxia and hypercapnia J96.01; J96.02 High anion gap metabolic acidosis E87.29 Hyperkalemia E87.5 Type 2 diabetes mellitus E11.59 Diabetes mellitus skilled nursing insulin use: without skilled nursing use Diabetes mellitus complication status: with circulatory complication Diabetes mellitus complication detail: with other circulatory complications CAD (coronary artery disease) I25.10 Systolic CHF I50.20 Iron deficiency anemia D50.9 Iron deficiency anemia type: unspecified iron deficiency Alcohol withdrawal F10.939 NSVT (nonsustained ventricular tachycardia) I47.29 Gram-positive bacteremia R78.81
[2022-09-14 15:52] LABS: Glucose Point of Care 125 mg/dL (70-110)
[2022-09-14 21:03] LABS: Glucose Point of Care 192 mg/dL (70-110)
[2022-09-14] MEDS: insulin glargine 100 units/1 mL 10 UNIT SUBCUT (21:25)
[2022-09-14] MEDS: insulin lispro 100 unit/1 mL SUBCUT (22:07)
[2022-09-15] VITALS (30 sets, daily range): BP systolic 100–161; BP diastolic 59–86; PULSE 57–72; RESP 14–23; TEMP 36.6–36.7; O2SAT 96–99; BMI 32.8
[2022-09-15] MEDS: sucralfate 1 gm Tablet PO ×4 (00:50→18:11)
[2022-09-15] MEDS: ipratropium-albuterol 3 mL Neb INHALATION ×5 (03:36→19:49)
[2022-09-15] MEDS: pantoprazole 40 mg SDV IVP ×2 (04:02→18:12)
[2022-09-15] MEDS: chlordiazePOXIDE 25 mg Capsule PO (05:29)
[2022-09-15 06:30] LABS: Glucose Point of Care 132 mg/dL (70-110)
[2022-09-15] MEDS: budesonide 0.5 mg/2 mL Neb INHALATION ×2 (07:33→19:49)
[2022-09-15 08:20] LABS: Vancomycin Trough 16.4 ug/mL (10-15)
[2022-09-15 08:23] LABS: Alanine Aminotransferase 16 U/L (0-41); Albumin Level 3.3 g/dL (3.5-5.2); Alkaline Phosphatase 89 U/L (40-130); Aspartate Amino Transferase 18 U/L (0-40); Blood Urea Nitrogen 50 mg/dL (8-23); C Reactive Protein 21.7 mg/L (0.0-4.9); Calcium 8.8 mg/dL (8.5-10.5); Carbon Dioxide 26 mmol/L (22-29); Chloride 102 mmol/L (98-107); Globulin 2.9 g/dL (1.3-4.6); Glucose 137 mg/dL (65-115); Magnesium 2.4 mg/dL (1.7-2.3); Osmolality Calculated 307 mOsm/kg (285-295); Sodium 141 mmol/L (136-145); Total Bilirubin 0.3 mg/dL (0.15-1.2); Total Protein 6.2 g/dL (6.6-8.7)
[2022-09-15 08:30] LABS: Procalcitonin 0.32 ng/mL (0-0.5)
[2022-09-15 08:43] LABS: Basophils # 0.1 10^3/uL (0.0-0.1); Basophils % 0.4 %; Eosinophils # 0.5 10^3/uL (0.0-0.8); Eosinophils % 4.4 %; Hematocrit 40.8 % (42.0-52.0); Hemoglobin 12.2 g/dL (11.7-16.6); Lymphocytes # 1.3 10^3/uL (0.8-4.8); Lymphocytes % 11.3 %; Mean Corpuscular HGB Conc 29.9 g/dL (30.0-36.0); Mean Corpuscular Hemoglobin 27.6 pg (28.0-34.0); Mean Corpuscular Volume 92.3 fl (80-94); Mean Platelet Volume 10.6 fL (7.4-10.4); Monocytes % 8.4 %; Neutrophils % 75.1 %; Nucleated Red Blood Cells % 0 %; Platelet Count 401 10^3/cmm (130-400); Red Blood Count 4.42 10^6/uL (4.1-5.3); Red Cell Distribution Width 15.1 % (12.1-15.1); White Blood Count 11.7 10^3/uL (4.0-10.0)
[2022-09-15] MEDS: gabapentin 100 mg Capsule 200 MG PO ×2 (09:41→18:12)
[2022-09-15] MEDS: atorvastatin 40 mg Tablet PO (09:41)
[2022-09-15] MEDS: levothyroxine 112 mcg Tablet PO (09:41)
[2022-09-15] MEDS: sennosides-docusate Tablet 2 TAB PO (09:42)
[2022-09-15] MEDS: polyethylene glycol 3350 Pkt 17 gm PO (09:42)
[2022-09-15] MEDS: clopidogrel 75 mg Tablet PO (09:42)
[2022-09-15] MEDS: aspirin 81 mg EC Tablet 162 MG PO (09:42)
[2022-09-15] MEDS: metoprolol tartrate 25 mg Tablet PO ×2 (09:42→18:12)
[2022-09-15] MEDS: bumetanide 0.25 mg/mL SDV 4 mL 1 MG IVP (09:43)
[2022-09-15] MEDS: heparin 5,000 unit/mL INJ 1 mL 5000 UNIT SUBCUT ×2 (09:43→20:37)
[2022-09-15] MEDS: vancomycin 1,000 MG in sodium chloride 0.9% 250 ML 250 MG IV (09:44)
[2022-09-15 12:02] LABS: Glucose Point of Care 169 mg/dL (70-110)
[2022-09-15] MEDS: insulin lispro 100 unit/1 mL SUBCUT ×2 (13:03→20:45)
--- NOTE | 2022-09-15 14:00 | PM.PN ---
Subjective Subjective: Patient was seen this morning, he is alert to person, to place, not to time, he follows commands, he tells me that he was able to sit in a chair yesterday, denies any shortness of breath no abdominal pain, we had extensive discussion about him getting rehab in a rehab facility, he he initially said that he wanted to go home, but then he was more agreeable to go to a alf facility, I discussed my concerns for his wellbeing if he goes home as this is his second hospitalization, denies any fevers, denies any chills, Vitals/I&O/Wt Last Vital Signs Temp 98.0 F 09/15/22 11:55 Pulse 70 09/15/22 11:55 Resp 16 09/15/22 11:55 BP 100/59 09/15/22 11:55 Pulse Ox 96 09/15/22 11:55 O2 Del Method Nasal Cannula 09/15/22 11:55 O2 Flow Rate 2 09/15/22 11:26 FiO2 40 09/15/22 12:00 09/14/22 09/15/22 09/15/22 22:59 06:59 14:59 Intake Total 120 / 590 710 / 710 Output Total 1250 / 1250 300 / 1550 Balance -1130 / -660 -300 / -960 710 / 710 Weight last 48 hrs Weight 84.096 kg Weight 84.096 kg Weight 84.096 kg Weight 84.425 kg Physical Exam Const: COMMON NORMALS: no acute distress ORIENTATION/CONSCIOUSNESS: Yes awake, Yes oriented to person and Yes oriented to place; not oriented to time Resp: COMMON NORMALS: normal respiratory effort, No retractions, No use of accessory muscles and clear to auscultation bilaterally AUSCULTATION: clear to auscultation bilaterally Cardio: COMMON NORMALS: regular rate, regular rhythm, S1 normal heart sound present and S2 normal heart sound present RATE: regular rate RHYTHM: regular rhythm HEART SOUNDS: S1 normal heart sound present and S2 normal heart sound present GI: COMMON NORMALS: Normal to inspection, nondistended, normoactive bowel sounds present and non-tender Extremity: COMMON NORMALS: no pedal edema Neuro: SENSORIUM/ORIENTATION: Yes oriented to person, Yes oriented to place and No oriented to time Urinary Catheter Management: Bender: Cath Placed During This Visit: yes Reason for Continuing Indwelling Catheter: Accurate Measurement of Urinary Output in Critically Ill Patients Urinary Catheter Date of Insertion: 09/10/22 Urinary Catheter Time of Insertion: 02:35 Data 09/15/22 08:16 09/15/22 07:44 Micro: Microbiology 09/10/22 02:13 Blood Culture - Final Blood NO GROWTH AFTER 5 DAYS A&P Assessment and plan (1) ARDS (adult respiratory distress syndrome): (2) Acute exacerbation of CHF (congestive heart failure): (3) DKA (diabetic ketoacidosis): (4) Acute non-ST elevation myocardial infarction (NSTEMI): (5) Chronic kidney disease, stage 3 unspecified: (6) Acute respiratory failure with hypoxia and hypercapnia: (7) High anion gap metabolic acidosis: (8) Hyperkalemia: (9) Type 2 diabetes mellitus: Qualifiers: Diabetes mellitus skilled nursing insulin use: without skilled nursing use Diabetes mellitus complication status: with circulatory complication Diabetes mellitus complication detail: with other circulatory complications Qualified Code(s): E11.59 - Type 2 diabetes mellitus with other circulatory complications (10) CAD (coronary artery disease): (11) Systolic CHF: (12) Iron deficiency anemia: Qualifiers: Iron deficiency anemia type: unspecified iron deficiency Qualified Code(s): D50.9 - Iron deficiency anemia, unspecified (13) Alcohol withdrawal: (14) NSVT (nonsustained ventricular tachycardia): (15) Gram-positive bacteremia: Plan Gram positive bacteremia, likely contamination -Seen in 1 of 4 blood cultures, first blood cultures -5 days -Identification corneybacterium -1/2 blood positive blood culture -stop vancomycin Acute hypoxic respiratory failure -Secondary to fluid overload, acute systolic CHF exacerbation, pulm edema -Secondary to pneumonia -Secondary to acute respiratory distress syndrome -Status post extubation 09/12/2022, on 3 L Plan -Monitor respiratory status closely -We will move to cardiac stepdown unit Acute systolic CHF exacerbation, pulm edema -switch to lasix 40mgqD , negative 9L -Repeat cardiac echo LV systolic function is mild to moderately reduced with EF of 40 ?to 45%. ?Mild to modreate global hypokinesis is noted ?RV function is mild to moderately reduced ?Left atrial enlargement ?Mild tricuspid regurgitation. ?Compared to prior echocardiogram from 08/31/2022, LV and RV ?function is lower Pneumonia -doxyxline -Sputum cultures, blood cultures Acute respiratory distress syndrome -Pulmonary on consult Non-ST elevation [place] -Recent history of cath ?1. Severe two-vessel coronary artery disease.? Occluded LAD and circumflex. Occluded bypass graft to the LAD and circumflex. -Continue aspirin, statin, Plavix -Status post 48 hours of full dose anticoagulation Has evidence of iron deficiency anemia -Monitor hemoglobin -Protonix, Carafate Hyperglycemia, with concern for DKA, type 2 diabetes mellitus - on subcut insulin Abdominal distention, will monitor Order venous ultrasound negative for DVT Nonsustained V. tach, monitor Alcohol withdrawal, scheduled Librium 25 every 24 hours, CIWA protocol, donta deescalate Full code Heparin for DVT prophylaxis Spoke to nursing staff, , speech therapy eval, PT OT, up out of bed moved to CSU, de-escalate antibiotic therapy, remove bender, remove picc, discussed with microbiology, stop vancomycin, start doxy, work on disposition Attestations Medical Necessity Statement*: patient likely,, requires hospitalization for CHF requiring diuresis, Diagnoses ARDS (adult respiratory distress syndrome) J80 Acute exacerbation of CHF (congestive heart failure) I50.9 DKA (diabetic ketoacidosis) E11.10 Acute non-ST elevation myocardial infarction (NSTEMI) I21.4 Chronic kidney disease, stage 3 unspecified N18.30 Acute respiratory failure with hypoxia and hypercapnia J96.01; J96.02 High anion gap metabolic acidosis E87.29 Hyperkalemia E87.5 Type 2 diabetes mellitus E11.59 Diabetes mellitus emt intermediate insulin use: without skilled nursing use Diabetes mellitus complication status: with circulatory complication Diabetes mellitus complication detail: with other circulatory complications CAD (coronary artery disease) I25.10 Systolic CHF I50.20 Iron deficiency anemia D50.9 Iron deficiency anemia type: unspecified iron deficiency Alcohol withdrawal F10.939 NSVT (nonsustained ventricular tachycardia) I47.29 Gram-positive bacteremia R78.81
[2022-09-15 16:14] LABS: Glucose Point of Care 132 mg/dL (70-110)
--- NOTE | 2022-09-15 17:09 | PC.NURSE ---
Pt found on floor in room with his shorts by his side and his wallet in his hand. Don't think the pt fell as the pt needs assist in getting up and was sitting in the chair most of this afternoon since PT worked with him. Per PT, pt ambulated 50 feet earlier but required them to push the FWW in a forward direction or else the pt would only restaurant culinary manager place and required assistance for that. The pt denies pain and has no new abrasions or bumps on his head. His mentation is the same as it has been and the pt continues to be mindset on wanting to d/c home. Now, the pt is upset as he does not have any money in his wallet. the Nursing Pipe And Test Supervisor and Hospitalist were notified.
[2022-09-15] MEDS: doxycycline 100 mg Tablet PO (18:12)
[2022-09-15] MEDS: insulin glargine 100 units/1 mL 10 UNIT SUBCUT (20:45)
[2022-09-16] VITALS (65 sets, daily range): BP systolic 100–132; BP diastolic 52–70; PULSE 55–78; RESP 12–39; TEMP 36.3–37.1; O2SAT 93–99; BMI 32.8
[2022-09-16] MEDS: ipratropium-albuterol 3 mL Neb INHALATION ×6 (00:47→19:48)
[2022-09-16] MEDS: pantoprazole 40 mg SDV IVP ×2 (04:21→18:00)
[2022-09-16] MEDS: chlordiazePOXIDE 25 mg Capsule PO (05:02)
[2022-09-16] MEDS: sucralfate 1 gm Tablet PO ×3 (05:03→18:03)
[2022-09-16 06:29] LABS: Glucose Point of Care 227 mg/dL (70-110)
[2022-09-16 06:29] LABS: Glucose Point of Care 143 mg/dL (70-110)
[2022-09-16] MEDS: budesonide 0.5 mg/2 mL Neb INHALATION ×2 (07:55→19:48)
[2022-09-16] MEDS: sennosides-docusate Tablet 2 TAB PO (08:33)
[2022-09-16] MEDS: gabapentin 100 mg Capsule 200 MG PO ×2 (08:33→17:56)
[2022-09-16] MEDS: doxycycline 100 mg Tablet PO ×2 (08:33→17:57)
[2022-09-16] MEDS: polyethylene glycol 3350 Pkt 17 gm PO (08:34)
[2022-09-16] MEDS: aspirin 81 mg EC Tablet 162 MG PO (08:34)
[2022-09-16] MEDS: atorvastatin 40 mg Tablet PO (08:34)
[2022-09-16] MEDS: heparin 5,000 unit/mL INJ 1 mL 5000 UNIT SUBCUT ×2 (08:34→20:31)
[2022-09-16] MEDS: metoprolol tartrate 25 mg Tablet PO ×2 (08:34→17:57)
[2022-09-16] MEDS: levothyroxine 112 mcg Tablet PO (08:34)
[2022-09-16] MEDS: FUROsemide 40 mg Tablet PO (08:34)
[2022-09-16] MEDS: clopidogrel 75 mg Tablet PO (08:34)
[2022-09-16] MEDS: insulin lispro 100 unit/1 mL SUBCUT ×3 (08:35→22:00)
[2022-09-16 12:21] LABS: Glucose Point of Care 140 mg/dL (70-110)
[2022-09-16 16:33] LABS: Glucose Point of Care 225 mg/dL (70-110)
--- NOTE | 2022-09-16 20:17 | PM.PN ---
Subjective Subjective: He states overall breathing now is doing well. No chest pain. Has not been up, states has been quite weak. He is interested to work with therapy and go for rehabilitation prior to return home. Vitals/I&O/Wt Last Vital Signs Temp 98.1 F 09/16/22 16:00 Pulse 78 09/16/22 19:57 Resp 23 H 09/16/22 19:57 BP 125/64 09/16/22 16:00 Pulse Ox 95 09/16/22 19:57 O2 Del Method Nasal Cannula 09/16/22 19:57 O2 Flow Rate 2 09/16/22 19:57 FiO2 30 09/16/22 18:00 09/16/22 09/16/22 09/16/22 06:59 14:59 22:59 Intake Total 120 / 1150 480 / 480 100 / 580 Output Total 450 / 450 750 / 750 Balance -330 / 700 -270 / -270 100 / -170 Weight last 48 hrs Weight 84.096 kg Weight 84.096 kg Physical Exam Const: COMMON NORMALS: alert GENERAL APPEARANCE: cooperative and frail appearing ORIENTATION/CONSCIOUSNESS: Yes awake HENMT: COMMON NORMALS: oropharynx normal Neck/C-Spine: COMMON NORMALS: no JVD Resp: COMMON NORMALS: normal respiratory effort and clear to auscultation bilaterally AUSCULTATION: clear to auscultation bilaterally Cardio: COMMON NORMALS: no JVD, regular rhythm, S1 normal heart sound present, S2 normal heart sound present and No murmurs present (Cardio) RHYTHM: regular rhythm HEART SOUNDS: S1 normal heart sound present and S2 normal heart sound present GI: COMMON NORMALS: Normal to inspection, nondistended, normoactive bowel sounds present, Soft to palpation and non-tender PALPATION: Yes Soft to palpation Extremity: COMMON NORMALS: no joint enlargement and no pedal edema Neuro: COMMON NORMALS: moves all extremities SENSORIUM/ORIENTATION: Yes alert Skin: COMMON NORMALS: no rashes or lesions noted GENERAL SKIN EXAM: no rashes or lesions noted Urinary Catheter Management: Phillip: Cath Placed During This Visit: yes Reason for Continuing Indwelling Catheter: Accurate Measurement of Urinary Output in Critically Ill Patients Urinary Catheter Date of Insertion: 09/10/22 Urinary Catheter Time of Insertion: 02:35 Data 09/15/22 08:16 09/15/22 07:44 A&P Assessment and plan (1) ARDS (adult respiratory distress syndrome): (2) Acute exacerbation of CHF (congestive heart failure): (3) DKA (diabetic ketoacidosis): (4) Acute non-ST elevation myocardial infarction (NSTEMI): (5) Chronic kidney disease, stage 3 unspecified: (6) Acute respiratory failure with hypoxia and hypercapnia: (7) High anion gap metabolic acidosis: (8) Hyperkalemia: (9) Type 2 diabetes mellitus: Qualifiers: Diabetes mellitus skilled nursing insulin use: without local intermodal truck driver use Diabetes mellitus complication status: with circulatory complication Diabetes mellitus complication detail: with other circulatory complications Qualified Code(s): E11.59 - Type 2 diabetes mellitus with other circulatory complications (10) CAD (coronary artery disease): (11) Systolic CHF: (12) Iron deficiency anemia: Qualifiers: Iron deficiency anemia type: unspecified iron deficiency Qualified Code(s): D50.9 - Iron deficiency anemia, unspecified (13) Alcohol withdrawal: (14) NSVT (nonsustained ventricular tachycardia): (15) Gram-positive bacteremia: Plan Gram positive bacteremia, likely contamination -Seen in 1 of 4 blood cultures, first blood cultures -5 days noted Corynebacterium. Suspected contamination. Off vancomycin. Acute hypoxic respiratory failure: Improving, oxygen requirement decreasing, down to 2 L nasal cannula. -Secondary to fluid overload, acute systolic CHF exacerbation, pulm edema -Secondary to pneumonia -Secondary to acute respiratory distress syndrome -Status post extubation 09/12/2022, on 3 L Plan -Monitor respiratory status closely -We will move to cardiac stepdown unit Acute systolic CHF exacerbation, pulm edema Lasix p.o. 40 mg daily. -380 mL Continue to monitor SELENA. Reassess chemistry for renal function. Noted no labs available this morning. EF noted decreased 40-45% on TTE. Mild to moderate global hypokinesis. New from prior echo. Repeat CMP requested. Pneumonia -Continue doxyxline -Sputum cultures with noted scant normal ben. Blood cultures with noted current bacteria 1/2 bottles, likely contaminant. Repeat CBC requested. Acute respiratory distress syndrome -Pulmonary documentation appreciated. Has signed off. Non-ST elevation [place] -Recent history of cath ?1. Severe two-vessel coronary artery disease.? Occluded LAD and circumflex. Occluded bypass graft to the LAD and circumflex. -Continue aspirin, statin, Plavix -Status post 48 hours of full dose anticoagulation Has evidence of iron deficiency anemia Reassess CBC. -Protonix, Carafate Hyperglycemia, with concern for DKA, type 2 diabetes mellitus - on subcut insulin Abdominal distention, will monitor Order venous ultrasound negative for DVT Nonsustained V. tach, monitor Alcohol withdrawal, scheduled Librium 25 every 24 hours, CIWA protocol, will deescalate Full code Heparin for DVT prophylaxis Discussed with case management, continue arrangements for rehabilitation. He is agreeable. Attestations Medical Necessity Statement*: Continue admission for assessment management of CHF exacerbation, improving respiratory failure. Diagnoses ARDS (adult respiratory distress syndrome) J80 Acute exacerbation of CHF (congestive heart failure) I50.9 DKA (diabetic ketoacidosis) E11.10 Acute non-ST elevation myocardial infarction (NSTEMI) I21.4 Chronic kidney disease, stage 3 unspecified N18.30 Acute respiratory failure with hypoxia and hypercapnia J96.01; J96.02 High anion gap metabolic acidosis E87.29 Hyperkalemia E87.5 Type 2 diabetes mellitus E11.59 Diabetes mellitus skilled nursing insulin use: without local intermodal truck driver use Diabetes mellitus complication status: with circulatory complication Diabetes mellitus complication detail: with other circulatory complications CAD (coronary artery disease) I25.10 Systolic CHF I50.20 Iron deficiency anemia D50.9 Iron deficiency anemia type: unspecified iron deficiency Alcohol withdrawal F10.939 NSVT (nonsustained ventricular tachycardia) I47.29 Gram-positive bacteremia R78.81
[2022-09-16] MEDS: insulin glargine 100 units/1 mL 10 UNIT SUBCUT (20:31)
[2022-09-16 21:40] LABS: Glucose Point of Care 183 mg/dL (70-110)
[2022-09-17] VITALS (14 sets, daily range): BP systolic 111–162; BP diastolic 58–71; PULSE 53–93; RESP 18–22; TEMP 36.4–36.9; O2SAT 91–100
--- NOTE | 2022-09-17 00:15 | PC.NURSE ---
Patient becoming very restless, anxious. Pulling at wires, pulled out IV catheter, attempted to get out of bed. Attempts to redirect were unsuccessful. Bed alarm set. notified, given orders for a one time dose of Lorazepam 1mg IVP.
[2022-09-17] MEDS: LORazepam 2 mg/mL INJ 1 mL 1 MG IVP (00:28)
[2022-09-17] MEDS: sucralfate 1 gm Tablet PO ×4 (01:46→17:44)
[2022-09-17] MEDS: pantoprazole 40 mg SDV IVP ×2 (03:31→17:44)
[2022-09-17] MEDS: ipratropium-albuterol 3 mL Neb INHALATION ×5 (04:05→19:40)
[2022-09-17 04:36] LABS: Basophils # 0.1 10^3/uL (0.0-0.1); Basophils % 0.5 %; Eosinophils # 0.7 10^3/uL (0.0-0.8); Eosinophils % 5.8 %; Hematocrit 42.1 % (42.0-52.0); Hemoglobin 12.6 g/dL (11.7-16.6); Lymphocytes # 1.4 10^3/uL (0.8-4.8); Lymphocytes % 12.7 %; Mean Corpuscular HGB Conc 29.9 g/dL (30.0-36.0); Mean Corpuscular Hemoglobin 27.4 pg (28.0-34.0); Mean Corpuscular Volume 91.5 fl (80-94); Mean Platelet Volume 10.7 fL (7.4-10.4); Monocytes # 1.1 10^3/uL (0.2-0.9); Monocytes % 9.7 %; Neutrophils # 7.91 10^3/uL (1.8-7.7); Neutrophils % 70.7 %; Nucleated Red Blood Cells % 0 %; Platelet Count 442 10^3/cmm (130-400); Red Cell Distribution Width 14.8 % (12.1-15.1); White Blood Count 11.2 10^3/uL (4.0-10.0)
[2022-09-17 04:50] LABS: Blood Urea Nitrogen 41 mg/dL (8-23); Calcium 9.7 mg/dL (8.5-10.5); Carbon Dioxide 29 mmol/L (22-29); Chloride 102 mmol/L (98-107); Glucose 110 mg/dL (65-115); Osmolality Calculated 307 mOsm/kg (285-295); Sodium 143 mmol/L (136-145)
[2022-09-17 04:58] LABS: Anion Gap 16.4 (5-19); Potassium 4.4 mmol/L (3.5-5.1)
[2022-09-17] MEDS: chlordiazePOXIDE 25 mg Capsule PO (05:22)
[2022-09-17 06:54] LABS: Glucose Point of Care 142 mg/dL (70-110)
[2022-09-17] MEDS: budesonide 0.5 mg/2 mL Neb INHALATION ×2 (07:36→19:40)
--- NOTE | 2022-09-17 09:09 | PC.SOCIAL ---
IMM update IMM updated with patient. Verbalized an understanding. Copy Pg 2 provided. Initialled, dated, timed, and placed in chart.
[2022-09-17] MEDS: clopidogrel 75 mg Tablet PO (09:33)
[2022-09-17] MEDS: polyethylene glycol 3350 Pkt 17 gm PO (09:33)
[2022-09-17] MEDS: doxycycline 100 mg Tablet PO ×2 (09:33→17:44)
[2022-09-17] MEDS: aspirin 81 mg EC Tablet 162 MG PO (09:33)
[2022-09-17] MEDS: gabapentin 100 mg Capsule 200 MG PO ×2 (09:33→17:44)
[2022-09-17] MEDS: levothyroxine 112 mcg Tablet PO (09:34)
[2022-09-17] MEDS: insulin lispro 100 unit/1 mL SUBCUT ×3 (09:34→22:12)
[2022-09-17] MEDS: sennosides-docusate Tablet 2 TAB PO (09:34)
[2022-09-17] MEDS: heparin 5,000 unit/mL INJ 1 mL 5000 UNIT SUBCUT ×2 (09:34→21:38)
[2022-09-17] MEDS: FUROsemide 40 mg Tablet PO (09:34)
[2022-09-17] MEDS: atorvastatin 40 mg Tablet PO (09:34)
[2022-09-17] MEDS: metoprolol tartrate 25 mg Tablet PO ×2 (09:35→17:44)
[2022-09-17 11:33] LABS: Glucose Point of Care 147 mg/dL (70-110)
--- NOTE | 2022-09-17 17:13 | PC.NURSE ---
SHift Summary: uneventful shift. patient was up to a chair for about half of the day. Occasionally attempts to ambulate without assistance but has been manageable with frequent rounding and keeping door open for increased observation.
[2022-09-17 17:30] LABS: Glucose Point of Care 132 mg/dL (70-110)
--- NOTE | 2022-09-17 18:17 | CTR_ITS ---
PROCEDURE INFORMATION: Exam: CT Head Without Contrast Exam date and time: 09/17/2022 7:16 PM Age: 72 years old Clinical indication: Altered mental status/memory loss and weakness, extremity; Left; Additional info: AMS, weaker L side? TECHNIQUE: Imaging protocol: Computed tomography of the head without contrast. Radiation optimization: All CT scans at this facility use at least one of these dose optimization techniques: automated exposure control; mA and/or kV adjustment per patient size (includes targeted exams where dose is matched to clinical indication); or iterative reconstruction. REPORTING DATA: Count of CT and Cardiac NM exams in prior 12 months: This patient has received 4 known CTs and 0 known cardiac nuclear medicine studies in the 12 months prior to the current study. COMPARISON: CT head wo con* [id number] 09/04/2022 8:03 AM RADIATION DOSE METRICS: Total DLP (mGy-cm): 1218.78 FINDINGS: Brain: Mild periventricular white matter low densities are most consistent with chronic small vessel ischemic change. No findings of intracranial hemorrhage. Diffuse cerebral atrophy. Cerebral ventricles: No ventriculomegaly. Paranasal sinuses: Visualized sinuses are unremarkable. No fluid levels. Mastoid air cells: Visualized mastoid air cells are well aerated. Bones/joints: No acute findings. Soft tissues: Unremarkable. CT/CT head wo con* [id number] IMPRESSION: No acute intracranial abnormality.
--- NOTE | 2022-09-17 18:50 | P.PN_ITS ---
Subjective Subjective: He states he is doing all right. Denies pain or discomfort. Later on noted to be more sleepy, states that that has been an issue going on for some time now. Denies any complaints. Knows he is in the hospital. Not oriented to year. Vitals/I&O/Wt Last Vital Signs Temp 98.0 F 09/17/22 16:00 Pulse 65 09/17/22 16:00 Resp 21 H 09/17/22 16:00 BP 162/71 09/17/22 16:00 Pulse Ox 94 09/17/22 16:00 O2 Del Method Room Air 09/17/22 16:00 O2 Flow Rate 2 09/17/22 11:42 FiO2 30 09/17/22 08:00 09/17/22 09/17/22 09/17/22 06:59 14:59 22:59 Intake Total 480 / 1060 720 / 720 240 / 960 Balance 480 / 310 720 / 720 240 / 960 Weight last 48 hrs Weight 79.696 kg Weight 84.096 kg Physical Exam Const: GENERAL APPEARANCE: cooperative and frail appearing OTHER: Awake, somewhat sluggish responses. On second visit he is awake, somnolent, wakes up to voice. HENMT: COMMON NORMALS: oropharynx normal Neck/C-Spine: COMMON NORMALS: no JVD Resp: COMMON NORMALS: normal respiratory effort and clear to auscultation bilaterally AUSCULTATION: clear to auscultation bilaterally Cardio: COMMON NORMALS: no JVD, regular rhythm, S1 normal heart sound present, S2 normal heart sound present and No murmurs present (Cardio) RHYTHM: regular rhythm HEART SOUNDS: S1 normal heart sound present and S2 normal heart sound present GI: COMMON NORMALS: Normal to inspection, nondistended, normoactive bowel sounds present, Soft to palpation and non-tender PALPATION: Yes Soft to palpation Extremity: COMMON NORMALS: no joint enlargement and no pedal edema Neuro: COMMON NORMALS: moves all extremities OTHER: Somnolent, but with voice wakes up, follows directions, although sometimes takes some reinforcement. Oriented to place. Somewhat slow to track, visual [place] full to confrontation, no visual extinction. No obvious dysmetria on FNF, although slow to perform and does not follow directions to touch finger on either side, only touches his nose. No facial droop. No upper or lower extremity drift. Symmetrical sensation both sides. Skin: COMMON NORMALS: no rashes or lesions noted GENERAL SKIN EXAM: no rashes or lesions noted Urinary Catheter Management: Phillip: Cath Placed During This Visit: yes Reason for Continuing Indwelling Catheter: Accurate Measurement of Urinary Output in Critically Ill Patients Urinary Catheter Date of Insertion: 09/10/22 Urinary Catheter Time of Insertion: 02:35 Data 09/17/22 03:55 09/17/22 03:55 A&P Assessment and plan (1) ARDS (adult respiratory distress syndrome): (2) Acute exacerbation of CHF (congestive heart failure): (3) DKA (diabetic ketoacidosis): (4) Acute non-ST elevation myocardial infarction (NSTEMI): (5) Chronic kidney disease, stage 3 unspecified: (6) Acute respiratory failure with hypoxia and hypercapnia: (7) High anion gap metabolic acidosis: (8) Hyperkalemia: (9) Type 2 diabetes mellitus: Qualifiers: Diabetes mellitus complication detail: with other circulatory complications Diabetes mellitus complication status: with circulatory complication Diabetes mellitus nursing home insulin use: without regional intermodal truck driver use Qualified Code(s): E11.59 - Type 2 diabetes mellitus with other circulatory complications (10) CAD (coronary artery disease): (11) Systolic CHF: (12) Iron deficiency anemia: Qualifiers: Iron deficiency anemia type: unspecified iron deficiency Qualified Code(s): D50.9 - Iron deficiency anemia, unspecified (13) Alcohol withdrawal: (14) NSVT (nonsustained ventricular tachycardia): (15) Gram-positive bacteremia: Plan Acute encephalopathy: More somnolent today. This afternoon more sluggish. Somewhat more difficult to wake up. Does wake up to voice, follows directions. States has been having this issue for some time now, at least days. Slow movements, does not always follow directions well, sometimes requiring reinforcement. Appears to be worse than yesterday. Some report of left-sided weakness by aide, but I do not appreciate on exam. Sensation symmetrical. No drift. Appears to be encephalopathy. Obtain CT head. Pending official read. On my preliminary review I do not see any bleed or large CVA. Glucose noted 132. Not hypotensive. Requested bladder scan and UA. Has been in moving. No worsening in respiratory function, no hypoxia. Check TSH. Check ABG. CBC noted from this morning, WBC the same, near normal at 11.2. Minimal neutrophilic elevation 7.91. No sign of liver cirrhosis. Liver noted normal on CT. Suspected acute metabolic encephalopathy, although etiology not clear. Possibly toxic encephalopathy secondary to gabapentin. Hold gabapentin. Received 1 dose of 1 mg Ativan last night around midnight. Hold additional Ativan. Acute hypoxic respiratory failure: Improving, oxygen requirement decreasing, down to 2 L nasal cannula. Incontinent, so SELENA difficult. Renal function appears to be steady. Continue oral Lasix. Physical deconditioning. Discussed with case management, working on arrangement for rehabilitation. -Treated fluid overload, acute systolic CHF exacerbation, pulm edema -Secondary to pneumonia -Secondary to acute respiratory distress syndrome -Status post extubation 09/12/2022, on 3 L Acute systolic CHF exacerbation, pulm edema As above. Labs noted, chemistry, potassium 4.4, BUN 41, creatinine 1.8. Follow-up repeat chemistry. EF noted decreased 40-45% on TTE. Mild to moderate global hypokinesis. New from prior echo. Gram positive bacteremia, likely contamination -Seen in 1 of 4 blood cultures, first blood cultures -5 days noted Corynebacterium. Suspected contamination. Off vancomycin. Pneumonia -Continue doxyxline -Sputum cultures with noted scant normal ben. Blood cultures with noted current bacteria 1/2 bottles, likely contaminant. Repeat CBC requested. Acute respiratory distress syndrome -Pulmonary documentation appreciated. Has signed off. Non-ST elevation [place] -Recent history of cath ?1. Severe two-vessel coronary artery disease.? Occluded LAD and circumflex. Occluded bypass graft to the LAD and circumflex. -Continue aspirin, statin, Plavix -Status post 48 hours of full dose anticoagulation Has evidence of iron deficiency anemia Reassess CBC. -Protonix, Carafate Hyperglycemia, with concern for DKA, type 2 diabetes mellitus - on subcut insulin Abdominal distention, will monitor Order venous ultrasound negative for DVT Nonsustained V. tach, monitor Alcohol withdrawal, scheduled Librium 25 every 24 hours, CIWA protocol, will deescalate Full code Heparin for DVT prophylaxis Discussed with case management, continue arrangements for rehabilitation. He is agreeable. Attestations Medical Necessity Statement*: Continue admission for assessment management of acute change in neurologic status, with acute encephalopathy. Diagnoses ARDS (adult respiratory distress syndrome) J80 Acute exacerbation of CHF (congestive heart failure) I50.9 DKA (diabetic ketoacidosis) E11.10 Acute non-ST elevation myocardial infarction (NSTEMI) I21.4 Chronic kidney disease, stage 3 unspecified N18.30 Acute respiratory failure with hypoxia and hypercapnia J96.01; J96.02 High anion gap metabolic acidosis E87.29 Hyperkalemia E87.5 Type 2 diabetes mellitus E11.59 Diabetes mellitus complication detail: with other circulatory complications Diabetes mellitus complication status: with circulatory complication Diabetes mellitus regional intermodal truck driver insulin use: without regional intermodal truck driver use CAD (coronary artery disease) I25.10 Systolic CHF I50.20 Iron deficiency anemia D50.9 Iron deficiency anemia type: unspecified iron deficiency Alcohol withdrawal F10.939 NSVT (nonsustained ventricular tachycardia) I47.29 Gram-positive bacteremia R78.81
[2022-09-17 20:10] LABS: ABG PCO2 41.7 mmHg (35-45); ABG PH Result 7.38 (7.35-7.45); Arterial Blood Gas Hematocrit 37.7 % (42-52); Base Excess ABG -0.5 mmol/L (-2.0-2.0); Blood Gas Sample Site Brachial, right; Blood Gas Sample Type Arterial; HCO3 ABG 24.7 mmol/L (22-26); Oxygen Device NC; PO2 ABG 62.6 mmHg (80.0-100.0)
[2022-09-17 20:28] LABS: Thyroid Stimulating Hormone 0.97 uIU/mL (0.27-4.20)
[2022-09-17] MEDS: insulin glargine 100 units/1 mL 10 UNIT SUBCUT (21:38)
[2022-09-17 22:00] LABS: Glucose Point of Care 260 mg/dL (70-110)
[2022-09-18] VITALS (67 sets, daily range): BP systolic 106–144; BP diastolic 44–86; PULSE 52–78; RESP 12–33; TEMP 36.4–37; O2SAT 67–99
[2022-09-18] MEDS: ipratropium-albuterol 3 mL Neb INHALATION ×7 (00:04→23:23)
[2022-09-18 00:49] LABS: Add Urine Microscopic? YES; Bilirubin Urine Neg (Negative); Blood Urine Trace (Negative); Glucose Urine UA 2+ (Normal); Ketones Urine Negative (Negative); Leukocyte Esterase Urine 2+ (Negative); Nitrate Urine Negative (Negative); Protein Urine Neg (Negative); Specific Gravity, Urine 1.015 (1.005-1.030); Urine Appearance Cloudy (CLEAR); Urine Color Light yellow (Yellow); Urobilinogen Urine Norm (Negative); pH Urine 5 (5-7)
[2022-09-18 00:50] LABS: Bacteria Urine TRACE /hpf; RBC Urine 0-4 /hpf (0-2); Squamous Epithelial Cell Urine 0-4 /hpf (0-5); WBC Urine 40-55 /hpf (0-5)
[2022-09-18 00:51] LABS: Add Urine Culture? Yes
[2022-09-18] MEDS: sucralfate 1 gm Tablet PO ×4 (01:01→17:21)
[2022-09-18 03:39] LABS: Basophils % 0.5 %; Eosinophils # 0.5 10^3/uL (0.0-0.8); Hematocrit 37.8 % (42.0-52.0); Hemoglobin 11.6 g/dL (11.7-16.6); Lymphocytes # 1.5 10^3/uL (0.8-4.8); Lymphocytes % 17.6 %; Mean Corpuscular HGB Conc 30.7 g/dL (30.0-36.0); Mean Corpuscular Hemoglobin 27.6 pg (28.0-34.0); Mean Platelet Volume 10.7 fL (7.4-10.4); Monocytes # 0.9 10^3/uL (0.2-0.9); Monocytes % 10.3 %; Nucleated Red Blood Cells % 0 %; Platelet Count 434 10^3/cmm (130-400); Red Cell Distribution Width 14.7 % (12.1-15.1); White Blood Count 8.6 10^3/uL (4.0-10.0)
[2022-09-18 03:58] LABS: Blood Urea Nitrogen 46 mg/dL (8-23); Calcium 9.5 mg/dL (8.5-10.5); Carbon Dioxide 28 mmol/L (22-29); Chloride 103 mmol/L (98-107); Glucose 166 mg/dL (65-115); Osmolality Calculated 308 mOsm/kg (285-295); Sodium 141 mmol/L (136-145)
[2022-09-18 04:00] LABS: Anion Gap 14.3 (5-19); Potassium 4.3 mmol/L (3.5-5.1)
[2022-09-18] MEDS: chlordiazePOXIDE 25 mg Capsule PO (05:31)
[2022-09-18] MEDS: pantoprazole 40 mg SDV IVP ×2 (05:31→17:20)
[2022-09-18 07:00] LABS: Glucose Point of Care 178 mg/dL (70-110)
[2022-09-18] MEDS: FUROsemide 40 mg Tablet PO (07:39)
[2022-09-18] MEDS: insulin lispro 100 unit/1 mL SUBCUT ×3 (07:40→22:23)
[2022-09-18] MEDS: budesonide 0.5 mg/2 mL Neb INHALATION ×2 (07:48→19:50)
[2022-09-18] MEDS: metoprolol tartrate 25 mg Tablet PO ×2 (08:38→17:21)
[2022-09-18] MEDS: aspirin 81 mg EC Tablet 162 MG PO (08:38)
[2022-09-18] MEDS: atorvastatin 40 mg Tablet PO (08:38)
[2022-09-18] MEDS: levothyroxine 112 mcg Tablet PO (08:38)
[2022-09-18] MEDS: clopidogrel 75 mg Tablet PO (08:38)
[2022-09-18] MEDS: doxycycline 100 mg Tablet PO ×2 (08:38→17:21)
[2022-09-18] MEDS: sennosides-docusate Tablet 2 TAB PO (08:39)
[2022-09-18] MEDS: polyethylene glycol 3350 Pkt 17 gm PO (08:39)
[2022-09-18] MEDS: heparin 5,000 unit/mL INJ 1 mL 5000 UNIT SUBCUT ×2 (08:39→20:45)
[2022-09-18] MEDS: fluconazole premix 200 MG/100 ML PREMIX 100 MG IV (09:48)
[2022-09-18 12:03] LABS: Glucose Point of Care 239 mg/dL (70-110)
--- NOTE | 2022-09-18 15:06 | P.PN_ITS ---
Subjective Subjective: He states he is doing about all right . Initially somnolent this morning, but then woke up better once he was mobilized up to the chair. Vitals/I&O/Wt Last Vital Signs Temp 97.8 F 09/18/22 08:00 Pulse 61 09/18/22 14:56 Resp 20 H 09/18/22 14:56 BP 114/66 09/18/22 14:56 Pulse Ox 94 09/18/22 14:56 O2 Del Method Nasal Cannula 09/18/22 14:56 O2 Flow Rate 2 09/18/22 14:56 FiO2 30 09/18/22 03:43 09/18/22 09/18/22 09/18/22 06:59 14:59 22:59 Intake Total 0 / 960 780 / 780 Output Total 300 / 300 Balance -300 / 660 780 / 780 Weight last 48 hrs Weight 79.696 kg Physical Exam Const: COMMON NORMALS: alert GENERAL APPEARANCE: cooperative and frail appearing ORIENTATION/CONSCIOUSNESS: Yes awake OTHER: More awake today. Mildly slowed responses. HENMT: COMMON NORMALS: oropharynx normal Neck/C-Spine: COMMON NORMALS: no JVD Resp: COMMON NORMALS: normal respiratory effort and clear to auscultation bilaterally AUSCULTATION: clear to auscultation bilaterally Cardio: COMMON NORMALS: no JVD, regular rhythm, S1 normal heart sound present, S2 normal heart sound present and No murmurs present (Cardio) RHYTHM: regular rhythm HEART SOUNDS: S1 normal heart sound present and S2 normal heart sound present GI: COMMON NORMALS: Normal to inspection, nondistended, normoactive bowel sounds present, Soft to palpation and non-tender PALPATION: Yes Soft to palpation Extremity: COMMON NORMALS: no joint enlargement and no pedal edema Neuro: COMMON NORMALS: moves all extremities SENSORIUM/ORIENTATION: Yes alert OTHER: More awake, follows directions, although sometimes takes some reinforcement. Oriented to place. Somewhat slow to track, visual [place] full to confrontation, no visual extinction. No obvious dysmetria on FNF, although slow to perform and does not follow directions to touch finger on either side, only touches his nose. No facial droop. No upper or lower extremity drift. Symmetrical sensation both sides. Skin: COMMON NORMALS: no rashes or lesions noted GENERAL SKIN EXAM: no rashes or lesions noted Urinary Catheter Management: Phillip: Cath Placed During This Visit: yes Reason for Continuing Indwelling Catheter: Accurate Measurement of Urinary Output in Critically Ill Patients Urinary Catheter Date of Insertion: 09/10/22 Urinary Catheter Time of Insertion: 02:35 Data 09/18/22 03:07 09/18/22 03:07 A&P Assessment and plan (1) ARDS (adult respiratory distress syndrome): (2) Acute exacerbation of CHF (congestive heart failure): (3) DKA (diabetic ketoacidosis): (4) Acute non-ST elevation myocardial infarction (NSTEMI): (5) Chronic kidney disease, stage 3 unspecified: (6) Acute respiratory failure with hypoxia and hypercapnia: (7) High anion gap metabolic acidosis: (8) Hyperkalemia: (9) Type 2 diabetes mellitus: Qualifiers: Diabetes mellitus senior care insulin use: without termite helper use Diabetes mellitus complication status: with circulatory complication Diabetes mellitus complication detail: with other circulatory complications Qualified Code(s): E11.59 - Type 2 diabetes mellitus with other circulatory complications (10) CAD (coronary artery disease): (11) Systolic CHF: (12) Iron deficiency anemia: Qualifiers: Iron deficiency anemia type: unspecified iron deficiency Qualified Code(s): D50.9 - Iron deficiency anemia, unspecified (13) Alcohol withdrawal: (14) NSVT (nonsustained ventricular tachycardia): (15) Gram-positive bacteremia: Plan Acute encephalopathy: ED he is more awake . Denies any complaints. Head CT noted WNL. Exam does not appear to be focal. UA noted abnormal, 40-55 WBC, 3+ yeast. Started on Diflucan due to possible complicated/symptomatic UTI with acute encephalopathy. History regarding this morning obtained from RN, somewhat more somnolent this morning, but more alert once moved to the chair. Not hypoglycemic. Sodium noted 141. TSH WNL. No worsening in respiratory function, no hypoxia. Check TSH. Check ABG. CBC noted from this morning, WBC the same, near normal at 11.2. Minimal neutrophilic elevation 7.91. No sign of liver cirrhosis. Liver noted normal on CT. Additionally, possibly toxic encephalopathy secondary to gabapentin. Hold gabapentin. Received 1 dose of 1 mg Ativan prior night around midnight. Hold additional Ativan. Acute hypoxic respiratory failure: Improving, oxygen requirement decreasing, down to 1 L nasal cannula. Incontinent, so SELENA difficult. Renal function appears to be steady. Noted BUN and creatinine 46, 1.6. Continue oral Lasix. Physical deconditioning. Discussed with case management, working on arrangement for rehabilitation. -Treated fluid overload, acute systolic CHF exacerbation, pulm edema -Secondary to pneumonia -Secondary to acute respiratory distress syndrome -Status post extubation 09/12/2022, on 3 L Acute systolic CHF exacerbation, pulm edema As above. Labs noted, chemistry, sodium 141, potassium 4.3. Noted BUN and creatinine as above. Follow-up repeat chemistry. EF noted decreased 40-45% on TTE. Mild to moderate global hypokinesis. New from prior echo. Gram positive bacteremia, likely contamination -Seen in 1 of 4 blood cultures, first blood cultures -5 days noted Corynebacterium. Suspected contamination. Off vancomycin. Pneumonia -Continue doxyxline -Sputum cultures with noted scant normal ben. Blood cultures with noted current bacteria 1/2 bottles, likely contaminant. Repeat CBC requested. Acute respiratory distress syndrome -Pulmonary documentation appreciated. Has signed off. Non-ST elevation [place] -Recent history of cath ?1. Severe two-vessel coronary artery disease.? Occluded LAD and circumflex. Occluded bypass graft to the LAD and circumflex. -Continue aspirin, statin, Plavix -Status post 48 hours of full dose anticoagulation Has evidence of iron deficiency anemia Reassess CBC. -Protonix, Carafate Hyperglycemia, with concern for DKA, type 2 diabetes mellitus - on subcut insulin Abdominal distention, will monitor Order venous ultrasound negative for DVT Nonsustained V. tach, monitor Alcohol withdrawal, scheduled Librium 25 every 24 hours, CIWA protocol, will deescalate Full code Heparin for DVT prophylaxis Discussed with case management. Pending arrangements for posthospitalization rehabilitation. Attestations Medical Necessity Statement*: Continue admission for assessment management of acute encephalopathy, complicated UTI, postdischarge arrangements. Diagnoses ARDS (adult respiratory distress syndrome) J80 Acute exacerbation of CHF (congestive heart failure) I50.9 DKA (diabetic ketoacidosis) E11.10 Acute non-ST elevation myocardial infarction (NSTEMI) I21.4 Chronic kidney disease, stage 3 unspecified N18.30 Acute respiratory failure with hypoxia and hypercapnia J96.01; J96.02 High anion gap metabolic acidosis E87.29 Hyperkalemia E87.5 Type 2 diabetes mellitus E11.59 Diabetes mellitus senior care insulin use: without senior care use Diabetes mellitus complication status: with circulatory complication Diabetes mellitus complication detail: with other circulatory complication s CAD (coronary artery disease) I25.10 Systolic CHF I50.20 Iron deficiency anemia D50.9 Iron deficiency anemia type: unspecified iron deficiency Alcohol withdrawal F10.939 NSVT (nonsustained ventricular tachycardia) I47.29 Gram-positive bacteremia R78.81
[2022-09-18 16:41] LABS: Glucose Point of Care 137 mg/dL (70-110)
[2022-09-18] MEDS: insulin glargine 100 units/1 mL 10 UNIT SUBCUT (20:45)
--- NOTE | 2022-09-18 21:49 | CTR_ITS ---
PROCEDURE INFORMATION: Exam: CT Head Without Contrast Exam date and time: 09/18/2022 10:07 PM Age: 72 years old Clinical indication: Injury or trauma; Fall; Blunt trauma (contusions or hematomas); Additional info: Suspected fall, confusion TECHNIQUE: Imaging protocol: Computed tomography of the head without contrast. Radiation optimization: All CT scans at this facility use at least one of these dose optimization techniques: automated exposure control; mA and/or kV adjustment per patient size (includes targeted exams where dose is matched to clinical indication); or iterative reconstruction. REPORTING DATA: Count of CT and Cardiac NM exams in prior 12 months: This patient has received 5 known CTs and 0 known cardiac nuclear medicine studies in the 12 months prior to the current study. COMPARISON: CT head wo con* [id number] 09/17/2022 7:16 PM RADIATION DOSE METRICS: Total DLP (mGy-cm): 1225.58 FINDINGS: Brain: No acute intracranial hemorrhage, abnormal extra-axial fluid collection, mass effect, or midline shift. [id number] periventricular and subcortical white matter hypodensities compatible with changes of [id number]-[id number] burden chronic small-vessel disease. Cerebral ventricles: Prominence of the ventricles and sulci compatible with age related global involutional changes. Paranasal sinuses: Visualized paranasal sinuses are grossly unremarkable. No air fluid levels. Mastoid air cells: Visualized mastoid air cells are well aerated. Bones/joints: No acute fracture. Soft tissues: Grossly unremarkable. Vasculature: Atheromatous changes are seen within the bilateral carotid siphons and V4 segments of the bilateral vertebral arteries. CT/CT head wo con* [id number] IMPRESSION: 1. No acute intracranial findings. 2. Other chronic/incidental findings as described above.
[2022-09-18 22:14] LABS: Glucose Point of Care 199 mg/dL (70-110)
[2022-09-19] VITALS (60 sets, daily range): BP systolic 116–132; BP diastolic 59–63; PULSE 54–78; RESP 13–24; TEMP 36.7–36.8; O2SAT 81–98; BMI 31.8
[2022-09-19 03:12] LABS: Basophils % 0.4 %; Eosinophils # 0.5 10^3/uL (0.0-0.8); Eosinophils % 5.1 %; Hematocrit 39.4 % (42.0-52.0); Hemoglobin 12.1 g/dL (11.7-16.6); Lymphocytes # 1.3 10^3/uL (0.8-4.8); Mean Corpuscular HGB Conc 30.7 g/dL (30.0-36.0); Mean Corpuscular Volume 91.2 fl (80-94); Mean Platelet Volume 10.7 fL (7.4-10.4); Monocytes # 0.8 10^3/uL (0.2-0.9); Monocytes % 8.2 %; Neutrophils # 6.66 10^3/uL (1.8-7.7); Neutrophils % 71.9 %; Nucleated Red Blood Cells % 0 %; Platelet Count 421 10^3/cmm (130-400); Red Blood Count 4.32 10^6/uL (4.1-5.3); Red Cell Distribution Width 14.6 % (12.1-15.1); White Blood Count 9.3 10^3/uL (4.0-10.0)
[2022-09-19 03:32] LABS: Anion Gap 15.1 (5-19); Blood Urea Nitrogen 37 mg/dL (8-23); Calcium 9.4 mg/dL (8.5-10.5); Carbon Dioxide 28 mmol/L (22-29); Chloride 101 mmol/L (98-107); Glucose 148 mg/dL (65-115); Osmolality Calculated 301 mOsm/kg (285-295); Potassium 4.1 mmol/L (3.5-5.1); Sodium 140 mmol/L (136-145)
[2022-09-19] MEDS: ipratropium-albuterol 3 mL Neb INHALATION ×5 (03:44→20:20)
--- NOTE | 2022-09-19 03:58 | PC.NURSE ---
Patient found sitting in floor. Small scrape on left eyebrow. Patient assessed for injuries and then assisted back to bed. Vitals obtained. Patient is A&O to self. Is not aware of time, place, or situation. Patient educated on use of call light and risk for falls. toxicology supervisor and notified. Orders for head ct obtained. Patient moved to room closer to nurses station for better observation, bed alarm set.
[2022-09-19] MEDS: sucralfate 1 gm Tablet PO ×3 (05:21→18:37)
[2022-09-19] MEDS: chlordiazePOXIDE 25 mg Capsule PO (05:21)
[2022-09-19] MEDS: pantoprazole 40 mg SDV IVP ×2 (05:21→18:38)
[2022-09-19 06:08] LABS: Glucose Point of Care 137 mg/dL (70-110)
[2022-09-19] MEDS: budesonide 0.5 mg/2 mL Neb INHALATION ×2 (09:03→20:20)
[2022-09-19] MEDS: heparin 5,000 unit/mL INJ 1 mL 5000 UNIT SUBCUT ×2 (09:06→21:08)
[2022-09-19] MEDS: metoprolol tartrate 25 mg Tablet PO ×2 (09:07→18:38)
[2022-09-19] MEDS: clopidogrel 75 mg Tablet PO (09:07)
[2022-09-19] MEDS: atorvastatin 40 mg Tablet PO (09:07)
[2022-09-19] MEDS: sennosides-docusate Tablet 2 TAB PO (09:08)
[2022-09-19] MEDS: FUROsemide 40 mg Tablet PO (09:08)
[2022-09-19] MEDS: levothyroxine 112 mcg Tablet PO (09:08)
[2022-09-19] MEDS: aspirin 81 mg EC Tablet 162 MG PO (09:09)
[2022-09-19] MEDS: doxycycline 100 mg Tablet PO ×2 (09:09→18:38)
[2022-09-19] MEDS: polyethylene glycol 3350 Pkt 17 gm PO (09:09)
[2022-09-19] MEDS: fluconazole premix 200 MG/100 ML PREMIX 100 MG IV (09:16)
[2022-09-19 11:30] LABS: Glucose Point of Care 188 mg/dL (70-110)
--- NOTE | 2022-09-19 11:30 | PC.SOCIAL ---
[facility] IMM update. Pt 2 of IMM dated and reviewed with pt. Copy provided. Copy dated, initialed and placed in chart. 03
[2022-09-19] MEDS: insulin lispro 100 unit/1 mL SUBCUT ×2 (12:15→21:37)
[2022-09-19 16:13] LABS: SARS Covid-2 Antigen negative (Negative)
--- NOTE | 2022-09-19 16:38 | P.PN_ITS ---
Subjective Subjective: He is more alert and more conversant today. He was found on the floor overnight with small contusion/abrasion superolateral to the right eyebrow. He is not sure how exactly he ended up on the floor but states that he was self-conscious about asking for help so as not to jeopardize his chances to go over to intermediate facility. Reinforced with him to let us know in case any he is needing assistance, avoid falls as much as possible. He agrees. Vitals/I&O/Wt Last Vital Signs Temp 98.0 F 09/19/22 08:00 Pulse 61 09/19/22 16:00 Resp 22 H 09/19/22 16:00 BP 132/59 09/19/22 12:30 Pulse Ox 97 09/19/22 16:00 O2 Del Method Room Air 09/19/22 16:00 O2 Flow Rate 2 09/18/22 16:00 FiO2 30 09/19/22 11:55 Weight last 48 hrs Weight 81.601 kg Weight 81.601 kg Physical Exam Const: COMMON NORMALS: alert GENERAL APPEARANCE: cooperative and frail vern earing ORIENTATION/CONSCIOUSNESS: Yes awake OTHER: More awake and conversant. Somewhat more energetic compared to last several days. Still somewhat slowed speech, mild slurring. HENMT: COMMON NORMALS: oropharynx normal Neck/C-Spine: COMMON NORMALS: no JVD Resp: COMMON NORMALS: normal respiratory effort and clear to auscultation bilaterally AUSCULTATION: clear to auscultation bilaterally Cardio: COMMON NORMALS: no JVD, regular rhythm, S1 normal heart sound present, S2 normal heart sound present and No murmurs present (Cardio) RHYTHM: regular rhythm HEART SOUNDS: S1 normal heart sound present and S2 normal heart sound present GI: COMMON NORMALS: Normal to inspection, nondistended, normoactive bowel sounds present, Soft to palpation and non-tender PALPATION: Yes Soft to palpation Extremity: COMMON NORMALS: no joint enlargement and no pedal edema Neuro: COMMON NORMALS: moves all extremities SENSORIUM/ORIENTATION: Yes alert Skin: COMMON NORMALS: no rashes or lesions noted GENERAL SKIN EXAM: no rashes or lesions noted Urinary Catheter Management: Phillip: Cath Placed During This Visit: yes Reason for Continuing Indwelling Catheter: Accurate Measurement of Urinary Output in Critically Ill Patients Urinary Catheter Date of Insertion: 09/10/22 Urinary Catheter Time of Insertion: 02:35 Data 09/19/22 02:37 09/19/22 02:37 Micro: Microbiology 09/17/22 23:30 Urine Culture - Preliminary Urine,Clean Catch Yeast A&P Assessment and plan (1) ARDS (adult respiratory distress syndrome): (2) Acute exacerbation of CHF (congestive heart failure): (3) DKA (diabetic ketoacidosis): (4) Acute non-ST elevation myocardial infarction (NSTEMI): (5) Chronic kidney disease, stage 3 unspecified: (6) Acute respiratory failure with hypoxia and hypercapnia: (7) High anion gap metabolic acidosis: (8) Hyperkalemia: (9) Type 2 diabetes mellitus: Qualifiers: Diabetes mellitus manager long term care insulin use: without intermediate use Diabetes mellitus complication status: with circulatory complication Diabetes mellitus complication detail: with other circulatory complications Qualified Code(s): E11.59 - Type 2 diabetes mellitus with other circulatory complications (10) CAD (coronary artery disease): (11) Systolic CHF: (12) Iron deficiency anemia: Qualifiers: Iron deficiency anemia type: unspecified iron deficiency Qualified Code(s): D50.9 - Iron deficiency anemia, unspecified (13) Alcohol withdrawal: (14) NSVT (nonsustained ventricular tachycardia): (15) Gram-positive bacteremia: Plan Acute encephalopathy: Overnight found on the floor after a fall. CT head vern reciated, unremarkable. Reinforced with him asking for assistance in case needing to get up. Continue fall precautions. He does appear to be more alert and more conversant. Still some slowing of speech but much longer spontaneous sentences. Asks me when he is going to go over to the other place , referring to SNF. Discussed with him pending approval. Otherwise denies any complaints. Continue treatment of complicated yeast UTI. Appears to be responding. Continue to hold gabapentin. Stop Librium. Chemistry otherwise unremarkable, sodium 140. Renal function with some improvement, BUN down to 35, creatinine 1.5. Anion gap 15, bicarb 28. Does not appear to be in acidosis. Continue to reorient. Mobilize. Discussed with case management, proceed to rehabilitation once approved. Acute hypoxic respiratory failure: Improving, weaned off oxygen. Incontinent, so SELENA difficult. Renal function appears to be steady. BUN down to 37, creatinine down to 1.5. Continue oral Lasix. Physical deconditioning. -Treated fluid overload, acute systolic CHF exacerbation, pulm edema -Secondary to pneumonia -Secondary to acute respiratory distress syndrome -Status post extubation 09/12/2022, on 3 L Acute systolic CHF exacerbation, pulm edema As above. Labs noted, chemistry, sodium 141, potassium 4.3. Noted BUN and creatinine as above. Follow-up repeat chemistry. EF noted decreased 40-45% on TTE. Mild to moderate global hypokinesis. New from prior echo. Gram positive bacteremia, likely contamination -Seen in 1 of 4 blood cultures, first blood cultures -5 days noted Corynebacterium. Suspected contamination. Off vancomycin. Pneumonia Check procalcitonin. -Continue doxy -Sputum cultures with noted scant normal ben. Blood cultures with noted current bacteria 1/2 bottles, likely contaminant. Repeat CBC requested. Acute respiratory distress syndrome -Pulmonary documentation appreciated. Has signed off. Non-ST elevation [place] -Recent history of cath ?1. Severe two-vessel coronary artery disease.? Occluded LAD and circumflex. Occluded bypass graft to the LAD and circumflex. -Continue aspirin, statin, Plavix -Status post 48 hours of full dose anticoagulation Has evidence of iron deficiency anemia Reassess CBC. -Protonix, Carafate Hyperglycemia, with concern for DKA, type 2 diabetes mellitus - on subcut insulin Abdominal distention, will monitor Order venous ultrasound negative for DVT Nonsustained V. tach, monitor Alcohol withdrawal, scheduled Librium 25 every 24 hours, CIWA protocol, will deescalate Full code Heparin for DVT prophylaxis Discussed with case management. Pending arrangements for posthospitalization rehabilitation. Attestations Medical Necessity Statement*: Continue admission for assessment management of acute encephalopathy, treatment of complicated UTI, resolving pneumonia, post discharge planning and arrangements. Diagnoses ARDS (adult respiratory distress syndrome) J80 Acute exacerbation of CHF (congestive heart failure) I50.9 DKA (diabetic ketoacidosis) E11.10 Acute non-ST elevation myocardial infarction (NSTEMI) I21.4 Chronic kidney disease, stage 3 unspecified N18.30 Acute respiratory failure with hypoxia and hypercapnia J96.01; J96.02 High anion gap metabolic acidosis E87.29 Hyperkalemia E87.5 Type 2 diabetes mellitus E11.59 Diabetes mellitus manager long term care insulin use: without intermediate use Diabetes mellitus complication status: with circulatory complication Diabetes mellitus complication detail: with other circulatory comp lications CAD (coronary artery disease) I25.10 Systolic CHF I50.20 Iron deficiency anemia D50.9 Iron deficiency anemia type: unspecified iron deficiency Alcohol withdrawal F10.939 NSVT (nonsustained ventricular tachycardia) I47.29 Gram-positive bacteremia R78.81
[2022-09-19 16:48] LABS: Glucose Point of Care 130 mg/dL (70-110)
--- NOTE | 2022-09-19 20:48 | PC.NURSE ---
Patient continues to attempt to get out of bed. Bed alarm in use. Patient has had a couple of falls this admission. Informed Dr Davila and received onetime dose of Ativan 0.5mg IVP. RBVO
[2022-09-19] MEDS: LORazepam 2 mg/mL INJ 1 mL 0.5 MG IVP (20:55)
[2022-09-19] MEDS: insulin glargine 100 units/1 mL 10 UNIT SUBCUT (21:08)
[2022-09-19 21:20] LABS: Glucose Point of Care 224 mg/dL (70-110)
[2022-09-20] VITALS (9 sets, daily range): BP systolic 132–149; BP diastolic 59–72; PULSE 62–74; RESP 16–24; TEMP 36.7–37.3; O2SAT 93–95; BMI 27.7
[2022-09-20] MEDS: LORazepam 2 mg/mL INJ 1 mL 1 MG IVP (00:10)
[2022-09-20 03:24] LABS: Basophils # 0.1 10^3/uL (0.0-0.1); Basophils % 0.4 %; Eosinophils # 0.4 10^3/uL (0.0-0.8); Hematocrit 36.7 % (42.0-52.0); Hemoglobin 11.2 g/dL (11.7-16.6); Mean Corpuscular HGB Conc 30.5 g/dL (30.0-36.0); Mean Corpuscular Volume 88.4 fl (80-94); Mean Platelet Volume 10.8 fL (7.4-10.4); Monocytes # 0.9 10^3/uL (0.2-0.9); Neutrophils % 81.1 %; Nucleated Red Blood Cells % 0 %; Platelet Count 402 10^3/cmm (130-400); Red Blood Count 4.15 10^6/uL (4.1-5.3); Red Cell Distribution Width 14.6 % (12.1-15.1); White Blood Count 12.9 10^3/uL (4.0-10.0)
[2022-09-20 03:56] LABS: Procalcitonin 0.13 ng/mL (0-0.5)
[2022-09-20 04:07] LABS: Blood Urea Nitrogen 37 mg/dL (8-23); Calcium 9.2 mg/dL (8.5-10.5); Carbon Dioxide 24 mmol/L (22-29); Chloride 102 mmol/L (98-107); Glucose 83 mg/dL (65-115); Osmolality Calculated 296 mOsm/kg (285-295); Sodium 139 mmol/L (136-145)
[2022-09-20] MEDS: ipratropium-albuterol 3 mL Neb INHALATION ×2 (04:21→07:12)
[2022-09-20] MEDS: pantoprazole 40 mg SDV IVP (05:01)
--- NOTE | 2022-09-20 06:00 | PC.NURSE ---
Patient has removed his oxygen and EKG monitoring equipment twice since we performed patient hygiene at 0500. Patient states he's ready to leave now. Attempted to re-orient patient to time and place. Patient is currently wearing only a disposable brief and has refused to cover with a sheet.
[2022-09-20 06:27] LABS: Glucose Point of Care 126 mg/dL (70-110)
[2022-09-20] MEDS: budesonide 0.5 mg/2 mL Neb INHALATION (07:12)
[2022-09-20] MEDS: polyethylene glycol 3350 Pkt 17 gm PO (08:46)
[2022-09-20] MEDS: FUROsemide 40 mg Tablet PO (08:47)
[2022-09-20] MEDS: sennosides-docusate Tablet 2 TAB PO (08:47)
[2022-09-20] MEDS: clopidogrel 75 mg Tablet PO (08:47)
[2022-09-20] MEDS: aspirin 81 mg EC Tablet 162 MG PO (08:47)
[2022-09-20] MEDS: atorvastatin 40 mg Tablet PO (08:47)
[2022-09-20] MEDS: doxycycline 100 mg Tablet PO (08:47)
[2022-09-20] MEDS: levothyroxine 112 mcg Tablet PO (08:47)
[2022-09-20] MEDS: metoprolol tartrate 25 mg Tablet PO (08:47)
[2022-09-20] MEDS: heparin 5,000 unit/mL INJ 1 mL 5000 UNIT SUBCUT (08:48)
[2022-09-20] MEDS: fluconazole premix 200 MG/100 ML PREMIX 100 MG IV (08:52)
[2022-09-20 12:10] LABS: Glucose Point of Care 187 mg/dL (70-110)
[2022-09-20] MEDS: insulin lispro 100 unit/1 mL SUBCUT (12:56)
[2022-09-20] MEDS: sucralfate 1 gm Tablet PO (12:57)
--- NOTE | 2022-09-20 13:45 | PC.NURSE ---
Discharge Note [facility] by [facility] personnel. Discharge instructions reviewed with patient and/or novelties sales representative. Mobile pharmacy medications and/or prescriptions provided. Belongings/home medications returned.
--- NOTE | 2022-09-20 13:53 | PM.DCS ---
Discharge Providers Date of Admission: 09/10/22 02:31 Date of Discharge: September 20, 2022 Attending Provider at Admission: Cortez Mcleod MD Attending Provider at Discharge: Yaw Fatima Primary Care Provider: Elza Peralta APN Diagnoses at Discharge Discharge Diagnosis (1) ARDS (adult respiratory distress syndrome): Status: Acute (2) Acute exacerbation of CHF (congestive heart failure): Status: Acute (3) DKA (diabetic ketoacidosis): Status: Acute (4) Acute non-ST elevation myocardial infarction (NSTEMI): Status: Acute (5) Chronic kidney disease, stage 3 unspecified: Status: Acute (6) Acute respiratory failure with hypoxia and hypercapnia: Status: Acute (7) High anion gap metabolic acidosis: Status: Acute (8) Hyperkalemia: Status: Acute (9) Type 2 diabetes mellitus: Status: Acute Qualifiers: Diabetes mellitus complication detail: with other circulatory complications Diabetes mellitus complication status: with circulatory complication Diabetes mellitus long term acute care registered nurse insulin use: without long term acute care registered nurse use Qualified Code(s): E11.59 - Type 2 diabetes mellitus with other circulatory complications (10) CAD (coronary artery disease): Status: Acute (11) Systolic CHF: Status: Acute (12) Iron deficiency anemia: Status: Acute Qualifiers: Iron deficiency anemia type: unspecified iron deficiency Qualified Code(s): D50.9 - Iron deficiency anemia, unspecified (13) Alcohol withdrawal: Status: Acute (14) NSVT (nonsustained ventricular tachycardia): Status: Acute (15) Gram-positive bacteremia: Status: Acute Reason for Visit Reason for Visit: SOB Hospital Course Hospital Course 72-year-old gentleman readmitted after recent hospitalization return to hospital with shortness of breath, past history of non-STEMI during prior hospitalization with finding of severe two-vessel CAD with occluded bypass graft to LAD and circumflex on medical management, congestive heart failure EF 50%, mild diffuse hypokinesia, pneumonia, got worse over the preceding 2 days returning to ER found in respiratory distress, started on BiPAP support initially but required intubation, mechanical ventilatory support, pulmonology assessment, with multifactorial respiratory failure with decompensated CHF, pneumonia, ARDS, recently MRSA positive, treated with empiric antibiotics, meropenem and vancomycin, IV diuretics, fluid restriction, on presentation also with DKA, treated with insulin drip. Completed 48 hours of anticoagulation for possible NSTEMI. Continues on aspirin, Plavix, statin, beta-roseanne. Started on Librium for alcohol withdrawal. Respiratory failure gradually with improvement, weaned down on ventilatory support, extubated to 3 L nasal cannula. Oxygenation gradually improving with continue treatment of pneumonia, complete antibiotic course, treatment of CHF, transition to oral Lasix. Wean down on oxygen down to room air. Renal function remained steady, with CKD, creatinine around 2.5 but with improvement down to 1.5. Hospitalization has been complicated by on and off encephalopathy, gabapentin stopped, please discontinue, additionally found to have yeast in urine with suspected yeast UTI, being treated with Diflucan, will continue for additional 11 days for symptomatic cystitis complicated by encephalopathy. Encephalopathy finally it is improving, he is more alert, somewhat sluggish in responses still, is at risk of falling, has had 2 falls in the hospital despite counseling to seek assistance for ambulation, he tries to get up more now that he is stronger. Please maintain fall precautions. Please also follow-up with regards to iron deficiency anemia, did not require transfusion during his hospitalization is started on iron at discharge. Would benefit from further assessment, endoscopy once recovered from acute issues. Due to deconditioning, falls, is proceeding to rehabilitation at SNF. Attempted to reach to family listed, Jc Reece, several times, but were not able to. Please school counsellor alcohol cessation. At discharge continues on thiamine, folic acid, multivitamin. Physical Exam Const: COMMON NORMALS: alert GENERAL APPEARANCE: cooperative ORIENTATION/CONSCIOUSNESS: Yes awake OTHER: More awake and conversant. Somewhat more energetic compared to last several days. Still somewhat slowed speech, mild slurring. HENMT: COMMON NORMALS: oropharynx normal Neck/C-Spine: COMMON NORMALS: no JVD Resp: COMMON NORMALS: normal respiratory effort and clear to auscultation bilaterally AUSCULTATION: clear to auscultation bilaterally Cardio: COMMON NORMALS: no JVD, regular rhythm, S1 normal heart sound present, S2 normal heart sound present and No murmurs present (Cardio) RHYTHM: regular rhythm HEART SOUNDS: S1 normal heart sound present and S2 normal heart sound present GI: COMMON NORMALS: Normal to inspection, nondistended, normoactive bowel sounds present, Soft to palpation and non-tender PALPATION: Yes Soft to palpation Extremity: COMMON NORMALS: no joint enlargement and no pedal edema Neuro: COMMON NORMALS: moves all extremities SENSORIUM/ORIENTATION: Yes alert OTHER: Awake, conversant. Somewhat slow to track, visual [place] full to confrontation, no visual extinction. No obvious dysmetria on FNF, although slow to perform and does not follow directions to touch finger on either side, only touches his nose. No facial droop. No upper or lower extremity drift. Symmetrical sensation both sides. Skin: COMMON NORMALS: no rashes or lesions noted GENERAL SKIN EXAM: no rashes or lesions noted Urinary Catheter Management: Phillip: Cath Placed During This Visit: yes Reason for Continuing Indwelling Catheter: Accurate Measurement of Urinary Output in Critically Ill Patients Urinary Catheter Date of Insertion: 09/10/22 Urinary Catheter Time of Insertion: 02:35 Discharge Data Studies Completed and Pending Completed Studies During Hospitalization Category Date Time Status CT abdomen pelvis wo con [id number] Routine Cat Scan 09/10/22 11:[address] chest wo con [id number] Stat Cat Scan 09/10/22 04:[address] head wo con* [id number] Stat Cat Scan 09/17/22 18:[address] head wo con* [id number] Stat Cat Scan 09/18/22 21:49 Completed XR KUB portable [id number] Routine Exams 09/10/22 09:08 Completed XR chest 1V portable [id number] Routine Exams 09/11/22 07:00 Completed XR chest 1V portable [id number] Routine Exams 09/12/22 07:00 Completed XR chest 1V portable [id number] Routine Exams 09/13/22 08:05 Completed XR chest 1V portable [id number] Stat Exams 09/10/22 00:33 Completed XR chest 1V portable [id number] Stat Exams 09/10/22 03:54 Completed XR chest 1V portable [id number] Stat Exams 09/10/22 05:34 [place] [id number] Routine Ultrasound 09/10/22 08:07 Completed CV. echo complete* [id number] Stat Ultrasound 09/10/22 02:35 Completed Pending at discharge Category Date Time Status Basic Metabolic Panel AM LABS Lab 09/21/22 04:00 Ordered Basic Metabolic Panel AM LABS Lab 09/22/22 04:00 Ordered Clostridioides Difficile PCR Routine Lab 09/10/22 11:51 Ordered Complete Blood Count w/Auto AM LABS Lab 09/21/22 04:00 Ordered Complete Blood Count w/Auto AM LABS Lab 09/22/22 04:00 Ordered Enteric Bacterial Panel by PCR Routine Lab 09/10/22 11:51 Ordered Enteric Parasite Panel by PCR Routine Lab 09/10/22 11:51 Ordered Immunochemical Fecal OCB Routine Lab 09/10/22 11:51 Ordered Lactoferrin Routine Lab 09/10/22 11:51 Ordered Urine Culture Routine Lab 09/17/22 23:30 Results Radiology Impressions Chest CT 09/10/22 04:00 IMPRESSION: 1. Exam compared with 10 days ago. 2. From that time, increasing areas of bilateral mid to lower lung atelectasis or developing pneumonia/ARDS. Increasing at least small bilateral pleural effusions. 3. No pneumothorax. 4. Multiple chronic findings again noted. KUB X-Ray 09/10/22 09:08 IMPRESSION: Gaseous distention. Abdomen/Pelvis CT 09/10/22 11:51 IMPRESSION: 1. No acute intra-abdominal findings. 2. Bilateral pleural effusions and compressive atelectasis in the lower lungs. 3. Incidental findings above. COMMENTS: Consistent with the [employer]'s Incidental Findings Committee white paper (J Am Elva Radiol 2018): Any incidental renal lesion less than 1 cm or classified as too small to characterize, or any incidental cystic renal lesion characterized as simple-appearing, is likely benign. No follow-up imaging is recommended for these lesions per consensus recommendations based on imaging criteria. ADDENDUM: 09/10/22 [id number] Correction: There is a low-density 8 mm adrenal nodule on the left consistent with a benign lipid rich adenoma. Chest X-Ray 09/13/22 08:05 IMPRESSION: 1. Stable PICC line . 2. Clearing of pulmonary vascular congestion 3. Remaining partial obscuration of the bilateral hemidiaphragms,, consistent with pleural effusions. Head CT 09/18/22 21:49 IMPRESSION: 1. No acute intracranial findings. 2. Other chronic/incidental findings as described above. Laboratory Results WBC 12.9 10^3/uL (4.0-10.0) H 09/20/22 02:23 Corrected WBC Cancelled 09/12/22 03:30 RBC 4.15 10^6/uL (4.1-5.3) 09/20/22 02:23 Hgb 11.2 g/dL (11.7-16.6) L 09/20/22 02:23 Hct 36.7 % (42.0-52.0) L 09/20/22 02: MCV 88.4 fl (80-94) 09/20/22 02: MCH 27.0 pg (28.0-34.0) L 09/20/22 02: MCHC 30.5 g/dL (30.0-36.0) 09/20/22 02: RDW 14.6 % (12.1-15.1) 09/20/22 02: Plt Count 402 10^3/cmm (130-400) H 09/20/22 02: MPV 10.8 fL (7.4-10.4) H 09/20/22 02: Gran % Cancelled 09/12/22 03:30 Neut % (Auto) 81.1 % 09/20/22 02: Lymph % (Auto) 8.0 % 09/20/22 02: [place] % (Auto) 7.0 % 09/20/22 02: Eos % (Auto) 3.0 % 09/20/22 02: Baso % (Auto) 0.4 % 09/20/22 02: Neut # (Auto) 10.50 10^3/uL (1.8-7.7) H 09/20/22 02: Lymph # (Auto) 1.0 10^3/uL (0.8-4.8) 09/20/22 02: [place] # (Auto) 0.9 10^3/uL (0.2-0.9) 09/20/22 02: Eos # (Auto) 0.4 10^3/uL (0.0-0.8) 09/20/22 02: Baso # (Auto) 0.1 10^3/uL (0.0-0.1) 09/20/22 02: Absolute Gran (auto) Cancelled 09/12/22 03:30 Nucleated RBC % (auto) 0 % 09/20/22 02: Nucleated RBCs # 0.0 /100WBC 09/20/22 02: PT 13.80 SECONDS (12.1-14.9) 09/13/22 03:15 INR 1.03 (0.8-1.2) 09/13/22 03:15 APTT 76.3 SECONDS (23.9-36.7) H 09/11/22 03:26 D-Dimer 3.36 ug/mIFEU (0-0.59) H 09/10/22 00:50 Specimen Type Arterial 09/17/22 20:04 Sample Site Brachial, right 09/17/22 20:04 ABG pH 7.38 (7.35-7.45) 09/17/22 20:04 ABG pCO2 41.7 mmHg (35-45) 09/17/22 20:04 ABG pO2 62.6 mmHg (80.0-100.0) L 09/17/22 20:04 ABG HCO3 24.7 mmol/L (22-26) 09/17/22 20:04 ABG Base Excess -0.5 mmol/L (-2.0-2.0) 09/17/22 20:04 Sulaiman Test N/a 09/17/22 20:04 Hematocrit 37.7 % (42-52) L 09/17/22 20:04 Hgb O2 Saturation 93.8 % (95-100) L 09/10/22 00:32 Carboxyhemoglobin 0.2 %THgb (0.4-20.1) L 09/10/22 00:32 Methemoglobin 0.7 % (0.4-1.5) 09/10/22 00:32 Total Hemoglobin 13.4 g/dL (14-18) L 09/10/22 00:32 O2 Delivery Device Nc 09/17/22 20:04 O2 Liters/Min 3.0 % 09/17/22 20:04 FiO2 32.0 % 09/17/22 20:04 Tidal Volume 0.45 09/12/22 04:50 PEEP 8.0 cmH20 09/12/22 04:50 Choral Teacher ID [email or web address] 09/17/22 20:04 Sodium 139 mmol/L (136-145) 09/20/22 02:23 Potassium 4.0 mmol/L (3.5-5.1) 09/20/22 02:23 Chloride 102 mmol/L (98-107) 09/20/22 02:23 Carbon Dioxide 24 mmol/L (22-29) 09/20/22 02:23 Anion Gap 17.0 (5-19) 09/20/22 02:23 BUN 37 mg/dL (8-23) H 09/20/22 02:23 Creatinine 1.5 mg/dL (0.7-1.2) H 09/20/22 02:23 GFR Calculation Not Reportable 09/20/22 02:23 Glucose 83 mg/dL (65-115) 09/20/22 02:23 POC Glucose 187 mg/dL (70-110) H 09/20/22 11:42 Calculated Osmolality 296 mOsm/kg (285-295) H 09/20/22 02:23 Calcium 9.2 mg/dL (8.5-10.5) 09/20/22 02:23 Phosphorus 5.0 mg/dL (2.5-4.5) H 09/14/22 02:12 Magnesium 2.4 mg/dL (1.7-2.3) H 09/15/22 07:44 Iron 37 ug/dL (59-158) L 09/10/22 00:15 TIBC 369 mcg/dl 09/10/22 00:15 % Saturation 10.0 % (20-50) L 09/10/22 00:15 Unsat Iron Binding 332 ug/dL (112-347) 09/10/22 00:15 Total Bilirubin 0.3 mg/dL (0.15-1.2) 09/15/22 07:44 AST 18 U/L (0-40) 09/15/22 07:44 ALT 16 U/L (0-41) 09/15/22 07:44 Alkaline Phosphatase 89 U/L (40-130) 09/15/22 07:44 Troponin T Baseline 2014 ng/L (0-15) H* 09/10/22 00:50 Troponin T 120 Minute 1688 ng/L (0-15) H 09/10/22 04:50 Delta Troponin T -326 ABS# (0-10) L 09/10/22 04:50 Troponin T Hi Sens 6Hr 1751 ng/L (0-15) H 09/10/22 07:59 Troponin T Hi Sens 6Hr Delta -263 ng/L (0-12) L 09/10/22 07:59 C-Reactive Protein 21.7 mg/L (0.0-4.9) H 09/15/22 07:44 NT-Pro-B Natriuret Pep 01400 pg/mL (0-125) H 09/14/22 02:12 Total Protein 6.2 g/dL (6.6-8.7) L 09/15/22 07:44 Albumin 3.3 g/dL (3.5-5.2) L 09/15/22 07:44 Globulin 2.9 g/dL (1.3-4.6) 09/15/22 07:44 Vitamin B12 309 pg/mL (232-1245) 09/10/22 00:15 Folate 10.6 ng/mL (4.5-32.2) 09/11/22 03:26 Procalcitonin 0.13 ng/mL (0-0.5) 09/20/22 02:23 TSH 0.97 uIU/mL (0.27-4.20) 09/17/22 03:55 Urine Color Light yellow (Yellow) 09/17/22 23:30 Urine Appearance Cloudy (CLEAR) A 09/17/22 23:30 Urine pH 5 (5-7) 09/17/22 23:30 Ur Specific [place] Part 1.015 (1.005-1.030) 09/17/22 23:30 Urine Protein Neg (Negative) 09/17/22 23:30 Urine Glucose (UA) 2+ (Normal) H 09/17/22 23:30 Urine Ketones Negative (Negative) 09/17/22 23:30 Urine Blood Trace (Negative) H 09/17/22 23:30 Urine Nitrate Negative (Negative) 09/17/22 23:30 Urine Bilirubin Neg (Negative) 09/17/22 23:30 Urine Urobilinogen Norm mg/dL (Negative) 09/17/22 23:30 Ur Leukocyte Esterase 2+ (Negative) H 09/17/22 23:30 Urine RBC 0-4 /hpf (0-2) H 09/17/22 23:30 Urine WBC 40-55 /hpf (0-5) H 09/17/22 23:30 Ur Squamous Epith Cells 0-4 /hpf (0-5) H 09/17/22 23:30 Amorphous Sediment Not Reportable 09/17/22 23:30 Urine Bacteria Trace /hpf (NONE) 09/17/22 23:30 Urine Yeast 3+ /hpf H 09/17/22 23:30 Nasal Influ A H1 2008 PCR Not detected (NOT DETECT) 09/10/22 19:29 Vancomycin Trough 16.4 ug/mL (10-15) H 09/15/22 07:44 Random Vancomycin 7.1 ug/mL (20.0-40.0) L 09/13/22 03:15 Serum Ketones Negative (Negative) 09/10/22 00:50 Adenovirus (PCR) Not detected (NOT DETECT) 09/10/22 19:29 C. pneumoniae DNA (PCR) Not detected (NOT DETECT) 09/10/22 19:29 Coronavirus 229E (PCR) Not detected (NOT DETECT) 09/10/22 19:29 Human Metapneumovir PCR Not detected (NOT DETECT) 09/10/22 19:29 Influenza A (H1) PCR Not detected (NOT DETECT) 09/10/22 19: Influenza A (H3) PCR Not detected (NOT DETECT) 09/10/22 19:29 Influenza Type A (PCR) Not detected (NOT DETECT) 09/10/22 19:29 Influenza Type B (PCR) Not detected (NOT DETECT) 09/10/22 19:29 M. pneumoniae (PCR) Not detected (NOT DETECT) 09/10/22 19:29 Parainfluenza 1 (PCR) Not detected (NOT DETECT) 09/10/22 19:29 Parainfluenza 2 (PCR) Not detected (NOT DETECT) 09/10/22 19:29 Parainfluenza 3 (PCR) Not detected (NOT DETECT) 09/10/22 19:29 Parainfluenza 4 (PCR) Not detected (NOT DETECT) 09/10/22 19:29 RSV Type A (PCR) Not detected (NOT DETECT) 09/10/22 19:29 RSV Type B (PCR) Not detected (NOT DETECT) 09/10/22 19:29 Entero/Rhino (PCR) Not detected (NOT DETECT) 09/10/22 19:29 SARS-CoV-2 (PCR) Not detected (NOT DETECT) 09/10/22 19:29 SARS-CoV-2 Ag (Rapid) negative (Negative) 09/19/22 15:37 Vitals Last Vital Signs Temp 98.5 F 09/20/22 11:38 Pulse 74 09/20/22 11:38 Resp 24 H 09/20/22 11:38 BP 133/71 09/20/22 11:38 Pulse Ox 94 09/20/22 11:38 O2 Del Method Room Air 09/20/22 11:35 O2 Flow Rate 0.5 09/19/22 20:18 FiO2 30 09/20/22 12:00 Discharge Plan Discharge Patient Disposition: Home Condition: Stable Prescriptions: New bisacodyl 5 mg Tablet,Delayed Release (Dr/Ec) 10 mg PO DAILY PRN (Reason: Constipation (see protocol)) Qty: 90 0RF ferrous sulfate 325 mg (65 mg iron) tablet 325 mg PO EVERY OTHER DAY Qty: 90 0RF thiamine HCl (vitamin B1) 100 mg tablet 100 mg PO DAILY Qty: 90 0RF folic acid 1 mg tablet 1,000 mcg PO DAILY Qty: 90 0RF multivitamin Tablet 1 tab PO DAILY Qty: 90 0RF fluconazole 200 mg tablet 200 mg PO DAILY Qty: 11 0RF Continued amitriptyline 10 mg tablet 10 mg PO DAILY Jardiance 25 mg tablet 25 mg PO DAILY ergocalciferol (vitamin D2) 1,250 mcg (50,000 unit) capsule 50,000 unit PO .Weekly glipizide 5 mg tablet extended release 24hr 5 mg PO DAILY isosorbide mononitrate 30 mg tablet extended release 24 hr 30 mg PO DAILY montelukast 10 mg tablet 10 mg PO DAILY omega-3 acid ethyl esters 1 gram capsule 1 cap PO DAILY oxybutynin chloride 15 mg tablet extended release 24hr 30 mg PO DAILY pantoprazole 40 mg tablet,delayed release (DR/EC) 40 mg PO DAILY simvastatin 40 mg tablet 40 mg PO DAILY aspirin [Adult Low Dose Aspirin] 81 mg tablet,delayed release (DR/EC) 162 mg PO DAILY Qty: 180 3RF (DME) OneTouch Verio test strips Strip See Rx Instructions .ROUTE .COMPLEX Qty: 100 3RF Dose Instruction: for TYPE 2 DIABETES MELLITUS; USE ONE STRIP TO CHECK BLOOD SUGAR DAILY Rx Instructions: for TYPE 2 DIABETES MELLITUS; USE ONE STRIP TO CHECK BLOOD SUGAR DAILY budesonide-formoterol 160-4.5 mcg/actuation HFA aerosol inhaler 2 inh inhalation BID fluticasone propionate 50 mcg/actuation [place],Suspension 1 spray intranasal DAILY levothyroxine 112 mcg tablet 112 mcg PO DAILY lactulose 10 gram/15 mL solution 30 ml PO BID Trulicity 4.5 mg/0.5 mL pen injector 4.5 mg SUBCUT Q7D mupirocin 2 % ointment 1 applic TOPICAL BID metoprolol tartrate 50 mg tablet 50 mg PO BID Qty: 60 3RF clopidogrel 75 mg Tablet 75 mg PO DAILY 30 Days Qty: 30 3RF vitamin A and D Ointment 1 applic topical DAILY PRN (Reason: Rash) Rx Instructions: Apply thin layer to both feet at night. Cover both feet with socks. Wear socks when sleeping. Changed furosemide 40 mg tablet 40 mg PO DAILY 30 Days Qty: 60 2RF Discontinued gabapentin 600 mg tablet 600 mg PO DAILY nifedipine 30 mg tablet extended release 24hr 30 mg PO DAILY levofloxacin 750 mg tablet 750 mg PO Q48H 7 Days Qty: 4 0RF Discharge Orders: Discharge Order (Routine); Ordered 09/20/22 Ordered By: Yaw Fatima Referrals: Elza Peralta FNP [Primary Care Provider] - 4-7 days Nuzhat Guerin FNP [Nurse Practitioner] - 1 week (NSTEMI, CHF) Discharge Diet: Cardiac and Diabetic Discharge Activity: Limit activity as instructed and As per PT/OT instructions Patient Instructions: Laxative, Stimulant (By mouth) (Dulcolax, EX-Lax, Fleet Bisacodyl,..., Thiamine (By mouth) ([facility] Vitamin B1, Nature's..., Fluconazole (By mouth), Folic Acid (By mouth) (FA-8, [place], Folacin-800, Methylfolate), Multivitamins, Adult Formula (By mouth) (Daily Multiple Vitamins,..., Ascorbic Acid/Cyanocobalamin/Ferrous Fumarate (By mouth), Heart Failure (DC), Urinary Tract Infection in Men (GEN), Abuse of Alcohol (GEN), Anemia (GEN), Fall Prevention (GEN), CHF Stoplight, Opioid Safety Activity Restrictions/Additional Instructions: Strict fall precautions. Elevated risk of fall. Follow-up with cardiology following NSTEMI and for CHF. Follow-up with primary provider for reassessment after recovering from pneumonia. Avoid any alcohol. Seek rehabilitation if having difficulty quitting. Continue optimization of diabetes control. Follow-up with primary provider for reassessment after DKA. Please follow-up blood counts next week for reassessment of anemia. Please refer for endoscopic evaluation of iron deficiency anemia once recovers from acute issues. Discharge Attestations Time Spent in Discharge Care*: greater than 30 min Quality Metrics Clinical Quality Measures [ No reported AMI, CVA or VTE this stay] Coding Level of Care Code 57807 Total time (in minutes) for Discharge: 60 Diagnoses ARDS (adult respiratory distress syndrome) J80 Acute exacerbation of CHF (congestive heart failure) I50.9 DKA (diabetic ketoacidosis) E11.10 Acute non-ST elevation myocardial infarction (NSTEMI) I21.4 Chronic kidney disease, stage 3 unspecified N18.30 Acute respiratory failure with hypoxia and hypercapnia J96.01; J96.02 High anion gap metabolic acidosis E87.29 Hyperkalemia E87.5 Type 2 diabetes mellitus E11.59 Diabetes mellitus complication detail: with other circulatory complications Diabetes mellitus complication status: with circulatory complication Diabetes mellitus long term acute care registered nurse insulin use: without fci use CAD (coronary artery disease) I25.10 Systolic CHF I50.20 Iron deficiency anemia D50.9 Iron deficiency anemia type: unspecified iron deficiency Alcohol withdrawal F10.939 NSVT (nonsustained ventricular tachycardia) I47.29 Gram-positive bacteremia R78.81
== END 2022-09-20 13:30 | disposition skilled nursing facility (03) | DRG 208 ==
LOC: ER 00:50 → ICU 02:03 → CSU 09-13 13:20
PROVIDERS: Family Medicine; Admitting Provider Student in an Organized Health Care Education/Training Program; Emergency Provider Emergency Medicine; PCP Nurse Practitioner; Visit Provider Internal Medicine
DX: J80 Acute respiratory distress syndrome (principal); E11.10 Type 2 diabetes mellitus with ketoacidosis without coma; I50.23 Acute on chronic systolic (congestive) heart failure; I22.2 Subsequent non-ST elevation (NSTEMI) myocardial infarction; I21.4 Non-ST elevation (NSTEMI) myocardial infarction; J18.9 Pneumonia, unspecified organism; G92.8 Other toxic encephalopathy; I13.0 Hypertensive heart and chronic kidney disease with heart failure and stage 1 through stage 4 chronic kidney disease, or unspecified chronic kidney disease; B37.49 Other urogenital candidiasis; I25.810 Atherosclerosis of coronary artery bypass graft(s) without angina pectoris; F10.139 Alcohol abuse with withdrawal, unspecified; I47.20 Ventricular tachycardia, unspecified; E87.20 Acidosis, unspecified; N18.30 Chronic kidney disease, stage 3 unspecified; E11.22 Type 2 diabetes mellitus with diabetic chronic kidney disease; E87.5 Hyperkalemia; I25.10 Atherosclerotic heart disease of native coronary artery without angina pectoris; D50.9 Iron deficiency anemia, unspecified; D63.1 Anemia in chronic kidney disease; Z86.14 Personal history of Methicillin resistant Staphylococcus aureus infection; N30.90 Cystitis, unspecified without hematuria; T42.6X5A Adverse effect of other antiepileptic and sedative-hypnotic drugs, initial encounter; S00.11XA Contusion of right eyelid and periocular area, initial encounter; W18.30XA Fall on same level, unspecified, initial encounter; Y92.230 Patient room in hospital as the place of occurrence of the external cause; Z91.148 Patient's other noncompliance with medication regimen for other reason; E55.9 Vitamin D deficiency, unspecified; F70 Mild intellectual disabilities; E03.9 Hypothyroidism, unspecified; E78.5 Hyperlipidemia, unspecified; K21.9 Gastro-esophageal reflux disease without esophagitis; E11.42 Type 2 diabetes mellitus with diabetic polyneuropathy; K59.04 Chronic idiopathic constipation; F41.9 Anxiety disorder, unspecified; Z79.02 Long term (current) use of antithrombotics/antiplatelets; Z79.85 Long-term (current) use of injectable non-insulin antidiabetic drugs; Z79.82 Long term (current) use of aspirin; Z79.84 Long term (current) use of oral hypoglycemic drugs
CPT/HCPCS: 36415; 36416; 36573; 36592; 36600; 51702; 70450; 71045; 71250; 74018; 74176; 80048; 80053; 80202; 81001; 82009; 82607; 82746; 82803; 82805; 82962; 83540; 83550; 83735; 83880; 84100; 84145; 84443; 84484; 85025; 85049; 85378; 85610; 85730; 86140; 86403; 87040; 87070; 87077; 87086; 87205; 87426; 87449; 87486; 87581; 87633; 92507; 92523; 92526; 92610; 93005; 93306; 93970; 94003; 94640; 94660; 94799; 96372; 96374; 96375; 96376; 97110; 97116; 97162; 97165; 97530; 97535; 99291; A4222; A4570; C1751; C9113; J0282; J1450; J1644; J1650; J1815; J1940; J1956; J2060; J2185; J2704; J2930; J3010; J3370; J3490; J7050; J7060; J7613; J7614; J7626

== ENCOUNTER 2023-04-21 15:49 | Observation (INO) | payer MEDICARE, MEDICAID, SELFPAY ==
[2023-04-21] VITALS (10 sets, daily range): BP systolic 147–198; BP diastolic 72–145; PULSE 75–94; RESP 18–23; TEMP 35.8–36.6; O2SAT 91–98; BMI 38.4
--- NOTE | 2023-04-21 15:50 | CTR_ITS ---
PROCEDURE INFORMATION: Exam: CT Head Without Contrast Exam date and time: 04/21/2023 3:47 PM Age: 72 years old Clinical indication: Stroke-like symptoms; Altered mental status/memory loss; Additional info: Symptoms of acute stroke TECHNIQUE: Imaging protocol: Computed tomography of the head without contrast. Radiation optimization: All CT scans at this facility use at least one of these dose optimization techniques: automated exposure control; mA and/or kV adjustment per patient size (includes targeted exams where dose is matched to clinical indication); or iterative reconstruction. Other technique: STROKE PROTOCOL was implemented. COMPARISON: CT head wo con* [id number] 09/18/2022 10:07 PM RADIATION DOSE METRICS: Total DLP (mGy-cm): 1195 FINDINGS: Brain: No acute intracranial hemorrhage. No edema. No mass effect. There are stable small ill-defined hypodense areas in the bilateral periventricular white matter suggestive of chronic small vessel ischemic changes. Cerebral ventricles: No hydrocephalus. The ventricles and sulci are prominent in size in keeping with brain atrophy. Paranasal sinuses: Persistent mild mucosal thickening in bilateral paranasal sinuses with no air-fluid levels suggestive of mild chronic sinusitis. Mastoid air cells: No mastoid effusion. Bones/joints: No acute fracture. No suspicious lytic or sclerotic bone lesions. Soft tissues: Unremarkable. CT/CT head thrombolytic [id number] IMPRESSION: Stable chronic changes with no evidence of acute intracranial hemorrhage, mass or acute infarction. ASSESSMENT: ASPECTS ([place] Stroke Program Early CT Score) is 10.
--- NOTE | 2023-04-21 15:50 | XRR_ITS ---
PROCEDURE INFORMATION: Exam: XR Chest Exam date and time: 04/21/2023 3:55 PM Age: 72 years old Clinical indication: Pain; Angina pectoris; Additional info: Cp TECHNIQUE: Imaging protocol: Radiologic exam of the chest. Views: 1 view. COMPARISON: CR XR chest 1V portable [id number] 09/13/2022 8:27 AM FINDINGS: Lungs: No consolidation. Pleural spaces: Unremarkable. No pleural effusion. No pneumothorax. Heart/Mediastinum: The cardiac silhouette appears mildly enlarged possibly artifactual due to lordotic view. Status post CABG surgery. Bones/joints: No acute findings. Status post sternotomy. XR/XR chest 1V portable [id number] IMPRESSION: No acute findings.
--- NOTE | 2023-04-21 15:51 | ED_ITS ---
HPI - Neuro Symptoms/Deficit 2 General: Chief Complaint: Neuro Symptoms/Deficit Stated Complaint: STROKE LIKE SYMPTOMS Time Seen by Provider: 04/21/23 15:50 Source: patient and EMS Mode of arrival: EMS Limitations: no limitations History of Present Illness: 72-year-old male who is here from [facility] per EMS skilled nursing when checked on patient at noon he was completely normal he went back at 1245 he is unresponsive they states that they were finally able to get him wake up and he had some slurred speech right-sided facial droop right-sided weakness that is all since resolved he has no real deficits here some possible slight slurred speech but that is likely his normal speech pattern he has no complaints Associated symptoms: Deny chest pain, headache(s), nausea or vomiting Review of Systems 2 Const: Denies: fever(s), chills, body aches or change in appetite Eyes: Denies: blurry vision or eye discomfort ENMT: Denies: throat pain or dental pain Card: Denies: chest pain Resp: Denies: dyspnea GI: Denies: abdominal pain, nausea, vomiting or diarrhea Musc: Denies: neck pain or back pain Skin/Breast: Denies: rash Neuro: Reports: confusion and Slurred speech present; Denies: headache(s) PFSH ED 2 PFSH: Medical History Acute kidney injury superimposed on CKD Renal insufficiency Acute non-ST elevation myocardial infarction (NSTEMI) Hyperosmolar hyperglycemic state (HHS) Acute on chronic diastolic CHF (congestive heart failure) NSTEMI (non-ST elevated myocardial infarction) Pulmonary edema Acute respiratory failure with hypoxia Pneumonia CAROLYNN (acute kidney injury) Chest pain Cracked skin on feet Foot callus Foot callus Plantar fasciitis Diabetic neuropathy IGTN (ingrowing toe nail) Chronic kidney disease, stage 3 unspecified Cellulitis of foot Wound of foot Headache Diabetic foot Cough Acute bacterial pharyngitis Iron deficiency anemia Contact dermatitis Renal calculus, right Polyneuropathy, unspecified Patellofemoral dysfunction of right knee Anxiety Mild intellectual disability H/O: GI bleed GERD (gastroesophageal reflux disease) CKD (chronic kidney disease) Chronic idiopathic constipation Atherosclerotic heart disease of [place] coronary artery without angina pectoris CHF (congestive heart failure) Impaired cognitive ability Muscle cramps Knee abrasion Environmental and seasonal allergies Environmental and seasonal allergies Dysuria Hypothyroid Diarrhea FH: CABG (coronary artery bypass surgery) STEMI (ST elevation myocardial infarction) CAD (coronary artery disease) Chronic secretory otitis media Hyperlipidemia Vitamin D deficiency Patient has history of Vitamin D deficiency and take home D3 supplement Diabetes 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 He cannot manage insulin at home and is currently controlled with Ozempic weekly and oral meds. Essential hypertension Patient is currently well controlled with antihypertensives Surgical History Aortocoronary bypass status Family History Mother Diabetes Alzheimer's dementia Brother Epileptic seizure Social History Smoking and tobacco/nicotine status: never used tobacco/nicotine Second hand smoke exposure: No Alcohol intake: current NIH stroke score 2 NIHSS: Level Of Consciousness - 1a: 0 Level Of Consciousness Questions - 1b: Both Correct Level Of Consciousness Commands - 1c: Both Correct Best Gaze - 2: Normal Visual Johnson - 3: No Visual Loss Facial Palsy - 4: N ormal Motor Arm Right - 5: No Drift Motor Arm Left - 5: No Drift Motor Leg Right - 6: No Drift Motor Leg Left - 6: No Drift Limb Ataxia - 7: A bsent Sensory - 8: Normal Best Language - 9: No Aphasia Dysarthia - 10: Mild/Moderate Dysarthia Extinction And Inattention - 11: 0 Score: Total Score: 1 Physical Exam 2 Const: COMMON NORMALS: no acute distress, patient oriented x3, healthy appearing and alert ORIENTATION/CONSCIOUSNESS: Yes oriented to person, Yes oriented to place and Yes oriented to time HENMT: COMMON NORMALS: normocephalic and atraumatic HEAD & SCALP: n ormocephalic and atraumatic Neck/C-Spine: COMMON NORMALS: full ROM and supple Chest: COMMONS NORMALS: normal inspection of the chest and normal palpation of entire chest wall Resp: COMMON NORMALS: normal respiratory effort, No retractions, No use of accessory muscles and clear to auscultation bilaterally AUSCULTATION: clear to auscultation bilaterally Cardio: COMMON NORMALS: regular rate, regular rhythm and No murmurs present (Cardio) RATE: regular rate RHYTHM: regular rhythm GI: COMMON NORMALS: Normal to inspection, nondistended, normoactive bowel sounds present, Soft to palpation, non-tender and no masses PALPATION: Yes Soft to palpation Extremity: COMMON NORMALS: normal to inspection Neuro: COMMON NORMALS: patient oriented x3 SENSORIUM/ORIENTATION: Yes alert, Yes oriented to person, Yes oriented to place and Yes oriented to time CRANIAL NERVES: Yes CN normal except as noted GAIT: Yes Normal gait present MOTOR EXAM: 5/5 motor strength present throughout Psych: COMMON NORMALS: mental status grossly normal, Normal thought process present and cooperative THOUGHT PROCESS: Normal thought process present Skin: COMMON NORMALS: no rashes or lesions noted and no wounds GENERAL SKIN EXAM: no rashes or lesions noted Course 2 Vital Signs: Vital signs: Vital Signs Temperature 97.9 F 04/21/23 15:50 Pulse Rate 94 04/21/23 15:50 Respiratory Rate 18 04/21/23 15:50 Blood Pressure 192/110 04/21/23 15:50 Pulse Oximetry 93 04/21/23 15:50 Oxygen Delivery Me thod Room Air 04/21/23 15:50 MDM - Neuro Symptoms/Deficit Medical Decision Making Patient presents here with a possible TIA patient was unresponsive in his home and per skilled nursing and EMS he is having some right-sided facial droop right- sided weakness that is all since resolved he has no focal deficits here head CT is normal blood work looks normal we will admit for observation at this time. Medical Records I reviewed the patient's medical records. Lab Data I reviewed the patient's lab results. 04/21/23 16:04 04/21/23 16:04 Radiology Impressions Chest X-Ray 04/21/23 15:50 IMPRESSION: No acute findings. Head CT 04/21/23 15:50 IMPRESSION: Stable chronic changes with no evidence of acute intracranial hemorrhage, mass or acute infarction. ASSESSMENT: ASPECTS ([place] Stroke Program Early CT Score) is 10. Laboratory Results WBC 9.09 10^3/uL (3.29-11.43) 04/21/23 16:04 RBC 5.49 10^6/uL (3.85-5.65) 04/21/23 16:04 Hgb 14.50 g/dL (11.27-16.99) 04/21/23 16:04 Hct 47.5 % (37-53) 04/21/23 16:04 MCV 86.5 fl (82-101) 04/21/23 16:04 MCH 26.4 pg (27-33) L 04/21/23 16:04 MCHC 30.5 g/dL (30-55) 04/21/23 16:04 RDW 16.4 % (12.1-15.1) H 04/21/23 16:04 Plt Count 337 10^3/cmm (157-399) 04/21/23 16:04 MPV 11.3 fL (7.4-10.4) H 04/21/23 16:04 Neut % (Auto) 75.0 % 04/21/23 16:04 Lymph % (Auto) 15.7 % 04/21/23 16:04 [place] % (Auto) 6.5 % 04/21/23 16:04 Eos % (Auto) 2.0 % 04/21/23 16:04 Baso % (Auto) 0.4 % 04/21/23 16:04 Neut # (Auto) 6.81 10^3/uL (1.8-7.7) 04/21/23 16:04 Lymph # (Auto) 1.4 10^3/uL (0.8-4.8) 04/21/23 16:04 [place] # (Auto) 0.6 10^3/uL (0.2-0.9) 04/21/23 16:04 Eos # (Auto) 0.2 10^3/uL (0.0-0.8) 04/21/23 16:04 Baso # (Auto) 0.0 10^3/uL (0.0-0.1) 04/21/23 16:04 Nucleated RBC % (auto) 0 % 04/21/23 16:04 Nucleated RBCs # 0.0 /100WBC 04/21/23 16:04 PT Cancelled 04/21/23 16:04 INR Cancelled 04/21/23 16:04 APTT Cancelled 04/21/23 16:04 Sodium 140 mmol/L (136-145) 04/21/23 16:04 Potassium 4.6 mmol/L (3.5-5.1) 04/21/23 16:04 Chloride 98 mmol/L (98-107) 04/21/23 16:04 Carbon Dioxide 26 mmol/L (22-29) 04/21/23 16:04 Anion Gap 20.6 (5-19) H 04/21/23 16:04 BUN 39 mg/dL (8-23) H 04/21/23 16:04 Creatinine 2.3 mg/dL (0.7-1.2) H 04/21/23 16:04 GFR Calculation Not Reportable 04/21/23 16:04 Glucose 244 mg/dL (65-115) H 04/21/23 16:04 POC Glucose 277 mg/dL (70-110) H 04/21/23 15:53 Calculated Osmolality 307 mOsm/kg (285-295) H 04/21/23 16:04 Calcium 9.4 mg/dL (8.5-10.5) 04/21/23 16:04 Total Bilirubin 0.5 mg/dL (0.15-1.2) 04/21/23 16:04 AST 15 U/L (0-40) 04/21/23 16:04 ALT 19 U/L (0-41) 04/21/23 16:04 Alkaline Phosphatase 164 U/L (40-130) H 04/21/23 16:04 Troponin T Baseline 64 ng/L (0-15) H 04/21/23 16:04 Total Protein 8.3 g/dL (6.6-8.7) 04/21/23 16:04 Albumin 4.4 g/dL (3.5-5.2) 04/21/23 16:04 Globulin 3.9 g/dL (1.3-4.6) 04/21/23 16:04 Urine Color Yellow (Yellow) 04/21/23 17:02 Urine Appearance Clear (CLEAR) 04/21/23 17:02 Urine pH 5 (5-7) 04/21/23 17:02 Ur Specific [place] 1.005 (1.005-1.030) 04/21/23 17:02 Urine Protein Neg (Negative) 04/21/23 17:02 Urine Glucose (UA) 4+ (Normal) H 04/21/23 17:02 Urine Ketones Negative (Negative) 04/21/23 17:02 Urine Blood Neg (Negative) 04/21/23 17:02 Urine Nitrate Negative (Negative) 04/21/23 17:02 Urine Bilirubin Neg (Negative) 04/21/23 17:02 Urine Urobilinogen Norm mg/dL (Negative) 04/21/23 17:02 Ur Leukocyte Esterase Negative (Negative) 04/21/23 17:02 Urine Opiates Screen Negative ng/mL (Negative) 04/21/23 17:02 Ur Barbiturates Screen Negative ng/mL (Negative) 04/21/23 17:02 Ur Phencyclidine Scrn Negative ng/mL (Negative) 04/21/23 17:02 Ur Amphetamines Screen Negative ng/mL (Negative) 04/21/23 17:02 U Benzodiazepines Scrn Negative ng/mL (Negative) 04/21/23 17:02 Urine Cocaine Screen Negative ng/mL (Negative) 04/21/23 17:02 U Marijuana (THC) Screen Negative ng/mL (Negative) 04/21/23 17:02 All radiology interpretation(s) finalized by discharge Discharge Plan Discharge Patient Disposition: Placed in Observation Clinical Impression: Brain TIA Coding Level of Care Code ED Premix Concrete Batcher for Jeana Coles
[2023-04-21 15:58] LABS: Glucose Point of Care 277 mg/dL (70-110)
[2023-04-21 16:17] LABS: Basophils % 0.4 %; Eosinophils # 0.2 10^3/uL (0.0-0.8); Hematocrit 47.5 % (37-53); Lymphocytes # 1.4 10^3/uL (0.8-4.8); Lymphocytes % 15.7 %; Mean Corpuscular HGB Conc 30.5 g/dL (30-55); Mean Corpuscular Hemoglobin 26.4 pg (27-33); Mean Corpuscular Volume 86.5 fl (82-101); Mean Platelet Volume 11.3 fL (7.4-10.4); Monocytes # 0.6 10^3/uL (0.2-0.9); Monocytes % 6.5 %; Neutrophils # 6.81 10^3/uL (1.8-7.7); Nucleated Red Blood Cells % 0 %; Platelet Count 337 10^3/cmm (157-399); Red Blood Count 5.49 10^6/uL (3.85-5.65); Red Cell Distribution Width 16.4 % (12.1-15.1); White Blood Count 9.09 10^3/uL (3.29-11.43)
[2023-04-21 16:34] LABS: Alanine Aminotransferase 19 U/L (0-41); Albumin Level 4.4 g/dL (3.5-5.2); Alkaline Phosphatase 164 U/L (40-130); Aspartate Amino Transferase 15 U/L (0-40); Blood Urea Nitrogen 39 mg/dL (8-23); Calcium 9.4 mg/dL (8.5-10.5); Carbon Dioxide 26 mmol/L (22-29); Chloride 98 mmol/L (98-107); Creatinine Clr Calc Pharmacy 29.7422; Globulin 3.9 g/dL (1.3-4.6); Glucose 244 mg/dL (65-115); Osmolality Calculated 307 mOsm/kg (285-295); Sodium 140 mmol/L (136-145); Total Bilirubin 0.5 mg/dL (0.15-1.2); Total Protein 8.3 g/dL (6.6-8.7)
[2023-04-21 16:36] LABS: Troponin(5th) Baseline 64 ng/L (0-15)
[2023-04-21 16:47] LABS: Anion Gap 20.6 (5-19); Potassium 4.6 mmol/L (3.5-5.1)
[2023-04-21 16:58] LABS: Slide Review Slide Review Perform
--- NOTE | 2023-04-21 17:09 | ECG_ITS ---
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 Measurements Intervals [place] Rate: 79 P: 26 NV: 150 QRS: 19 QRSD: 128 T: 60 QT: 392 QTc: 450 Interpretive Statements SINUS RHYTHM WITH OCCASIONAL VENTRICULAR PREMATURE COMPLEXES POSSIBLE LEFT ATRIAL ENLARGEMENT [-0.1mV P-WAVE IN V1/V2] Compared to ECG 09/10/2022 02:52:00 Myocardial infarct finding no longer present Electronically Signed On 04-21-2023 23:18:08 PRODUCT GRADER by Sin Eastman M.D. [email or web address]
[2023-04-21 17:19] LABS: Add Urine Microscopic? NO; Charge for UA Resulting for Rev
[2023-04-21 17:27] LABS: Bilirubin Urine Neg (Negative); Blood Urine Neg (Negative); Glucose Urine UA 4+ (Normal); Ketones Urine Negative (Negative); Leukocyte Esterase Urine Negative (Negative); Nitrate Urine Negative (Negative); Protein Urine Neg (Negative); Specific Gravity, Urine 1.005 (1.005-1.030); Urine Appearance Clear (CLEAR); Urine Color Yellow (Yellow); Urobilinogen Urine Norm (Negative); pH Urine 5 (5-7)
[2023-04-21 17:32] LABS: Amphetamines Screen Urine Negative (Negative); Barbiturates Screen Urine Negative (Negative); Benzodiazepines Screen Urine Negative (Negative); Cocaine Screen Urine Negative (Negative); Opiate Screen Urine Negative (Negative); PCP Screen Urine Negative (Negative); THC Screen Urine Negative (Negative)
--- NOTE | 2023-04-21 17:47 | CTR_ITS ---
PROCEDURE INFORMATION: Exam: CTA Head With Contrast, Arteriography Exam date and time: 04/21/2023 6:12 PM Age: 72 years old Clinical indication: Stroke-like symptoms; Altered mental status/memory loss; Additional info: Stroke work up, CT angiogram cervical and intracranial vessels TECHNIQUE: Imaging protocol: Computed tomographic angiography of the head with contrast. Exam focused on the arteries. 3D rendering (Not supervised by radiologist): MIP and/or 3D reconstructed images were created by the technologist. Radiation optimization: All CT scans at this facility use at least one of these dose optimization techniques: automated exposure control; mA and/or kV adjustment per patient size (includes targeted exams where dose is matched to clinical indication); or iterative reconstruction. Contrast material: OMNI 350; Contrast volume: 100 ml; Contrast route: INTRAVENOUS (IV); COMPARISON: CT head thrombolytic [id number] 04/21/2023 3:47 PM RADIATION DOSE METRICS: Total DLP (mGy-cm): 784 FINDINGS: ANTERIOR CIRCULATION: Right internal carotid artery: There is short segment 60-70% stenosis of the petrous portion of the right internal carotid artery. There is marked calcific plaque throughout the cavernous and supraclinoid portion of the right internal carotid artery with less than 50% stenosis. Right middle cerebral artery: No occlusion or significant stenosis. No aneurysm. Right anterior cerebral artery: Absent A1 segment of the right anterior cerebral artery. The A2 segment fills normally via the anterior communicating artery. Left internal carotid artery: There is marked calcific plaque in the cavernous and supraclinoid portions of the left internal carotid artery with less than 50% stenosis. Left middle cerebral artery: No occlusion or significant stenosis. No aneurysm. Left anterior cerebral artery: No occlusion or significant stenosis. No aneurysm. POSTERIOR CIRCULATION: Right vertebral artery: No occlusion or significant stenosis. No aneurysm. Left vertebral artery: There is a 5 mm saccular aneurysm of the proximal intracranial portion of the left vertebral artery. Basilar artery: No occlusion or significant stenosis. No aneurysm. Right posterior cerebral artery: origin of the right posterior cerebral artery. No occlusion or aneurysm. Left posterior cerebral artery: No occlusion or significant stenosis. No aneurysm. Sigmoid sinuses: Left transverse and sigmoid sinus hypoplastic. Veins: Dural venous sinuses are patent. Brain: There is no significant mass effect or midline shift. No pathologic enhancement of the brain. There is diffuse cerebral atrophy and chronic microvascular white matter disease. Cerebral ventricles: There is mild ex vacuo dilation of the lateral ventricles. The basal cisterns are unremarkable. Mastoid air cells: The mastoid air cells are clear. Paranasal sinuses: Mild mucosal thickening throughout the inferior frontal, ethmoid and maxillary sinuses bilaterally. There is no fluid in the paranasal sinuses to suggest acute sinusitis. Bones/joints: The calvarium is intact. Soft tissues: The visible extracranial soft tissues are unremarkable. PROCEDURE INFORMATION: Exam: CTA Neck With Contrast Exam date and time: 04/21/2023 6:12 PM Age: 72 years old Clinical indication: Stroke-like symptoms; Altered mental status/memory loss; Additional info: Stroke work up, CT angiogram cervical and intracranial vessels TECHNIQUE: Imaging protocol: Computed tomographic angiography of the neck with contrast. Exam focused on the cervical segments of the vasculature. 3D rendering (Not supervised by radiologist): MIP and/or 3D reconstructed images were created by the technologist. Radiation optimization: All CT scans at this facility use at least one of these dose optimization techniques: automated exposure control; mA and/or kV adjustment per patient size (includes targeted exams where dose is matched to clinical indication); or iterative reconstruction. Contrast material: OMNI 350; Contrast volume: 100 ml; Contrast route: INTRAVENOUS (IV); COMPARISON: CT angio chest PE protcl [id number] 08/31/2022 1:20 AM RADIATION DOSE METRICS: Total DLP (mGy-cm): 784 FINDINGS: Right common carotid artery: There is less than 50% stenosis at the origin of the right common carotid artery. Right internal carotid artery: Moderate atherosclerotic plaque at the origin of the right internal carotid artery with 50-60% stenosis. Right external carotid artery: There is less than 50% stenosis of the origin of the right external carotid artery. Left common carotid artery: There is less than 50% stenosis of mid left common carotid artery. The left common carotid artery arises from the brachiocephalic trunk. Left internal carotid artery: There is short segment 50-60% stenosis of the distal left internal carotid artery just below the skull base. Moderate atherosclerotic disease at the origin of the left internal carotid artery with less than 50% stenosis. Left external carotid artery: There is 50-60% stenosis at the origin of the left external carotid artery. Right vertebral artery: No stenosis. No dissection or occlusion. Left vertebral artery: There is moderate calcific plaque with 50-60% stenosis of the left vertebral artery origin. There is moderate calcific plaque with multifocal 50-60% stenosis of the mid left vertebral artery. There is focal high-grade stenosis with near occlusion of the distal left vertebral artery at the level of C2 (see axial series 4, image 176). Lymph nodes: Multiple mildly prominent nonspecific upper mediastinal lymph nodes. Soft tissues: Visible soft tissues are unremarkable. No soft tissue edema or mass in the neck. Bones/joints: There is mild degenerative disease in the cervical spine. Lungs: Lung apices are clear. CT/CT angio headneck* [id number] IMPRESSION: 1. No arterial occlusion. 2. 5 mm left vertebral artery aneurysm. 3. 60-70% stenosis of the petrous portion of the right internal carotid artery. 4. Multifocal less than 50% stenosis in the cavernous and supraclinoid internal carotid arteries bilaterally. IMPRESSION: 1. No arterial occlusion or dissection. 2. Multifocal stenosis of the left vertebral artery with near occlusion of the distal cervical portion at C2. 3. Short segment 50-60% stenosis of the distal left internal carotid artery just below the skull base. 4. 50-60% stenosis at the origin of the right internal carotid artery. 5. Less than 50% stenosis of the left internal carotid artery origin. 6. 50-60% stenosis at the origin of the left external carotid artery. REFERENCES: NASCET CRITERIA. The degree of stenosis in the cervical segment of the internal carotid artery is based on NASCET criteria. Normal is no stenosis. Mild is less than 50% stenosis. Moderate is 50-69% stenosis. Severe is 70% to 99% stenosis. Total occlusion is no detectable patent lumen.
--- NOTE | 2023-04-21 17:50 | ECG_ITS ---
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 Measurements Intervals [place] Rate: 94 P: 31 VT: 161 QRS: 38 QRSD: 109 T: 88 QT: 402 QTc: 503 Interpretive Statements SINUS RHYTHM WITH FREQUENT VENTRICULAR PREMATURE COMPLEXES POSSIBLE LEFT ATRIAL ENLARGEMENT [-0.1mV P-WAVE IN V1/V2] NONSPECIFIC ST & T-WAVE ABNORMALITY Compared to ECG 04/21/2023 17:09:59 T-wave abnormality now present Electronically Signed On 04-21-2023 23:21:41 SHIPPING TEAM LEADER by Sin Eastman M.D. [email or web address]
--- NOTE | 2023-04-21 17:50 | P.HP_ITS ---
Providers/Chief Complaint 2 Primary Care Provider: Elza Peralta APN Chief Complaint: STROKE LIKE SYMPTOMS History of Present Illness Guillermo Saha is a 72 year old male with past medical history of CKD, diabetes mellitus, hypertension, CAD, h/o CHF brought to the snf via EMS due to having an episode of unresponsiveness earlier today. It was reported that patient was in her usual state of health until noon. He was next seen at 12:45 when he was poorly responsive, noted to have new onset of slurred speech and right facial droop. He also had reportedly right-sided weakness which eventually resolved. By the time he was brought to the emergency room his NIH stroke scale was of 1. He was not considered a tenecteplase candidate. Patient himself does not recall events leading up to the admission. He denies any complaints at this time. States he is hungry and would like to eat. Review of Systems 2 General: Reports: 10 or more systems reviewed and unremarkable except in HPI and below Const: Denies: fever(s), chills, body aches, change in appetite, change in weight, malaise, night sweats, diaphoresis, change in sleep pattern, daytime sleepiness or snoring Eyes: Denies: change in vision, blurry vision, photophobia, eye discomfort or eye discharge ENMT: Denies: throat pain, enlarged tonsils, hoarseness, mouth pain, oral sores, dry mouth, tinnitus, nasal congestion or post nasal drip Card: Denies: chest pain, palpitations, irregular heart rhythm, edema, swelling of feet/ankles, lightheadedness, syncope, pre-syncope, dyspnea on exertion, orthopnea, leg pain with exertion or acrocyanosis Resp: Denies: dyspnea, productive cough, non-productive cough, wheezing, stridor, pain on inspiration, change in phlegm color, hemoptysis or chest congestion GI: Denies: abdominal pain, nausea, vomiting, hematemesis, coffee ground emesis, dysphagia, heartburn, diarrhea, constipation, bloating, GI cramping, change in bowel habits, pain on defecation, hematochezia or melena : Denies: flank pain, difficulty urinating, dysuria, urinary frequency, urinary urgency, urinary hesitancy, urinary dribbling, difficulty starting urination, change in urine stream, nocturia or hematuria Musc: Denies: neck pain, back pain, extremity pain, joint pain, joint swelling, joint redness, joint stiffness or limited range of motion Neuro: Denies: headache(s), numbness in extremities, weakness in extremities, sensory changes, lack of coordination, difficulty walking, frequent falls, dizziness, vertigo, confusion, Slurred speech present, difficulty communicating thoughts or seizure-like activity Psych: Denies: anxiety, depression, mood swings, panic attacks, hopelessness or irritability Endo: Denies: polyuria, polydipsia, tired all the time, cold intolerance, excessive sweating, flushing or heat intolerance Bhavesh/Lymph: Denies: easy bruising or easy bleeding All/Imm: Denies: tongue swelling, facial swelling or acute wheezing Medications/Allergies Home Medications Medication Instructions Recorded Confirmed Last Taken Type aspirin 81 mg tablet,delayed 162 mg (2 x 81 mg) PO DAILY #180 12/03/21 04/22/23 Unknown Rx release (Adult Low Dose Aspirin) tabs blood sugar diagnostic (OneTouch #100 strips 03/12/22 04/22/23 Unknown Rx Verio test strips) amitriptyline 10 mg tablet 10 mg PO DAILY 08/14/22 04/22/23 08/30/22 History ergocalciferol (vitamin D2) 1,250 50,000 unit PO Q7D 08/14/22 04/22/23 Unknown History mcg (50,000 unit) capsule montelukast 10 mg tablet 10 mg PO DAILY 08/14/22 04/22/23 08/30/22 History omega-3 acid ethyl esters 1 gram 1 cap PO DAILY 08/14/22 04/22/23 08/30/22 History capsule oxybutynin chloride 15 mg 30 mg PO DAILY 08/14/22 04/22/23 08/30/22 History tablet,extended release 24 hr pantoprazole 40 mg tablet,delayed 40 mg PO DAILY 08/14/22 04/22/23 08/30/22 History release fluticasone propionate 50 1 spray intranasal DAILY 08/31/22 04/22/23 Unknown History mcg/actuation nasal spray,suspension lactulose 10 gram/15 mL oral 30 ml PO BID 08/31/22 04/22/23 Unknown History solution levothyroxine 112 mcg tablet 112 mcg PO DAILY 08/31/22 04/22/23 Unknown History clopidogrel 75 mg tablet 75 mg PO DAILY 30 days #30 tabs 09/06/22 04/22/23 Unknown Rx folic acid 1 mg tablet 1,000 mcg PO DAILY #90 tabs 09/20/22 04/22/23 Unknown Rx furosemide 40 mg tablet 40 mg PO DAILY 30 days #60 tabs 09/20/22 04/22/23 Unknown Rx multivitamin 1 tab PO DAILY #90 tabs 09/20/22 04/22/23 Unknown Rx thiamine HCl (vitamin B1) 100 mg 100 mg PO DAILY #90 tabs 09/20/22 04/22/23 Unknown Rx tablet acetaminophen 325 mg tablet 650 mg PO QID PRN Pain 04/22/23 04/22/23 Unknown History albuterol sulfate 90 mcg/actuation 2 puff inhalation QID PRN 04/22/23 04/22/23 Unknown History aerosol inhaler (Ventolin HFA) Shortness Of Breath Or Wheezing aluminum-mag hydroxide-simethicone 30 ml PO Q2H PRN Constipation 04/22/23 04/22/23 Unknown History 200 mg-200 mg-20 mg/5 mL oral susp atorvastatin 40 mg tablet 40 mg PO QPM 04/22/23 04/22/23 Unknown History bisacodyl 10 mg rectal suppository 10 mg TX DAILY PRN Constipation 04/22/23 04/22/23 Unknown History (Dulcolax (bisacodyl)) bisacodyl 5 mg tablet,delayed 20 mg PO DAILY PRN Constipation 04/22/23 04/22/23 Unknown History release (see protocol) dextran 70-hypromellose (PF) 0.1 2 drp ophthalmic (eye) DAILY PRN 04/22/23 04/22/23 Unknown History %-0.3 % eye drops in a dropperette Dry Eye(S) (Artificial Tears (PF)) empagliflozin 10 mg tablet 10 mg PO DAILY 04/22/23 04/22/23 Unknown History (Jardiance) fluticasone furoate 200 1 inh inhalation DAILY 04/22/23 04/22/23 Unknown History mcg-vilanterol 25 mcg/dose inhalation powder (Breo Ellipta) insulin glargine 100 unit/mL (3 15 unit SUBCUT BID 04/22/23 04/22/23 Unknown History mL) subcutaneous pen (Lantus Solostar U-100 Insulin) insulin lispro 100 unit/mL See Rx Instructions .Route .COMPLEX 04/22/23 04/22/23 Unknown History subcutaneous pen (Humalog KwikPen (U-100) Insulin) magnesium hydroxide 400 mg/5 mL 30 ml PO DAILY PRN Constipation 04/22/23 04/22/23 Unknown History oral suspension (Milk of Magnesia) metoprolol succinate 25 mg 25 mg PO DAILY 04/22/23 04/22/23 Unknown History tablet,extended release 24 hr permethrin 5 % topical cream 1 applic topical DAILY 04/22/23 04/22/23 Unknown History polyethylene glycol 3350 17 4 g PO DAILY PRN Constipation 04/22/23 04/22/23 Unknown History gram/dose oral powder (Miralax) sodium bicarbonate 650 mg tablet 1,300 mg PO BID 04/22/23 04/22/23 Unknown History Allergies Allergy/AdvReac Type Severity Reaction Status Date / Time No Known Allergies Allergy Verified 10/10/22 08:36 PFSH Acute 2 PFSH: Medical History Acute kidney injury superimposed on CKD Renal insufficiency Acute non-ST elevation myocardial infarction (NSTEMI) Hyperosmolar hyperglycemic state (HHS) Acute on chronic diastolic CHF (congestive heart failure) NSTEMI (non-ST elevated myocardial infarction) Pulmonary edema Acute respiratory failure with hypoxia Pneumonia CAROLYNN (acute kidney injury) Chest pain Cracked skin on feet Foot callus Foot callus Plantar fasciitis Diabetic neuropathy IGTN (ingrowing toe nail) Chronic kidney disease, stage 3 unspecified Cellulitis of foot Wound of foot Headache Diabetic foot Cough Acute bacterial pharyngitis Iron deficiency anemia Contact dermatitis Renal calculus, right Polyneuropathy, unspecified Patellofemoral dysfunction of right knee Anxiety Mild intellectual disability H/O: GI bleed GERD (gastroesophageal reflux disease) CKD (chronic kidney disease) Chronic idiopathic constipation Atherosclerotic heart disease of [place] coronary artery without angina pectoris CHF (congestive heart failure) Impaired cognitive ability Muscle cramps Knee abrasion Environmental and seasonal allergies Environmental and seasonal allergies Dysuria Hypothyroid Diarrhea FH: CABG (coronary artery bypass surgery) STEMI (ST elevation myocardial infarction) CAD (coronary artery disease) Chronic secretory otitis media Hyperlipidemia Vitamin D deficiency Patient has history of Vitamin D deficiency and take home D3 supplement 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 He cannot manage insulin at home and is currently controlled with Ozempic weekly and oral meds. Essential hypertension Patient is currently well controlled with antihypertensives Surgical History Aortocoronary bypass status Family History Mother Diabetes Alzheimer's dementia Brother Epileptic seizure Social History Smoking and tobacco/nicotine status: never used tobacco/nicotine Second hand smoke exposure: No Alcohol intake: current Vitals/I&O/Wt Last Vital Signs Temp 97.9 F 04/21/23 15:50 Pulse 94 04/21/23 15:50 Resp 18 04/21/23 15:50 BP 192/110 04/21/23 15:50 Pulse Ox 93 04/21/23 15:50 O2 Del Method Room Air 04/21/23 15:50 Weight last 48 hrs Weight 98.43 kg Physical Exam 2 Narrative: EXAM NARRATIVE: General: No acute distress, AO x3 HEENT: PERRLA, pupils bilaterally equal and reactive Chest:equal good air entry bilaterally, no more fine basal crackles CVS: S1-S2 regular, no murmurs, no tachycardia, no gallops, no rubs Abdomen: Soft, nontender, no organomegaly, bowel sounds present, morbidly obese Neuro: No focal deficits, no facial deformity, AO x3, power 5/5 in all limbs Data 04/22/23 06:03 04/22/23 06:03 Other Labs: Radiology Impressions Chest X-Ray 04/21/23 15:50 IMPRESSION: No acute findings. Head CT 04/21/23 15:50 IMPRESSION: Stable chronic changes with no evidence of acute intracranial hemorrhage, mass or acute infarction. ASSESSMENT: ASPECTS ([place] Stroke Program Early CT Score) is 10. Head/Neck CTA 04/21/23 17:47 IMPRESSION: 1. No arterial occlusion. 2. 5 mm left vertebral artery aneurysm. 3. 60-70% stenosis of the petrous portion of the right internal carotid artery. 4. Multifocal less than 50% stenosis in the cavernous and supraclinoid internal carotid arteries bilaterally. IMPRESSION: 1. No arterial occlusion or dissection. 2. Multifocal stenosis of the left vertebral artery with near occlusion of the distal cervical portion at C2. 3. Short segment 50-60% stenosis of the distal left internal carotid artery just below the skull base. 4. 50-60% stenosis at the origin of the right internal carotid artery. 5. Less than 50% stenosis of the left internal carotid artery origin. 6. 50-60% stenosis at the origin of the left external carotid artery. REFERENCES: NASCET CRITERIA. The degree of stenosis in the cervical segment of the internal carotid artery is based on NASCET criteria. Normal is no stenosis. Mild is less than 50% stenosis. Moderate is 50-69% stenosis. Severe is 70% to 99% stenosis. Total occlusion is no detectable patent lumen. ADDENDUM: 04/21/231910 THIS REPORT CONTAINS FINDINGS THAT MAY BE CRITICAL TO PATIENT CARE. The findings and recommendations were verbally communicated by me via telephone conference with Dr Lee at 7:08 PM STUDENT WORKER on 04/21/2023. The findings were acknowledged and understood. Laboratory Results WBC 9.09 10^3/uL (3.29-11.43) 04/21/23 16:04 RBC 5.49 10^6/uL (3.85-5.65) 04/21/23 16:04 Hgb 14.50 g/dL (11.27-16.99) 04/21/23 16:04 Hct 47.5 % (37-53) 04/21/23 16:04 MCV 86.5 fl (82-101) 04/21/23 16:04 MCH 26.4 pg (27-33) L 04/21/23 16:04 MCHC 30.5 g/dL (30-55) 04/21/23 16:04 RDW 16.4 % (12.1-15.1) H 04/21/23 16:04 Plt Count 337 10^3/cmm (157-399) 04/21/23 16:04 MPV 11.3 fL (7.4-10.4) H 04/21/23 16:04 Neut % (Auto) 75.0 % 04/21/23 16:04 Lymph % (Auto) 15.7 % 04/21/23 16:04 [place] % (Auto) 6.5 % 04/21/23 16:04 Eos % (Auto) 2.0 % 04/21/23 16:04 Baso % (Auto) 0.4 % 04/21/23 16:04 Neut # (Auto) 6.81 10^3/uL (1.8-7.7) 04/21/23 16:04 Lymph # (Auto) 1.4 10^3/uL (0.8-4.8) 04/21/23 16:04 [place] # (Auto) 0.6 10^3/uL (0.2-0.9) 04/21/23 16:04 Eos # (Auto) 0.2 10^3/uL (0.0-0.8) 04/21/23 16:04 Baso # (Auto) 0.0 10^3/uL (0.0-0.1) 04/21/23 16:04 Nucleated RBC % (auto) 0 % 04/21/23 16:04 Nucleated RBCs # 0.0 /100WBC 04/21/23 16:04 PT 13.30 SECONDS (12.1-14.9) 04/21/23 18:02 INR 0.98 (0.8-1.2) 04/21/23 18:02 APTT 29.8 SECONDS (23.9-36.7) 04/21/23 18:02 Sodium 140 mmol/L (136-145) 04/21/23 16:04 Potassium 4.6 mmol/L (3.5-5.1) 04/21/23 16:04 Chloride 98 mmol/L (98-107) 04/21/23 16:04 Carbon Dioxide 26 mmol/L (22-29) 04/21/23 16:04 Anion Gap 20.6 (5-19) H 04/21/23 16:04 BUN 39 mg/dL (8-23) H 04/21/23 16:04 Creatinine 2.3 mg/dL (0.7-1.2) H 04/21/23 16:04 GFR Calculation Not Reportable 04/21/23 16:04 Glucose 244 mg/dL (65-115) H 04/21/23 16:04 POC Glucose 168 mg/dL (70-110) H 04/22/23 04:00 Calculated Osmolality 307 mOsm/kg (285-295) H 04/21/23 16:04 Calcium 9.4 mg/dL (8.5-10.5) 04/21/23 16:04 Iron 33 ug/dL (59-158) L 04/21/23 18:02 TIBC 358 mcg/dl 04/21/23 18:02 % Saturation 9.2 % (20-50) L 04/21/23 18:02 Unsat Iron Binding 325 ug/dL (112-347) 04/21/23 18:02 Total Bilirubin 0.5 mg/dL (0.15-1.2) 04/21/23 16:04 AST 15 U/L (0-40) 04/21/23 16:04 ALT 19 U/L (0-41) 04/21/23 16:04 Alkaline Phosphatase 164 U/L (40-130) H 04/21/23 16:04 Troponin T Baseline 64 ng/L (0-15) H 04/21/23 16:04 Troponin T 120 Minute 71.85 ng/L (0-15) H 04/21/23 18:02 Delta Troponin T 7.85 ABS# (0-10) 04/21/23 18:02 Troponin T Hi Sens 6Hr 75.68 ng/L (0-15) H 04/21/23 21:59 Troponin T Hi Sens 6Hr Delta 11.68 ng/L (0-12) 04/21/23 21:59 Total Protein 8.3 g/dL (6.6-8.7) 04/21/23 16:04 Albumin 4.4 g/dL (3.5-5.2) 04/21/23 16:04 Globulin 3.9 g/dL (1.3-4.6) 04/21/23 16:04 Vitamin B12 416 pg/mL (232-1245) 04/21/23 18:02 Procalcitonin 0.14 ng/mL (0-0.5) 04/21/23 18:02 TSH 1.67 uIU/mL (0.27-4.20) 04/21/23 18:02 Urine Color Yellow (Yellow) 04/21/23 17:02 Urine Appearance Clear (CLEAR) 04/21/23 17:02 Urine pH 5 (5-7) 04/21/23 17:02 Ur Specific [place] 1.005 (1.005-1.030) 04/21/23 17:02 Urine Protein Neg (Negative) 04/21/23 17:02 Urine Glucose (UA) 4+ (Normal) H 04/21/23 17:02 Urine Ketones Negative (Negative) 04/21/23 17:02 Urine Blood Neg (Negative) 04/21/23 17:02 Urine Nitrate Negative (Negative) 04/21/23 17:02 Urine Bilirubin Neg (Negative) 04/21/23 17:02 Urine Urobilinogen Norm mg/dL (Negative) 04/21/23 17:02 Ur Leukocyte Esterase Negative (Negative) 04/21/23 17:02 Urine Opiates Screen Negative ng/mL (Negative) 04/21/23 17:02 Ur Barbiturates Screen Negative ng/mL (Negative) 04/21/23 17:02 Ur Phencyclidine Scrn Negative ng/mL (Negative) 04/21/23 17:02 Ur Amphetamines Screen Negative ng/mL (Negative) 04/21/23 17:02 U Benzodiazepines Scrn Negative ng/mL (Negative) 04/21/23 17:02 Urine Cocaine Screen Negative ng/mL (Negative) 04/21/23 17:02 U Marijuana (THC) Screen Negative ng/mL (Negative) 04/21/23 17:02 , A&P Assessment and plan (1) Brain TIA: Admit the patient to [facility] for close neuro monitoring he is not a tPA candidate due to NIHSS 1 telemetry monitoring on the unit to evaluate for underlying arrhythmias. CT head bilateral periventricular white matter suggestive of chronic small vessel ischemic changes. CTA head and neck with No arterial occlusion or dissection. 60-70% stenosis of the petrous portion of the right internal carotid artery. Echocardiogram ordered and pending Continue aspirin 81 mg daily, clopidogrel 75mg daily and Atorvastatin 40 mg daily Holding home dose of antihypertensives to allow for permissive hypertension PT OT speech therapy assessment Attestations 2 Medical Necessity Statement*: less than 2 midnight stay is anticipated Coding Level of Care Code Acute Code for g Fwd Diagnoses Brain TIA G45.9
[2023-04-21] MEDS: iohexol 350 mg/mL 500 mL Btl (per mL) IV (18:27)
[2023-04-21 18:31] LABS: INR 0.98 (0.8-1.2)
[2023-04-21 18:32] LABS: Partial Thromboplastin Time 29.8 SECONDS (23.9-36.7)
[2023-04-21 18:38] LABS: Troponin 5 2HR 71.85 ng/L (0-15); Troponin 5 2HR Delta 7.85 ABS# (0-10)
[2023-04-21 18:41] LABS: Procalcitonin 0.14 ng/mL (0-0.5)
[2023-04-21 22:22] LABS: Troponin 5 6HR 75.68 ng/L (0-15); Troponin 5 6HR Delta 11.68 ng/L (0-12)
[2023-04-21 23:05] LABS: Glucose Point of Care 258 mg/dL (70-110)
[2023-04-21] MEDS: sodium chloride 0.9% 1,000 ML 75 ML IV (23:12)
[2023-04-21] MEDS: pantoprazole 40 mg SDV IVP (23:12)
[2023-04-21] MEDS: heparin 5,000 unit/mL INJ 1 mL 5000 UNIT SUBCUT (23:13)
[2023-04-21] MEDS: insulin lispro 100 unit/1 mL SUBCUT (23:13)
[2023-04-22] VITALS (7 sets, daily range): BP systolic 119–133; BP diastolic 58–70; PULSE 13–67; RESP 16–17; TEMP 36.5–36.9; O2SAT 93–94; BMI 35.9
[2023-04-22 00:16] LABS: Iron 33 ug/dL (59-158); Percent Saturation 9.2 % (20-50); Thyroid Stimulating Hormone 1.67 uIU/mL (0.27-4.20); Total Iron Binding Capacity 358 mcg/dl; Unsaturated Iron Binding 325 ug/dL (112-347); Vitamin B12 416 pg/mL (232-1245)
[2023-04-22 02:00] LABS: Glucose Point of Care 188 mg/dL (70-110)
[2023-04-22 04:05] LABS: Glucose Point of Care 168 mg/dL (70-110)
[2023-04-22] MEDS: insulin lispro 100 unit/1 mL SUBCUT ×2 (04:58→10:42)
[2023-04-22 06:14] LABS: Basophils % 0.3 %; Eosinophils # 0.3 10^3/uL (0.0-0.8); Eosinophils % 2.8 %; Hematocrit 43.9 % (37-53); Lymphocytes % 11.2 %; Mean Corpuscular HGB Conc 30.8 g/dL (30-55); Mean Corpuscular Hemoglobin 26.6 pg (27-33); Mean Corpuscular Volume 86.4 fl (82-101); Monocytes # 0.6 10^3/uL (0.2-0.9); Monocytes % 6.9 %; Neutrophils # 7.06 10^3/uL (1.8-7.7); Neutrophils % 78.5 %; Nucleated Red Blood Cells % 0 %; Platelet Count 370 10^3/cmm (157-399); Red Blood Count 5.08 10^6/uL (3.85-5.65); Red Cell Distribution Width 16.5 % (12.1-15.1)
[2023-04-22 06:33] LABS: Alanine Aminotransferase 15 U/L (0-41); Albumin Level 3.7 g/dL (3.5-5.2); Alkaline Phosphatase 135 U/L (40-130); Anion Gap 18.2 (5-19); Aspartate Amino Transferase 13 U/L (0-40); Blood Urea Nitrogen 39 mg/dL (8-23); Calcium 8.9 mg/dL (8.5-10.5); Carbon Dioxide 26 mmol/L (22-29); Chloride 102 mmol/L (98-107); Chol HDL Ratio 5.63 mg/dL (1.0-5.00); Cholesterol 152 mg/dL (0-200); Creatinine Clr Calc Pharmacy 30.0196; Globulin 3.8 g/dL (1.3-4.6); Glucose 157 mg/dL (65-115); HDL Cholesterol 27 mg/dL (60-100); LDL Cholesterol Calculated 95 mg/dL (50-129); LDL HDL Ratio 3.52 RATIO (0.00-3.22); Magnesium 2.4 mg/dL (1.7-2.3); Osmolality Calculated 307 mOsm/kg (285-295); Phosphorus 4.1 mg/dL (2.5-4.5); Potassium 4.2 mmol/L (3.5-5.1); Sodium 142 mmol/L (136-145); Total Bilirubin 0.4 mg/dL (0.15-1.2); Total Protein 7.5 g/dL (6.6-8.7); Triglycerides 149 mg/dL (0-150)
[2023-04-22 06:57] LABS: Estmated Average Glucose 275; Hemoglobin A1C 11.2 % (4.0-6.0)
[2023-04-22] MEDS: atorvastatin 40 mg Tablet 20 MG PO (07:42)
[2023-04-22] MEDS: metoprolol tartrate 50 mg Tablet PO (07:43)
[2023-04-22] MEDS: levothyroxine 112 mcg Tablet PO (07:44)
[2023-04-22] MEDS: amitriptyline 25 mg Tablet 12.5 MG PO (07:44)
[2023-04-22] MEDS: aspirin 81 mg EC Tablet PO (07:45)
[2023-04-22] MEDS: clopidogrel 75 mg Tablet PO (07:45)
--- NOTE | 2023-04-22 09:30 | MR_ITS ---
WS: [id number] MRI BRAIN WITH AND WITHOUT CONTRAST HISTORY: stroke COMPARISON: None available. TECHNIQUE: Multiplanar imaging performed through the brain with MultiHance 20 ml's IV. Normal diffusion imaging. No hemorrhage. Moderate bilateral cerebral and cerebellar atrophy. Very mil d small vessel ischemic changes. No susceptibility artifacts or prior lacunar infarcts. Ventricles and extra-axial spaces are normal. Clivus and pituitary gland are normal. Visualized posterior fossa and brainstem are also normal. Postcontrast images are negative for masses or vascular malformations. Dural venous sinuses are normal. Paranasal sinuses: Well aerated with no significant disease. Mastoid air cells: Normal. Calvarium and scalp: Normal. IMPRESSION: 1. Normal diffusion imaging. No ischemia or infarct. 2. No enhancing mass. 3. Moderate atrophy with mild small vessel ischemic changes. 4. No hemorrhage.
--- NOTE | 2023-04-22 09:59 | PC.CHAP ---
Pastoral Care Encounter/Spiritual Assessment Type of Contact [] Declined administrative assistant receptionist visit [] Patient/Family/Request visit [] Outpatient visit [] Follow-up visit [] Physician referral [] Code/Alert [] Routine visit [] Staff referral [] Actively dying [] Patient sleeping [] Family support [] [] Out of room [] Palliative care [] [] Receiving care in room [] Pre-surgical visit [] Trauma [] Long length of stay [] ICU visit [x] Other:Contact precautions. No visit. Relational/Emotional Strength [] Patient feels connected with others/family/visitors/staff [] Distress [] Loneliness/isolation [] Abandonment Spirituality of Patient [] Person of Lauren [] Attends Congregational of their Lauren [] Believes in Prayer [] Reads Bible or Orthodoxy materials [] There are Spiritual issues to be addressed Monomer Purification Operator Interventions [] Prayer [] Active listening [] Non-anxious presence [] Spiritual/emotional support [] Crisis/trauma care [] Spiritual counseling [] Bereavement support [] Provided bereavement packet [] Provided Bible/devotional materials [] Provided toy/stuffed animal, coloring book to patient or family member [] Provided Communion [] Anointing/[place] [] Salvation [] Completed spiritual assessment [] Other: Impact on Illness or Injury [] Angry [] Fearful [] Anxious [] Often cries [] Exhaustion [] Unable to work [] Unable to attend sabianism [] Unable to walk/stand [] Unable to read [] Unable to drive [] Unable to eat/drink [] Unable to sleep [] Unable to be with family [] Patient intubated [] Other: Summary Time spent with patient
[2023-04-22 10:03] LABS: Folate Level > 20.0 ng/mL (4.5-32.2)
--- NOTE | 2023-04-22 10:08 | P.DS_ITS ---
Discharge Providers Date of Admission: 04/21/23 17:35 Date of Discharge: April 22, 2023 Attending Provider at Admission: Cortez Mcleod MD Attending Provider at Discharge: Cortez Mcleod MD Primary Care Provider: Elza Peralta APN Diagnoses at Discharge Discharge Diagnosis (1) Brain TIA: Status: Acute Reason for Visit Reason for Visit: STROKE LIKE SYMPTOMS Hospital Course Hospital Course Guillermo Saha is a 72 year old male with past medical history of CKD, diabetes mellitus, hypertension, CAD, h/o CHF brought to the shelter via EMS due to having an episode of unresponsiveness earlier today. It was reported that patient was in her usual state of health until noon. He was next seen at 12:45 when he was poorly responsive, noted to have new onset of slurred speech and right facial droop. He also had reportedly right-sided weakness which eventually resolved. By the time he was brought to the emergency room his NIH stroke scale was of 1. He was not considered a tenecteplase candidate. Neurology at [facility] was consulted who recommended patient to be admitted under observation and for MRI head. His hospitalization was otherwise unremarkable and his symptoms resolved. MRI head was done which was negative for acute abnormality. He was found to have an elevated A1c of more than 11 for which his home dose of Lantus has been adjusted to 25 units twice daily. He is to maintain his oral hydration. He has been discharged in hemodynamically stable condition with advised to follow-up with neurology in 2 weeks. Physical Exam Narrative: EXAM NARRATIVE: General: No acute distress, AO x3 HEENT: PERRLA, pupils bilaterally equal and reactive Chest:equal good air entry bilaterally, no more fine basal crackles CVS: S1-S2 regular, no murmurs, no tachycardia, no gallops, no rubs Abdomen: Soft, nontender, no organomegaly, bowel sounds present, morbidly obese Neuro: No focal deficits, no facial deformity, AO x3, power 5/5 in all limbs Discharge Data Studies Completed and Pending Completed Studies During Hospitalization Category Date Time Status CT angio headneck* [id number] Stat Cat Scan 04/21/23 17:[address] head thrombolytic [id number] Stat Cat Scan 04/21/23 15:50 Completed CXRP [XR chest 1V portable [id number]] Stat Exams 04/21/23 15:50 Completed Pending at discharge Category Date Time Status MR head wo/w con [id number] Urgent MRI 04/22/23 09:30 Ordered CV. echo complete* [id number] Routine Ultrasound 04/22/23 17:47 Taken Radiology Impressions Chest X-Ray 04/21/23 15:50 IMPRESSION: No acute findings. Head CT 04/21/23 15:50 IMPRESSION: Stable chronic changes with no evidence of acute intracranial hemorrhage, mass or acute infarction. ASSESSMENT: ASPECTS ([place] Stroke Program Early CT Score) is 10. Head/Neck CTA 04/21/23 17:47 IMPRESSION: 1. No arterial occlusion. 2. 5 mm left vertebral artery aneurysm. 3. 60-70% stenosis of the petrous portion of the right internal carotid artery. 4. Multifocal less than 50% stenosis in the cavernous and supraclinoid internal carotid arteries bilaterally. IMPRESSION: 1. No arterial occlusion or dissection. 2. Multifocal stenosis of the left vertebral artery with near occlusion of the distal cervical portion at C2. 3. Short segment 50-60% stenosis of the distal left internal carotid artery just below the skull base. 4. 50-60% stenosis at the origin of the right internal carotid artery. 5. Less than 50% stenosis of the left internal carotid artery origin. 6. 50-60% stenosis at the origin of the left external carotid artery. REFERENCES: NASCET CRITERIA. The degree of stenosis in the cervical segment of the internal carotid artery is based on NASCET criteria. Normal is no stenosis. Mild is less than 50% stenosis. Moderate is 50-69% stenosis. Severe is 70% to 99% stenosis. Total occlusion is no detectable patent lumen. ADDENDUM: 04/21/231910 THIS REPORT CONTAINS FINDINGS THAT MAY BE CRITICAL TO PATIENT CARE. The findings and recommendations were verbally communicated by me via telephone conference with Dr Lee at 7:08 PM MECHANICAL STRIPER on 04/21/2023. The findings were acknowledged and understood. Laboratory Results WBC 9.00 10^3/uL (3.29-11.43) 04/22/23 06:03 RBC 5.08 10^6/uL (3.85-5.65) 04/22/23 06:03 Hgb 13.50 g/dL (11.27-16.99) 04/22/23 06:03 Hct 43.9 % (37-53) 04/22/23 06:03 MCV 86.4 fl (82-101) 04/22/23 06:03 MCH 26.6 pg (27-33) L 04/22/23 06:03 MCHC 30.8 g/dL (30-55) 04/22/23 06:03 RDW 16.5 % (12.1-15.1) H 04/22/23 06:03 Plt Count 370 10^3/cmm (157-399) 04/22/23 06:03 MPV 11.0 fL (7.4-10.4) H 04/22/23 06:03 Neut % (Auto) 78.5 % 04/22/23 06:03 Lymph % (Auto) 11.2 % 04/22/23 06:03 [place] % (Auto) 6.9 % 04/22/23 06:03 Eos % (Auto) 2.8 % 04/22/23 06:03 Baso % (Auto) 0.3 % 04/22/23 06:03 Neut # (Auto) 7.06 10^3/uL (1.8-7.7) 04/22/23 06:03 Lymph # (Auto) 1.0 10^3/uL (0.8-4.8) 04/22/23 06:03 [place] # (Auto) 0.6 10^3/uL (0.2-0.9) 04/22/23 06:03 Eos # (Auto) 0.3 10^3/uL (0.0-0.8) 04/22/23 06:03 Baso # (Auto) 0.0 10^3/uL (0.0-0.1) 04/22/23 06:03 Nucleated RBC % (auto) 0 % 04/22/23 06:03 Nucleated RBCs # 0.0 /100WBC 04/22/23 06:03 PT 13.30 SECONDS (12.1-14.9) 04/21/23 18:02 INR 0.98 (0.8-1.2) 04/21/23 18:02 APTT 29.8 SECONDS (23.9-36.7) 04/21/23 18:02 Sodium 142 mmol/L (136-145) 04/22/23 06:03 Potassium 4.2 mmol/L (3.5-5.1) 04/22/23 06:03 Chloride 102 mmol/L (98-107) 04/22/23 06:03 Carbon Dioxide 26 mmol/L (22-29) 04/22/23 06:03 Anion Gap 18.2 (5-19) 04/22/23 06:03 BUN 39 mg/dL (8-23) H 04/22/23 06:03 Creatinine 2.2 mg/dL (0.7-1.2) H 04/22/23 06:03 GFR Calculation Not Reportable 04/22/23 06:03 Glucose 157 mg/dL (65-115) H 04/22/23 06:03 POC Glucose 168 mg/dL (70-110) H 04/22/23 04:00 Estimat Average Glucose 275 04/22/23 06:03 Hemoglobin A1c 11.2 % (4.0-6.0) H 04/22/23 06:03 Calculated Osmolality 307 mOsm/kg (285-295) H 04/22/23 06:03 Calcium 8.9 mg/dL (8.5-10.5) 04/22/23 06:03 Phosphorus 4.1 mg/dL (2.5-4.5) 04/22/23 06:03 Magnesium 2.4 mg/dL (1.7-2.3) H 04/22/23 06:03 Iron 33 ug/dL (59-158) L 04/21/23 18:02 TIBC 358 mcg/dl 04/21/23 18:02 % Saturation 9.2 % (20-50) L 04/21/23 18:02 Unsat Iron Binding 325 ug/dL (112-347) 04/21/23 18:02 Total Bilirubin 0.4 mg/dL (0.15-1.2) 04/22/23 06:03 AST 13 U/L (0-40) 04/22/23 06:03 ALT 15 U/L (0-41) 04/22/23 06:03 Alkaline Phosphatase 135 U/L (40-130) H 04/22/23 06:03 Troponin T Baseline 64 ng/L (0-15) H 04/21/23 16:04 Troponin T 120 Minute 71.85 ng/L (0-15) H 04/21/23 18:02 Delta Troponin T 7.85 ABS# (0-10) 04/21/23 18:02 Troponin T Hi Sens 6Hr 75.68 ng/L (0-15) H 04/21/23 21:59 Troponin T Hi Sens 6Hr Delta 11.68 ng/L (0-12) 04/21/23 21:59 Total Protein 7.5 g/dL (6.6-8.7) 04/22/23 06:03 Albumin 3.7 g/dL (3.5-5.2) 04/22/23 06:03 Globulin 3.8 g/dL (1.3-4.6) 04/22/23 06:03 Triglycerides 149 mg/dL (0-150) 04/22/23 06:03 Cholesterol 152 mg/dL (0-200) 04/22/23 06:03 LDL Cholesterol, Calc 95 mg/dL (50-129) 04/22/23 06:03 HDL Cholesterol 27 mg/dL (60-100) L 04/22/23 06:03 LDL/HDL Ratio 3.52 RATIO (0.00-3.22) H 04/22/23 06:03 Cholesterol/HDL Ratio 5.63 mg/dL (1.0-5.00) H 04/22/23 06:03 Vitamin B12 416 pg/mL (232-1245) 04/21/23 18:02 Folate > 20.0 ng/mL (4.5-32.2) 04/22/23 06:03 Procalcitonin 0.14 ng/mL (0-0.5) 04/21/23 18:02 TSH 1.67 uIU/mL (0.27-4.20) 04/21/23 18:02 Urine Color Yellow (Yellow) 04/21/23 17:02 Urine Appearance Clear (CLEAR) 04/21/23 17:02 Urine pH 5 (5-7) 04/21/23 17:02 Ur Specific [place] 1.005 (1.005-1.030) 04/21/23 17:02 Urine Protein Neg (Negative) 04/21/23 17:02 Urine Glucose (UA) 4+ (Normal) H 04/21/23 17:02 Urine Ketones Negative (Negative) 04/21/23 17:02 Urine Blood Neg (Negative) 04/21/23 17:02 Urine Nitrate Negative (Negative) 04/21/23 17:02 Urine Bilirubin Neg (Negative) 04/21/23 17:02 Urine Urobilinogen Norm mg/dL (Negative) 04/21/23 17:02 Ur Leukocyte Esterase Negative (Negative) 04/21/23 17:02 Urine Opiates Screen Negative ng/mL (Negative) 04/21/23 17:02 Ur Barbiturates Screen Negative ng/mL (Negative) 04/21/23 17:02 Ur Phencyclidine Scrn Negative ng/mL (Negative) 04/21/23 17:02 Ur Amphetamines Screen Negative ng/mL (Negative) 04/21/23 17:02 U Benzodiazepines Scrn Negative ng/mL (Negative) 04/21/23 17:02 Urine Cocaine Screen Negative ng/mL (Negative) 04/21/23 17:02 U Marijuana (THC) Screen Negative ng/mL (Negative) 04/21/23 17:02 Vitals Last Vital Signs Temp 98.3 F 04/22/23 07:37 Pulse 67 04/22/23 07:37 Resp 16 04/22/23 07:37 BP 124/69 04/22/23 07:37 Pulse Ox 93 04/22/23 07:37 O2 Del Method Nasal Cannula 04/22/23 07:37 O2 Flow Rate 2 04/21/23 23:55 Discharge Plan Discharge Patient Disposition: Xfer SNF Condition: Stable Prescriptions: Continued amitriptyline 10 mg tablet 10 mg PO DAILY ergocalciferol (vitamin D2) 1,250 mcg (50,000 unit) capsule 50,000 unit PO Q7D montelukast 10 mg tablet 10 mg PO DAILY omega-3 acid ethyl esters 1 gram capsule 1 cap PO DAILY oxybutynin chloride 15 mg tablet extended release 24hr 30 mg PO DAILY pantoprazole 40 mg tablet,delayed release (DR/EC) 40 mg PO DAILY aspirin [Adult Low Dose Aspirin] 81 mg tablet,delayed release (DR/EC) 162 mg PO DAILY Qty: 180 3RF (DME) OneTouch Verio test strips Strip See Rx Instructions .ROUTE .COMPLEX Qty: 100 3RF Dose Instruction: for TYPE 2 DIABETES MELLITUS; USE ONE STRIP TO CHECK BLOOD SUGAR DAILY Rx Instructions: for TYPE 2 DIABETES MELLITUS; USE ONE STRIP TO CHECK BLOOD SUGAR DAILY fluticasone propionate 50 mcg/actuation [place],Suspension 1 spray intranasal DAILY levothyroxine 112 mcg tablet 112 mcg PO DAILY lactulose 10 gram/15 mL solution 30 ml PO BID clopidogrel 75 mg Tablet 75 mg PO DAILY 30 Days Qty: 30 3RF thiamine HCl (vitamin B1) 100 mg tablet 100 mg PO DAILY Qty: 90 0RF folic acid 1 mg tablet 1,000 mcg PO DAILY Qty: 90 0RF multivitamin Tablet 1 tab PO DAILY Qty: 90 0RF furosemide 40 mg tablet 40 mg PO DAILY 30 Days Qty: 60 2RF atorvastatin 40 mg tablet 40 mg PO QPM acetaminophen 325 mg Tablet 650 mg PO QID PRN (Reason: Pain) Milk of Magnesia 400 mg/5 mL Suspension 30 ml PO DAILY PRN (Reason: Constipation) sodium bicarbonate 650 mg Tablet 1,300 mg PO BID Dulcolax (bisacodyl) 10 mg Suppository 10 mg RI DAILY PRN (Reason: Constipation) metoprolol succinate 25 mg tablet extended release 24 hr 25 mg PO DAILY alum-mag hydroxide-simeth 200-200-20 mg/5 mL Suspension 30 ml PO Q2H PRN (Reason: Constipation) Rx Instructions: administer between meals and at bedtime Ventolin HFA 90 mcg/actuation Hfa Aerosol Inhaler 2 puff INHALATION QID PRN (Reason: Shortness Of Breath Or Wheezing) Humalog KwikPen Insulin 100 unit/mL insulin pen See Rx Instructions .ROUTE .COMPLEX Rx Instructions: subcutaneously per sliding scale Jardiance 10 mg tablet 10 mg PO DAILY Breo Ellipta 200-25 mcg/dose blister with device 1 inh INHALATION DAILY bisacodyl 5 mg tablet,delayed release (DR/EC) 20 mg PO DAILY PRN (Reason: Constipation (see protocol)) permethrin 5 % cream 1 applic TOPICAL DAILY Miralax 17 gram/dose Powder 4 g PO DAILY PRN (Reason: Constipation) Artificial Tears (PF) 0.1-0.3 % Dropperette 2 drp ophthalmic (eye) DAILY PRN (Reason: Dry Eye(S)) Changed Lantus Solostar U-100 Insulin 100 unit/mL (3 mL) insulin pen 25 unit SUBCUT BID Qty: 15 0RF Discharge Orders: Discharge Order (Routine); Ordered 04/22/23 Ordered By: Cortez Mcleod Referrals: [facility] [Outside] Elza Peralta FNP [Primary Care Provider] - 7-10 days Discharge Diet: Diabetic Discharge Activity: Resume usual activity and Increase activity as tolerated Patient Instructions: Opioid Safety Discharge Attestations Time Spent in Discharge Care*: greater than 30 min Specific Discharge Activities: educating patient, discussing with pcp/other providers, discussing with lining caser/social workers/dc planners, documenting/other paperwork and evaluating patient/reviewing data Status at Discharge: Cognitive status at discharge: cognitively intact , Overall status at discharge: patient is back to baseline Quality Metrics Clinical Quality Measures [ No reported AMI, CVA or VTE this stay] Coding Level of Care Code 09284 Total time (in minutes) for Discharge: 60 Diagnoses Brain TIA G45.9
[2023-04-22 10:40] LABS: Glucose Point of Care 213 mg/dL (70-110)
[2023-04-22] MEDS: heparin 5,000 unit/mL INJ 1 mL 5000 UNIT SUBCUT (10:42)
[2023-04-22] MEDS: gadobenate dimeglumine 20 mL vial IV (11:28)
[2023-04-22 11:35] LABS: Glucose Point of Care 416 mg/dL (70-110)
--- NOTE | 2023-04-22 11:43 | PC.NURSE ---
Report called to Tila at [facility]. MRI taken. Awaiting report prior to discharge.
--- NOTE | 2023-04-22 13:54 | PC.OT ---
OT EVALUATION ORDERS RECEIVED. HOWEVER, PATIENT IS SCHEDULED FOR D/C. WILL HOLD AT THIS TIME.
--- NOTE | 2023-04-22 16:30 | PC.NURSE ---
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 Pt sent with packet. To simone ride via wheelchair with all belongings. Nia Lester contacted and advised pt on his way.
[2023-04-22 16:46] LABS: Glucose Point of Care 255 mg/dL (70-110)
--- NOTE | 2023-04-22 17:47 | USCV_ITS ---
Guillermo Saha Age: 72 Gender: M : 1950 Exam Date: 04/22/2023 02:34 Ordering Phys: Cortez Mcleod MD Technologist: JUWAN Exam Location: [facility] [place] Indication: order says stroke Patient is confused. No history available. BP: 192 / 110 HR: 76 Rhythm: Sinus Technical Quality: Technically difficult study MEASUREMENTS (Male / Female) Normal Values 2D ECHO LV Diastolic Diameter PLAX 4.9 cm 4.2 - 5.9 / 3.9 - 5.3 cm LV Systolic Diameter PLAX 4.3 cm IVS Diastolic Thickness 1.5 cm 0.6 - 1.0 / 0.6 - 0.9 cm IVS Systolic Thickness 1.6 cm LVPW Diastolic Thickness 1.5 cm 0.6 - 1.0 / 0.6 - 0.9 cm LVPW Systolic Thickness 1.5 cm LVOT Diameter 2.1 cm LV Ejection Fraction 2D Teich 23.1 % LV Ejection Fraction MOD 2C 3.0 % LV Ejection Fraction 2C AL 0.0 % LA Diameter 4.7 cm Aorta at Sinotubular Diameter 3.9 cm IVC Diameter 1.5 cm DOPPLER AV Peak Velocity 93.0 cm/s LVOT Peak Velocity 65.0 cm/s AV Area Cont Eq vti 2.4 cm squared AV Area Cont Eq pk 2.5 cm squared MV Peak Velocity 106.0 cm/s MV Area PHT 3.2 cm squared Mitral E to A Ratio 2.1 TV Peak E Velocity 31.0 cm/s FINDINGS Left Ventricle Normal left ventricular size and systolic function, EF 55%, visual.no regional wall motion abnormalities. Mild left ventricular hypertrophy. Grade III/IV diastolic dysfunction (restrictive filling pattern), severely elevated filling pressures. Right Ventricle The right ventricle is normal in size and function. Right Atrium Mildly increased right atrial size. Left Atrium Mildly increased left atrial size. Mitral Valve Moderate mitral annular calcification. Aortic Valve Thickened aortic valve. Tricuspid Valve No gross abnormalities noted Pulmonic Valve Pulmonic valve not well visualized. Pericardium No pericardial effusion. Aorta Normal aortic annulus size. IVC Normal inferior vena cava. CONCLUSIONS Normal left ventricular size and systolic function, EF 55%, visual.no regional wall motion abnormalities. Mild left ventricular hypertrophy. Grade III/IV diastolic dysfunction (restrictive filling pattern), severely elevated filling pressures. Mild biatrial enlargement. Thickened aortic valve. Moderate mitral annular calcification. There is no pericardial effusion. There are no intracardiac masses. Compared to the study from 09/10/2022, there is improvement with LV ejection fraction Dr Ben Esparza MD [facility] (Electronically Signed) Final Date: 22 April 2023 13:38 S
== END 2023-04-22 16:36 | disposition skilled nursing facility (03) ==
LOC: ER 17:43 → MEDSURG 21:06
PROVIDERS: Admitting Provider Student in an Organized Health Care Education/Training Program; Emergency Provider Emergency Medicine; PCP Nurse Practitioner; Visit Provider Student in an Organized Health Care Education/Training Program
DX: G45.9 Transient cerebral ischemic attack, unspecified (principal); I13.0 Hypertensive heart and chronic kidney disease with heart failure and stage 1 through stage 4 chronic kidney disease, or unspecified chronic kidney disease; I50.43 Acute on chronic combined systolic (congestive) and diastolic (congestive) heart failure; E11.22 Type 2 diabetes mellitus with diabetic chronic kidney disease; N18.30 Chronic kidney disease, stage 3 unspecified; R29.701 NIHSS score 1; Z79.82 Long term (current) use of aspirin; Z79.4 Long term (current) use of insulin; I25.2 Old myocardial infarction; E11.40 Type 2 diabetes mellitus with diabetic neuropathy, unspecified; Z95.1 Presence of aortocoronary bypass graft
CPT/HCPCS: 36415; 36416; 70450; 70496; 70498; 70553; 71045; 80053; 80061; 80306; 81003; 82607; 82746; 82962; 83036; 83540; 83550; 83735; 84100; 84145; 84443; 84484; 85025; 85610; 85730; 92523; 92610; 93005; 93306; 94664; 96372; 96374; 96375; 97116; 97161; 99285; A9577; C9113; G0378; J1644; J1815; J7030; Q9967

== ENCOUNTER 2023-06-21 16:55 | Inpatient (IN) | payer MEDICARE, MEDICAID, SELFPAY ==
[2023-06-21] VITALS (17 sets, daily range): BP systolic 107–157; BP diastolic 48–97; PULSE 65–125; RESP 8–41; TEMP 36.8–37.1; O2SAT 94–97; BMI 40.7
--- NOTE | 2023-06-21 16:59 | XRR_ITS ---
PROCEDURE INFORMATION: Exam: XR Chest Exam date and time: 06/21/2023 5:18 PM Age: 73 years old Clinical indication: Shortness of breath; Prior surgery; Surgery date: 6+ months; Surgery type: Heart TECHNIQUE: Imaging protocol: Radiologic exam of the chest. Views: 1 view. COMPARISON: CR XR chest 1V portable [id number] 04/21/2023 3:55 PM FINDINGS: Lungs: Large new consolidation in the left lung base. Pleural spaces: Unremarkable. No pleural effusion. No pneumothorax. Heart/Mediastinum: Unremarkable. No cardiomegaly. Bones/joints: Unremarkable. XR/XR chest 1V [id number] IMPRESSION: Large new consolidation in the left lung base.
--- NOTE | 2023-06-21 17:00 | ECG_ITS ---
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 Measurements Intervals [place] Rate: 111 P: 19 DE: 145 QRS: 23 QRSD: 103 T: 60 QT: 354 QTc: 483 Interpretive Statements SINUS TACHYCARDIA WITH FREQUENT VENTRICULAR PREMATURE COMPLEXES POSSIBLE LEFT ATRIAL ENLARGEMENT [-0.1mV P-WAVE IN V1/V2] NONSPECIFIC ST & T-WAVE ABNORMALITY Compared to ECG 04/21/2023 18:24:27 Sinus rhythm no longer present T-wave abnormality still present Electronically Signed On 06-22-2023 12:04:12 CDT by Sin Eastman M.D. [email or web address]
--- NOTE | 2023-06-21 17:07 | W.ED.SOB ---
HPI - SOB/Dyspnea General: Chief Complaint: Shortness of Breath/Dyspnea Stated Complaint: SOB Time Seen by Provider: 06/21/23 16:56 History of Present Illness: HPI Narrative: 73-year-old man with history of developmental delay, congestive heart failure, coronary artery disease, chronic kidney disease, type 2 diabetes mellitus, hypertension, obesity, chronic hypoxemic respiratory failure on 4 L nasal cannula at all times who presents to the emergency room with acute onset of shortness of breath about 2 hours ago. EMS reports they placed him on a BiPAP for some time but he did not tolerate it. They say at the long term the had increased his 4 L to 6 L and he was still hypoxemic. He presents here on a nonrebreather. Still with some increased work of breathing. He has received several nitroglycerin for hypertension and concern for congestive heart failure. Also 80 mg IV Lasix on the ambulance. Review of Systems Narrative: Unable to obtain secondary to clinical condition and developmental delay [facility] PFSH: Medical History Acute kidney injury superimposed on CKD Renal insufficiency Acute non-ST elevation myocardial infarction (NSTEMI) Hyperosmolar hyperglycemic state (HHS) Acute on chronic diastolic CHF (congestive heart failure) NSTEMI (non-ST elevated myocardial infarction) Pulmonary edema Acute respiratory failure with hypoxia Pneumonia CAROLYNN (acute kidney injury) Chest pain Cracked skin on feet Foot callus Foot callus Plantar fasciitis Diabetic neuropathy IGTN (ingrowing toe nail) Chronic kidney disease, stage 3 unspecified Cellulitis of foot Wound of foot Headache Diabetic foot Cough Acute bacterial pharyngitis Iron deficiency anemia Contact dermatitis Renal calculus, right Polyneuropathy, unspecified Patellofemoral dysfunction of right knee Anxiety Mild intellectual disability H/O: GI bleed GERD (gastroesophageal reflux disease) CKD (chronic kidney disease) Chronic idiopathic constipation Atherosclerotic heart disease of [place] coronary artery without angina pectoris CHF (congestive heart failure) Impaired cognitive ability Muscle cramps Knee abrasion Environmental and seasonal allergies Environmental and seasonal allergies Dysuria Hypothyroid Diarrhea FH: CABG (coronary artery bypass surgery) STEMI (ST elevation myocardial infarction) CAD (coronary artery disease) Chronic secretory otitis media Hyperlipidemia Vitamin D deficiency Patient has history of Vitamin D deficiency and take home D3 supplement Diabetes Patient has been residential diabetic with 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 He cannot manage insulin at home and is currently controlled with Ozempic weekly and oral meds. Essential hypertension Patient is currently well controlled with antihypertensives Surgical History Aortocoronary bypass status Family History Mother Diabetes Alzheimer's dementia Brother Epileptic seizure Social History Smoking and tobacco/nicotine status: never used tobacco/nicotine Second hand smoke exposure: No Alcohol intake: current Physical Exam Narrative: EXAM NARRATIVE: General: Alert, moderate distress. Skin: Warm, dry. Head: Normocephalic, atraumatic. Neck: Supple, trachea midline. Eye: Extraocular movements are intact. Ears, nose, mouth and throat: Oral mucosa moist. Cardiovascular: Regular, tachycardic, Normal peripheral perfusion. Respiratory: coarse, scattered wheeze/rhonchi, moderate increased wob. tachypnea, breath sounds are equal, Symmetrical chest wall expansion. Gastrointestinal: Soft, Nontender, Non distended, Normal bowel sounds. Musculoskeletal: Normal ROM, no deformity. Neurological: Alert, No focal neurological deficit observed. Psychiatric: Unable to assess. Course Vital Signs: Vital signs: Vital Signs Temperature 98.8 F 06/21/23 16:57 Pulse Rate 65 06/21/23 18:08 Respiratory Rate 30 H 06/21/23 16:57 Blood Pressure 150/97 06/21/23 16:57 Pulse Oximetry 94 06/21/23 18:08 Oxygen Delivery Me thod Non-Rebreather 06/21/23 16:57 Oxygen Flow Rate 15 06/21/23 16:57 Fraction of Inspir ed Oxygen 40 06/21/23 18:08 MDM - SOB/Dyspnea Medical Decision Making Differential diagnosis for patient with shortness of breath includes but is not limited to and based on the above HPI, review of systems and physical exam: Pneumonia. Bronchitis. Asthma or COPD with acute exacerbation. Acute coronary syndrome / CO. Pulmonary embolism. Anxiety. Congestive heart failure. Viral infections including influenza and Covid-19. Atrial fibrillation. Anxiety. Pleural effusion. Pneumothorax. Workup: Lab work, chest X-ray and EKG ordered to evaluate, rule in and rule out above pathologies Lab Review: Laboratory results were reviewed and interpreted by myself the emergency room physician. proBNP is 20,000 which is consistent with what has been admitted for heart failure in the past. Troponin is 120. He has chronic renal insufficiency and his BUN and creatinine are 42 and 2.3 which is slightly above his usual which is around 1.82 as far as his creatinine goes. His glucose is 500 today. AB.29/49/77 with an O2 sat of 92% on 100% FiO2 nonrebreather. EKG: Time 1724 rate 111 sinus tachycardia, nonspecific ST wave abnormalities, frequent PVCs,, normal AK & QRS intervals, This was reviewed and interpreted by myself the ER physician at 1728. Chest x-ray: Cardiomegaly with what appears to be a large consolidation in the left lower lung. Sternotomy wires in place.. This was reviewed and interpreted by myself the ER physician. CT of the chest without contrast: 1. Large ground-glass and consolidative opacities throughout the left lower lobe, posterior aspect of the left upper lobe, and right lower lobe with small bilateral pleural effusions. Findings can be seen in the setting pulmonary edema given the dependent distribution though infectious etiology cannot be entirely excluded. 2. Prior median sternotomy and CABG. I reviewed the patient's medical record. Reexamination: Assessment and plan: Acute exacerbation of congestive heart failure Hypoxemic respiratory failure Hyperglycemia Pleural effusions Pulmonary edema Chronic kidney disease -Patient has received 80 of IV Lasix and nitroglycerin. -Placed on BiPAP. -I think there is definitely a component of heart failure and may be can completely heart failure related but the x-ray is indeterminate for possible pneumonia. Plus he has a white count of 19,000. Given that he lives in a long term he is in the hospital frequently I gave him broad-spectrum antibiotics. Zyvox and meropenem. Both broad-spectrum and firmly to his kidneys -Chronic kidney disease: Renal failure is a bit worse than usual today. -Hyperglycemia: Giving 10 of IV insulin but holding on any fluids as this may be heart failure. -I discussed the patient with the hospitalist on-call who is admitting the patient. - Discussed findings and plan with patient. Answered any questions. - All laboratory values were reviewed and interpreted personally by myself, the ER physician - All imaging was reviewed and interpreted personally by myself, the ER physician. - Evaluation and treatment of this problem were appropriate in the emergency setting -I spent a total of >35 minutes of critical care time managing the patient, independent of any other practitioner. -The time involved in the performance of separately reportable procedures was not counted towards critical care time. Lab Data 06/21/23 17:16 06/21/23 17:16 Labs/Radiology: Radiology Impressions Chest X-Ray 06/21/23 16:59 IMPRESSION: Large new consolidation in the left lung base. Chest CT 06/21/23 17:39 IMPRESSION: 1. Large ground-glass and consolidative opacities throughout the left lower lobe, posterior aspect of the left upper lobe, and right lower lobe with small bilateral pleural effusions. Findings can be seen in the setting pulmonary edema given the dependent distribution though infectious etiology cannot be entirely excluded. 2. Prior median sternotomy and CABG. Laboratory Results WBC 20.11 10^3/uL (3.29-11.43) H 06/21/23 17:16 RBC 5.30 10^6/uL (3.85-5.65) 06/21/23 17:16 Hgb 14.40 g/dL (11.27-16.99) 06/21/23 17:16 Hct 47.8 % (37-53) 06/21/23 17:16 MCV 90.2 fl (82-101) 06/21/23 17:16 MCH 27.2 pg (27-33) 06/21/23 17:16 MCHC 30.1 g/dL (30-55) 06/21/23 17:16 RDW 16.7 % (12.1-15.1) H 06/21/23 17:16 Plt Count 472 10^3/cmm (157-399) H 06/21/23 17:16 MPV 10.8 fL (7.4-10.4) H 06/21/23 17:16 Neut % (Auto) 91.0 % 06/21/23 17:16 Lymph % (Auto) 3.1 % 06/21/23 17:16 [place] % (Auto) 5.1 % 06/21/23 17:16 Eos % (Auto) 0.0 % 06/21/23 17:16 Baso % (Auto) 0.2 % 06/21/23 17:16 Neut # (Auto) 18.28 10^3/uL (1.8-7.7) H 06/21/23 17:16 Lymph # (Auto) 0.6 10^3/uL (0.8-4.8) L 06/21/23 17:16 [place] # (Auto) 1.0 10^3/uL (0.2-0.9) H 06/21/23 17:16 Eos # (Auto) 0.0 10^3/uL (0.0-0.8) 06/21/23 17:16 Baso # (Auto) 0.0 10^3/uL (0.0-0.1) 06/21/23 17:16 Nucleated RBC % (auto) 0 % 06/21/23 17:16 Nucleated RBCs # 0.0 /100WBC 06/21/23 17:16 Specimen Type Arterial 06/21/23 17:30 Sample Site Brachial, right 06/21/23 17:30 ABG pH 7.29 (7.35-7.45) L 06/21/23 17:30 ABG pCO2 48.8 mmHg (35-45) H 06/21/23 17:30 ABG pO2 77.1 mmHg (80.0-100.0) L 06/21/23 17:30 ABG PO2/FiO2 Ratio 0 06/21/23 17:30 ABG HCO3 23.6 mmol/L (22-26) 06/21/23 17:30 ABG O2 Saturation 93.2 06/21/23 17:30 ABG Base Excess -3.3 mmol/L (-2.0-2.0) L 06/21/23 17:30 [place]an Test N/a 06/21/23 17:30 A-a O2 Gradient 74.6 mmHg (5-10) H 06/21/23 17:30 Hematocrit 42.7 % (42-52) 06/21/23 17:30 Hgb O2 Saturation 92.0 % (95-100) L 06/21/23 17:30 Carboxyhemoglobin 0.7 %THgb (0.4-20.1) 06/21/23 17:30 Methemoglobin 0.6 % (0.4-1.5) 06/21/23 17:30 Total Hemoglobin 13.9 g/dL (14-18) L 06/21/23 17:30 Sodium 140.0 mmol/L (131-143) 06/21/23 17:30 Potassium 4.4 mmol/L (3.5-5.0) 06/21/23 17:30 Glucose 432.0 mg/dL (70-115) H 06/21/23 17:30 Ionized Calcium 1.2 mmol/L (1.1-1.4) 06/21/23 17:30 O2 Delivery Device Nrb 06/21/23 17:30 O2 Liters/Min 15.0 % 06/21/23 17:30 FiO2 100.0 % 06/21/23 17:30 Command And Control Specialist ID [id number] 06/21/23 17:30 Sodium 138 mmol/L (136-145) 06/21/23 17:16 Potassium 4.5 mmol/L (3.5-5.1) 06/21/23 17:16 Chloride 99 mmol/L (98-107) 06/21/23 17:16 Carbon Dioxide 23 mmol/L (22-29) 06/21/23 17:16 Anion Gap 20.5 (5-19) H 06/21/23 17:16 BUN 42 mg/dL (8-23) H 06/21/23 17:16 Creatinine 2.3 mg/dL (0.7-1.2) H 06/21/23 17:16 GFR Calculation Not Reportable 06/21/23 17:16 Glucose 499 mg/dL (65-115) H 06/21/23 17:16 Calculated Osmolality 319 mOsm/kg (285-295) H 06/21/23 17:16 Lactic Acid 2.2 mmol/L (0.5-2.2) 06/21/23 17:16 Calcium 8.5 mg/dL (8.5-10.5) 06/21/23 17:16 Total Bilirubin 0.3 mg/dL (0.15-1.2) 06/21/23 17:16 AST 35 U/L (0-40) 06/21/23 17:16 ALT 33 U/L (0-41) 06/21/23 17:16 Alkaline Phosphatase 167 U/L (40-130) H 06/21/23 17:16 Troponin T Baseline 120 ng/L (0-15) H* 06/21/23 17:16 NT-Pro-B Natriuret Pep 28366 pg/mL (0-125) H 06/21/23 17:16 Total Protein 8.2 g/dL (6.6-8.7) 06/21/23 17:16 Albumin 4.2 g/dL (3.5-5.2) 06/21/23 17:16 Globulin 4.0 g/dL (1.3-4.6) 06/21/23 17:16 Serum Ketones Negative (Negative) 06/21/23 17:16 All radiology interpretation(s) finalized by discharge Discharge Plan Discharge Patient Disposition: Admitted As Inpatient Clinical Impression: Acute on chronic respiratory failure with hypoxia, Congestive heart failure, Pulmonary edema, Pneumonia, Chronic kidney disease, Hyperglycemia Condition: Critical Coding Level of Care Code ED [employer]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
[2023-06-21 17:28] LABS: Basophils % 0.2 %; Hematocrit 47.8 % (37-53); Lymphocytes # 0.6 10^3/uL (0.8-4.8); Lymphocytes % 3.1 %; Mean Corpuscular HGB Conc 30.1 g/dL (30-55); Mean Corpuscular Hemoglobin 27.2 pg (27-33); Mean Corpuscular Volume 90.2 fl (82-101); Mean Platelet Volume 10.8 fL (7.4-10.4); Monocytes % 5.1 %; Neutrophils # 18.28 10^3/uL (1.8-7.7); Nucleated Red Blood Cells % 0 %; Platelet Count 472 10^3/cmm (157-399); Red Cell Distribution Width 16.7 % (12.1-15.1); White Blood Count 20.11 10^3/uL (3.29-11.43)
--- NOTE | 2023-06-21 17:39 | CTR_ITS ---
PROCEDURE INFORMATION: Exam: CT Chest Without Contrast; Diagnostic Exam date and time: 06/21/2023 5:52 PM Age: 73 years old Clinical indication: Shortness of breath; Prior surgery; Surgery date: 6+ months; Surgery type: Heart; Additional info: Abnormal chest x-ray TECHNIQUE: Imaging protocol: Diagnostic computed tomography of the chest without contrast. Radiation optimization: All CT scans at this facility use at least one of these dose optimization techniques: automated exposure control; mA and/or kV adjustment per patient size (includes targeted exams where dose is matched to clinical indication); or iterative reconstruction. COMPARISON: CT chest con [id number] 09/10/2022 5:01 AM RADIATION DOSE METRICS: Total DLP (mGy-cm): 716.64 FINDINGS: Lungs: Unremarkable. No consolidation. No masses. Pleural spaces: Large ground-glass and consolidative opacities throughout the left lower lobe, posterior aspect of the left upper lobe, and right lower lobe with small bilateral pleural effusions. Heart: Unremarkable. No cardiomegaly. No pericardial effusion. Lymph nodes: Unremarkable. No enlarged lymph nodes. Vasculature: Unremarkable. No aortic aneurysm. Bones/joints: Prior median sternotomy and CABG. Soft tissues: Unremarkable. CT/CT chest con [id number] IMPRESSION: 1. Large ground-glass and consolidative opacities throughout the left lower lobe, posterior aspect of the left upper lobe, and right lower lobe with small bilateral pleural effusions. Findings can be seen in the setting pulmonary edema given the dependent distribution though infectious etiology cannot be entirely excluded. 2. Prior median sternotomy and CABG.
[2023-06-21 17:50] LABS: ABG PCO2 48.8 mmHg (35-45); ABG PH Result 7.29 (7.35-7.45); Alveolar-Arterial Oxygen Gradi 74.6 mmHg (5-10); Arterial Blood Gas Hematocrit 42.7 % (42-52); Base Excess ABG -3.3 mmol/L (-2.0-2.0); Blood Gas Operator Identificat GD; Blood Gas Sample Site Brachial, right; Blood Gas Sample Type Arterial; Carboxyhemoglobin 0.7 %THgb (0.4-20.1); HCO3 ABG 23.6 mmol/L (22-26); Ionized Calcium Level - ABG 1.2 mmol/L (1.1-1.4); Methemoglobin 0.6 % (0.4-1.5); Oxygen Device NRB; Oxygen Saturation ABG 93.2; PO2 ABG 77.1 mmHg (80.0-100.0); PO2 FiO2 Ratio Arterial Blood 0; Potassium Level - ABG 4.4 mmol/L (3.5-5.0); Total Hemoglobin 13.9 g/dL (14-18)
[2023-06-21 17:57] LABS: Lactic Sepsis W/Reflex 2.2 mmol/L (0.5-2.2)
[2023-06-21 18:02] LABS: Troponin(5th) Baseline 120 ng/L (0-15)
[2023-06-21 18:09] LABS: Alanine Aminotransferase 33 U/L (0-41); Albumin Level 4.2 g/dL (3.5-5.2); Alkaline Phosphatase 167 U/L (40-130); Anion Gap 20.5 (5-19); Aspartate Amino Transferase 35 U/L (0-40); Blood Urea Nitrogen 42 mg/dL (8-23); Calcium 8.5 mg/dL (8.5-10.5); Carbon Dioxide 23 mmol/L (22-29); Chloride 99 mmol/L (98-107); Glucose 499 mg/dL (65-115); NT Pro B Type Natriuretic Pept 20339 pg/mL (0-125); Osmolality Calculated 319 mOsm/kg (285-295); Potassium 4.5 mmol/L (3.5-5.1); Sodium 138 mmol/L (136-145); Total Bilirubin 0.3 mg/dL (0.15-1.2); Total Protein 8.2 g/dL (6.6-8.7)
[2023-06-21 18:10] LABS: Creatinine Clr Calc Pharmacy 30.2382
[2023-06-21 18:22] LABS: Ketone (Acetest) Serum Negative (Negative)
[2023-06-21] MEDS: insulin regular-human 100 units/1 mL 10 UNIT IVP (18:26)
[2023-06-21] MEDS: linezolid premix 600 MG/300 ML PREMIX 300 MG IV (18:59)
--- NOTE | 2023-06-21 19:00 | ECG_ITS ---
[facility] Test Date: 2023-06-21 Pat Name: Guillermo Saha Department: Room: Gender: Male Adult Care Provider: : 1950 Requested By: Sharifa Mata Order Number: [id number] Cortney MD: Sin Eastman M.D. Measurements Intervals [place] Rate: 93 P: 0 MN: 0 QRS: 32 QRSD: 122 T: 55 QT: 389 QTc: 484 Interpretive Statements SINUS RHYTHM WITH PVCs PROBABLE INFERIOR MYOCARDIAL INFARCTION , PROBABLY OLD [35 ms Q WAVE IN II/aVF] Compared to ECG 06/21/2023 17:24:18 Myocardial infarct finding now present Sinus tachycardia no longer present T-wave abnormality no longer present Electronically Signed On 06-22-2023 12:42:32 CDT by Sin Eastman M.D. [email or web address]
[2023-06-21 19:10] LABS: Reflex Lactate Order REFLEX LACTIC ORDERD
--- NOTE | 2023-06-21 19:56 | P.HP_ITS ---
Providers/Chief Complaint 2 Admitting Physician: Octavio Huber MD Primary Care Provider: Elza Peralta APN Chief Complaint: SOB History of Present Illness Guillermo Saha is a 73 year old male with developmental delay, coronary artery disease deemed suitable only for medical treatment, and congestive heart failure typically on 4 L who presents to the emergency department with shortness of breath. He received 80 mg of IV Lasix in the ambulance. He received some nitroglycerin for an elevated blood pressure. In the emergency department he was placed on BiPAP. Patient is a very limited historian but I gather he feels better on the BiPAP. He denies any current chest pain. He reports he is not nauseated. He denies any abdominal pain. Review of Systems 2 General: Reports: ROS unobtainable due to mental status Medications/Allergies Home Medications Medication Instructions Recorded Confirmed Last Taken Type aspirin 81 mg tablet,delayed 162 mg (2 x 81 mg) PO DAILY #180 12/03/21 04/22/23 Unknown Rx release (Adult Low Dose Aspirin) tabs blood sugar diagnostic (MostLikelyTouch #100 strips 03/12/22 04/22/23 Unknown Rx Verio test strips) amitriptyline 10 mg tablet 10 mg PO DAILY 08/14/22 04/22/23 08/30/22 History ergocalciferol (vitamin D2) 1,250 50,000 unit PO Q7D 08/14/22 04/22/23 Unknown History mcg (50,000 unit) capsule montelukast 10 mg tablet 10 mg PO DAILY 08/14/22 04/22/23 08/30/22 History omega-3 acid ethyl esters 1 gram 1 cap PO DAILY 08/14/22 04/22/23 08/30/22 History capsule oxybutynin chloride 15 mg 30 mg PO DAILY 08/14/22 04/22/23 08/30/22 History tablet,extended release 24 hr pantoprazole 40 mg tablet,delayed 40 mg PO DAILY 08/14/22 04/22/23 08/30/22 History release fluticasone propionate 50 1 spray intranasal DAILY 08/31/22 04/22/23 Unknown History mcg/actuation nasal spray,suspension lactulose 10 gram/15 mL oral 30 ml PO BID 08/31/22 04/22/23 Unknown History solution levothyroxine 112 mcg tablet 112 mcg PO DAILY 08/31/22 04/22/23 Unknown History clopidogrel 75 mg tablet 75 mg PO DAILY 30 days #30 tabs 09/06/22 04/22/23 Unknown Rx folic acid 1 mg tablet 1,000 mcg PO DAILY #90 tabs 09/20/22 04/22/23 Unknown Rx furosemide 40 mg tablet 40 mg PO DAILY 30 days #60 tabs 09/20/22 04/22/23 Unknown Rx multivitamin 1 tab PO DAILY #90 tabs 09/20/22 04/22/23 Unknown Rx thiamine HCl (vitamin B1) 100 mg 100 mg PO DAILY #90 tabs 09/20/22 04/22/23 Unknown Rx tablet acetaminophen 325 mg tablet 650 mg PO QID PRN Pain 04/22/23 04/22/23 Unknown History albuterol sulfate 90 mcg/actuation 2 puff inhalation QID PRN 04/22/23 04/22/23 Unknown History aerosol inhaler (Ventolin HFA) Shortness Of Breath Or Wheezing aluminum-mag hydroxide-simethicone 30 ml PO Q2H PRN Constipation 04/22/23 04/22/23 Unknown History 200 mg-200 mg-20 mg/5 mL oral susp atorvastatin 40 mg tablet 40 mg PO QPM 04/22/23 04/22/23 Unknown History bisacodyl 10 mg rectal suppository 10 mg NH DAILY PRN Constipation 04/22/23 04/22/23 Unknown History (Dulcolax (bisacodyl)) bisacodyl 5 mg tablet,delayed 20 mg PO DAILY PRN Constipation 04/22/23 04/22/23 Unknown History release (see protocol) dextran 70-hypromellose (PF) 0.1 2 drp ophthalmic (eye) DAILY PRN 04/22/23 04/22/23 Unknown History %-0.3 % eye drops in a dropperette Dry Eye(S) (Artificial Tears (PF)) empagliflozin 10 mg tablet 10 mg PO DAILY 04/22/23 04/22/23 Unknown History (Jardiance) fluticasone furoate 200 1 inh inhalation DAILY 04/22/23 04/22/23 Unknown History mcg-vilanterol 25 mcg/dose inhalation powder (Breo Ellipta) insulin glargine 100 unit/mL (3 25 unit (0.25 mL) SUBCUT BID #15 mL 04/22/23 04/22/23 Unknown Rx mL) subcutaneous pen (Lantus Solostar U-100 Insulin) insulin lispro 100 unit/mL See Rx Instructions .Route .COMPLEX 04/22/23 04/22/23 Unknown History subcutaneous pen (Humalog KwikPen (U-100) Insulin) magnesium hydroxide 400 mg/5 mL 30 ml PO DAILY PRN Constipation 04/22/23 04/22/23 Unknown History oral suspension (Milk of Magnesia) metoprolol succinate 25 mg 25 mg PO DAILY 04/22/23 04/22/23 Unknown History tablet,extended release 24 hr permethrin 5 % topical cream 1 applic topical DAILY 04/22/23 04/22/23 Unknown History polyethylene glycol 3350 17 4 g PO DAILY PRN Constipation 04/22/23 04/22/23 Unknown History gram/dose oral powder (Miralax) sodium bicarbonate 650 mg tablet 1,300 mg PO BID 04/22/23 04/22/23 Unknown History Allergies Allergy/AdvReac Type Severity Reaction Status Date / Time No Known Allergies Allergy Verified 10/10/22 08:36 PFSH Acute 2 PFSH: Medical History (Updated 06/21/23 @ 21:36 by Octavio Huber MD) Acute kidney injury superimposed on CKD Renal insufficiency Acute non-ST elevation myocardial infarction (NSTEMI) Hyperosmolar hyperglycemic state (HHS) Acute on chronic diastolic CHF (congestive heart failure) NSTEMI (non-ST elevated myocardial infarction) Pulmonary edema Acute respiratory failure with hypoxia Pneumonia CAROLYNN (acute kidney injury) Chest pain Cracked skin on feet Foot callus Foot callus Plantar fasciitis Diabetic neuropathy IGTN (ingrowing toe nail) Chronic kidney disease, stage 3 unspecified Cellulitis of foot Wound of foot Headache Diabetic foot Cough Acute bacterial pharyngitis Iron deficiency anemia Contact dermatitis Renal calculus, right Polyneuropathy, unspecified Patellofemoral dysfunction of right knee Anxiety Mild intellectual disability H/O: GI bleed GERD (gastroesophageal reflux disease) CKD (chronic kidney disease) Chronic idiopathic constipation Atherosclerotic heart disease of [place] coronary artery without angina pectoris CHF (congestive heart failure) Impaired cognitive ability Muscle cramps Knee abrasion Environmental and seasonal allergies Environmental and seasonal allergies Dysuria Hypothyroid Diarrhea FH: CABG (coronary artery bypass surgery) STEMI (ST elevation myocardial infarction) CAD (coronary artery disease) Chronic secretory otitis media Hyperlipidemia Vitamin D deficiency Patient has history of Vitamin D deficiency and take home D3 supplement Diabetes Patient has been longterm diabetic with 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 He cannot manage insulin at home and is currently controlled with Ozempic weekly and oral meds. Essential hypertension Patient is currently well controlled with antihypertensives Surgical History Aortocoronary bypass status Family History Mother Diabetes Alzheimer's dementia Brother Epileptic seizure Social History Smoking and tobacco/nicotine status: never used tobacco/nicotine Second hand smoke exposure: No Alcohol intake: current Vitals/I&O/Wt Last Vital Signs Temp 98.8 F 06/21/23 16:57 Pulse 65 06/21/23 18:08 Resp 30 H 06/21/23 16:57 BP 150/97 06/21/23 16:57 Pulse Ox 94 06/21/23 18:08 O2 Del Method Non-Rebreather 06/21/23 16:57 O2 Flow Rate 15 06/21/23 16:57 FiO2 40 06/21/23 18:08 Weight last 48 hrs Weight 104.326 kg Physical Exam 2 Narrative: General exam demonstrates an adult male, on BiPAP at 40% FiO2, who appears to be a limited historian. HEENT: Pupils equally round. Oropharynx not examined secondary to BiPAP Neck is supple no lymphadenopathy thyromegaly Cardiovascular regular rate and rhythm with occasional premature beat. No murmur Lungs coarse bilaterally. No wheezing. Abdomen is soft, rotund. No obvious tenderness. No obvious organomegaly. exams deferred Extremities no cyanosis clubbing or edema, cap refill brisk Skin no rash Neuro no obvious focal deficits Data 06/21/23 17:16 06/21/23 17:16 Other Labs: ABG demonstrates a pH 7.29, pCO2 49, pO2 77 on FiO2 of 100% LFTs normal with the exception of alk phos of 167 Lactic acid 2.2 Calcium 8.5, albumin 4.2 Troponin 120 with repeat of 278 BNP 20,339 Serum ketones negative I have ordered a urinalysis, respiratory panel I have ordered a CK. Chest CT demonstrates groundglass opacities left lower lobe, left upper lobe, right lower lobe and small effusions. Probable edema. Previous coronary artery bypass grafting Chest x-ray by my read demonstrates left lung consolidation. Cardiomegaly. Last echocardiogram was done April 2023 demonstrated an EF of 55%, 3/4 diastolic dysfunction Micro: Microbiology 06/21/23 18:04 Blood Culture - Preliminary Blood SPECIMEN COLLECTED 06/21/23 17:16 Blood Culture - Preliminary Blood SPECIMEN COLLECTED A&P Assessment and plan (1) Acute non-ST elevation myocardial infarction (NSTEMI): Patient presents with acute non-ST elevation myocardial infarction with significant elevation in troponin Heparin per weight-based protocol Aspirin Continue his Plavix Continue metoprolol Note that angiogram in 09/08 recommended medical management for severe two-vessel coronary artery disease with occluded LAD circumflex and occluded bypass graft to these arteries. Secondary to elevated troponin also check venous duplex lower extremities. CTA not indicated currently as patient will be going on heparin anyway, and creatinine is elevated. Statin (2) Systolic CHF: Continue diuresis was furosemide 40 mg IV every 12 hours, monitoring renal function closely with daily BMP Limited echo to check EF Phillip if needed. (3) Pneumonia: Concern of pneumonia on x-ray. White blood cell count is markedly elevated. Sputum culture Zosyn Linezolid. This is being used secondary to concern of worsening renal failure with vancomycin and Zosyn. Note that he has a history of positive MRSA PCR in the past. Sputum culture Speech therapy evaluation Blood cultures have been drawn COVID, influenza ordered by ER (4) Acute on chronic respiratory failure with hypoxia: Currently on BiPAP See notations above associated with pneumonia Wean BiPAP as tolerated Budesonide twice daily DuoNeb every 6 hours (5) CAROLYNN (acute kidney injury): Patient with acute on chronic kidney injury Close monitoring of BMP Avoid renal toxic medication (6) Type 2 diabetes mellitus: Sliding scale insulin Consistent carb diet when started Qualifiers: Diabetes mellitus ferry terminal supervisor insulin use: without ferry terminal supervisor use Diabetes mellitus complication status: with circulatory complication Diabetes mellitus complication detail: with other circulatory complications Qualified Code(s): E 11.59 - Type 2 diabetes mellitus with other circulatory complications (7) Contusion of right knee: X-ray right knee Plan Multiple other medical problems as outlined in his past medical history Full code currently Heparin weight-based protocol will suffice for DVT prophylaxis I attempted to call family who is listed as contact but no answer. Attestations 2 Medical Necessity Statement*: Will need greater than 2 midnight stay for evaluation and treatment of acute respiratory failure with hypoxia, hypercarbia, BiPAP requirement Critical Care Time: The high probability of a clinically significant, sudden or life threatening deterioration of the patient's [cardiac, pulmonary, renal] system(s) required my full and direct attention, intervention and personal management. The critical care time is as shown. This time is in addition to time spent performing any reported procedures but includes the following: [x] Data and vital sign review and interpretation [x] Patient assessment, examination and intervention [x] Documentation [x] Medication orders and management Critical Care Time (min): 61 Coding Level of Care Code Critical Care >/= 30 minutes Critical care time (in minutes): 61 The high probability of a clinically significant, sudden or life threatening deterioration, as referenced in this documentation, required my full and direct attention, intervention and personal management. The critical care time shown is in addition to time spent performing any reported separately billable procedures and includes the following: [x] Data and vital sign review and interpretation [x ] Patient assessment, examination and intervention [x] Medication orders and management [x] Patient/Family updates as able [x] Care Coordination and Documentation. Diagnoses Acute non-ST elevation myocardial infarction (NSTEMI) I21.4 Systolic CHF I50.20 Pneumonia J18.9 Acute on chronic respiratory failure with hypoxia J96.21 CAROLYNN (acute kidney injury) N17.9 Type 2 diabetes mellitus with other circulatory complication, without long-term current use of insulin E11.59 Diabetes mellitus longterm insulin use: without longterm use Diabetes mellitus complication status: with circulatory complication Diabetes mellitus complication detail: with other circulatory complications Contusion of right knee S80.01XA
[2023-06-21] MEDS: meropenem 500 MG in sodium chloride 0.9% (plus) 50 ML 100 MG IV (19:59)
[2023-06-21 20:20] LABS: Creatine Phosphokinase 198 U/L (39-308)
[2023-06-21 20:51] LABS: Glucose Urine UA 4+ (Normal); Protein Urine 1+ (Negative); Urine Appearance Clear (CLEAR); Urine Color Yellow (Yellow); pH Urine 5 (5-7)
[2023-06-21 20:52] LABS: Bacteria Urine TRACE /hpf; Bilirubin Urine Neg (Negative); Blood Urine Trace (Negative); Hyaline Casts Urine 0-4 /lpf; Ketones Urine Negative (Negative); Leukocyte Esterase Urine Negative (Negative); Mucus Urine TRACE /hpf; Nitrate Urine Negative (Negative); RBC Urine 0-4 /hpf (0-2); Squamous Epithelial Cell Urine 0-4 /hpf (0-5); Urobilinogen Urine Neg (Negative); WBC Urine 0-4 /hpf (0-5)
[2023-06-21 21:18] LABS: Lactic Acid level (Lactate) 2.8 mmol/L (0.5-2.2)
--- NOTE | 2023-06-21 21:43 | XRR_ITS ---
PROCEDURE INFORMATION: Exam: XR Right Knee Exam date and time: 06/21/2023 10:12 PM Age: 73 years old Clinical indication: Patient HX: Contusion to RT knee TECHNIQUE: Imaging protocol: Radiologic exam of the right knee. Views: 1 or 2 views. COMPARISON: CR XR foot RT min 3V* [id number] 11/22/2019 10:59 AM FINDINGS: Bones/joints: Trace joint effusion. Soft tissues: Prepatellar soft tissue swelling which can be seen in the setting of hematoma. No underlying patellar fracture. Vasculature: Severe atherosclerotic disease. XR/XR knee RT 1-2V [id number] IMPRESSION: 1. Prepatellar soft tissue swelling which can be seen in the setting of hematoma. No underlying patellar fracture. 2. Trace joint effusion.
--- NOTE | 2023-06-21 23:04 | PC.NURSE ---
Patient refusing SCDs. Patient has heparin drip orders.
[2023-06-21] MEDS: heparin 5,000 unit/mL INJ 1 mL IV (23:27)
[2023-06-21] MEDS: insulin lispro 100 unit/1 mL SUBCUT (23:27)
[2023-06-21] MEDS: heparin drip 25,000 UNIT/500 ML PREMIX 27 UNIT IV (23:30)
[2023-06-21] MEDS: piperacillin-tazobactam 3.375 GM in sodium chloride 0.9% (plus) 50 ML IV (23:31)
--- NOTE | 2023-06-21 23:45 | ECG_ITS ---
[facility] Test Date: 2023-06-21 Pat Name: Guillermo Saha Department: Room: ICU02 Gender: Male Psychiatric Registered Nurse: : 1950 Requested By: Sharifa Mata Order Number: [id number] Cortney MD: Sin Eastman M.D. Measurements Intervals [place] Rate: 71 P: 13 OH: 131 QRS: 269 QRSD: 92 T: 84 QT: 421 QTc: 458 Interpretive Statements SINUS RHYTHM POSSIBLE LEFT ATRIAL ENLARGEMENT [-0.1mV P-WAVE IN V1/V2] PATTERN CONSISTENT WITH PULMONARY DISEASE RIGHT VENTRICULAR HYPERTROPHY [SOME/ALL OF: PROMINENT R IN V1, LATE TRANSITION, RAD, GABBY, SSS] MODERATE ST DEPRESSION [0.05+ mV ST DEPRESSION] Compared to ECG 06/21/2023 19:05:06 Atrial abnormality now present Right ventricular hypertrophy now present ST (T wave) deviation now present Myocardial infarct finding no longer present Electronically Signed On 06-22-2023 12:40:52 CDT by Sin Eastman M.D. [id number]
[2023-06-22] VITALS (52 sets, daily range): BP systolic 90–152; BP diastolic 43–83; PULSE 63–110; RESP 19–32; TEMP 36.7–37.4; O2SAT 90–100
[2023-06-22 00:03] LABS: Platelet Count 350 10^3/cmm (157-399)
[2023-06-22 01:10] LABS: Troponin 5 6HR 475.8 ng/L (0-15); Troponin 5 6HR Delta 355.8 ng/L (0-12)
[2023-06-22 01:23] LABS: Glucose Point of Care 313 mg/dL (70-110)
[2023-06-22] MEDS: ipratropium-albuterol 3 mL Neb INHALATION ×4 (01:25→19:20)
[2023-06-22] MEDS: FUROsemide 10 mg/mL SDV 4mL 40 MG IVP ×2 (02:32→13:55)
[2023-06-22] MEDS: linezolid premix 600 MG/300 ML PREMIX 300 MG IV ×2 (05:30→17:40)
[2023-06-22] MEDS: piperacillin-tazobactam 3.375 GM in sodium chloride 0.9% (plus) 50 ML IV ×3 (06:13→23:43)
[2023-06-22 06:29] LABS: Basophils % 0.3 %; Eosinophils # 0.1 10^3/uL (0.0-0.8); Eosinophils % 0.4 %; Hematocrit 44.9 % (37-53); Lymphocytes % 7.1 %; Mean Corpuscular HGB Conc 29.4 g/dL (30-55); Mean Corpuscular Volume 91.8 fl (82-101); Mean Platelet Volume 11.4 fL (7.4-10.4); Monocytes # 0.8 10^3/uL (0.2-0.9); Monocytes % 5.8 %; Neutrophils # 12.32 10^3/uL (1.8-7.7); Neutrophils % 86.1 %; Nucleated Red Blood Cells % 0 %; Platelet Count 331 10^3/cmm (157-399); Red Blood Count 4.89 10^6/uL (3.85-5.65); Red Cell Distribution Width 16.8 % (12.1-15.1); White Blood Count 14.31 10^3/uL (3.29-11.43)
[2023-06-22 06:49] LABS: Albumin Level 3.5 g/dL (3.5-5.2); Alkaline Phosphatase 135 U/L (40-130); Blood Urea Nitrogen 44 mg/dL (8-23); Calcium 8.6 mg/dL (8.5-10.5); Carbon Dioxide 19 mmol/L (22-29); Chloride 102 mmol/L (98-107); Globulin 4.2 g/dL (1.3-4.6); Glucose 176 mg/dL (65-115); Magnesium 2.5 mg/dL (1.7-2.3); Osmolality Calculated 301 mOsm/kg (285-295); Sodium 138 mmol/L (136-145); Total Bilirubin 0.5 mg/dL (0.15-1.2); Total Protein 7.7 g/dL (6.6-8.7)
[2023-06-22 06:51] LABS: Alanine Aminotransferase 29 U/L (0-41); Anion Gap 21.7 (5-19); Aspartate Amino Transferase 45 U/L (0-40); Potassium 4.7 mmol/L (3.5-5.1)
[2023-06-22 07:05] LABS: Partial Thromboplastin Time 93.5 SECONDS (23.9-36.7)
[2023-06-22 07:17] LABS: Glucose Point of Care 202 mg/dL (70-110)
[2023-06-22] MEDS: budesonide 0.5 mg/2 mL Neb INHALATION ×2 (07:45→19:20)
[2023-06-22] MEDS: insulin lispro 100 unit/1 mL SUBCUT ×4 (09:02→20:59)
[2023-06-22] MEDS: aspirin 81 mg EC Tablet 162 MG PO (10:12)
[2023-06-22] MEDS: montelukast sodium 10 mg Tablet PO (10:13)
[2023-06-22] MEDS: levothyroxine 112 mcg Tablet PO (10:13)
[2023-06-22] MEDS: metoprolol succinate ER (24 HR) 25 mg Tablet PO (10:13)
[2023-06-22] MEDS: clopidogrel 75 mg Tablet PO (10:13)
[2023-06-22] MEDS: pantoprazole DR 40 mg Tablet PO (10:13)
--- NOTE | 2023-06-22 11:29 | P.CONIM_ITS ---
Providers/Reason For Consult 2 Consulting Physician/Specialty*: Sin Eastman MD/ Cardiology Reason for Consult*: NSTEMI Requesting Physician: Dr Delgado Attending Physician: Della Delgado MD Primary Care Provider: Elza Peralta APN History of Present Illness History of Present Illness Guillermo Saha is a 73 year old male with past medical history of developmental delay, CAD s/p CABG with known occluded grafts to LAD and left circumflex artery, diffusely diseased circumflex artery and only patent artery is RCA. He presented to hospital with shortness of breath. Also had some chest pressure. Troponins of trended up significantly. EKG shows frequent PVCs with sinus rhythm. He is denying ongoing chest pain. Review of Systems 2 General: Reports: ROS unobtainable due to mental status Medications/Allergies Home Medications Medication Instructions Recorded Confirmed Last Taken Type aspirin 81 mg tablet,delayed 162 mg (2 x 81 mg) PO DAILY #180 12/03/21 06/21/23 06/21/23 Rx release (Adult Low Dose Aspirin) tabs blood sugar diagnostic (OneTouch #100 strips 03/12/22 06/21/23 Unknown Rx Verio test strips) amitriptyline 10 mg tablet 10 mg PO DAILY 08/14/22 06/21/23 06/21/23 History ergocalciferol (vitamin D2) 1,250 50,000 unit PO Q7D 08/14/22 06/21/23 06/21/23 History mcg (50,000 unit) capsule montelukast 10 mg tablet 10 mg PO DAILY 08/14/22 06/21/23 06/21/23 History omega-3 acid ethyl esters 1 gram 1 cap PO DAILY 08/14/22 06/21/23 06/21/23 History capsule oxybutynin chloride 15 mg 30 mg PO DAILY 08/14/22 06/21/23 06/21/23 History tablet,extended release 24 hr pantoprazole 40 mg tablet,delayed 40 mg PO DAILY 08/14/22 06/21/23 06/21/23 History release fluticasone propionate 50 1 spray intranasal DAILY 08/31/22 06/21/23 06/21/23 History mcg/actuation nasal spray,suspension lactulose 10 gram/15 mL oral 30 ml PO BID 08/31/22 06/21/23 06/21/23 History solution levothyroxine 112 mcg tablet 112 mcg PO DAILY 08/31/22 06/21/23 06/21/23 History clopidogrel 75 mg tablet 75 mg PO DAILY 30 days #30 tabs 09/06/22 06/21/23 06/21/23 Rx folic acid 1 mg tablet 1,000 mcg PO DAILY #90 tabs 09/20/22 06/21/23 06/21/23 Rx furosemide 40 mg tablet 40 mg PO DAILY 30 days #60 tabs 09/20/22 06/21/23 06/21/23 Rx multivitamin 1 tab PO DAILY #90 tabs 09/20/22 06/21/23 06/21/23 Rx thiamine HCl (vitamin B1) 100 mg 100 mg PO DAILY #90 tabs 09/20/22 06/21/23 06/21/23 Rx tablet acetaminophen 325 mg tablet 650 mg PO QID PRN Pain 04/22/23 06/21/23 Unknown History albuterol sulfate 90 mcg/actuation 2 puff inhalation QID PRN 04/22/23 06/21/23 06/21/23 History aerosol inhaler (Ventolin HFA) Shortness Of Breath Or Wheezing aluminum-mag hydroxide-simethicone 30 ml PO Q2H PRN Constipation 04/22/23 06/21/23 Unknown History 200 mg-200 mg-20 mg/5 mL oral susp atorvastatin 40 mg tablet 40 mg PO QPM 04/22/23 06/21/23 06/21/23 History bisacodyl 10 mg rectal suppository 10 mg [place] DAILY PRN Constipation 04/22/23 06/21/23 06/21/23 History (Dulcolax (bisacodyl)) bisacodyl 5 mg tablet,delayed 20 mg PO DAILY PRN Constipation 04/22/23 06/21/23 Unknown History release (see protocol) dextran 70-hypromellose (PF) 0.1 2 drp ophthalmic (eye) DAILY PRN 04/22/23 06/21/23 Unknown History %-0.3 % eye drops in a dropperette Dry Eye(S) (Artificial Tears (PF)) empagliflozin 10 mg tablet 10 mg PO DAILY 04/22/23 06/21/23 06/21/23 History (Jardiance) fluticasone furoate 200 1 inh inhalation DAILY 04/22/23 06/21/23 06/21/23 History mcg-vilanterol 25 mcg/dose inhalation powder (Breo Ellipta) insulin glargine 100 unit/mL (3 25 unit (0.25 mL) SUBCUT BID #15 mL 04/22/23 06/21/23 Unknown Rx mL) subcutaneous pen (Lantus Solostar U-100 Insulin) insulin lispro 100 unit/mL See Rx Instructions .Route .COMPLEX 04/22/23 06/21/23 06/21/23 06:00 History subcutaneous pen (Humalog KwikPen (U-100) Insulin) magnesium hydroxide 400 mg/5 mL 30 ml PO DAILY PRN Constipation 04/22/23 06/21/23 06/21/23 History oral suspension (Milk of Magnesia) polyethylene glycol 3350 17 4 g PO DAILY PRN Constipation 04/22/23 06/21/23 Unknown History gram/dose oral powder (Miralax) sodium bicarbonate 650 mg tablet 1,300 mg PO BID 04/22/23 06/21/23 06/21/23 History ferrous sulfate 325 mg (65 mg 325 mg PO EVERY OTHER DAY 06/21/23 06/21/23 06/21/23 06:01 History iron) tablet (iron) metoprolol succinate 25 mg 25 mg PO DAILY 06/21/23 06/21/23 06/21/23 History tablet,extended release 24 hr prednisone 20 mg tablet 20 mg PO DAILY 06/21/23 06/21/23 06/21/23 History Allergies Allergy/AdvReac Type Severity Reaction Status Date / Time No Known Allergies Allergy Verified 10/10/22 08:36 Current Medications Generic Name Dose Route Start Last Admin Trade Name Freq PRN Reason Stop Dose Admin Albuterol/Ipratropium 3 ml 06/22/23 08:00 06/22/23 07:45 Ipratropium-Albuterol 3 Ml Neb INHALATION 3 ml Q6H.RESP CHUYITA Administration Aspirin 162 mg 06/22/23 09:00 06/22/23 10:12 Aspirin 81 Mg Ec Tablet PO 162 mg DAILY CHUYITA Administration Budesonide 0.5 mg 06/22/23 08:00 06/22/23 07:45 Budesonide 0.5 Mg/2 Ml Neb INHALATION 0.5 mg BID.RESPIRATORY CHUYITA Administration Clopidogrel Bisulfate 75 mg 06/22/23 09:00 06/22/23 10:13 Clopidogrel 75 Mg Tablet PO 75 mg DAILY CHUYITA Administration Furosemide 40 mg 06/22/23 02:00 06/22/23 02:32 Furosemide 10 Mg/Ml Sdv 4ml IVP 40 mg Q12H CHUYITA Administration Heparin Sodium (Porcine) 0 unit 06/21/23 22:50 06/21/23 23:27 Heparin 5,000 Unit/Ml Inj 1 Ml IV 4,800 unit PRN PRN Administration Heparin weight-base protocol Protocol Heparin Sodium/Sodium Chloride 25,000 unit in 500 mls @ 0 mls/hr 06/21/23 22:50 06/22/23 07:15 Heparin Drip IV 11.5 unit/kg/hr .Q0M CHUYITA 24 mls/hr Titration Protocol Per Protocol Linezolid 600 mg in 300 mls @ 300 mls/hr 06/22/23 06:00 06/22/23 06:36 Zyvox Premix IV Infused Q12H CHUYITA Infusion Protocol Piperacillin Sod/Tazobactam 50 mls @ 12.5 mls/hr 06/21/23 23:15 06/22/23 10:51 Sod 3.375 gm/ Sodium Chloride IV Infused Q8H CHUYITA Infusion Insulin Human Lispro 0 unit 06/21/23 22:50 06/22/23 09:02 Insulin Lispro 100 Unit/1 Ml SUBCUT 4 unit WM&BEDTIME CHUYITA Administration Protocol Levothyroxine Sodium 112 mcg 06/22/23 09:00 06/22/23 10:13 Levothyroxine 112 Mcg Tablet PO 112 mcg DAILY CHUYITA Administration Metoprolol Succinate 25 mg 06/22/23 09:00 06/22/23 10:13 Metoprolol Succinate Er (24 Hr) 25 Mg Tablet PO 25 mg DAILY CHUYITA Administration Montelukast Sodium 10 mg 06/22/23 09:00 06/22/23 10:13 Montelukast Sodium 10 Mg Tablet PO 10 mg DAILY CHUYITA Administration Pantoprazole Sodium 40 mg 06/22/23 09:00 06/22/23 10:[address] 40 Mg Tablet PO 40 mg DAILY CHUYITA Administration PFSH Acute 2 PFSH: Medical History Acute kidney injury superimposed on CKD Renal insufficiency Acute non-ST elevation myocardial infarction (NSTEMI) Hyperosmolar hyperglycemic state (HHS) Acute on chronic diastolic CHF (congestive heart failure) NSTEMI (non-ST elevated myocardial infarction) Pulmonary edema Acute respiratory failure with hypoxia Pneumonia CAROLYNN (acute kidney injury) Chest pain Cracked skin on feet Foot callus Foot callus Plantar fasciitis Diabetic neuropathy IGTN (ingrowing toe nail) Chronic kidney disease, stage 3 unspecified Cellulitis of foot Wound of foot Headache Diabetic foot Cough Acute bacterial pharyngitis Iron deficiency anemia Contact dermatitis Renal calculus, right Polyneuropathy, unspecified Patellofemoral dysfunction of right knee Anxiety Mild intellectual disability H/O: GI bleed GERD (gastroesophageal reflux disease) CKD (chronic kidney disease) Chronic idiopathic constipation Atherosclerotic heart disease of [place] coronary artery without angina pectoris CHF (congestive heart failure) Impaired cognitive ability Muscle cramps Knee abrasion Environmental and seasonal allergies Environmental and seasonal allergies Dysuria Hypothyroid Diarrhea FH: CABG (coronary artery bypass surgery) STEMI (ST elevation myocardial infarction) CAD (coronary artery disease) Chronic secretory otitis media Hyperlipidemia Vitamin D deficiency Patient has history of Vitamin D deficiency and take home D3 supplement Diabetes Patient has been roasterman diabetic with 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 He cannot manage insulin at home and is currently controlled with Ozempic weekly and oral meds. Essential hypertension Patient is currently well controlled with antihypertensives Surgical History Aortocoronary bypass status Family History Mother Diabetes Alzheimer's dementia Brother Epileptic seizure Social History Smoking and tobacco/nicotine status: never used tobacco/nicotine Second hand smoke exposure: No Alcohol intake: current Vitals/I&O/Wt Last Vital Signs Temp 98.4 F 06/22/23 08:30 Pulse 79 06/22/23 10:00 Resp 22 H 06/22/23 10:00 BP 117/51 06/22/23 10:30 Pulse Ox 97 06/22/23 10:30 O2 Del Method BiPAP 06/22/23 10:00 O2 Flow Rate 15 06/21/23 16:57 FiO2 30 06/22/23 09:28 06/21/23 06/22/23 06/22/23 22:59 06:59 14:59 Intake Total 350 / 350 450 / 800 259.25 / 259.25 Output Total 600 / 600 700 / 700 Balance 350 / 350 -150 / 200 -440.75 / -440.75 Weight last 48 hrs Weight 209 lb 9.6 oz Weight 209 lb 6.4 oz Weight 230 lb Physical Exam 2 Narrative: GENERAL: Patient is alert, awake and oriented x3. [] NECK: No jugular vein distension. [] HEENT: No cyanosis. No icterus. No pallor. [] HEART: Regular S1 and S2. No murmur, rub or gallop. [] LUNGS: Clear to auscultate bilaterally. [] CENTRAL NERVOUS SYSTEM: Grossly nonfocal. [] EXTREMITIES: Lower extremities with 1+ edema bilaterally. Data 06/23/23 06:43 06/22/23 05:16 Micro: Microbiology 06/21/23 18:04 Blood Culture - Preliminary Blood SPECIMEN COLLECTED 06/21/23 17:16 Blood Culture - Preliminary Blood SPECIMEN COLLECTED A&P Assessment and plan (1) Acute non-ST elevation myocardial infarction (NSTEMI): (2) CAD (coronary artery disease): (3) Systolic CHF: (4) Congestive heart failure: (5) Chronic kidney disease, stage 3 unspecified: Plan Patient has significant CAD history, renal disease and has presented with shortness of breath. Had some chest pressure. Troponins have increased significantly. EKG is frequent PVCs. Patient has developmental delay. His recent cath last year showed only patent artery was RCA. Circumflex artery has diffuse disease. Prior bypass grafts are occluded. Medical therapy was advised. Will obtain echocardiogram. If there is significant decrease in LV systolic function compared to before, can consider coronary angiogram however will need good understanding of possible complications associated with the procedure. Patient does not seem to understand these at this point. He is not having active chest pain. Continue medical therapy for now. Continue aspirin, plavix and heparin Thank you for involving us with care of this patient. We will continue to follow. Please call with questions. Consult Attestations 2 Medical Necessity Statement: Care expected to cross 2 midnights. Coding Level of Care Code Acute Code for [facility] Fwd Diagnoses Acute non-ST elevation myocardial infarction (NSTEMI) I21.4 CAD (coronary artery disease) I25.10 Systolic CHF I50.20 Congestive heart failure I50.9 Chronic kidney disease, stage 3 unspecified N18.30
--- NOTE | 2023-06-22 11:33 | PC.SLP ---
Therapist attempted to see patient. Patient was sleeping upon therapist arrival. Patient was able to wake the patient and he stated he wanted to participate in feeding evaluation. He attempted to sit up in bed with therapist help but was still not fully alert and appeared to have difficulties breathing so therapist did not continue with evaluation. Nursing stated patient was able to orally take medications without difficulty.
[2023-06-22 11:47] LABS: Glucose Point of Care 158 mg/dL (70-110)
--- NOTE | 2023-06-22 13:52 | PM.PN ---
Subjective Subjective: seen this morning says i feel like heaven was taken off bipap so he could take his pills he says i always feel short of breath Vitals/I&O/Wt Last Vital Signs Temp 98.4 F 06/22/23 08:30 Pulse 78 06/22/23 13:18 Resp 31 H 06/22/23 13:10 BP 149/77 06/22/23 12:00 Pulse Ox 94 06/22/23 13:10 O2 Del Method BiPAP 06/22/23 13:10 O2 Flow Rate 15 06/21/23 16:57 FiO2 30 06/22/23 13:10 06/21/23 06/22/23 06/22/23 22:59 06:59 14:59 Intake Total 350 / 350 450 / 800 259.25 / 259.25 Output Total 600 / 600 700 / 700 Balance 350 / 350 -150 / 200 -440.75 / -440.75 Weight last 48 hrs Weight 95.073 kg Weight 94.982 kg Weight 104.326 kg Physical Exam Narrative: General exam demonstrates an adult male, NAD, currently on nasal canulla, HEENT: Pupils equally round. Cardiovascular regular rate and rhythm with occasional premature beat. No murmur Lungs coarse bilaterally. No wheezing. Abdomen is soft, rotund. No obvious tenderness. Extremities no edema, cap refill brisk Neuro no obvious focal deficits Data 06/22/23 05:16 06/22/23 05:16 Micro: Microbiology 06/21/23 18:04 Blood Culture - Preliminary Blood SPECIMEN COLLECTED 06/21/23 17:16 Blood Culture - Preliminary Blood SPECIMEN COLLECTED A&P Assessment and plan (1) Acute non-ST elevation myocardial infarction (NSTEMI): Patient presents with acute non-ST elevation myocardial infarction with significant elevation in troponin Heparin per weight-based protocol Aspirin Continue his Plavix Continue metoprolol Note that angiogram in 09/08 recommended medical management for severe two-vessel coronary artery disease with occluded LAD circumflex and occluded bypass graft to these arteries. Secondary to elevated troponin also check venous duplex lower extremities. CTA not indicated currently as patient will be going on heparin anyway, and creatinine is elevated. Statin CONSULT CARDIOLOGY TODAY: DISCUSSED WITH VICENTE Mcclendon. WILL OBTAIN ECHO AND MAY CONSIDER ANGIOGRAM. (2) Systolic CHF: Continue diuresis was furosemide 40 mg IV every 12 hours, monitoring renal function closely with daily BMP Limited echo to check EF Phillip if needed. (3) Pneumonia: Concern of pneumonia on x-ray. White blood cell count is markedly elevated. Sputum culture Zosyn Linezolid. This is being used secondary to concern of worsening renal failure with vancomycin and Zosyn. Note that he has a history of positive MRSA PCR in the past. 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 (admitting doc) Attestations Medical Necessity Statement*: Will need greater than 2 midnight stay for evaluation and treatment of acute respiratory failure with hypoxia, hypercarbia, BiPAP requirement Diagnoses Acute non-ST elevation myocardial infarction (NSTEMI) I21.4 Systolic CHF I50.20 Pneumonia J18.9 Acute on chronic respiratory failure with hypoxia J96.21 CAROLYNN (acute kidney injury) N17.9 Type 2 diabetes mellitus with other circulatory complication, without long-term current use of insulin E11.59 Diabetes mellitus halfway insulin use: without halfway use Diabetes mellitus complication status: with circulatory complication Diabetes mellitus complication detail: with other circulatory complications Contusion of right knee S80.01XA
[2023-06-22 13:56] LABS: Partial Thromboplastin Time 67.1 SECONDS (23.9-36.7)
[2023-06-22] MEDS: atorvastatin 40 mg Tablet PO (17:36)
[2023-06-22] MEDS: heparin drip 25,000 UNIT/500 ML PREMIX 24 UNIT IV (19:25)
[2023-06-22 19:52] LABS: Glucose Point of Care 180 mg/dL (70-110)
--- NOTE | 2023-06-22 20:03 | USCV_ITS ---
Guillermo Saha Age: 73 Gender: M : 1950 Exam Date: 06/22/2023 07:43 Ordering Phys: Octavio Huber MD Technologist: Exam Location: [facility] [place] Indication: nstemi BP: 135 / 78 HR: Rhythm: Sinus Technical Quality: Adequate MEASUREMENTS (Male / Female) Normal Values 2D ECHO LVOT Diameter 2.1 cm LV Ejection Fraction MOD 2C 22.1 % LV Ejection Fraction 2C AL 21.1 % LA Diameter 4.9 cm M-MODE LA Ao Ratio MM 1.6 AV Cusp Separation MM 1.9 cm FINDINGS Left Ventricle Right Ventricle Right Atrium Left Atrium Mitral Valve Aortic Valve Tricuspid Valve Pulmonic Valve Pericardium Aorta IVC CONCLUSIONS LV systolic function is moderately reduced with EF of 35-40%. Moderate global hypokinesis. Compared to prior echocardiogram from 04/2022, LV systolic function has decreased and is moderately reduced now. Sin Easmtan MD (Electronically Signed) Final Date: 22 Jun 2023 13:45 S
--- NOTE | 2023-06-22 20:17 | USR_ITS ---
PROCEDURE INFORMATION: Exam: US Duplex Lower Extremity Veins, Bilateral Exam date and time: 06/22/2023 7:53 AM Age: 73 years old Clinical indication: Abnormal findings; Abnormal lab test; Elevated d-dimer; Additional info: Elevated trop TECHNIQUE: Imaging protocol: Real-time duplex ultrasound of the bilateral extremities with 2-D burgos scale, color Doppler flow and spectral waveform analysis including responses to compression and other maneuvers (when performed) with image documentation. Complete exam focused on the lower extremity veins. COMPARISON: US renal BI* [id number] 12/11/2018 16:35 FINDINGS: Right deep veins: Unremarkable. The common femoral, femoral, proximal profunda femoral and popliteal veins are patent without thrombus. Normal Doppler waveforms. Normal compressibility and/or augmentation response. Left deep veins: Unremarkable. The common femoral, femoral, proximal profunda femoral and popliteal veins are patent without thrombus. Normal Doppler waveforms. Normal compressibility and/or augmentation response. Superficial veins: Greater saphenous veins at the saphenofemoral junctions are patent bilaterally without thrombus. Soft tissues: Unremarkable. US/[place] [id number] IMPRESSION: No evidence of deep vein thrombosis.
[2023-06-22 20:44] LABS: Glucose Point of Care 243 mg/dL (70-110)
--- NOTE | 2023-06-22 22:06 | PC.NURSE ---
Critical PTT of 163. Spoke to Dr Huber. Holding heparin for 2 hrs. Will resume at a decreased rate of 19 mls/hr.
[2023-06-23] VITALS (24 sets, daily range): BP systolic 103–140; BP diastolic 51–112; PULSE 71–104; RESP 16–33; TEMP 36.4–37; O2SAT 92–99; BMI 37.1; BMI 37.0
[2023-06-23] MEDS: ipratropium-albuterol 3 mL Neb INHALATION ×4 (01:55→20:57)
[2023-06-23] MEDS: FUROsemide 10 mg/mL SDV 4mL 40 MG IVP ×2 (02:01→13:46)
[2023-06-23] MEDS: linezolid premix 600 MG/300 ML PREMIX 300 MG IV ×2 (05:54→17:32)
[2023-06-23] MEDS: piperacillin-tazobactam 3.375 GM in sodium chloride 0.9% (plus) 50 ML IV ×3 (06:44→22:16)
[2023-06-23 07:04] LABS: Basophils % 0.4 %; Eosinophils # 0.1 10^3/uL (0.0-0.8); Eosinophils % 1.3 %; Lymphocytes # 0.7 10^3/uL (0.8-4.8); Lymphocytes % 6.5 %; Mean Platelet Volume 11.1 fL (7.4-10.4); Monocytes # 0.7 10^3/uL (0.2-0.9); Neutrophils # 8.97 10^3/uL (1.8-7.7); Neutrophils % 84.4 %; Nucleated Red Blood Cells % 0 %; Platelet Count 317 10^3/cmm (157-399); Red Blood Count 4.22 10^6/uL (3.85-5.65); Red Cell Distribution Width 16.5 % (12.1-15.1); White Blood Count 10.62 10^3/uL (3.29-11.43)
[2023-06-23 07:12] LABS: Partial Thromboplastin Time 60.8 SECONDS (23.9-36.7)
[2023-06-23 07:24] LABS: Anion Gap 16.4 (5-19); Blood Urea Nitrogen 47 mg/dL (8-23); Calcium 8.7 mg/dL (8.5-10.5); Carbon Dioxide 29 mmol/L (22-29); Chloride 97 mmol/L (98-107); Creatinine Clr Calc Pharmacy 24.4587; Glucose 227 mg/dL (65-115); Magnesium 2.1 mg/dL (1.7-2.3); Osmolality Calculated 305 mOsm/kg (285-295); Potassium 4.4 mmol/L (3.5-5.1); Sodium 138 mmol/L (136-145)
[2023-06-23] MEDS: budesonide 0.5 mg/2 mL Neb INHALATION ×2 (07:59→20:57)
[2023-06-23 08:51] LABS: Glucose Point of Care 216 mg/dL (70-110)
--- NOTE | 2023-06-23 09:10 | P.PN_ITS ---
Subjective 2 Subjective: Patient is chest pain free. Vitals/I&O/Wt Last Vital Signs Temp 97.5 F L 06/23/23 04:00 Pulse 93 06/23/23 08:01 Resp 22 H 06/23/23 07:45 BP 106/56 06/23/23 06:00 Pulse Ox 98 06/23/23 07:45 O2 Del Method Nasal Cannula 06/23/23 07:45 O2 Flow Rate 3 06/23/23 07:45 FiO2 30 06/23/23 06:01 06/22/23 06/23/23 06/23/23 22:59 06:59 14:59 Intake Total 1882.75 / 2142.00 857.57 / 2999.57 Output Total 250 / 950 525 / 1475 Balance 1632.75 / 1192.00 332.57 / 1524.57 Weight last 48 hrs Weight 208 lb 14.4 oz Weight 209 lb 9.6 oz Weight 209 lb 9.6 oz Weight 209 lb 6.4 oz Weight 230 lb Physical Exam 2 Narrative: GENERAL: Patient is alert, awake and oriented x3. [] NECK: No jugular vein distension. [] HEENT: No cyanosis. No icterus. No pallor. [] HEART: Regular S1 and S2. No murmur, rub or gallop. [] LUNGS: Clear to auscultate bilaterally. [] CENTRAL NERVOUS SYSTEM: Grossly nonfocal. [] EXTREMITIES: Lower extremities with 1+ edema bilaterally. Data 06/24/23 02:50 06/24/23 02:50 Micro: Microbiology 06/21/23 18:04 Blood Culture - Preliminary Blood NEGATIVE TO DATE 06/21/23 17:16 Blood Culture - Preliminary Blood NEGATIVE TO DATE A&P Assessment and plan (1) Acute non-ST elevation myocardial infarction (NSTEMI): (2) CAD (coronary artery disease): (3) Systolic CHF: (4) Congestive heart failure: (5) Chronic kidney disease, stage 3 unspecified: Plan Patient has significant CAD history, renal disease and has presented with shortness of breath. Had some chest pressure. Troponins have increased significantly. EKG is frequent PVCs. Patient has developmental delay. His recent cath last year showed only patent artery was RCA. Circumflex artery has diffuse disease. Prior bypass grafts are occluded. Medical therapy was advised. Echo showed decrease in LV systolic function to before. Will continue medical therapy at this time. Continue aspirin, plavix and heparin Renal function is worsening. Significant risk of complications/renal function worsening with contrast use.Patient/DPOA will need to understand risks of complications and consent prior to invasive procedures. Otherwise patient is stable with no active chest pain and previous angiogram showed severe multivessel CAD not amenable to intervention. Will medically manage him for now. Thank you for involving us with care of this patient. We will continue to follow. Please call with questions. Attestations 2 Medical Necessity Statement*: Care expected to cross 2 midnights. Coding Level of Care Code Acute Code for [facility] Diagnoses Acute non-ST elevation myocardial infarction (NSTEMI) I21.4 CAD (coronary artery disease) I25.10 Systolic CHF I50.20 Congestive heart failure I50.9 Chronic kidney disease, stage 3 unspecified N18.30
[2023-06-23] MEDS: montelukast sodium 10 mg Tablet PO (09:14)
[2023-06-23] MEDS: clopidogrel 75 mg Tablet PO (09:14)
[2023-06-23] MEDS: pantoprazole DR 40 mg Tablet PO (09:14)
[2023-06-23] MEDS: aspirin 81 mg EC Tablet 162 MG PO (09:14)
[2023-06-23] MEDS: metoprolol succinate ER (24 HR) 25 mg Tablet PO (09:14)
[2023-06-23] MEDS: levothyroxine 112 mcg Tablet PO (09:14)
[2023-06-23] MEDS: insulin lispro 100 unit/1 mL SUBCUT ×4 (09:16→20:44)
[2023-06-23] MEDS: acetaminophen 325 mg Tablet 650 MG PO (11:20)
[2023-06-23 11:55] LABS: Influenza A by IFA negative (Negative); Influenza B by IFA negative (Negative)
[2023-06-23 11:56] LABS: SARS Covid-2 Antigen negative (Negative)
[2023-06-23 12:33] LABS: Glucose Point of Care 206 mg/dL (70-110)
[2023-06-23] MEDS: guaiFENesin 100 mg/5 mL UDC 10 mL 200 MG PO (12:36)
--- NOTE | 2023-06-23 12:38 | P.PN_ITS ---
Subjective 2 Subjective: Will try to get a hold of medical DPOA, No plan for angiogram as of yet Creatinine is 2.7 Patient will be at risk of contrast-induced nephropathy requiring dialysis We do suspect there is cognitive impairment it is prudent that we get a hold of medical DPOA to discuss all risk factors including requirement of dialysis if kidney function gets worse Vitals/I&O/Wt Last Vital Signs Temp 97.8 F 06/23/23 12:00 Pulse 98 06/23/23 12:00 Resp 24 H 06/23/23 12:00 BP 139/68 06/23/23 12:00 Pulse Ox 97 06/23/23 12:00 O2 Del Method Nasal Cannula 06/23/23 12:00 O2 Flow Rate 2 06/23/23 12:00 FiO2 30 06/23/23 06:01 06/22/23 06/23/23 06/23/23 22:59 06:59 14:59 Intake Total 1882.75 / 2142.00 857.57 / 2999.57 810 / 810 Output Total 250 / 950 525 / 1475 Balance 1632.75 / 1192.00 332.57 / 1524.57 810 / 810 Weight last 48 hrs Weight 94.755 kg Weight 95.073 kg Weight 95.073 kg Weight 94.982 kg Weight 104.326 kg Physical Exam 2 Narrative: Signs of fluid overload present Currently on 2 L GCS 15 Hemodynamic stable Experiencing cough Nonfocal neuroexam Data 06/23/23 06:43 06/23/23 06:43 Micro: Microbiology 06/21/23 18:04 Blood Culture - Preliminary Blood NEGATIVE TO DATE 06/21/23 17:16 Blood Culture - Preliminary Blood NEGATIVE TO DATE A&P Assessment and plan (1) Systolic CHF: (2) Acute non-ST elevation myocardial infarction (NSTEMI): (3) Type 2 diabetes mellitus: Qualifiers: Diabetes mellitus complication detail: with other circulatory complications Diabetes mellitus complication status: with circulatory complication Diabetes mellitus [facility] insulin use: without termite control representative use Qualified Code(s): E11.59 - Type 2 diabetes mellitus with other circulatory complications (4) Chronic kidney disease, stage 3 unspecified: (5) CAROLYNN (acute kidney injury): (6) Iron deficiency anemia: Qualifiers: Iron deficiency anemia type: unspecified iron deficiency Qualified Code(s): D50.9 - Iron deficiency anemia, unspecified (7) Acute on chronic respiratory failure with hypoxia: Plan Non-STEMI Medical management as of now No active chest pain Coronary angiogram is indicated however he carries high risk of contrast-induced nephropathy with underlying chronic kidney disease which might need dialysis at the end Will get a hold of medical DPOA No need to keep him n.p.o. for today Let him have cardiac diet excessive coughing spells added dextromethorphan guaifenesin He does have left lower lung base pneumonia, okay to continue linezolid along Zosyn Acute hypoxia requiring 2 L Systolic CHF exacerbation Currently on IV Lasix every 12 hours Finish 48 hours of heparin drip Which will be today Spoke with cardiology We also need to discuss goals of care with medical DPOA, patient currently is full code Attestations 2 Medical Necessity Statement*: Continue management in the ICU for now Diagnoses Systolic CHF I50.20 Acute non-ST elevation myocardial infarction (NSTEMI) I21.4 Type 2 diabetes mellitus with other circulatory complication, without long-term current use of insulin E11.59 Diabetes mellitus complication detail: with other circulatory complications Diabetes mellitus complication status: with circulatory complication Diabetes mellitus [facility] insulin use: without [facility] use Chronic kidney disease, stage 3 unspecified N18.30 CAROLYNN (acute kidney injury) N17.9 Iron deficiency anemia, unspecified iron deficiency anemia type D50.9 Iron deficiency anemia type: unspecified iron deficiency Acute on chronic respiratory failure with hypoxia J96.21
[2023-06-23] MEDS: heparin drip 25,000 UNIT/500 ML PREMIX 19 UNIT IV (13:30)
[2023-06-23 14:02] LABS: Partial Thromboplastin Time 42.4 SECONDS (23.9-36.7)
[2023-06-23 17:06] LABS: Glucose Point of Care 194 mg/dL (70-110)
[2023-06-23] MEDS: atorvastatin 40 mg Tablet PO (17:32)
[2023-06-23] MEDS: guaiFENesin-dextromethorphan UDC 10 mL 5 ML PO ×2 (17:45→22:23)
[2023-06-23 20:20] LABS: Partial Thromboplastin Time 47.6 SECONDS (23.9-36.7)
[2023-06-23 20:23] LABS: Glucose Point of Care 219 mg/dL (70-110)
[2023-06-23] MEDS: heparin 5,000 unit/mL INJ 1 mL IV (20:44)
--- NOTE | 2023-06-23 20:55 | PC.NURSE ---
Upon arrival to unit, heparin drip was going at 950units/hour on the pump, adjusted drip per protocol to 1050units/hour and documented this current rate in apr.
[2023-06-23] MEDS: heparin drip 25,000 UNIT/500 ML PREMIX 21 UNIT IV (22:16)
[2023-06-24] VITALS (27 sets, daily range): BP systolic 105–160; BP diastolic 58–88; PULSE 48–97; RESP 10–28; TEMP 36.3–36.9; O2SAT 87–96
[2023-06-24] MEDS: FUROsemide 10 mg/mL SDV 4mL 40 MG IVP ×2 (01:28→14:19)
[2023-06-24] MEDS: ipratropium-albuterol 3 mL Neb INHALATION ×4 (02:22→20:36)
[2023-06-24 03:47] LABS: Basophils % 0.2 %; Eosinophils # 0.4 10^3/uL (0.0-0.8); Eosinophils % 3.9 %; Lymphocytes # 0.8 10^3/uL (0.8-4.8); Lymphocytes % 8.7 %; Mean Corpuscular HGB Conc 29.8 g/dL (30-55); Mean Corpuscular Volume 90.9 fl (82-101); Mean Platelet Volume 11.4 fL (7.4-10.4); Monocytes # 0.7 10^3/uL (0.2-0.9); Monocytes % 7.5 %; Neutrophils # 7.38 10^3/uL (1.8-7.7); Neutrophils % 79.3 %; Nucleated Red Blood Cells % 0 %; Platelet Count 303 10^3/cmm (157-399); Red Cell Distribution Width 16.2 % (12.1-15.1); White Blood Count 9.31 10^3/uL (3.29-11.43)
[2023-06-24 03:55] LABS: Partial Thromboplastin Time 58.2 SECONDS (23.9-36.7)
[2023-06-24 04:06] LABS: Anion Gap 17.3 (5-19); Blood Urea Nitrogen 47 mg/dL (8-23); Calcium 8.8 mg/dL (8.5-10.5); Carbon Dioxide 27 mmol/L (22-29); Chloride 99 mmol/L (98-107); Creatinine Clr Calc Pharmacy 23.5852; Glucose 170 mg/dL (65-115); Osmolality Calculated 304 mOsm/kg (285-295); Potassium 4.3 mmol/L (3.5-5.1); Sodium 139 mmol/L (136-145)
[2023-06-24] MEDS: linezolid premix 600 MG/300 ML PREMIX 300 MG IV ×2 (05:23→17:40)
[2023-06-24] MEDS: budesonide 0.5 mg/2 mL Neb INHALATION ×2 (07:39→20:36)
[2023-06-24] MEDS: piperacillin-tazobactam 3.375 GM in sodium chloride 0.9% (plus) 50 ML IV ×3 (07:54→22:26)
[2023-06-24] MEDS: pantoprazole DR 40 mg Tablet PO (08:07)
[2023-06-24] MEDS: insulin lispro 100 unit/1 mL SUBCUT ×4 (08:07→20:45)
[2023-06-24] MEDS: aspirin 81 mg EC Tablet 162 MG PO (08:07)
[2023-06-24] MEDS: clopidogrel 75 mg Tablet PO (08:07)
[2023-06-24] MEDS: montelukast sodium 10 mg Tablet PO (08:08)
[2023-06-24] MEDS: metoprolol succinate ER (24 HR) 25 mg Tablet PO (08:08)
[2023-06-24] MEDS: levothyroxine 112 mcg Tablet PO (08:08)
[2023-06-24 08:11] LABS: Glucose Point of Care 199 mg/dL (70-110)
--- NOTE | 2023-06-24 09:06 | P.PN_ITS ---
Subjective 2 Subjective: Patient is doing well. no chest pain. Vitals/I&O/Wt Last Vital Signs Temp 97.8 F 06/24/23 08:19 Pulse 89 06/24/23 08:00 Resp 20 H 06/24/23 08:00 BP 125/71 06/24/23 08:00 Pulse Ox 91 06/24/23 08:00 O2 Del Method Nasal Cannula 06/24/23 08:00 O2 Flow Rate 2 06/24/23 08:00 FiO2 30 06/23/23 06:01 06/23/23 06/24/23 06/24/23 22:59 06:59 14:59 Intake Total 1068.929 / 2047.359 469.7 / 2517.059 400 / 400 Output Total 1225 / 1225 1375 / 2600 Balance -156.071 / 822.359 -905.3 / -82.941 400 / 400 Weight last 48 hrs Weight 205 lb Weight 208 lb 14.4 oz Weight 209 lb 9.6 oz Physical Exam 2 Narrative: GENERAL: Patient is alert, awake and oriented x3. [] NECK: No jugular vein distension. [] HEENT: No cyanosis. No icterus. No pallor. [] HEART: Regular S1 and S2. No murmur, rub or gallop. [] LUNGS: Clear to auscultate bilaterally. [] CENTRAL NERVOUS SYSTEM: Grossly nonfocal. [] EXTREMITIES: Lower extremities with 1+ edema bilaterally. Data 06/25/23 05:56 06/24/23 02:50 A&P Assessment and plan (1) Acute non-ST elevation myocardial infarction (NSTEMI): (2) CAD (coronary artery disease): (3) Systolic CHF: (4) Congestive heart failure: (5) Chronic kidney disease, stage 3 unspecified: Plan Patient is overall stable. Continue medical management. Thank you for involving us with care of this patient. We will continue to follow. Please call with questions. Attestations 2 Medical Necessity Statement*: Care expected to cross 2 midnights. Coding Level of Care Code Acute Code for [facility] Diagnoses Acute non-ST elevation myocardial infarction (NSTEMI) I21.4 CAD (coronary artery disease) I25.10 Systolic CHF I50.20 Congestive heart failure I50.9 Chronic kidney disease, stage 3 unspecified N18.30
[2023-06-24 09:42] LABS: Partial Thromboplastin Time 54.5 SECONDS (23.9-36.7)
[2023-06-24 10:55] LABS: Glucose Point of Care 238 mg/dL (70-110)
--- NOTE | 2023-06-24 11:56 | PM.PN ---
Subjective Subjective: Patient not having any active chest pain or shortness of breath Doing well on 1 to 2 L Sign of fluid load improving Not experiencing coughing today Patient is more awake and alert today She is walking in the room Transfer out of ICU to CSU There is no medical DPOA Vitals/I&O/Wt Last Vital Signs Temp 97.8 F 06/24/23 08:19 Pulse 85 06/24/23 10:00 Resp 24 H 06/24/23 10:00 BP 127/58 06/24/23 10:00 Pulse Ox 94 06/24/23 10:00 O2 Del Method Nasal Cannula 06/24/23 08:00 O2 Flow Rate 2 06/24/23 08:00 FiO2 30 06/23/23 06:01 06/23/23 06/24/23 06/24/23 22:59 06:59 14:59 Intake Total 919.633 / 1857.883 469.7 / 2327.583 577.05 / 577.05 Output Total 1225 / 1225 1375 / 2600 Balance -305.367 / 632.883 -905.3 / -272.417 577.05 / 577.05 Weight last 48 hrs Weight 92.986 kg Weight 94.755 kg Weight 95.073 kg Physical Exam Narrative: Cough has improved Currently on 1 to 2 L Pleasant cooperative he is walking in the room without any difficulty GCS 15 Sign of fluid load improving Abdomen distended nontender S1, S2 no chest pain Data 06/24/23 02:50 06/24/23 02:50 A&P Assessment and plan (1) Systolic CHF: (2) Congestive heart failure: (3) Acute non-ST elevation myocardial infarction (NSTEMI): (4) Type 2 diabetes mellitus: Qualifiers: Diabetes mellitus complication detail: with other circulatory complications Diabetes mellitus complication status: with circulatory complication 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 mellitus 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 insulin use: without 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 use Qualified Code(s): E11.59 - Type 2 diabetes mellitus with other circulatory complications (5) Constipation: (6) Chronic kidney disease, stage 3 unspecified: (7) CAROLYNN (acute kidney injury): (8) Chronic kidney disease: (9) Iron deficiency anemia: Qualifiers: Iron deficiency anemia type: unspecified iron deficiency Qualified Code(s): D50.9 - Iron deficiency anemia, unspecified (10) Acute on chronic respiratory failure with hypoxia: (11) Pulmonary edema: (12) Pneumonia: Plan Non-STEMI Patient is being treated medically No plan for angiogram Patient does not have a medical DPOA, Discontinue heparin drip No active chest pain Left lower lobe pneumonia Continue antibiotics Continue antitussive agents No signs of sepsis at this point Acute on chronic kidney disease Creatinine has not stabilized Avoiding nephrotoxic agents Not a good candidate to go for angiogram because you talk with your high risk to go on dialysis Patient is more awake and alert today He is agreeable with the medical management for now We will transfer out of ICU to CSU Systolic CHF exacerbation: Reduced EF: Continue diuretics Attestations Medical Necessity Statement*: Continue medical management Diagnoses Systolic CHF I50.20 Congestive heart failure I50.9 Acute non-ST elevation myocardial infarction (NSTEMI) I21.4 Type 2 diabetes mellitus with other circulatory complication, without long-term current use of insulin E11.59 Diabetes mellitus complication detail: with other circulatory complications Diabetes mellitus complication status: with circulatory complication Diabetes mellitus 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 insulin use: without 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 use Constipation K59.00 Chronic kidney disease, stage 3 unspecified N18.30 CAROLYNN (acute kidney injury) N17.9 Chronic kidney disease N18.9 Iron deficiency anemia, unspecified iron deficiency anemia type D50.9 Iron deficiency anemia type: unspecified iron deficiency Acute on chronic respiratory failure with hypoxia J96.21 Pulmonary edema J81.1 Pneumonia J18.9
[2023-06-24] MEDS: guaiFENesin-dextromethorphan UDC 10 mL 5 ML PO (14:19)
--- NOTE | 2023-06-24 14:30 | PC.NURSE ---
Transfer Note Patient transferred to med-surg room 277-1 from ICU via wheelchair. Handoff report given to ALFREDA Walter. Patient oriented to environment and equipment. Covering service notified. Orders reviewed and will continue to monitor. Upon transfer patient wearing 2LNC, no wounds or skin issues noted at this time. Heparin and Zosyn infusing upon transfer, please see MAR for details. All patient belongings transferred with patient and placed at bedside.
[2023-06-24 17:23] LABS: Glucose Point of Care 178 mg/dL (70-110)
[2023-06-24] MEDS: atorvastatin 40 mg Tablet PO (17:40)
[2023-06-24] MEDS: sodium bicarbonate 650 mg Tablet 1300 MG PO (17:40)
[2023-06-24] MEDS: insulin glargine 100 units/1 mL 25 UNIT SUBCUT (20:31)
[2023-06-24 20:35] LABS: Glucose Point of Care 277 mg/dL (70-110)
[2023-06-25] VITALS (7 sets, daily range): BP systolic 132–175; BP diastolic 70–79; PULSE 59–85; RESP 18–20; TEMP 36.4–36.5; O2SAT 91–97
[2023-06-25] MEDS: FUROsemide 10 mg/mL SDV 4mL 40 MG IVP (01:18)
[2023-06-25] MEDS: ipratropium-albuterol 3 mL Neb INHALATION ×2 (02:11→13:25)
[2023-06-25] MEDS: linezolid premix 600 MG/300 ML PREMIX 300 MG IV (05:02)
[2023-06-25 06:09] LABS: Platelet Count 332 10^3/cmm (157-399)
[2023-06-25 06:20] LABS: Glucose Point of Care 223 mg/dL (70-110)
[2023-06-25] MEDS: piperacillin-tazobactam 3.375 GM in sodium chloride 0.9% (plus) 50 ML IV (06:21)
--- NOTE | 2023-06-25 07:54 | P.PN_ITS ---
Subjective 2 Subjective: Patient doing well. no chest pain. Vitals/I&O/Wt Last Vital Signs Temp 97.7 F 06/25/23 07:51 Pulse 72 06/25/23 07:51 Resp 20 H 06/25/23 07:51 BP 148/79 06/25/23 07:51 Pulse Ox 96 06/25/23 07:51 O2 Del Method Nasal Cannula 06/25/23 07:51 O2 Flow Rate 2 06/25/23 02:11 FiO2 30 06/23/23 06:01 06/24/23 06/25/23 06/25/23 22:59 06:59 14:59 Intake Total 350 / 1236.317 350 / 1586.317 Balance 350 / 936.317 350 / 1286.317 Weight last 48 hrs Weight 206 lb 1.6 oz Weight 205 lb Physical Exam 2 Narrative: GENERAL: Patient is alert, awake and oriented x3. [] NECK: No jugular vein distension. [] HEENT: No cyanosis. No icterus. No pallor. [] HEART: Regular S1 and S2. No murmur, rub or gallop. [] LUNGS: Clear to auscultate bilaterally. [] CENTRAL NERVOUS SYSTEM: Grossly nonfocal. [] EXTREMITIES: Lower extremities with 1+ edema bilaterally. Data 06/25/23 05:56 06/24/23 02:50 A&P Assessment and plan (1) Acute non-ST elevation myocardial infarction (NSTEMI): (2) CAD (coronary artery disease): (3) Systolic CHF: (4) Congestive heart failure: (5) Chronic kidney disease, stage 3 unspecified: Plan Patient is doing well. He is stable to be discharged from cardiology standpoint. Has high risk of complications from invasive procedures and shared decision made to continue medical therapy Please call with questions. Attestations 2 Medical Necessity Statement*: Care expected to cross 2 midnights. Coding Level of Care Code Acute Code for [facility] Diagnoses Acute non-ST elevation myocardial infarction (NSTEMI) I21.4 CAD (coronary artery disease) I25.10 Systolic CHF I50.20 Congestive heart failure I50.9 Chronic kidney disease, stage 3 unspecified N18.30
[2023-06-25] MEDS: clopidogrel 75 mg Tablet PO (08:02)
[2023-06-25] MEDS: montelukast sodium 10 mg Tablet PO (08:02)
[2023-06-25] MEDS: levothyroxine 112 mcg Tablet PO (08:02)
[2023-06-25] MEDS: pantoprazole DR 40 mg Tablet PO (08:02)
[2023-06-25] MEDS: guaiFENesin 100 mg/5 mL UDC 10 mL 200 MG PO (08:02)
[2023-06-25] MEDS: aspirin 81 mg EC Tablet 162 MG PO (08:02)
[2023-06-25] MEDS: metoprolol succinate ER (24 HR) 25 mg Tablet PO (08:02)
[2023-06-25] MEDS: insulin lispro 100 unit/1 mL SUBCUT ×2 (08:02→12:46)
[2023-06-25] MEDS: sodium bicarbonate 650 mg Tablet 1300 MG PO (08:02)
--- NOTE | 2023-06-25 10:56 | P.DS_ITS ---
Discharge Providers Date of Admission: 06/21/23 19:38 Date of Discharge: June 25, 2023 Attending Provider at Admission: Octavio Huber MD Attending Provider at Discharge: Keith Viveros MD Primary Care Provider: Elza Peralta APN Diagnoses at Discharge Discharge Diagnosis (1) Acute non-ST elevation myocardial infarction (NSTEMI): Status: Acute (2) CAD (coronary artery disease): Status: Acute (3) Systolic CHF: Status: Acute (4) Congestive heart failure: Status: Acute (5) Chronic kidney disease, stage 3 unspecified: Status: Acute Reason for Visit Reason for Visit: SOB Hospital Course Hospital Course 73-year-old male who was admitted for management evaluation of systolic CHF exacerbation, acute hypoxia requiring 2 to 3 L, echo revealed EF of 35 to 40%, patient was being evaluated for an angiogram however decision was made to manage medically because of his chronic kidney disease, patient seems to have mild cognitive impairment, there is no medical DPOA, it took about 40 hours for his mentation to get better this was likely opioid induced, we had detailed discussion with the patient as a multidisciplinary team for medical and cardiology. Patient decided to opt for medical management, he mainly relied on the opinion by the experts such as traveling sales representative. At the time of discharge she will get dual antiplatelet therapy, beta-roseanne, Imdur antianginal medication optimization. He is listed as full code, goals of care discussion was very difficult to be continued with the patient because of his comprehension. At this point it is at best interest of the patient to manage him medically so we do not jeopardize his kidney function he will be a very poor candidate to be on dialysis. During his hospitalization he was treated for pneumonia as well left lower lobe infiltrate which was treated with broad-spectrum antibiotics at the time of disc harge she will get doxycycline and Augmentin for 5 days. Physical Exam Narrative: Awake and alert Signs of fluid load improving Fluctuating between 1 to 2 L of oxygen and room air Able to walk on his own Able to comprehend simple commands GCS 15 Nonfocal neuroexam Discharge Data Studies Completed and Pending Completed Studies During Hospitalization Category Date Time Status CT chest wo con [id number] Stat Cat Scan 06/21/23 17:39 Completed XR chest 1V [id number] Stat Exams 06/21/23 16:59 Completed XR knee RT 1-2V 22552 Routine Exams 06/21/23 21:43 [place] [id number] Routine Ultrasound 06/22/23 20:17 Completed CV. echo limited [id number] Routine Ultrasound 06/22/23 20:03 Completed Pending at discharge Category Date Time Status Blood Culture Stat Lab 06/21/23 17:16 Results Blood Culture Stat Lab 06/21/23 18:04 Results Sputum Culture and Gram Stain Routine Lab 06/21/23 22:50 Uncollected Radiology Impressions Chest X-Ray 06/21/23 16:59 IMPRESSION: Large new consolidation in the left lung base. Chest CT 06/21/23 17:39 IMPRESSION: 1. Large ground-glass and consolidative opacities throughout the left lower lobe, posterior aspect of the left upper lobe, and right lower lobe with small bilateral pleural effusions. Findings can be seen in the setting pulmonary edema given the dependent distribution though infectious etiology cannot be entirely excluded. 2. Prior median sternotomy and CABG. Knee X-Ray 06/21/23 21:43 IMPRESSION: 1. Prepatellar soft tissue swelling which can be seen in the setting of hematoma. No underlying patellar fracture. 2. Trace joint effusion. Venous Duplex 06/22/23 20:17 IMPRESSION: No evidence of deep vein thrombosis. Laboratory Results WBC 9.31 10^3/uL (3.29-11.43) 06/24/23 02:50 RBC 4.40 10^6/uL (3.85-5.65) 06/24/23 02:50 Hgb 11.90 g/dL (11.27-16.99) 06/24/23 02:50 Hct 40.0 % (37-53) 06/24/23 02:50 MCV 90.9 fl (82-101) 06/24/23 02:50 MCH 27.0 pg (27-33) 06/24/23 02:50 MCHC 29.8 g/dL (30-55) L 06/24/23 02:50 RDW 16.2 % (12.1-15.1) H 06/24/23 02:50 Plt Count 332 10^3/cmm (157-399) 06/25/23 05:56 MPV 11.4 fL (7.4-10.4) H 06/24/23 02:50 Neut % (Auto) 79.3 % 06/24/23 02:50 Lymph % (Auto) 8.7 % 06/24/23 02:50 Jones % (Auto) 7.5 % 06/24/23 02:50 Eos % (Auto) 3.9 % 06/24/23 02:50 Baso % (Auto) 0.2 % 06/24/23 02:50 Neut # (Auto) 7.38 10^3/uL (1.8-7.7) 06/24/23 02:50 Lymph # (Auto) 0.8 10^3/uL (0.8-4.8) 06/24/23 02:50 Jones # (Auto) 0.7 10^3/uL (0.2-0.9) 06/24/23 02:50 Eos # (Auto) 0.4 10^3/uL (0.0-0.8) 06/24/23 02:50 Baso # (Auto) 0.0 10^3/uL (0.0-0.1) 06/24/23 02:50 Nucleated RBC % (auto) 0 % 06/24/23 02:50 Nucleated RBCs # 0.0 /100WBC 06/24/23 02:50 APTT 54.5 SECONDS (23.9-36.7) H 06/24/23 08:53 Specimen Type Arterial 06/21/23 17:30 Sample Site Brachial, right 06/21/23 17:30 ABG pH 7.29 (7.35-7.45) L 06/21/23 17:30 ABG pCO2 48.8 mmHg (35-45) H 06/21/23 17:30 ABG pO2 77.1 mmHg (80.0-100.0) L 06/21/23 17:30 ABG PO2/FiO2 Ratio 0 06/21/23 17:30 ABG HCO3 23.6 mmol/L (22-26) 06/21/23 17:30 ABG O2 Saturation 93.2 06/21/23 17:30 ABG Base Excess -3.3 mmol/L (-2.0-2.0) L 06/21/23 17:30 Sulaiman Test N/a 06/21/23 17:30 A-a O2 Gradient 74.6 mmHg (5-10) H 06/21/23 17:30 Hematocrit 42.7 % (42-52) 06/21/23 17:30 Hgb O2 Saturation 92.0 % (95-100) L 06/21/23 17:30 Carboxyhemoglobin 0.7 %THgb (0.4-20.1) 06/21/23 17:30 Methemoglobin 0.6 % (0.4-1.5) 06/21/23 17:30 Total Hemoglobin 13.9 g/dL (14-18) L 06/21/23 17:30 Sodium 140.0 mmol/L (131-143) 06/21/23 17:30 Potassium 4.4 mmol/L (3.5-5.0) 06/21/23 17:30 Glucose 432.0 mg/dL (70-115) H 06/21/23 17:30 Ionized Calcium 1.2 mmol/L (1.1-1.4) 06/21/23 17:30 O2 Delivery Device Nrb 06/21/23 17:30 O2 Liters/Min 15.0 % 06/21/23 17:30 FiO2 100.0 % 06/21/23 17:30 Solar Sales Associate ID [id number] 06/21/23 17:30 Sodium 139 mmol/L (136-145) 06/24/23 02:50 Potassium 4.3 mmol/L (3.5-5.1) 06/24/23 02:50 Chloride 99 mmol/L (98-107) 06/24/23 02:50 Carbon Dioxide 27 mmol/L (22-29) 06/24/23 02:50 Anion Gap 17.3 (5-19) 06/24/23 02:50 BUN 47 mg/dL (8-23) H 06/24/23 02:50 Creatinine 2.8 mg/dL (0.7-1.2) H 06/24/23 02:50 GFR Calculation Not Reportable 06/24/23 02:50 Glucose 170 mg/dL (65-115) H 06/24/23 02:50 POC Glucose 223 mg/dL (70-110) H 06/25/23 06:14 Calculated Osmolality 304 mOsm/kg (285-295) H 06/24/23 02:50 Lactic Acid 2.2 mmol/L (0.5-2.2) 06/21/23 17:16 Lactic Acid (Sepsis) 2.8 mmol/L (0.5-2.2) H 06/21/23 20:38 Calcium 8.8 mg/dL (8.5-10.5) 06/24/23 02:50 Magnesium 2.1 mg/dL (1.7-2.3) 06/23/23 06:43 Total Bilirubin 0.5 mg/dL (0.15-1.2) 06/22/23 05:16 AST 45 U/L (0-40) H 06/22/23 05:16 ALT 29 U/L (0-41) 06/22/23 05:16 Alkaline Phosphatase 135 U/L (40-130) H 06/22/23 05:16 Creatine Kinase 198 U/L (39-308) 06/21/23 19:12 Troponin T Baseline 120 ng/L (0-15) H* 06/21/23 17:16 Troponin T 120 Minute 278.0 ng/L (0-15) H 06/21/23 19:12 Delta Troponin T 158.0 ABS# (0-10) H* 06/21/23 19:12 Troponin T Hi Sens 6Hr 475.8 ng/L (0-15) H 06/21/23 23:50 Troponin T Hi Sens 6Hr Delta 355.8 ng/L (0-12) H* 06/21/23 23:50 NT-Pro-B Natriuret Pep 20754 pg/mL (0-125) H 06/21/23 17:16 Total Protein 7.7 g/dL (6.6-8.7) 06/22/23 05:16 Albumin 3.5 g/dL (3.5-5.2) 06/22/23 05:16 Globulin 4.2 g/dL (1.3-4.6) 06/22/23 05:16 Urine Color Yellow (Yellow) 06/21/23 20:35 Urine Appearance Clear (CLEAR) 06/21/23 20:35 Urine pH 5 (5-7) 06/21/23 20:35 Ur Specific [place] 1.010 (1.005-1.030) 06/21/23 20:35 Urine Protein 1+ (Negative) H 06/21/23 20:35 Urine Glucose (UA) 4+ (Normal) H 06/21/23 20:35 Urine Ketones Negative (Negative) 06/21/23 20:35 Urine Blood Trace (Negative) H 06/21/23 20:35 Urine Nitrate Negative (Negative) 06/21/23 20:35 Urine Bilirubin Neg (Negative) 06/21/23 20:35 Urine Urobilinogen Neg mg/dL (Negative) 06/21/23 20:35 Ur Leukocyte Esterase Negative (Negative) 06/21/23 20:35 Urine RBC 0-4 /hpf (0-2) H 06/21/23 20:35 Urine WBC 0-4 /hpf (0-5) H 06/21/23 20:35 Ur Squamous Epith Cells 0-4 /hpf (0-5) H 06/21/23 20:35 Amorphous Sediment Not Reportable 06/21/23 20:35 Urine Bacteria Trace /hpf (NONE) 06/21/23 20:35 Hyaline Casts 0-4 /lpf H 06/21/23 20:35 Urine Mucus Trace /hpf 06/21/23 20:35 Serum Ketones Negative (Negative) 06/21/23 17:16 Influenza Type A Ag negative (Negative) 06/23/23 11:15 Influenza Type B Ag negative (Negative) 06/23/23 11:15 SARS-CoV-2 Ag (Rapid) negative (Negative) 06/23/23 11:15 Vitals Last Vital Signs Temp 97.7 F 06/25/23 07:51 Pulse 72 06/25/23 07:51 Resp 20 H 06/25/23 07:51 BP 148/79 06/25/23 07:51 Pulse Ox 96 06/25/23 07:51 O2 Del Method Nasal Cannula 06/25/23 08:17 O2 Flow Rate 2 06/25/23 08:17 FiO2 30 06/23/23 06:01 Discharge Plan Discharge Patient Disposition: Xfer SNF Condition: Stable Prescriptions: New amoxicillin-pot clavulanate 875-125 mg tablet 1 tab PO BID Qty: 10 0RF dextromethorphan-guaifenesin [Robitussin Honey Max DM] 5-100 mg/5 mL liquid 10 ml PO Q8H PRN (Reason: cough) Qty: 500 0RF doxycycline hyclate 100 mg tablet 100 mg PO BID 3 Days Qty: 6 0RF isosorbide dinitrate 30 mg tablet 30 mg PO BID Qty: 60 2RF Rx Instructions: allow nitrate-free interval of 12-14 hrs per 24-hr period Continued ergocalciferol (vitamin D2) 1,250 mcg (50,000 unit) capsule 50,000 unit PO Q7D montelukast 10 mg tablet 10 mg PO DAILY omega-3 acid ethyl esters 1 gram capsule 1 cap PO DAILY oxybutynin chloride 15 mg tablet extended release 24hr 30 mg PO DAILY pantoprazole 40 mg tablet,delayed release (DR/EC) 40 mg PO DAILY aspirin [Adult Low Dose Aspirin] 81 mg tablet,delayed release (DR/EC) 162 mg PO DAILY Qty: 180 3RF (DME) OneTouch Verio test strips Strip See Rx Instructions .ROUTE .COMPLEX Qty: 100 3RF Dose Instruction: for TYPE 2 DIABETES MELLITUS; USE ONE STRIP TO CHECK BLOOD SUGAR DAILY Rx Instructions: for TYPE 2 DIABETES MELLITUS; USE ONE STRIP TO CHECK BLOOD SUGAR DAILY fluticasone propionate 50 mcg/actuation [place],Suspension 1 spray intranasal DAILY levothyroxine 112 mcg tablet 112 mcg PO DAILY lactulose 10 gram/15 mL solution 30 ml PO BID clopidogrel 75 mg Tablet 75 mg PO DAILY 30 Days Qty: 30 3RF thiamine HCl (vitamin B1) 100 mg tablet 100 mg PO DAILY Qty: 90 0RF multivitamin Tablet 1 tab PO DAILY Qty: 90 0RF furosemide 40 mg tablet 40 mg PO DAILY 30 Days Qty: 60 2RF atorvastatin 40 mg tablet 40 mg PO QPM acetaminophen 325 mg Tablet 650 mg PO QID PRN (Reason: Pain) magnesium hydroxide [Milk of Magnesia] 400 mg/5 mL Suspension 30 ml PO DAILY PRN (Reason: Constipation) sodium bicarbonate 650 mg Tablet 1,300 mg PO BID bisacodyl [Dulcolax (bisacodyl)] 10 mg Suppository 10 mg [place] DAILY PRN (Reason: Constipation) albuterol sulfate [Ventolin HFA] 90 mcg/actuation Hfa Aerosol Inhaler 2 puff INHALATION QID PRN (Reason: Shortness Of Breath Or Wheezing) insulin lispro [Humalog KwikPen Insulin] 100 unit/mL insulin pen See Rx Instructions .ROUTE .COMPLEX Rx Instructions: subcutaneously per sliding scale fluticasone furoate-vilanterol [Breo Ellipta] 200-25 mcg/dose blister with device 1 inh INHALATION DAILY bisacodyl 5 mg tablet,delayed release (DR/EC) 20 mg PO DAILY PRN (Reason: Constipation (see protocol)) polyethylene glycol 3350 [Miralax] 17 gram/dose Powder 4 g PO DAILY PRN (Reason: Constipation) Artificial Tears (PF) 0.1-0.3 % [place]rette 2 drp ophthalmic (eye) DAILY PRN (Reason: Dry Eye(S)) insulin glargine [Lantus Solostar U-100 Insulin] 100 unit/mL (3 mL) insulin pen 25 unit SUBCUT BID Qty: 15 0RF prednisone 20 mg Tablet 20 mg PO DAILY Rx Instructions: 20mg for 5 days. First dose given 06/20/23 iron 325 mg (65 mg iron) Tablet 325 mg PO EVERY OTHER DAY metoprolol succinate 25 mg tablet extended release 24 hr 25 mg PO DAILY Discontinued amitriptyline 10 mg tablet 10 mg PO DAILY folic acid 1 mg tablet 1,000 mcg PO DAILY Qty: 90 0RF alum-mag hydroxide-simeth 200-200-20 mg/5 mL Suspension 30 ml PO Q2H PRN (Reason: Constipation) Rx Instructions: administer between meals and at bedtime Jardiance 10 mg tablet 10 mg PO DAILY Discharge Orders: Discharge Order (Routine); Ordered 06/25/23 Ordered By: Keith Viveros Referrals: Elza Peralta FNP [Primary Care Provider] - (We have notified your physician's clinic of the need for a follow-up appointment to be scheduled. If you have not heard from them within the next 2 business days, please call them directly. ) Discharge Attestations Time Spent in Discharge Care*: greater than 30 min Status at Discharge: Cognitive status at discharge: cognitively intact , Quality Metrics Clinical Quality Measures [ No reported AMI, CVA or VTE this stay] Coding Level of Care Code Acute Code for [facility] Diagnoses Acute non-ST elevation myocardial infarction (NSTEMI) I21.4 CAD (coronary artery disease) I25.10 Systolic CHF I50.20 Congestive heart failure I50.9 Chronic kidney disease, stage 3 unspecified N18.30
[2023-06-25 11:42] LABS: Glucose Point of Care 280 mg/dL (70-110)
--- NOTE | 2023-06-25 12:33 | PC.SOCIAL ---
IMM Update pg 2 of IMM updated and reviewed w/ patient. Copy provided and copy dated, initialed and placed in chart.
--- NOTE | 2023-06-25 13:01 | PC.NURSE ---
This nurse contacted Nia Lester and gave report to Nurse Sinha. All questions addressed and answered at this time. Patient is awaiting ride that will be here around 1400.
== END 2023-06-25 14:00 | disposition skilled nursing facility (03) | DRG 280 ==
LOC: ER 18:51 → ICU 19:39 → MEDSURG 06-24 14:36
PROVIDERS: Family Medicine; Internal Medicine; Admitting Provider Internal Medicine; Emergency Provider Emergency Medicine; PCP Nurse Practitioner; Visit Provider Internal Medicine
DX: I21.4 Non-ST elevation (NSTEMI) myocardial infarction (principal); I50.23 Acute on chronic systolic (congestive) heart failure; J18.9 Pneumonia, unspecified organism; J96.21 Acute and chronic respiratory failure with hypoxia; I25.810 Atherosclerosis of coronary artery bypass graft(s) without angina pectoris; I13.0 Hypertensive heart and chronic kidney disease with heart failure and stage 1 through stage 4 chronic kidney disease, or unspecified chronic kidney disease; N17.9 Acute kidney failure, unspecified; F70 Mild intellectual disabilities; I25.10 Atherosclerotic heart disease of native coronary artery without angina pectoris; N18.30 Chronic kidney disease, stage 3 unspecified; E11.22 Type 2 diabetes mellitus with diabetic chronic kidney disease; I25.2 Old myocardial infarction; E11.40 Type 2 diabetes mellitus with diabetic neuropathy, unspecified; D50.9 Iron deficiency anemia, unspecified; D63.1 Anemia in chronic kidney disease; E03.9 Hypothyroidism, unspecified; K59.04 Chronic idiopathic constipation; E78.5 Hyperlipidemia, unspecified; E55.9 Vitamin D deficiency, unspecified; S80.01XA Contusion of right knee, initial encounter; X58.XXXA Exposure to other specified factors, initial encounter; Z79.02 Long term (current) use of antithrombotics/antiplatelets; Z79.4 Long term (current) use of insulin; Z79.82 Long term (current) use of aspirin; Z99.81 Dependence on supplemental oxygen; Z11.52 Encounter for screening for COVID-19; Z87.01 Personal history of pneumonia (recurrent)
CPT/HCPCS: 36415; 36416; 36600; 71045; 71250; 73560; 80048; 80051; 80053; 81001; 82009; 82330; 82550; 82805; 82962; 83605; 83735; 83880; 84484; 85025; 85049; 85730; 87040; 87426; 87804; 92610; 93005; 93308; 93970; 94640; 94660; 96365; 96367; 96372; 96374; 96375; 96376; 99291; J1644; J1815; J1940; J2020; J2185; J2543; J7626